=== PATIENT | female | born 1965 | race Caucasian/White ===

== ENCOUNTER 2016-10-28 17:18 | Emergency (ER) | payer OTHER ==
[~2016-10-28 17:18] MED LIST: /DULO30CA PO; /LOR25TA PO; CALCCHW12 PO; CLAR5CHW PO; DEPA500T PO; ESTR1TAB PO; LIPI10TA PO; PATA0.2S OU; PROG100C PO; PROP10TAB PO; SOMA350T PO; VESI5TAB PO; VOLT1GEL2 TD; vesicare PO
[2016-10-28] MEDS ORDERED: METOCLOPRAMIDE INJ 10MG/2ML VIAL (J2765) As Ordered ONE (19:42)
[2016-10-28] MEDS ORDERED: dexameTHASONE 4 MG/ML 1ML VIAL (J1100) As Ordered ONE (19:42)
[2016-10-28] MEDS ORDERED: diphenhydrAMINE INJ 50MG/ML VIAL (J1200) As Ordered ONE (19:42)
--- NOTE | 2016-10-28 22:44 | EDDOCDS ---
Physician Documentation [facility] Name: Betzy Alfaro Age: 50 yrs Sex: Female : 1965 Arrival Date: 10/28/2016 Time: 17:18 Bed I6 / 28 Private MD: RADHA MTZ Disposition: 10/28/16 22:25 Discharged to Home/Self Care. Impression: Migraine. - Condition is Stable. - Discharge Instructions: Migraine Headache. - Medication Reconciliation, Local Pharmacy Hours form. - Follow up: RADHA MTZ; When: 2 - 3 days; Reason: Recheck today's complaints, Continuance of care. - Problem is new. - Symptoms have improved. - Notes: FOLLOW UP WITH YOUR DOCTOR IN 2-3 DAYS, RETURN TO THE ER IF THE SYMPTOMS WORSEN OR BECOME CONCERNING Historical: - Allergies: Topamaxkidney stones; - Home Meds: 1. propranolol 120 mg Oral Cs24 1 cap once daily 2. loratadine 10 mg Oral tab 1 tab once daily 3. Soma 350 mg Oral tab 1 tab 3 times per day 4. med for restless leg nightly 5. Xanax 1 mg Oral tab nightly 6. Fish Oil Unknown Oral daily 7. calcium carbonate 600 mg (1,500 mg) oral tab daily 8. Vitamin D Unknown Oral daily 9. Prozac Unknown Oral 2 times per day 10. injections for chronic back pain 11. injections of Botox and steroids for migraines - missed injection - PMHx: Seasonal Allergies; Anxiety; Depression; restless leg syndrome; Chronic Back pain; - PSHx: Carpal Tunnel Repair- Bilateral; Cataract Surgery- Right; - Social history: Smoking status: Patient states was never smoker of tobacco. No barriers to communication noted, The patient speaks fluent Bhutanese. - Family history: Not pertinent. - : The pt / caregiver states he / she is not on anticoagulants. Home medication list is obtained from the patient. - Exposure Risk Screening:: None identified. PRINCIPAL ASSOCIATE: 10/28 17:40 LMP 09/16/2016 kcs Vital Signs: 17:20 BP 109 / 74; Pulse 82; Resp 16; Temp 97.3(O); Pulse Ox 100% ; Weight 72.57 kg / 159.99 cmb lbs; Height 5 ft. 4 in. (162.56 cm); Pain 8/10; 22:38 BP 121 / 75; Pulse 80; Resp 16; Temp 98.1; Pulse Ox 98% on R/A; Pain 4/10; lf1 17:20 Body Mass Index 27.46 (72.57 kg, 162.56 cm) cmb MDM: 19:26 Metoclopramide 10 mg IV at 40 mg/hr once over 15 mins ordered. ck7 19:26 diphenhydrAMINE 25 mg IVP once ordered. ck7 19:26 Dexamethasone 8 mg IV at bolus once ordered. ck7 19:26 IV Saline Lock ordered. ck7 19:26 NS 0.9% 1000 ml IV at bolus once ordered. ck7 20:25 [facility] [place] Payment Agreement was scanned into [employer] and attached to record. gjb 20:25 Financial registration complete. gjb Administered Medications: 19:44 Drug: NS 0.9% 1000 ml [sodium chloride 0.9 % intravenous solution] Route: IV; Rate: ms2 bolus; Site: left antecubital; 21:53 Follow up: IV Status: Completed infusion; IV Intake: 1000ml dsf 19:45 Drug: diphenhydrAMINE 25 mg [diphenhydramine 50 mg/mL injection solution (0.5 mL)] ms2 Route: IVP; Site: left antecubital; 19:48 Drug: Dexamethasone 8 mg [dexamethasone 4 mg/mL injection solution] Route: IV; Rate: ms2 bolus; Site: left antecubital; 19:50 Drug: Metoclopramide 10 mg [metoclopramide 5 mg/mL injection solution] Route: IV; Rate: ms2 40 mg/hr; Infused Over: 15 mins; Site: left antecubital; 21:13 Follow up: IV Status: Completed infusion; IV Intake: 50ml dsf Signatures: Valeria Constantino RN RN kcs Estephania Muñoz RN RN lf1 Panchito Wong RPA-C RPA-Cck7 Joi Richey Michele RN ms2 Jeannie Olvera RN dsf The chart was reviewed and I authenticate all verbal orders and agree with the evaluation and treatment provided.Attachments: 20:25 [facility] [place] Payment Agreement gjb MTDD
--- NOTE | 2016-10-28 22:44 | EDDOCDS ---
Nurse's Notes [facility] Name: Betzy Alfaro Age: 50 yrs Sex: Female : 1965 Arrival Date: 10/28/2016 Time: 17:18 Bed I6 / 28 Private MD: RADHA MTZ Diagnosis: Migraine Presentation: 10/28 17:35 Presenting complaint: Patient states: she has had a migraine for 3-4 days and just kcs can't get rid of it. This patient has no additional risk factors. Adult Sepsis Screening: The patient does not have new or worsening altered mentation. Patient's respiratory rate is less than 22. Systolic blood pressure is greater than 100. Patient has a qSOFA score of 0- Negative Sepsis Screen. Suicide/Homicide risk assessment- the patient denies having any suicidal and/or homicidal ideations and does not present with any other emotional, behavioral or mental health complaints. Status: Patient is not a financial services specialist or dependent. Transition of care: patient was not received from another setting of care. 17:35 Acuity: STEFANIE Level 4 kcs 17:35 Method Of Arrival: Walkin/Carried/Asstd kcs Triage Assessment: 17:40 Headache History: This patient has a history of headaches and the character of this kcs headache is like all previous headaches. General: Appears comfortable, well developed, well nourished, well groomed. Pain: Location: back of head and behind left eye Pain currently is 8 out of 10 on a pain scale. HIV screening NA for this visit Offered previously. Neurological: Level of Consciousness is awake, alert. Respiratory: Airway is patent Respiratory effort is even, unlabored, Respiratory pattern is regular, symmetrical. Derm: Skin is intact, is healthy with good turgor, Skin is dry, Skin is normal. 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 propranolol 120 mg Oral Cs24 1 cap once daily 2. loratadine 10 mg Oral tab 1 tab once daily 3. Soma 350 mg Oral tab 1 tab 3 times per day 4. med for restless leg nightly 5. Xanax 1 mg Oral tab nightly 6. Fish Oil Unknown Oral daily 7. calcium carbonate 600 mg (1,500 mg) oral tab daily 8. Vitamin D Unknown Oral daily 9. Prozac Unknown Oral 2 times per day 10. injections for chronic back pain 11. injections of Botox and steroids for migraines - missed September's injection - PMHx: Seasonal Allergies; Anxiety; Depression; restless leg syndrome; Chronic Back pain; - PSHx: Carpal Tunnel Repair- Bilateral; Cataract Surgery- Right; - Social history: Smoking status: Patient states was never smoker of tobacco. No barriers to communication noted, The patient speaks fluent Occitan. - Family history: Not pertinent. - : The pt / caregiver states he / she is not on anticoagulants. Home medication list is obtained from the patient. - Exposure Risk Screening:: None identified. Screenin:20 Infection Control. cmb 22:38 Screening information is obtained from the patient. Fall risk: No risks identified. lf1 Assistance ADL's: requires no assistance with activities of daily living. home support is adequate. Assessment: 19:45 General: Appears uncomfortable, Behavior is cooperative. Pain: Pain currently is 8 out ms2 of 10 on a pain scale. Neurological: Level of Consciousness is awake, alert, obeys commands. Respiratory: Airway is patent Respiratory effort is even, unlabored, Respiratory pattern is regular, symmetrical. Derm: Skin is pink, warm & dry. Musculoskeletal: Range of motion intact in all extremities. 21:13 Adult Sepsis Screening: The patient does not have new or worsening altered mentation. dsf Patient's respiratory rate is less than 22. Systolic blood pressure is greater than 100. Patient has a qSOFA score of 0- Negative Sepsis Screen. General: Appears in no apparent distress, Behavior is appropriate for age, cooperative. Pain: Location: head Pain currently is 6 out of 10 on a pain scale. Neurological: Level of Consciousness is awake, alert. Cardiovascular: No deficits noted. Respiratory: No deficits noted. Derm: Skin is pink, warm & dry. 21:53 General: Appears in no apparent distress, comfortable, Behavior is appropriate for age, dsf cooperative. Pain: Location: head Pain currently is 4 out of 10 on a pain scale. Neurological: Level of Consciousness is awake, alert, obeys commands. Cardiovascular: Capillary refill < 3 seconds. Respiratory: Airway is patent Respiratory effort is even, unlabored, Respiratory pattern is regular, symmetrical. Derm: Skin is pink, warm & dry. 22:38 General: Appears in no apparent distress, comfortable, Behavior is cooperative. Pain: lf1 Location: left eye Pain currently is 4 out of 10 on a pain scale. Neurological: Level of Consciousness is awake, alert, Oriented to person, place, time. EENT: Reports headache that is concentrated behind left eye. Respiratory: Respiratory effort is even, unlabored. GI: Denies nausea, vomiting. Derm: Skin is. Vital Signs: 17:20 BP 109 / 74; Pulse 82; Resp 16; Temp 97.3(O); Pulse Ox 100% ; Weight 72.57 kg; Height 5 cmb ft. 4 in. (162.56 cm); Pain 8/10; 22:38 BP 121 / 75; Pulse 80; Resp 16; Temp 98.1; Pulse Ox 98% on R/A; Pain 4/10; lf1 17:20 Body Mass Index 27.46 (72.57 kg, 162.56 cm) cmb Vitals: 17:20 Log In Time: October 28, 2016 at 17:18. cmb ED Course: 17:19 Patient visited by Meceh Hill. cmb 17:19 RADHA MTZ is Private Physician. cmb 17:19 Patient moved to Waiting cmb 17:23 Patient moved to Pre RCE cmb 17:35 Triage Initiated kcs 18:44 Patient moved to Triage 3 jrd 18:45 Patient moved to Pre RCE rs3 19:00 Patient moved to Triage 1 sew 19:02 [facility] ck7 19:02 Deion Carr DO is Attending Physician. ck7 19:02 Patient visited by Panchito Wong RPA-C. ck7 19:33 Patient moved to I6 / 28 ld5 19:45 Inserted peripheral IV: 20gauge IV in left antecubital area Patient tolerated the ms2 procedure well. No procedures done that require assistance. 19:48 Patient visited by Panchito Wong RPA-C. ck7 19:57 Patient visited by Demetrio Foreman RN. ms2 19:58 The patient / caregiver is instructed regarding the plan of care and ED course. ms2 20:25 [facility] [place] was scanned into [employer] and attached to record. gjb 20:56 Patient visited by Panchtio Wong RPA-C. ck7 21:14 Patient visited by Jeannie Olvera RN. dsf 21:54 Patient visited by Jeannie Olvera RN. dsf 22:25 Patient visited by Panchito Wong RPA-C. ck7 22:25 RADHA MTZ is Referral Physician. ck7 22:38 Discontinued IV lock intact, bleeding controlled, pressure dressing applied, No lf1 redness/swelling at site. Administered Medications: 19:44 Drug: NS 0.9% 1000 ml [sodium chloride 0.9 % intravenous solution] Route: IV; Rate: ms2 bolus; Site: left antecubital; 21:53 Follow up: IV Status: Completed infusion; IV Intake: 1000ml dsf 19:45 Drug: diphenhydrAMINE 25 mg [diphenhydramine 50 mg/mL injection solution (0.5 mL)] ms2 Route: IVP; Site: left antecubital; 19:48 Drug: Dexamethasone 8 mg [dexamethasone 4 mg/mL injection solution] Route: IV; Rate: ms2 bolus; Site: left antecubital; 19:50 Drug: Metoclopramide 10 mg [metoclopramide 5 mg/mL injection solution] Route: IV; Rate: ms2 40 mg/hr; Infused Over: 15 mins; Site: left antecubital; 21:13 Follow up: IV Status: Completed infusion; IV Intake: 50ml dsf Intake: 21:13 IV: 50.00ml; Total: 50.00ml. dsf 21:53 IV: 1000.00ml; Total: 1050.00ml. dsf Order Results: There are currently no results for this order. Outcome: 22:25 Discharge ordered by Provider. ck7 22:38 Discharge Assessment: Patient awake, alert and oriented x 3. No cognitive and/or lf1 functional deficits noted. Patient verbalized understanding of disposition instructions. Patient awake and alert. Oriented to person, place and time. Patient verbalized understanding of disposition instructions. Patient has no functional deficits. patient administered narcotics - no. The following High Risk Discharge criteria are identified: None. Discharged to home ambulatory. Condition: improved. Discharge instructions given to patient, Instructed on discharge instructions, follow up and referral plans. Demonstrated understanding of instructions, Pt was receptive of discharge instructions/ teaching. No special radiology studies were completed. 22:43 Patient left the ED. lf1 Signatures: Valeria Constantino, RN RN kcs Demetrio Foreman RN RN ms2 Estephania Muñoz RN RN lf1 Stephanie Kenny RN RN rs3 Estelle Spivey RN RN ld5 Jeannie Olvera RN RN dsf Meche Hill cmb Panchito Wong, RPA-C RPA-Cck7 Laney Love Joseph, [employer] jrd Joi Richey Corrections: (The following items were deleted from the chart) 17:23 17:20 Resp 16bpm; Temp 97.3F Oral; 72.57 kg; Height 5 ft. 4 in.; BMI: 27.4; Pain 8/10; cmb cmb MTDD
--- NOTE | 2016-10-30 23:45 | EDDOCDS ---
Nurse's Notes [facility] Name: Betzy Alfaro Age: 50 yrs Sex: Female : 1965 Arrival Date: 10/28/2016 Time: 17:18 Bed I6 / 28 Private MD: RADHA MTZ Diagnosis: Migraine Presentation: 10/28 17:35 Presenting complaint: Patient states: she has had a migraine for 3-4 days and just kcs can't get rid of it. This patient has no additional risk factors. Adult Sepsis Screening: The patient does not have new or worsening altered mentation. Patient's respiratory rate is less than 22. Systolic blood pressure is greater than 100. Patient has a qSOFA score of 0- Negative Sepsis Screen. Suicide/Homicide risk assessment- the patient denies having any suicidal and/or homicidal ideations and does not present with any other emotional, behavioral or mental health complaints. Status: Patient is not a neighborhood service center director or dependent. Transition of care: patient was not received from another setting of care. 17:35 Acuity: STEFANIE Level 4 kcs 17:35 Method Of Arrival: Walkin/Carried/Asstd kcs Triage Assessment: 17:40 Headache History: This patient has a history of headaches and the character of this kcs headache is like all previous headaches. General: Appears comfortable, well developed, well nourished, well groomed. Pain: Location: back of head and behind left eye Pain currently is 8 out of 10 on a pain scale. HIV screening NA for this visit Offered previously. Neurological: Level of Consciousness is awake, alert. Respiratory: Airway is patent Respiratory effort is even, unlabored, Respiratory pattern is regular, symmetrical. Derm: Skin is intact, is healthy with good turgor, Skin is dry, Skin is normal. 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 propranolol 120 mg Oral Cs24 1 cap once daily 2. loratadine 10 mg Oral tab 1 tab once daily 3. Soma 350 mg Oral tab 1 tab 3 times per day 4. med for restless leg nightly 5. Xanax 1 mg Oral tab nightly 6. Fish Oil Unknown Oral daily 7. calcium carbonate 600 mg (1,500 mg) oral tab daily 8. Vitamin D Unknown Oral daily 9. Prozac Unknown Oral 2 times per day 10. injections for chronic back pain 11. injections of Botox and steroids for migraines - missed September's injection - PMHx: Seasonal Allergies; Anxiety; Depression; restless leg syndrome; Chronic Back pain; - PSHx: Carpal Tunnel Repair- Bilateral; Cataract Surgery- Right; - Social history: Smoking status: Patient states was never smoker of tobacco. No barriers to communication noted, The patient speaks fluent Spanish. - Family history: Not pertinent. - : The pt / caregiver states he / she is not on anticoagulants. Home medication list is obtained from the patient. - Exposure Risk Screening:: None identified. Screenin:20 Infection Control. cmb 22:38 Screening information is obtained from the patient. Fall risk: No risks identified. lf1 Assistance ADL's: requires no assistance with activities of daily living. home support is adequate. Assessment: 19:45 General: Appears uncomfortable, Behavior is cooperative. Pain: Pain currently is 8 out ms2 of 10 on a pain scale. Neurological: Level of Consciousness is awake, alert, obeys commands. Respiratory: Airway is patent Respiratory effort is even, unlabored, Respiratory pattern is regular, symmetrical. Derm: Skin is pink, warm & dry. Musculoskeletal: Range of motion intact in all extremities. 21:13 Adult Sepsis Screening: The patient does not have new or worsening altered mentation. dsf Patient's respiratory rate is less than 22. Systolic blood pressure is greater than 100. Patient has a qSOFA score of 0- Negative Sepsis Screen. General: Appears in no apparent distress, Behavior is appropriate for age, cooperative. Pain: Location: head Pain currently is 6 out of 10 on a pain scale. Neurological: Level of Consciousness is awake, alert. Cardiovascular: No deficits noted. Respiratory: No deficits noted. Derm: Skin is pink, warm & dry. 21:53 General: Appears in no apparent distress, comfortable, Behavior is appropriate for age, dsf cooperative. Pain: Location: head Pain currently is 4 out of 10 on a pain scale. Neurological: Level of Consciousness is awake, alert, obeys commands. Cardiovascular: Capillary refill < 3 seconds. Respiratory: Airway is patent Respiratory effort is even, unlabored, Respiratory pattern is regular, symmetrical. Derm: Skin is pink, warm & dry. 22:38 General: Appears in no apparent distress, comfortable, Behavior is cooperative. Pain: lf1 Location: left eye Pain currently is 4 out of 10 on a pain scale. Neurological: Level of Consciousness is awake, alert, Oriented to person, place, time. EENT: Reports headache that is concentrated behind left eye. Respiratory: Respiratory effort is even, unlabored. GI: Denies nausea, vomiting. Derm: Skin is. Vital Signs: 17:20 BP 109 / 74; Pulse 82; Resp 16; Temp 97.3(O); Pulse Ox 100% ; Weight 72.57 kg; Height 5 cmb ft. 4 in. (162.56 cm); Pain 8/10; 22:38 BP 121 / 75; Pulse 80; Resp 16; Temp 98.1; Pulse Ox 98% on R/A; Pain 4/10; lf1 17:20 Body Mass Index 27.46 (72.57 kg, 162.56 cm) cmb Vitals: 17:20 Log In Time: October 28, 2016 at 17:18. cmb ED Course: 17:19 Patient visited by Meche Hill. cmb 17:19 RADHA MTZ is Private Physician. cmb 17:19 Patient moved to Waiting cmb 17:23 Patient moved to Pre RCE cmb 17:35 Triage Initiated kcs 18:44 Patient moved to Triage 3 jrd 18:45 Patient moved to Pre RCE rs3 19:00 Patient moved to Triage 1 sew 19:02 Panchito Wong RPA-C [facility] ck7 19:02 Deion Carr DO is Attending Physician. ck7 19:02 Patient visited by Panchito Wong RPA-C. ck7 19:33 Patient moved to I6 / 28 ld5 19:45 Inserted peripheral IV: 20gauge IV in left antecubital area Patient tolerated the ms2 procedure well. No procedures done that require assistance. 19:48 Patient visited by Panchito Wong RPA-C. ck7 19:57 Patient visited by Demetrio Foreman RN. ms2 19:58 The patient / caregiver is instructed regarding the plan of care and ED course. ms2 20:25 [facility] [place] Payment Agreement was scanned into [email or web address] and attached to record. gjb 20:56 Patient visited by Panchito Wong RPA-C. ck7 21:14 Patient visited by Jeannie Olvera RN. dsf 21:54 Patient visited by Jeannie Olvera RN. dsf 22:25 Patient visited by Panchito Wong RPA-C. ck7 22:25 RADHA MTZ is Referral Physician. ck7 22:38 Discontinued IV lock intact, bleeding controlled, pressure dressing applied, No lf1 redness/swelling at site. 10/29 11:49 T-Sheet-- Draft Copy was scanned into [email or web address] and attached to record. gb Administered Medications: 10/28 19:44 Drug: NS 0.9% 1000 ml [sodium chloride 0.9 % intravenous solution] Route: IV; Rate: ms2 bolus; Site: left antecubital; 21:53 Follow up: IV Status: Completed infusion; IV Intake: 1000ml dsf 19:45 Drug: diphenhydrAMINE 25 mg [diphenhydramine 50 mg/mL injection solution (0.5 mL)] ms2 Route: IVP; Site: left antecubital; 19:48 Drug: Dexamethasone 8 mg [dexamethasone 4 mg/mL injection solution] Route: IV; Rate: ms2 bolus; Site: left antecubital; 19:50 Drug: Metoclopramide 10 mg [metoclopramide 5 mg/mL injection solution] Route: IV; Rate: ms2 40 mg/hr; Infused Over: 15 mins; Site: left antecubital; 21:13 Follow up: IV Status: Completed infusion; IV Intake: 50ml dsf Intake: 21:13 IV: 50.00ml; Total: 50.00ml. dsf 21:53 IV: 1000.00ml; Total: 1050.00ml. dsf Order Results: There are currently no results for this order. Outcome: 22:25 Discharge ordered by Provider. ck7 22:38 Discharge Assessment: Patient awake, alert and oriented x 3. No cognitive and/or lf1 functional deficits noted. Patient verbalized understanding of disposition instructions. Patient awake and alert. Oriented to person, place and time. Patient verbalized understanding of disposition instructions. Patient has no functional deficits. patient administered narcotics - no. The following High Risk Discharge criteria are identified: None. Discharged to home ambulatory. Condition: improved. Discharge instructions given to patient, Instructed on discharge instructions, follow up and referral plans. Demonstrated understanding of instructions, Pt was receptive of discharge instructions/ teaching. No special radiology studies were completed. 22:43 Patient left the ED. lf1 Signatures: Valeria Constantino, RN RN kcs Demetrio Foreman RN RN ms2 Kristan Damon, Reg Reg gb Estephania Muñoz RN RN lf1 Stephanie KennyRN RN rs3 Estelle SpiveyRN RN ld5 Jeannie Olvera RN RN dsf Meche Hill cmb Panchito Wong, RPA-C RPA-Cck7 Laney Love Joseph, PCA [employer] F[employer]ING SUPERVISOR d Joi Richey Corrections: (The following items were deleted from the chart) 17:23 17:20 Resp 16bpm; Temp 97.3F Oral; 72.57 kg; Height 5 ft. 4 in.; BMI: 27.4; Pain 8/10; cmb cmb Chart Complete MTDD
--- NOTE | 2016-10-30 23:45 | EDDOCDS ---
Physician Documentation [facility] Name: Betzy Alfaro Age: 50 yrs Sex: Female : 1965 Arrival Date: 10/28/2016 Time: 17:18 Bed I6 / 28 Private MD: RADHA MTZ Disposition: 10/28/16 22:25 Discharged to Home/Self Care. Impression: Migraine. - Condition is Stable. - Discharge Instructions: Migraine Headache. - Medication Reconciliation, Local Pharmacy Hours form. - Follow up: RADHA MTZ; When: 2 - 3 days; Reason: Recheck today's complaints, Continuance of care. - Problem is new. - Symptoms have improved. - Notes: FOLLOW UP WITH YOUR DOCTOR IN 2-3 DAYS, RETURN TO THE ER IF THE SYMPTOMS WORSEN OR BECOME CONCERNING Historical: - Allergies: Topamaxkidney stones; - Home Meds: 1. propranolol 120 mg Oral Cs24 1 cap once daily 2. loratadine 10 mg Oral tab 1 tab once daily 3. Soma 350 mg Oral tab 1 tab 3 times per day 4. med for restless leg nightly 5. Xanax 1 mg Oral tab nightly 6. Fish Oil Unknown Oral daily 7. calcium carbonate 600 mg (1,500 mg) oral tab daily 8. Vitamin D Unknown Oral daily 9. Prozac Unknown Oral 2 times per day 10. injections for chronic back pain 11. injections of Botox and steroids for migraines - missed injection - PMHx: Seasonal Allergies; Anxiety; Depression; restless leg syndrome; Chronic Back pain; - PSHx: Carpal Tunnel Repair- Bilateral; Cataract Surgery- Right; - Social history: Smoking status: Patient states was never smoker of tobacco. No barriers to communication noted, The patient speaks fluent German. - Family history: Not pertinent. - : The pt / caregiver states he / she is not on anticoagulants. Home medication list is obtained from the patient. - Exposure Risk Screening:: None identified. 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 4 in. (162.56 cm); Pain 8/10; 22:38 BP 121 / 75; Pulse 80; Resp 16; Temp 98.1; Pulse Ox 98% on R/A; Pain 4/10; lf1 17:20 Body Mass Index 27.46 (72.57 kg, 162.56 cm) cmb MDM: 19:26 Metoclopramide 10 mg IV at 40 mg/hr once over 15 mins ordered. ck7 19:26 diphenhydrAMINE 25 mg IVP once ordered. ck7 19:26 Dexamethasone 8 mg IV at bolus once ordered. ck7 19:26 IV Saline Lock ordered. ck7 19:26 NS 0.9% 1000 ml IV at bolus once ordered. ck7 20:25 [facility] Payment Agreement was scanned into [employer] and attached to record. [facility] 20:25 Financial registration complete. [facility] 10/29 11:49 T-Sheet-- Draft Copy was scanned into [employer] and attached to record. gb Administered Medications: 10/28 19:44 Drug: NS 0.9% 1000 ml [sodium chloride 0.9 % intravenous solution] Route: IV; Rate: ms2 bolus; Site: left antecubital; 21:53 Follow up: IV Status: Completed infusion; IV Intake: 1000ml dsf 19:45 Drug: diphenhydrAMINE 25 mg [diphenhydramine 50 mg/mL injection solution (0.5 mL)] ms2 Route: IVP; Site: left antecubital; 19:48 Drug: Dexamethasone 8 mg [dexamethasone 4 mg/mL injection solution] Route: IV; Rate: ms2 bolus; Site: left antecubital; 19:50 Drug: Metoclopramide 10 mg [metoclopramide 5 mg/mL injection solution] Route: IV; Rate: ms2 40 mg/hr; Infused Over: 15 mins; Site: left antecubital; 21:13 Follow up: IV Status: Completed infusion; IV Intake: 50ml dsf Signatures: Valeria Constantino, RN RN Kristan Chandra, Ruslan Reg Estephania Rose RN RN lf1 Panchito Wong, RANDYC RPA-[id number] Joi Richeyb Demetrio Foreman RN ms2 Jeannie Olvera RN dsf The chart was reviewed and I authenticate all verbal orders and agree with the evaluation and treatment provided.Attachments: 20:25 [facility] Payment Agreement gjb 10/29 11:49 T-Sheet-- Draft Copy gb Chart Complete MTDD
--- NOTE | 2016-10-30 23:45 | EDDOCDS ---
Physician Documentation [facility] Name: Betzy Alfaro Age: 50 yrs Sex: Female : 1965 Arrival Date: 10/28/2016 Time: 17:18 Bed I6 / 28 Private MD: RADHA MTZ Disposition: 10/28/16 22:25 Discharged to Home/Self Care. Impression: Migraine. - Condition is Stable. - Discharge Instructions: Migraine Headache. - Medication Reconciliation, Local Pharmacy Hours form. - Follow up: RADHA MTZ; When: 2 - 3 days; Reason: Recheck today's complaints, Continuance of care. - Problem is new. - Symptoms have improved. - Notes: FOLLOW UP WITH YOUR DOCTOR IN 2-3 DAYS, RETURN TO THE ER IF THE SYMPTOMS WORSEN OR BECOME CONCERNING Historical: - Allergies: Topamaxkidney stones; - Home Meds: 1. propranolol 120 mg Oral Cs24 1 cap once daily 2. loratadine 10 mg Oral tab 1 tab once daily 3. Soma 350 mg Oral tab 1 tab 3 times per day 4. med for restless leg nightly 5. Xanax 1 mg Oral tab nightly 6. Fish Oil Unknown Oral daily 7. calcium carbonate 600 mg (1,500 mg) oral tab daily 8. Vitamin D Unknown Oral daily 9. Prozac Unknown Oral 2 times per day 10. injections for chronic back pain 11. injections of Botox and steroids for migraines - missed injection - PMHx: Seasonal Allergies; Anxiety; Depression; restless leg syndrome; Chronic Back pain; - PSHx: Carpal Tunnel Repair- Bilateral; Cataract Surgery- Right; - Social history: Smoking status: Patient states was never smoker of tobacco. No barriers to communication noted, The patient speaks fluent Egyptian. - Family history: Not pertinent. - : The pt / caregiver states he / she is not on anticoagulants. Home medication list is obtained from the patient. - Exposure Risk Screening:: None identified. 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 4 in. (162.56 cm); Pain 8/10; 22:38 BP 121 / 75; Pulse 80; Resp 16; Temp 98.1; Pulse Ox 98% on R/A; Pain 4/10; lf1 17:20 Body Mass Index 27.46 (72.57 kg, 162.56 cm) cmb MDM: 19:26 Metoclopramide 10 mg IV at 40 mg/hr once over 15 mins ordered. ck7 19:26 diphenhydrAMINE 25 mg IVP once ordered. ck7 19:26 Dexamethasone 8 mg IV at bolus once ordered. ck7 19:26 IV Saline Lock ordered. ck7 19:26 NS 0.9% 1000 ml IV at bolus once ordered. ck7 20:25 [facility] Payment Agreement was scanned into [employer] and attached to record. [facility] 20:25 Financial registration complete. [facility] 10/29 11:49 T-Sheet-- Draft Copy was scanned into [employer] and attached to record. gb Administered Medications: 10/28 19:44 Drug: NS 0.9% 1000 ml [sodium chloride 0.9 % intravenous solution] Route: IV; Rate: ms2 bolus; Site: left antecubital; 21:53 Follow up: IV Status: Completed infusion; IV Intake: 1000ml dsf 19:45 Drug: diphenhydrAMINE 25 mg [diphenhydramine 50 mg/mL injection solution (0.5 mL)] ms2 Route: IVP; Site: left antecubital; 19:48 Drug: Dexamethasone 8 mg [dexamethasone 4 mg/mL injection solution] Route: IV; Rate: ms2 bolus; Site: left antecubital; 19:50 Drug: Metoclopramide 10 mg [metoclopramide 5 mg/mL injection solution] Route: IV; Rate: ms2 40 mg/hr; Infused Over: 15 mins; Site: left antecubital; 21:13 Follow up: IV Status: Completed infusion; IV Intake: 50ml dsf Signatures: Valeria Constantino, RN RN Kristan Chanrda, Ruslan Reg Estephania Rose RN RN lf1 Panchito Wong, RANDYC RPA-Cck7 Joi Richeyb Demetrio Foreman RN ms2 Jeannie Olvera RN dsf The chart was reviewed and I authenticate all verbal orders and agree with the evaluation and treatment provided.Attachments: 20:25 [facility] Payment Agreement gjb 10/29 11:49 T-Sheet-- Draft Copy gb Chart Complete MTDD
== END 2016-10-28 22:43 | disposition home or self-care (01) ==
LOC: M ED 17:18
DX: G43.909 Migraine, unspecified, not intractable, without status migrainosus (principal); F41.9 Anxiety disorder, unspecified; F32.9 Major depressive disorder, single episode, unspecified; M54.9 Dorsalgia, unspecified; G25.81 Restless legs syndrome; J30.2 Other seasonal allergic rhinitis; Z79.899 Other long term (current) drug therapy; Z88.8 Allergy status to other drugs, medicaments and biological substances
CPT/HCPCS: 96361; 96365; 96375; 99283; J1100; J1200; J2765

== ENCOUNTER → 2016-12-06 | Outpatient (REF) | payer OTHER | LOC: M LABNEURO 11:33 | PROVIDERS: ATTEND Physician Assistant Medical | DX: E55.9 Vitamin D deficiency, unspecified (principal) ==

== ENCOUNTER 2017-05-06 12:01 | Emergency (ER) | payer MEDICAID, OTHER ==
[~2017-05-06] VITALS: Ht 162.6 cm; Wt 99.7 kg
[2017-05-06] MEDS ORDERED: LEVO50TA5 (12:13)
[2017-05-06] MEDS ORDERED: OXYB15TA PO (12:13)
[2017-05-06] MEDS ORDERED: RIZA10TA4 PO (12:13)
[2017-05-06] MEDS ORDERED: ROPI0.5T PO (12:13)
[2017-05-06] MEDS ORDERED: FERR1TAB8 (12:13)
[2017-05-06] MEDS ORDERED: BRIN1TAB PO (12:13)
[2017-05-06] MEDS ORDERED: KETOROLAC 30 MG/ML VIAL (J1885) IV ONE (12:45)
[2017-05-06] MEDS ORDERED: ONDANSETRON 4MG/2ML VIAL (J2405) IV ONE (12:45)
[2017-05-06] MEDS ORDERED: NS 1,000 ML IV ONE (12:45)
[2017-05-06 13:00] LABS: BASO % 0.7 % (0.0-1.0); EOS # 0.2 K/mm3 (0.0-0.50); EOS % 2.6 % (0.0-3.0); LARGE UNSTAINED CELL # 0.1 K/mm3 (0.0-0.4); LARGE UNSTAINED CELL % 1.5 % (0.0-4.0); LYMPH # 2.5 K/mm3 (1.5-4.5); LYMPH % 36.8 % (24.0-44.0); MEAN CORPUSCULAR HEMOGLOBIN 31.6 pg (27.0-33.0); MEAN CORPUSCULAR HGB CONC 35.2 g/dl (32.0-36.5); MEAN CORPUSCULAR VOLUME 89.6 fl (80.0-96.0); MONO # 0.3 K/mm3 (0.0-0.8); MONO % 4.6 % (0.0-5.0); NEUTROPHILS # 3.6 K/mm3 (1.8-7.7); NEUTROPHILS % 53.8 % (36.0-66.0); PLATELET COUNT, AUTOMATED 253 k/mm3 (150-450); RED CELL DISTRIBUTION WIDTH 12.6 % (11.5-14.5); WHITE BLOOD COUNT 6.6 K/mm3 (4.0-10.0)
[2017-05-06 13:21] LABS: ALBUMIN 3.9 GM/DL (3.2-5.2); ALBUMIN/GLOBULIN RATIO 0.98 (1.00-1.93); ALKALINE PHOSPHATASE 72 U/L (45-117); ALT/SGPT 27 U/L (12-78); AMYLASE 48 U/L (25-115); ANION GAP 8 MEQ/L (8-16); AST/SGOT 16 U/L (15-37); BILIRUBIN,DIRECT 0.2 MG/DL (0.0-0.2); BILIRUBIN,TOTAL 0.7 MG/DL (0.2-1.0); BLOOD UREA NITROGEN 9 MG/DL (7-18); CALCIUM LEVEL 9.5 MG/DL (8.5-10.1); CARBON DIOXIDE LEVEL 27 MEQ/L (21-32); CHLORIDE LEVEL 106 MEQ/L (98-107); CREATININE FOR GFR 0.76 MG/DL (0.55-1.02); GLOMERULAR FILTRATION RATE > 60.0 (>58); GLUCOSE, FASTING 95 MG/DL (70-105); POTASSIUM SERUM 3.8 MEQ/L (3.5-5.1); SODIUM LEVEL 141 MEQ/L (136-145); TOTAL PROTEIN 7.9 GM/DL (6.4-8.2)
[2017-05-06] MEDS ORDERED: ZOFR4TAB3 PO (13:41)
[2017-05-06 13:52] VITALS: BP 131/68
== END 2017-05-06 13:58 | disposition home or self-care (01) ==
LOC: M ED 12:01
DX: R11.2 Nausea with vomiting, unspecified (principal); R19.7 Diarrhea, unspecified; I10 Essential (primary) hypertension; G89.29 Other chronic pain; F99 Mental disorder, not otherwise specified; Z79.899 Other long term (current) drug therapy; Z88.8 Allergy status to other drugs, medicaments and biological substances
CPT/HCPCS: 80048; 80076; 81001; 82150; 83690; 85025; 96361; 96374; 96375; 99283; J1885; J2405

== ENCOUNTER → 2017-06-23 | Outpatient (REF) | payer OTHER ==
[~2017-06-23] MED LIST changes: +BRIN1TAB PO; +CALC600T7 PO; +FERR1TAB8; +FERR1TAB8 PO; +FISHCAP5 PO; +FLUO20CA19 PO; +GABA600T PO; +IBUP80TA PO; +LEVO50TA5; +LIDO5TD TD; +OXYB15TA PO; +PROP120C PO; +PROZ20CA11 PO; +RIZA10TA4 PO; +ROPI0.5T PO; +SYNT50TA PO; +TRAZO50TA PO; +ZALE10CA PO; +ZOFR4TAB3 PO
[2017-06-23 13:19] LABS: MEAN CORPUSCULAR VOLUME 88.7 fl (80.0-96.0); RED CELL DISTRIBUTION WIDTH 12.3 % (11.5-14.5)
[2017-06-23 13:55] LABS: ALBUMIN 3.6 GM/DL (3.2-5.2); ALBUMIN/GLOBULIN RATIO 0.97 (1.00-1.93); ALKALINE PHOSPHATASE 73 U/L (45-117); ALT/SGPT 27 U/L (12-78); ANION GAP 13 MEQ/L (8-16); AST/SGOT 18 U/L (15-37); BILIRUBIN,TOTAL 0.4 MG/DL (0.2-1.0); BLOOD UREA NITROGEN 10 MG/DL (7-18); CALCIUM LEVEL 9.2 MG/DL (8.5-10.1); CARBON DIOXIDE LEVEL 22 MEQ/L (21-32); CHLORIDE LEVEL 110 MEQ/L (98-107); CHOLESTEROL LEVEL 223 MG/DL (<200); CREATININE FOR GFR 0.65 MG/DL (0.55-1.02); FREE T4 0.99 NG/DL (0.76-1.46); GLOMERULAR FILTRATION RATE > 60.0 (>58); GLUCOSE, FASTING 96 MG/DL (70-105); POTASSIUM SERUM 4.3 MEQ/L (3.5-5.1); SODIUM LEVEL 145 MEQ/L (136-145); TOTAL PROTEIN 7.3 GM/DL (6.4-8.2); TRIGLYCERIDES LEVEL 99 MG/DL (<150)
== END ==
LOC: M SFHCPLAZ 09:24
PROVIDERS: ATTEND Nurse Practitioner Family
DX: D64.9 Anemia, unspecified (principal); E78.5 Hyperlipidemia, unspecified; E03.9 Hypothyroidism, unspecified; E55.9 Vitamin D deficiency, unspecified

== ENCOUNTER 2017-08-06 13:45 | Inpatient (IN) | payer OTHER ==
[~2017-08-06] VITALS: Ht 162.6 cm; Wt 95.5 kg
[~2017-08-06 13:45] MED LIST changes: -CALC600T7 PO; -FERR1TAB8 PO; -FISHCAP5 PO; -FLUO20CA19 PO; -GABA600T PO; -IBUP80TA PO; -LIDO5TD TD; -PROP120C PO; -PROZ20CA11 PO; -SYNT50TA PO; -TRAZO50TA PO; -ZALE10CA PO
[2017-08-06 14:44] LABS: MEAN CORPUSCULAR HEMOGLOBIN 29.9 pg (27.0-33.0); MEAN CORPUSCULAR VOLUME 85.4 fl (80.0-96.0); PLATELET COUNT, AUTOMATED 268 10^3/uL (150-450); RED CELL DISTRIBUTION WIDTH 12.3 % (11.5-14.5); WHITE BLOOD COUNT 8.3 10^3/uL (4.0-10.0)
[2017-08-06 14:58] LABS: CONTROL LINE HCG INT CTR LINE PRESENT
[2017-08-06 15:01] LABS: METHADONE URINE NEGATIVE (NEGATIVE)
[2017-08-06 15:13] LABS: ALBUMIN/GLOBULIN RATIO 1.11 (1.00-1.93); ALKALINE PHOSPHATASE 85 U/L (45-117); ALT/SGPT 31 U/L (12-78); ANION GAP 9 MEQ/L (8-16); AST/SGOT 19 U/L (15-37); BILIRUBIN,DIRECT 0.2 MG/DL (0.0-0.2); BILIRUBIN,TOTAL 0.8 MG/DL (0.2-1.0); BLOOD UREA NITROGEN 11 MG/DL (7-18); CALCIUM LEVEL 9.2 MG/DL (8.5-10.1); CARBON DIOXIDE LEVEL 21 MEQ/L (21-32); CHLORIDE LEVEL 110 MEQ/L (98-107); CREATININE FOR GFR 0.69 MG/DL (0.55-1.02); GLOMERULAR FILTRATION RATE > 60.0 (>58); GLUCOSE, FASTING 96 MG/DL (70-105); POTASSIUM SERUM 4.2 MEQ/L (3.5-5.1); SODIUM LEVEL 140 MEQ/L (136-145); TOTAL PROTEIN 7.6 GM/DL (6.4-8.2)
[2017-08-06] MEDS ORDERED: ONDANSETRON 4 MG ORAL DISINTEGRATING TAB (S0181) PO ONE (16:45)
[2017-08-06] MEDS ORDERED: ACETAMINOPHEN TAB 650MG DOSE (2X325MG) PO ONE (20:00)
[2017-08-07] MEDS ORDERED: ONDANSETRON 4 MG TAB (S0181) PO PRN (02:30)
[2017-08-07] MEDS ORDERED: MAALOX 30 ML SUSP *UDC PO PRN (02:30)
[2017-08-07] MEDS ORDERED: MOM 30ML SUSPENSION UDC PO PRN (02:30)
[2017-08-07] MEDS ORDERED: ACETAMINOPHEN TAB 650MG DOSE (2X325MG) PO PRN (02:30)
[2017-08-07] MEDS ORDERED: traZODone 50 MG TAB PO PRN (02:30)
[2017-08-07] MEDS ORDERED: LORazepam 1 MG TAB PO PRN (02:30)
[2017-08-07 03:17] VITALS: BP 134/89
[2017-08-07] MEDS ORDERED: FISHCAP5 PO (03:55)
[2017-08-07] MEDS ORDERED: CALC600T7 PO (03:55)
[2017-08-07] MEDS ORDERED: FERR1TAB8 PO (03:57)
[2017-08-07] MEDS ORDERED: SYNT50TA PO (03:59)
[2017-08-07] MEDS ORDERED: ZOFR4TAB3 PO (04:01)
[2017-08-07] MEDS ORDERED: PROP120C PO (04:01)
[2017-08-07] MEDS ORDERED: ZALE10CA PO (04:06)
[2017-08-07] MEDS ORDERED: IBUP80TA PO (04:06)
[2017-08-07] MEDS ORDERED: GABA600T PO (04:06)
[2017-08-07] MEDS ORDERED: PROZ20CA11 PO (04:06)
[2017-08-07] MEDS ORDERED: ONDANSETRON 4 MG ORAL DISINTEGRATING TAB (S0181) PO PRN (04:45)
[2017-08-07] MEDS ORDERED: PROPRANOLOL 20 MG TAB PO SCH (09:00)
[2017-08-07] MEDS: PROPRANOLOL 60 MG LA CAP PO SCH (09:19)
[2017-08-07] MEDS: CALCIUM/VITAMIN D 500 MG TAB PO SCH ×2 (09:19→21:49)
[2017-08-07] MEDS ORDERED: FLUoxetine 20 MG CAP PO ONE (15:00)
[2017-08-07 18:00] VITALS: BP 116/62
--- NOTE | 2017-08-07 18:24 | MHHPE ---
DATE OF ADMISSION: 08/07/2017 CHIEF COMPLAINT: Feels depressed. SUBJECTIVE: She is 51 years old, she is , has no children, says has a stepson, but she is not in much contact with him. She has been feeling depressed for the last 3 years or so, ever since her , but suggests things have worsened over the last few months. She has been seeing Dr. Contreras in the past, during these last couple of years, and he has been treating her with Prozac at 60 mg daily, which she was on, but then says for some reason stopped taking it, had not been using it regularly, this was at some point earlier this year, though time frames are a bit vague, and then she resumed seeing him more recently, within the last month or so, he has put her back on Prozac at 60 mg, but she takes it irregularly. It should also be noted she had gone to the outpatient clinic at [facility] on a couple of occasions this summer, which she is not sure why she had done that, other than she was transferring primary care to that area. She says she last saw Dr. Contreras earlier this month. She has been feeling depressed, increasingly so over the last few months, cries a lot, at times feels hopeless, despondent, has passive suicidal thoughts, denies that she has ever felt actively suicidal, has never attempted it either. Says has generally helped others, has had a hard time saying no to others, including the person who stays in the apartment above her, she says she thought that they were friends, but that the lady has become more demanding of the patient, the patient has not been able to say no to her, other than on a couple of occasions, including with transportation. She says this became more intense recently when the neighbor was hospitalized, the patient tended to stay at the neighbor's apartment, at the request of the neighbor, says was looking after the neighbor's pet, and not using her own continuous positive airway pressure (CPAP) machine when she was there. She brought the neighbor home from the hospital 2 days ago, apparently the neighbor has had difficulties with mobility, and has expected that the patient look after her, she feels this had become "too much" for her, in addition to the distress that she has already felt, and she brought herself to the hospital. She also says she is not sure whether her neighbor actually demands or expects help, but that this is the patient's perception. She says she has generally looked after others, rather than herself. There is some anhedonia, has had a hard time concentrating, or reading, she has liked reading in the past. Denies she has come close to taking her life, says would not do that, has druze beliefs against that as well. Has been quite tearful, and apparently when seen in the emergency room, was tearful for most of the interview. No history consistent with hypomania nor chavo. No posttraumatic stress disorder. No psychosis. PAST PSYCHIATRIC HISTORY: As indicated above, has been seeing Dr. Contreras the last couple of years, says sees him about once a month, and was on Prozac at 60 mg daily, then was off it, and then recently resumed it, but very erratically so. No history of suicide attempts. No previous inpatient hospitalization. FAMILY PSYCHIATRIC HISTORY: Essentially unknown at present. SUBSTANCE ABUSE HISTORY: Denies any. MEDICAL HISTORY: Has migraines, says sees Estephania Bowers, and has had Botox injections for the migraines as well. It should be noted, the patient takes her medications irregularly, including the non-psychotropics. SOCIAL HISTORY: Raised locally by her parents, says had a good childhood, no history of abuse. She graduated, says did not work much outside the house, and then when she got , says her did not want her to work, she suggests he was "old fashioned," and she was a bit anxious about that to begin with, but then she says she settled down to that frame of mind. Says they had a good marriage, he about 3 years or so ago. Says has some support in terms of her mother, sister, and a brother. Her brother lost his own just within the last month, and she has been feeling for him as well. Says she and her stepson had become a bit closer after her 's , but there is no contact now, not much in any case. MENTAL STATUS EXAMINATION: She is in hospital clothes, sitting up in bed, cooperative, no abnormal movements noted. She is coherent, quite tearful. No agitation. No active suicidal thoughts, but does have passive ones, no firm plans. No homicidal ideas or intents. No evidence of psychosis. Cognition grossly intact. No fluctuation of consciousness. Judgment and insight are compromised. Intellect is average and she does well on short-term memory. VITAL SIGNS: Blood pressure 134/89, pulse 80, temperature 97.4. ASSESSMENT: Major depressive disorder, recurrent, severe. 's . [id number] . Difficulty setting boundaries with neighbor and others. The patient has been clinically significantly depressed in the last couple of years, more so recently, and difficulties with her neighbor aggravate the whole situation further, particularly her inability to set boundaries. PLAN: She is admitted to the inpatient psychiatry unit because there are concerns regarding her judgment, and her ability to maintain her safety. She is placed on relevant precautions. We will look at obtaining collateral information. She is to be encouraged to participate in activities in the unit. I would suggest obtaining records or contacting Dr. Contreras. I would also suggest her reconsidering using Prozac, possibly using another antidepressant, but it is only effective if she takes it. Help in taking the medicine regularly is also to be assessed. She will be discharged with followup once she is stable. As suggested previously, would look at the patient using an antidepressant other than Prozac. I would anticipate a 5-7 day stay. The assessment took 45 minutes.
[2017-08-08 06:37] VITALS: BP 103/55
[2017-08-08] MEDS: PROPRANOLOL 60 MG LA CAP PO SCH (08:48)
[2017-08-08] MEDS: CALCIUM/VITAMIN D 500 MG TAB PO SCH ×2 (08:48→21:59)
--- NOTE | 2017-08-08 09:22 | HPEPDOC ---
[facility] Medical History & Physical Date of Admission Aug 06, 2017 History and Physical PCP: Arlin Romero CRAYON SAWYER ATTENDING: Dr. Harvey Galdamez HPI: 51yoF admitted to [facility] for unspecified depressive disorder, being medically examined today. No acute medical complaints today. Pt is teary throughout exam. Pt admits to noncompliance with her medications. States she was not taking Gabapentin because she "did not see where it did anything". States she still is having LBP, this has been a chronic issue for her. She follows with [facility] Pain Mgmt. She states she is waiting to proceed with DCS. Denies any fevers, chills, weakness, fatigue, SETH, CP, SOB, cough, palpitations, abdominal pain, N/V/D or changes in bowel or bladder habits. PMHx: depression Chronic Back pain. [facility] pain Mgmt. migraine SETH follows with [facility]. H/O kidney stone Hypothyroidism Iron deficiency anemia OAB RLS PETE. CPAP. PSHX: Bilateral carpal tunnel release Right cataract SOCHX: Resides in: [facility] Marital Status: Kids: One step son Employment: Unemployed, disabled. Tobacco use: Denies ETOH: Denies Illicit Drugs: Denies IV Drug Use: Denies Tattoos done unprofessionally: Denies FAMHX: Mother: Alive, diabetes, hypertension Father: , [place] Siblings: One brother with tree of melanoma, 2 sisters Alive, well. Children: No biological children. Unexpected deaths due to medical reasons: None. ROS: As noted in HPI, otherwise 11pt ROS of systems reviewed and remarkable only for LMP unknown. PE: GEN: 51 yo F, appears stated age. Well-nourished, well developed. No acute distress. Alert and oriented x 3. Teary throughout exam, avoids eye contact. HEENT: Normocephalic, atraumatic. Pupils are equal, round, and reactive to light. Extraocular movements are intact. No nystagmus appreciated. Sclera are nonicteric. Conjunctiva without injection. Nose midline. Nasal turbinates without bogginess. EACs both patent BL. TMs both visualized and rosas with good cone of light, no bulging or erythema. No facial asymmetry. Moist mucous membranes. Dentition fair. Pharynx pink and moist, no cobblestoning. Neck supple , trachea midline. No lymphadenopathy or thyromegaly appreciated. CHEST: Regular rate and rhythm, +S1, +S2 LUNGS: Clear to auscultation bilaterally. No wheezes, rales, or rhonchi. Breathing appears symmetric and easy. Patient is speaking in full sentences. No accessory muscle use. ABD: Round, soft, non-tender, non-distended. +Bowel sounds throughout. No rebound or guarding. No costovertebral angle tenderness. EXT: Pulses 2+ bilaterally dorsalis pedis and radial. No lower extremity edema appreciated. SKIN: [place], dry, warm. Capillary refill <2sec. No rashes. NEURO: Alert and oriented x 3. Cranial nerves III-XII are intact. No focal deficits appreciated. EKG: Pending. A&P: 51yoF admitted to [facility] for unspecified depressive disorder 1. Psych. Plan per Psychiatry. Obtain baseline EKG to assure the safety of psychiatric medications as they can prolong the QT interval. 2. Hypothyroidism. Continue levothyroxine 50 g daily. TSH is noted within normal limits. 3. Chronic migraine headache. Continue propranolol 120 mg daily. Continue outpatient follow-up with neurology. 4. Follow up with PCP on discharge. 5. OAB. Continue oxybutynin 15 mg by mouth daily. 6. History of iron deficiency anemia. Continue iron supplement 1 tablet twice a day. Hemoglobin is noted to be 15.4. 7. Restless leg syndrome. Continue ropinirole 0.5 mg by mouth daily at bedtime. 8. Chronic low back pain. Pt follows with [facility] Pain Management, will request opinion. She states she has not been using Gabapentin. Continue with Tylenol as needed. 9. PETE. CPAP. 10. Staff member Fanta RUANO present throughout exam. Vital Signs Vital Signs Date Time Temp Pulse Resp B/P (MAP) Pulse Ox O2 Delivery O2 Flow Rate FiO2 08/08/17 08:48 61 103/55 08/08/17 06:37 97.6 18 08/07/17 03:17 Room Air 08/07/17 02:48 99 Laboratory Data Labs 24H Item Value Date Time White Blood Count 8.3 10^3/uL 08/06/17 1422 Red Blood Count 5.15 10^6/uL 08/06/17 1422 Hemoglobin 15.4 g/dl 08/06/17 1422 Hematocrit 44.0 % 08/06/17 1422 Mean Corpuscular Volume 85.4 fl 08/06/17 1422 Mean Corpuscular Hemoglobin 29.9 pg 08/06/17 1422 Mean Corpuscular Hemoglobin Concent 35.0 g/dl 08/06/17 1422 Red Cell Distribution Width 12.3 % 08/06/17 1422 Platelet Count 268 10^3/uL 08/06/17 1422 Nucleated Red Blood Cells % (auto) 0.0 % 08/06/17 1422 Sodium Level 140 MEQ/L 08/06/17 1422 Potassium Level 4.2 MEQ/L 08/06/17 1422 Chloride Level 110 MEQ/L H 08/06/17 1422 Carbon Dioxide Level 21 MEQ/L 08/06/17 1422 Anion Gap 9 MEQ/L 08/06/17 1422 Blood Urea Nitrogen 11 MG/DL 08/06/17 1422 Creatinine 0.69 MG/DL 08/06/17 1422 Glomerular Filtration Rate > 60.0 08/06/17 1422 Fasting Glucose 96 MG/DL 08/06/17 1422 Calcium Level 9.2 MG/DL 08/06/17 1422 Total Bilirubin 0.8 MG/DL 08/06/17 1422 Direct Bilirubin 0.2 MG/DL 08/06/17 1422 Aspartate Amino Transf (AST/SGOT) 19 U/L 08/06/17 1422 Alanine Aminotransferase (ALT/SGPT) 31 U/L 08/06/17 1422 Alkaline Phosphatase 85 U/L 08/06/17 1422 Total Protein 7.6 GM/DL 08/06/17 1422 Albumin 4.0 GM/DL 08/06/17 1422 Albumin/Globulin Ratio 1.11 08/06/17 1422 Thyroid Stimulating Hormone (TSH) 0.829 uIU/ML 08/06/17 1422 Human Chorionic Gonadotropin, Qual NEGATIVE 08/06/17 1422 Salicylates Level < 1.7 MG/DL L 08/06/17 1422 Urine Opiates Screen NEGATIVE 08/06/17 1426 Urine Methadone Screen NEGATIVE 08/06/17 1426 Acetaminophen Level < 2.0 UG/ML L 08/06/17 1422 Urine Barbiturates Screen NEGATIVE 08/06/17 1426 Urine Phencyclidine Screen NEGATIVE 08/06/17 1426 Urine Amphetamines Screen NEGATIVE 08/06/17 1426 Urine Benzodiazepines Screen NEGATIVE 08/06/17 1426 Urine Cocaine Metabolite Screen NEGATIVE 08/06/17 1426 Urine Cannabinoids Screen NEGATIVE 08/06/17 1426 Ethyl Alcohol Level < 0.003 % 08/06/17 1422 Home Medications Scheduled (Fish Oil + D3 1782-0220 mg-Unit) 1 Cap Cap, 1 CAP PO DAILY for (Zaleplon) 10 Mg Cap, 10 MG PO QHS for Calcium/Vitamin D (Calcium + D3 600-200 mg-Unit) 1 Tab Tab, 1 TAB PO DAILY for Ferrous Sulfate (Ferrous Sulfate) 325 Mg Tab, 325 MG PO BID for Fluoxetine HCl (Prozac) 20 Mg Cap, 60 MG PO DAILY for Gabapentin (Gabapentin) 600 Mg Tab, 600 MG PO TID for Levothyroxine Sodium (Synthroid) 50 Mcg Tab, 50 MCG PO DAILY for Oxybutynin Chloride (Oxybutynin Chloride ER) 15 Mg Tab, 15 MG PO DAILY for Propranolol HCl (Propranolol HCl ER) 120 Mg Cap, 120 MG PO DAILY for Ropinirole Hydrochloride (Ropinirole HCl) 0.5 Mg Tab, 0.5 MG PO QHS for Scheduled PRN Ibuprofen (Ibuprofen) 800 Mg Tab, 800 MG PO Q6H PRN for PAIN Ondansetron (Zofran Odt) 4 Mg Tab, 4 MG PO Q4H PRN for NAUSEA Rizatriptan Benzoate (Rizatriptan Benzoate Odt) 10 Mg Tab, 10 MG PO DAILY PRN for MIGRAINE Allergies Coded Allergies: Topiramate (Verified Adverse Reaction, Unknown, kidney stones, 05/06/17) Daniela Paredes Aug 08, 2017 09:22
[2017-08-08] MEDS: FERROUS SULFATE 325MG TAB PO SCH ×2 (09:54→21:59)
[2017-08-08] MEDS: LEVOTHYROXINE 50MCG TABLET (0.05MG) PO SCH (09:54)
[2017-08-08] MEDS: oxyBUTYnin *DITROPAN XL* 5 MG TABCR PO SCH (10:16)
--- NOTE | 2017-08-08 15:11 | MHIPNPDOC ---
[facility] Progress Note Progress Note DATE OF SERVICE: 08/08/17 HISTORY: Patient is 51 years old , without children. Says she has been depressed for the last couple years after her . She says have become much worse over the last few months. She has been seeing Dr. Contreras. She was prescribed Prozac 60 mg PO daily, but says she takes on an "as needed basis" or "once in a blue barr". Says her baseline when not taking the medication is "down" and "quiet", with poor appetite and that she sleeps during the day. Denies active suicidal ideations or plan. However, says sometimes when her mood is very low she thinks she "wouldn't mind not being here" She was also at the [facility] outpatient clinic a few times during the summer and cannot elaborate on the reason. Says she has a friend/neighbor that lives above her in her apartment building that asks for help (cleaning her apartment, visiting her friends fiance in a detention etc..), but the patient feels she is being taken advantage of and can't even help herself and this causes her significant distress. Says she's currently anxious, and has been on most days for the last month. Interval HISTORY 08/08/17: Says she continues to have migraine headaches most of her adult life; A pain management consult was ordered today as she continues to have a headache. Says she feels hopeless and helpless and has difficulties with her concentration. Says for the last month she has lost interest in her hobbies, include "cross- stitch". Says she has not been compliant with her antidepressant medications, including Prozac which she started in June 2017. Says she takes her medications "once in a blue barr". States she doesn't like antidepressants because of the nausea and upset stomach. Currently on interview she denies any N , V, D, upset stomach, but endorses constipation. Says the longest consistent treatment period on Prozac was one full week. Says her baseline when not taking the medication is "down" and "quiet", with poor appetite and that she sleeps during the day. Denies active suicidal ideations or plan. However, says sometimes when her mood is very low she thinks she "wouldn't mind not being here " (consistent with passive SI), but that her family keeps her going (taking care of her 85 year old mother) and that she would never be able to "end it" herself. Says she has a friend that lives above her in her apartment building that asks for help (cleaning her apartment, visiting her friends fiance in a detention etc..), but the patient feels she is being taken advantage of and can't even help herself and this causes her significant distress. Says she's currently anxious, and has been on most days for the last month. Says she became 4 years ago and this is when her depressive symptoms started. VITAL SIGNS: See below. NEW TEST RESULTS: EKG 08/08/17; sinus bradycardia CURRENT MEDICATIONS: See below. MENTAL STATUS EXAMINATION: Patient is a 51-year old female, who is nad, cooperative, fair hygiene, poor eye contact. Speech: Is decrease in rate, rhythm, volume Language skills are poor. Thought processes including: linear, logical. Thought content: Endorses mild passive SI, Denies HI, AVH, paranoia, delusions Abstract reasoning, and computation: Poor Description of associations: Good Description of abnormal or psychotic thoughts: none Judgment: fair (says wouldn't hurt self, because of how it would impact friends/ family). Insight: fair Orientation: A/O X 3 Recent and remote memory: poor Attention span and concentration: Poor Language: appropriate Fund of knowledge: average Mood: "okay" Affect: dysthymic DIAGNOSES: 1. Major Depressive Disorder, moderate, recurrent Assessment: The patient low risk with regards to self harm. We discussed the importance of being compliant with her medications. Stressed how gastrointestinal side effects are common when initiating SSRI treatment. Also explained how it takes 4-6 weeks on average to see the full effect of antidepressant medications. Was clear that these medications must be titrated up or down. We talked about cooping skills, with regards to setting limits/ boundaries with her neighbor and also the importance of self care. Says her main stressor at the moment is this neighbor of hers. MANAGEMENT PLAN: Continue on Prozac 40 mg PO daily. Denies any side effects since re-starting. If gastrointestinal side effects occur, will consider switching to a different antidepressant. Currently not taking triptans and home medications include 60 mg Prozac PO daily. Will consider titrating up the dose if well tolerated. Continue management/treatment plan. Continue with group/ individual therapy. Monitor for common including N, V, C, D, Headache and dizziness and rare side effects of her medications. TIME SPENT: 30 minutes. Vital Signs Vital Signs Date Time Temp Pulse Resp B/P (MAP) Pulse Ox O2 Delivery O2 Flow Rate FiO2 08/08/17 08:48 61 103/55 08/08/17 06:37 97.6 18 08/07/17 03:17 Room Air 08/07/17 02:48 99 Current Medications Current Medications Acetaminophen (Tylenol Tab) 650 mg Q6HP PRN PO HEADACHE or DISCOMFORT; Start 08/07/17 at 02:30; Stop 09/06/17 at 02:29 Al Hydrox/Mg Hydrox/Simethicone (Mylanta) 30 ml Q4HP PRN PO HEARTBURN/ INDIGESTION; Start 08/07/17 at 02:30; Stop 09/06/17 at 02:29 Calcium/Vitamin D (Oscal D) 500 mg BID PO Last administered on 08/08/17 08:48 ; Start 08/07/17 at 09:00; Stop 09/06/17 at 08:59 Ferrous Sulfate (Ferrous Sulfate) 325 mg BID PO Last administered on 09:54; Start 08/08/17 at 09:00; Stop 09/07/17 at 08:59 Home Med (Med Rec Complete!) ASDIRECTED XX ; Start 08/07/17 at 04:15; Stop at 04:24; Status DC Levothyroxine Sodium (Synthroid) 50 mcg DAILY@0600 PO Last administered on 09:54; Start 08/08/17 at 06:00; Stop 09/07/17 at 05:59 Lorazepam (Ativan) 1 mg Q4HP PRN PO ANXIETY/AGITATION; Start 08/07/17 at 02:30 ; Stop 08/14/17 at 02:29 Magnesium Hydroxide (Milk Of Magnesia) 30 ml DAILYPRN PRN PO CONSTIPATION; Start 08/07/17 at 02:30; Stop 09/06/17 at 02:29 Ondansetron HCl (Zofran Odt) 4 mg Q4HP PRN PO NAUSEA OR VOMITING Last administered on 08/08/17 12:15; Start 08/07/17 at 04:45; Stop 09/06/17 at 04 :44 Ondansetron HCl (Zofran) 4 mg Q4HP PRN PO NAUSEA; Start 08/07/17 at 02:30; Stop 08/07/17 at 04:37; Status DC Oxybutynin Chloride (Ditropan Xl) 15 mg DAILY PO Last administered on 10:16; Start 08/08/17 at 09:00; Stop 09/07/17 at 08:59 Propranolol HCl (Inderal La) 120 mg DAILY PO Last administered on 08/08/17 08 :48; Start 08/07/17 at 09:00; Stop 09/06/17 at 08:59 Propranolol HCl (Inderal) 120 mg DAILY PO ; Start 08/07/17 at 09:00; Stop at 09:00; Status DC Ropinirole HCl (Requip) 0.5 mg QHS PO ; Start 08/08/17 at 21:00; Stop at 20:59 Trazodone HCl (Desyrel) 50 mg QHSP PRN PO INSOMNIA Last administered on 21:49; Start 08/07/17 at 02:30; Stop 09/06/17 at 02:29 Allergies Coded Allergies: Topiramate (Verified Adverse Reaction, Unknown, kidney stones, 05/06/17) CORDELIA ERICKSON PGY-1 Aug 08, 2017 15:10
--- NOTE | 2017-08-08 16:20 | ECGEPIP ---
Stationary ECG Study [facility] Test Date: 2017-08-08 Pat Name: EDVIN CHRISTINE Department: Room: [place] [address] Gender: F Cad Operator: MACK : [id number] Requested By: Daniela Paredes Order Number: [id number] Reading MD: Wil Pena Measurements Intervals [place] Rate: 49 P: 36 IL: 160 QRS: 78 QRSD: 106 T: 42 QT: 436 QTc: 396 Interpretive Statements Sinus bradycardia Somewhat low voltages with slow precordial R-wave progression, and persistent S waves in V5 and V6; body habitus versus pulmonary disease. Rule out prior septal injury. Nonspecific right precordial ST/T-wave abnormalities. No change from 06/22/13. Electronically Signed On 08-08-2017 16:20:06 EDT by Wil Pena
[2017-08-08 18:00] VITALS: BP 118/57
[2017-08-08] MEDS: rOPINIRole 0.25 MG TAB(REQUIP) PO SCH (21:59)
[2017-08-09] MEDS: LEVOTHYROXINE 50MCG TABLET (0.05MG) PO SCH (05:46)
[2017-08-09 06:51] VITALS: BP 121/58
[2017-08-09] MEDS: FERROUS SULFATE 325MG TAB PO SCH ×2 (08:55→22:04)
[2017-08-09] MEDS: FLUoxetine 20 MG CAP PO SCH (08:55)
[2017-08-09] MEDS: CALCIUM/VITAMIN D 500 MG TAB PO SCH ×2 (08:56→22:04)
[2017-08-09] MEDS: PROPRANOLOL 60 MG LA CAP PO SCH (08:56)
[2017-08-09] MEDS: oxyBUTYnin *DITROPAN XL* 5 MG TABCR PO SCH (08:56)
[2017-08-09] MEDS ORDERED: FLUoxetine 20 MG CAP PO SCH (09:00)
--- NOTE | 2017-08-09 11:18 | MHIPNPDOC ---
[facility] Progress Note Progress Note DATE OF SERVICE: 08/09/17 HISTORY: Patient is 51 years old , without children. Says she has been depressed for the last couple years after her . She says have become much worse over the last few months. She has been seeing Dr. Contreras. She was prescribed Prozac 60 mg PO daily, but says she takes on an "as needed basis" or "once in a blue barr". Says her baseline when not taking the medication is "down" and "quiet", with poor appetite and that she sleeps during the day. Denies active suicidal ideations or plan. However, says sometimes when her mood is very low she thinks she "wouldn't mind not being here" She was also at the [facility] outpatient clinic a few times during the summer and cannot elaborate on the reason. Says she has a friend/neighbor that lives above her in her apartment building that asks for help (cleaning her apartment, visiting her friends fiance in a alf etc..), but the patient feels she is being taken advantage of and can't even help herself and this causes her significant distress. Says she's currently anxious, and has been on most days for the last month. Interval History 08/09/17: Says her mood continues to improve somewhat. Yesterday the patient wrote a letter and will deliver it to her neighbor stating she has to care for herself and that she will return her neighbor's checks and boyfriend's [place] for mailbox. We discussed how this is a good first step in establishing boundaries. We also discussed coping skills. Says she talked to her sister yesterday, and she says she can care for the patient's cats. Says she not depressed, but has some anxiety. She understands she has to be treated in the hospital to "help herself". Denies suicidal ideations, denies HI, AVH, paranoia. Says she feels better and no longer has her constant headache. VITAL SIGNS: See below. NEW TEST RESULTS: none CURRENT MEDICATIONS: See below. MENTAL STATUS EXAMINATION: Patient is a 51-year old female, who is NAD, cooperative, fair hygiene, normal eye contact. Speech: Is decrease in rate, rhythm, volume Language skills are fair. Thought processes including: linear, logical. Thought content: denies SI,HI, AVH, paranoia, delusions Abstract reasoning, and computation: Poor Description of associations: Good Description of abnormal or psychotic thoughts: none Judgment: improving Insight: improving Orientation: A/O X 3 Recent and remote memory: poor Attention span and concentration: improving Language: appropriate Fund of knowledge: average Mood: "normal" Affect: dysthymic DIAGNOSES: 1. Major Depressive Disorder, moderate, recurrent Assessment: The patient continues to be low risk with regards to self harm. We discussed coping skills and boundaries. We also discussed that her antidepressant medications should not be taken with triptan migraine medications and discussed other alternative treatments. MANAGEMENT PLAN: Continue on Prozac 40 mg PO daily. Continue with treatment plan. Continue to assess for medication side effects. Continue to monitor for safety. TIME SPENT: 30 minutes. Vital Signs Vital Signs Date Time Temp Pulse Resp B/P (MAP) Pulse Ox O2 Delivery O2 Flow Rate FiO2 08/09/17 08:56 60 121/58 08/09/17 06:51 97.8 18 08/07/17 03:17 Room Air 08/07/17 02:48 99 Current Medications Current Medications Acetaminophen (Tylenol Tab) 650 mg Q6HP PRN PO HEADACHE or DISCOMFORT; Start 08/07/17 at 02:30; Stop 09/06/17 at 02:29 Al Hydrox/Mg Hydrox/Simethicone (Mylanta) 30 ml Q4HP PRN PO HEARTBURN/ INDIGESTION; Start 08/07/17 at 02:30; Stop 09/06/17 at 02:29 Calcium/Vitamin D (Oscal D) 500 mg BID PO Last administered on 08/09/17 08:56 ; Start 08/07/17 at 09:00; Stop 09/06/17 at 08:59 Ferrous Sulfate (Ferrous Sulfate) 325 mg BID PO Last administered on 08:55; Start 08/08/17 at 09:00; Stop 09/07/17 at 08:59 Fluoxetine HCl (PROzac) 20 mg DAILY PO ; Start 08/09/17 at 09:00; Stop at 09:00; Status DC Fluoxetine HCl (PROzac) 40 mg DAILY PO Last administered on 08/09/17 08:55; Start 08/09/17 at 09:00; Stop 09/08/17 at 08:59 Home Med (Med Rec Complete!) ASDIRECTED XX ; Start 08/07/17 at 04:15; Stop at 04:24; Status DC Levothyroxine Sodium (Synthroid) 50 mcg DAILY@0600 PO Last administered on 05:46; Start 08/08/17 at 06:00; Stop 09/07/17 at 05:59 Lorazepam (Ativan) 1 mg Q4HP PRN PO ANXIETY/AGITATION; Start 08/07/17 at 02:30 ; Stop 08/14/17 at 02:29 Magnesium Hydroxide (Milk Of Magnesia) 30 ml DAILYPRN PRN PO CONSTIPATION; Start 08/07/17 at 02:30; Stop 09/06/17 at 02:29 Ondansetron HCl (Zofran Odt) 4 mg Q4HP PRN PO NAUSEA OR VOMITING Last administered on 08/08/17 12:15; Start 08/07/17 at 04:45; Stop 09/06/17 at 04 :44 Ondansetron HCl (Zofran) 4 mg Q4HP PRN PO NAUSEA; Start 08/07/17 at 02:30; Stop 08/07/17 at 04:37; Status DC Oxybutynin Chloride (Ditropan Xl) 15 mg DAILY PO Last administered on 08:56; Start 08/08/17 at 09:00; Stop 09/07/17 at 08:59 Propranolol HCl (Inderal La) 120 mg DAILY PO Last administered on 08/09/17 08 :56; Start 08/07/17 at 09:00; Stop 09/06/17 at 08:59 Propranolol HCl (Inderal) 120 mg DAILY PO ; Start 08/07/17 at 09:00; Stop at 09:00; Status DC Ropinirole HCl (Requip) 0.5 mg QHS PO Last administered on 08/08/17 21:59; Start 08/08/17 at 21:00; Stop 09/07/17 at 20:59 Trazodone HCl (Desyrel) 50 mg QHSP PRN PO INSOMNIA Last administered on 21:49; Start 08/07/17 at 02:30; Stop 09/06/17 at 02:29 Allergies Coded Allergies: Topiramate (Verified Adverse Reaction, Unknown, kidney stones, 05/06/17) CORDELIA ERICKSON PGY-1 Aug 09, 2017 11:18
[2017-08-09 18:00] VITALS: BP 123/86
[2017-08-09] MEDS: rOPINIRole 0.25 MG TAB(REQUIP) PO SCH (22:04)
[2017-08-10] MEDS: LEVOTHYROXINE 50MCG TABLET (0.05MG) PO SCH (06:18)
[2017-08-10 07:14] VITALS: BP 131/76
[2017-08-10] MEDS: PROPRANOLOL 60 MG LA CAP PO SCH (08:32)
[2017-08-10] MEDS: FERROUS SULFATE 325MG TAB PO SCH ×2 (08:32→21:29)
[2017-08-10] MEDS: oxyBUTYnin *DITROPAN XL* 5 MG TABCR PO SCH (08:32)
[2017-08-10] MEDS: CALCIUM/VITAMIN D 500 MG TAB PO SCH ×2 (08:32→21:29)
[2017-08-10] MEDS: FLUoxetine 20 MG CAP PO SCH (08:32)
--- NOTE | 2017-08-10 12:24 | MHIPNPDOC ---
[facility] Progress Note Progress Note DATE OF SERVICE: 08/10/17 HISTORY: Patient is 51 years old , without children. Says she has been depressed for the last couple years after her . She says have become much worse over the last few months. She has been seeing Dr. Contreras. She was prescribed Prozac 60 mg PO daily, but says she takes on an "as needed basis" or "once in a blue barr". Says her baseline when not taking the medication is "down" and "quiet", with poor appetite and that she sleeps during the day. Denies active suicidal ideations or plan. However, says sometimes when her mood is very low she thinks she "wouldn't mind not being here" She was also at the [facility] outpatient clinic a few times during the summer and cannot elaborate on the reason. Says she has a friend/neighbor that lives above her in her apartment building that asks for help (cleaning her apartment, visiting her friends fiance in a chcf etc..), but the patient feels she is being taken advantage of and can't even help herself and this causes her significant distress. Says she's currently anxious, and has been on most days for the last month. Interval History 08/10/17: She has been going to her groups. She says she is learning "more and more" during theses sessions. She says she like the mediation and art groups the most as they help her with "letting things go" that are on her mind. Says her neighbor Yasmeen causes her anxiety when she thinks about her. Says her neighbor "puts her down", says demeaning things such as that "she smells like cats". Says she is also demanding and asks her to get her groceries, do her laundry, get her fiance's mail. She says she was the youngest in the family and always taken care of and doesn't know how to deal being with being independent since her . Says she wants to reach out and make more friends but is afraid of getting hurt. Says she's a loner and when tries to reach out to people she gets taken advantage of. Denies suicidal ideations, AVH, paranoia or other disturbances of perception. Says today she is having some lower back pain which persists at a low level and is somewhat tolerable, says it is from her degenerative disk disease in her lower back and scoliosis. VITAL SIGNS: See below. NEW TEST RESULTS: none CURRENT MEDICATIONS: See below. MENTAL STATUS EXAMINATION: Patient is a 51-year old female, who is NAD, cooperative, fair hygiene, normal eye contact. Speech: Is decrease in rate, rhythm, volume Language skills are fair. Thought processes including: linear, logical. Thought content: denies SI,HI, AVH, paranoia, delusions Abstract reasoning, and computation: Poor Description of associations: Good Description of abnormal or psychotic thoughts: none Judgment: improving Insight: improving Orientation: A/O X 3 Recent and remote memory: poor Attention span and concentration: improving Language: appropriate Fund of knowledge: average Mood: "okay" Affect: mildly anxious, full in range, appropriate DIAGNOSES: 1. Major Depressive Disorder, moderate, recurrent 2. Dependent Personality Disorder Assessment: The patient is low risk for self harm. We continued to discussed coping skills and boundaries. She says she has written a second letter for her neighbor. Still having mild anxiety, likely requires an increased dose of her medication in the next week if symptoms do not improve. MANAGEMENT PLAN: Continue Prozac 40 mg, consider increasing her Prozac to 60 mg PO daily on an outpatient basis in a week. Continue with treatment plan. Continue to assess for medication side effects. Continue to monitor for safety. Continue with discharge planning, she should be ready to leave tomorrow if a safety plan is in place. Lidocaine 5% patch ordered for her mild lower back pain. TIME SPENT: 30 minutes. Vital Signs Vital Signs Date Time Temp Pulse Resp B/P (MAP) Pulse Ox O2 Delivery O2 Flow Rate FiO2 08/10/17 08:32 58 131/76 08/10/17 07:14 97.6 16 Room Air 08/07/17 02:48 99 Current Medications Current Medications Acetaminophen (Tylenol Tab) 650 mg Q6HP PRN PO HEADACHE or DISCOMFORT; Start 08/07/17 at 02:30; Stop 09/06/17 at 02:29 Al Hydrox/Mg Hydrox/Simethicone (Mylanta) 30 ml Q4HP PRN PO HEARTBURN/ INDIGESTION; Start 08/07/17 at 02:30; Stop 09/06/17 at 02:29 Calcium/Vitamin D (Oscal D) 500 mg BID PO Last administered on 08/10/17 08:32 ; Start 08/07/17 at 09:00; Stop 09/06/17 at 08:59 Ferrous Sulfate (Ferrous Sulfate) 325 mg BID PO Last administered on 08:32; Start 08/08/17 at 09:00; Stop 09/07/17 at 08:59 Fluoxetine HCl (PROzac) 20 mg DAILY PO ; Start 08/09/17 at 09:00; Stop at 09:00; Status DC Fluoxetine HCl (PROzac) 40 mg DAILY PO Last administered on 08/10/17 08:32; Start 08/09/17 at 09:00; Stop 09/08/17 at 08:59 Home Med (Med Rec Complete!) ASDIRECTED XX ; Start 08/07/17 at 04:15; Stop at 04:24; Status DC Levothyroxine Sodium (Synthroid) 50 mcg DAILY@0600 PO Last administered on 06:18; Start 08/08/17 at 06:00; Stop 09/07/17 at 05:59 Lorazepam (Ativan) 1 mg Q4HP PRN PO ANXIETY/AGITATION; Start 08/07/17 at 02:30 ; Stop 08/14/17 at 02:29 Magnesium Hydroxide (Milk Of Magnesia) 30 ml DAILYPRN PRN PO CONSTIPATION; Start 08/07/17 at 02:30; Stop 09/06/17 at 02:29 Ondansetron HCl (Zofran Odt) 4 mg Q4HP PRN PO NAUSEA OR VOMITING Last administered on 08/08/17 12:15; Start 08/07/17 at 04:45; Stop 09/06/17 at 04 :44 Ondansetron HCl (Zofran) 4 mg Q4HP PRN PO NAUSEA; Start 08/07/17 at 02:30; Stop 08/07/17 at 04:37; Status DC Oxybutynin Chloride (Ditropan Xl) 15 mg DAILY PO Last administered on 08:32; Start 08/08/17 at 09:00; Stop 09/07/17 at 08:59 Propranolol HCl (Inderal La) 120 mg DAILY PO Last administered on 08/10/17 08 :32; Start 08/07/17 at 09:00; Stop 09/06/17 at 08:59 Propranolol HCl (Inderal) 120 mg DAILY PO ; Start 08/07/17 at 09:00; Stop at 09:00; Status DC Ropinirole HCl (Requip) 0.5 mg QHS PO Last administered on 08/09/17 22:04; Start 08/08/17 at 21:00; Stop 09/07/17 at 20:59 Trazodone HCl (Desyrel) 50 mg QHSP PRN PO INSOMNIA Last administered on 21:49; Start 08/07/17 at 02:30; Stop 09/06/17 at 02:29 Allergies Coded Allergies: Topiramate (Verified Adverse Reaction, Unknown, kidney stones, 05/06/17) CORDELIA ERICKSON PGY-1 Aug 10, 2017 12:24
[2017-08-10] MEDS: LIDOCAINE 5% (LIDODERM) PATCH TD SCH (15:54)
[2017-08-10 18:00] VITALS: BP 137/77
[2017-08-10] MEDS ORDERED: **NOTE PATIENT COMMENT** MISC XX SCH (21:00)
[2017-08-10] MEDS: rOPINIRole 0.25 MG TAB(REQUIP) PO SCH (21:29)
[2017-08-11] MEDS: LEVOTHYROXINE 50MCG TABLET (0.05MG) PO SCH (06:21)
[2017-08-11 07:13] VITALS: BP 134/75
[2017-08-11] MEDS: oxyBUTYnin *DITROPAN XL* 5 MG TABCR PO SCH (09:21)
[2017-08-11] MEDS: LIDOCAINE 5% (LIDODERM) PATCH TD SCH (09:21)
[2017-08-11] MEDS: FLUoxetine 20 MG CAP PO SCH (09:21)
[2017-08-11] MEDS: CALCIUM/VITAMIN D 500 MG TAB PO SCH (09:21)
[2017-08-11 09:22] VITALS: BP 120/54
[2017-08-11] MEDS: FERROUS SULFATE 325MG TAB PO SCH (09:22)
[2017-08-11] MEDS: PROPRANOLOL 60 MG LA CAP PO SCH (09:22)
[2017-08-11] MEDS ORDERED: FLUO20CA19 PO (12:19)
[2017-08-11] MEDS ORDERED: TRAZO50TA PO (12:19)
[2017-08-11] MEDS ORDERED: LIDO5TD TD (12:19)
--- NOTE | 2017-09-15 14:57 | MHDSPDOC ---
[facility] Discharge Summary Discharge Summary DATE OF ADMISSION: Aug 07, 2017 at 02:20 DATE OF DISCHARGE: Aug 11, 2017 at 13:15 DISCHARGE DIAGNOSES: 1. Major Depressive Disorder, moderate, recurrent 2. Dependent Personality Disorder REASON FOR ADMISSION: Patient is 51 years old , without children. Says she has been depressed for the last couple years after her . She says she has become much worse over the last few months. She has been seeing Dr. Contreras. She was prescribed Prozac 60 mg PO daily, but says she takes on an "as needed basis" or "once in a blue barr". Says her baseline when not taking the medication is "down" and "quiet", with poor appetite and that she sleeps during the day. Denies active suicidal ideations or plan. However, says sometimes when her mood is very low she thinks she "wouldn't mind not being here". She was also at the [facility] outpatient clinic a few times during the summer and cannot elaborate on the reasons/treatment received there. Says she has a friend/neighbor that lives above her in her apartment building that asks for help (cleaning her apartment, visiting her friends fiance in a shelter etc..), but the patient feels she is being taken advantage of and can't even help herself and this causes her significant distress. Says she's currently anxious, and has been on most days for the last month. CONSULTANTS INVOLVED: Pain management 08/08/17 for lower back pain TREATMENT AND PROGRESS ON THE UNIT : Patient arrived ambulatory on 08/06/17 to the [facility] Emergency Department (ED). During triage, per ED report, she was crying and stating she had nothing to live for, but couldn't take her own life. She was anxious, had decreased appetite, depressed mood, had feelings of guiltiness, hopelessness and lower pain. She was medically cleared, including but not limited to; drug toxicology evaluation, hcG (negative), thyroid screen (TSH 0.829), liver profile (Unremarkable), BMP, CBC, received Ondansetron (Zofran) for nausea once and received Acetaminophen for headache once (hx migraines). She was then admitted to the [facility] Inpatient Mental Health Unit (IM) on 08/07/17 for unspecified depressive disorder. Drug abuse screen was conducted, regular diet initiated, aggression and suicide precautions carried out and frequent vitals initiated. Same day she was started on Propanolol HCL 120 mg orally daily for anxiety, Calcium and vitamin D 500 mg twice daily orally for repletion, Fluoxetine (Prozac) 40 mg orally daily for depression/anxiety and started on Lorazepam 1 mg orally every 4 hours as needed for anxiety. She was also started on Ropinirole HCL 0.5 mg orally before sleep. On 09/08/17 she was started on her home medication, Levothyroxine 50 mcg orally daily, Ferrous Sulphate 325 mg orally twice a day was started for anemia, an Electrocardiogram was done (QT =436, QTc = 396), a pain management consullt was ordered for lower back pain, Fluoxetine 40 mg orally for depression daily was started on the [facility] and she was aloowed to use her home BIPAP/CPAP for oxygen delivery. During the course of her stay she was given the following, including but not limited to daily; individual and group therapy, suicdide risk assessments, violence assessments, pain assessments, sleep evaluations and vital sign checks. The therapy sessions helped her develop her coping skills and setting boundaries. She responded well to her medications, which reduced her anxiety and improved her mood during the course of her inpatient treatment on the [facility]. Prior to discharge she was educated regarding her outpatient appointments and safety plan. Her medical comorbidities were closely watch by NONI Liu, who followed her closely. She was discharged on 08/11/17 and was assessed for safety/mood symptoms prior to discharge. HOSPITAL COURSE: see above DISCHARGE ASSESSMENT: She appears calm and less constricted during interview. She has learned to set boundaries with people during her group and individual therapy sessions. Says she has two letters to give to her neighbor that clearly state the boundaries she has with regards to helping her. She feels communicating with patients and staff during her inpatient stay has helped increase her confidence overall, however, she still has some mild anxiety. Patient denies suicidal or homicidal ideations, she denies any auditory or visual hallucinations or other distortions of perception/thought. The patient had a good response t medications during her treatment and made progress on the unit, such as decreased anxiety and improved mood. A safety plan, including following appointments was put in place prior to her discharge. She feels overall that her treatment in the inpatient unit has helped her with developing stronger coping skills, self-confidence and ability to start setting boundaries. She realizes she needs more time to further develop her confidence before she feels comfortable setting firm with boundaries with her neighbor face -to-face. MENTAL STATUS EXAMINATION: Patient is a 51-year old female, who is no acute distress, she is cooperative, with fair hygiene, normal eye-contact. Speech: Is non-spontaneous, decrease in rate, rhythm, volume Language skills are fair. Thought processes including: linear, logical. Thought content: denies SI,HI, AVH, paranoia, delusions Abstract reasoning, and computation: Poor Description of associations: Good Description of abnormal or psychotic thoughts: none Judgment: fair Insight: fair Orientation: A/O X 3 Recent and remote memory: poor Attention span and concentration: fair Language: appropriate Fund of knowledge: average Mood: "fine" Affect: mildly anxious, full in range, appropriate MEDICATIONS ON DISCHARGE: New Medications -Fluoxetine HCL 2x20 mg orally daily for Depression -Trazodone HCL 50 mg orally as needed before sleep for insomnia Continued Medications -Calcium-Vitamin D3 (600-200 mg-Unit) 1 tablet orally daily -Ferrous Sulfate 325 mg orally twice a day -Fish Oil + D3 (5881-8978 mg-Unit) 1 capsule orally daily -Ibuprofen 800 mg orally every 6 hours as needed for pain -Levothyroxine (Synthroid) 50 mcg orally daily -Ondansetron (Zofran) 4 mg orally daily as needed for nausea -Oxybutynin Chloride ER 15 mg rally daily for nausea -Propranolol HCL ER 120 mg orally daily -Ropinirole HCL 0.5 mg orally before sleep PLAN/FOLLOWUP ARRANGEMENTS: Follow Up Care Education Label * Mental Health Appt 1 * Mental Health Dr Contreras * Established With This Provider Yes * Date Aug 23, 2017 * Time 15:00 * * Additional information PROVIDER IS ONLY IN THE OFFICE TWO DAYS A WEEK, UNABLE TO SEE PATIENT WITHIN FIVE DAY REQUIREMENT, THOUGH WILL PATIENT PRIOR TO APPOINTMENT ON 08/23/17. Follow Up Care Education Label * Case Management * Care Coordination/Case Management/Supervision [facility] * Established With This Provider Yes * * Additional information Call Apurva Nash to follow up on your case management referral and see who you are assigned to. Follow Up Care Education Label * Medical * Medical [facility] * Established With This Provider Yes * Date Aug 18, 2017 * Time 10:00 * Address of Clinic or Practice [address] [place] [address] * The amount of time spent in the coordination of care for this patient was approximately 60 minutes. Medications Scheduled (Fish Oil + D3 5245-8797 mg-Unit) 1 Cap Cap, 1 CAP PO DAILY for , (Reported) Calcium/Vitamin D (Calcium + D3 600-200 mg-Unit) 1 Tab Tab, 1 TAB PO DAILY for , (Reported) Ferrous Sulfate (Ferrous Sulfate) 325 Mg Tab, 325 MG PO BID for , (Reported) Fluoxetine Hcl (Fluoxetine HCl) 20 Mg Cap, 40 MG PO DAILY for depression, #14 Take 2 pills in the morning. Do not miss a dose. Levothyroxine Sodium (Synthroid) 50 Mcg Tab, 50 MCG PO DAILY for , (Reported) Oxybutynin Chloride (Oxybutynin Chloride ER) 15 Mg Tab, 15 MG PO DAILY for , ( Reported) Propranolol HCl (Propranolol HCl ER) 120 Mg Cap, 120 MG PO DAILY for , ( Reported) Ropinirole Hydrochloride (Ropinirole HCl) 0.5 Mg Tab, 0.5 MG PO QHS for , ( Reported) Scheduled PRN Ibuprofen (Ibuprofen) 800 Mg Tab, 800 MG PO Q6H PRN for PAIN, (Reported) Ondansetron (Zofran Odt) 4 Mg Tab, 4 MG PO Q4H PRN for NAUSEA, (Reported) Trazodone HCl (Trazodone HCl) 50 Mg Tab, 50 MG PO QHSP PRN for INSOMNIA, #7 Take one tablet before bedtime as needed. Do not take more than 1 pill per day total. Allergies Coded Allergies: Topiramate (Verified Adverse Reaction, Unknown, kidney stones, 05/06/17) GME ATTESTATION GME ATTESTATION My faculty preceptor for this patient encounter was physically present during the encounter and was fully available. All aspects of the patient interview, examination, medical decision making process, and medical care plan development were reviewed and approved by the faculty preceptor. The faculty preceptor is aware and concurs with the plan as stated in the body of this note and will attest to such by his/her cosignature. CORDELIA ERICKSON PGY-1 Sep 15, 2017 14:57
== END 2017-08-11 13:15 | disposition home or self-care (01) | DRG 751 ==
LOC: M ED 13:45 → M ED INP 08-07 02:20 → M PSY 08-07 03:07
PROVIDERS: ADMIT Psychiatry & Neurology Psychiatry; ATTEND Psychiatry & Neurology Psychiatry
DX: F33.1 Major depressive disorder, recurrent, moderate (principal); E03.9 Hypothyroidism, unspecified; F60.7 Dependent personality disorder; Z79.899 Other long term (current) drug therapy; M54.5 Low back pain; D50.9 Iron deficiency anemia, unspecified; G47.33 Obstructive sleep apnea (adult) (pediatric); G25.81 Restless legs syndrome; G43.909 Migraine, unspecified, not intractable, without status migrainosus

== ENCOUNTER 2017-08-27 16:15 | Emergency (ER) | payer OTHER ==
[~2017-08-27] VITALS: Ht 162.6 cm; Wt 90.9 kg
[~2017-08-27 16:15] MED LIST changes: +CALC600T7 PO; +FERR1TAB8 PO; +FISHCAP5 PO; +FLUO20CA19 PO; +GABA600T PO; +IBUP80TA PO; +LIDO5TD TD; +PROP120C PO; +PROZ20CA11 PO; +SYNT50TA PO; +TRAZO50TA PO; +ZALE10CA PO
[2017-08-27 17:02] VITALS: BP 111/60
== END 2017-08-27 17:05 | disposition home or self-care (01) ==
LOC: M ED 16:15
DX: K05.00 Acute gingivitis, plaque induced (principal); K13.79 Other lesions of oral mucosa; Z97.2 Presence of dental prosthetic device (complete) (partial); E03.9 Hypothyroidism, unspecified; F41.9 Anxiety disorder, unspecified; G43.909 Migraine, unspecified, not intractable, without status migrainosus; H26.9 Unspecified cataract; Z87.442 Personal history of urinary calculi; Z79.899 Other long term (current) drug therapy; Z88.8 Allergy status to other drugs, medicaments and biological substances

== ENCOUNTER → 2017-12-20 | Outpatient (REF) | payer OTHER ==
[2017-12-20 14:03] LABS: FERRITIN 68 NG/ML (8-252); FREE T4 0.94 NG/DL (0.76-1.46); THYROID STIMULATING HORMONE 0.663 uIU/ML (0.358-3.740); TOTAL 25(OH) VITAMIN D 42.4 NG/ML (30.0-100.0)
[2017-12-20 14:48] LABS: HEMATOCRIT 40.7 % (36.0-47.0); HEMOGLOBIN 13.9 g/dl (12.0-16.0); MEAN CORPUSCULAR HEMOGLOBIN 30.6 pg (27.0-33.0); MEAN CORPUSCULAR HGB CONC 34.2 g/dl (32.0-36.5); MEAN CORPUSCULAR VOLUME 89.6 fl (80.0-96.0); PLATELET COUNT, AUTOMATED 246 10^3/uL (150-450); RED BLOOD COUNT 4.54 10^6/uL (4.00-5.40); RED CELL DISTRIBUTION WIDTH 12.4 % (11.5-14.5); WHITE BLOOD COUNT 6.4 10^3/uL (4.0-10.0)
== END ==
LOC: M SFHCPLAZ 10:23
DX: D64.9 Anemia, unspecified (principal); E03.9 Hypothyroidism, unspecified; E55.9 Vitamin D deficiency, unspecified
CPT/HCPCS: 84443

== ENCOUNTER → 2018-05-12 | Outpatient (CLI) | payer OTHER ==
[2018-05-12 13:54] LABS: ERYTHROCYTE SEDIMENTATION RATE 20 mm/hr (0-30)
[2018-05-12 13:59] LABS: VITAMIN B12 LEVEL 937 PG/ML (247-911)
[2018-05-12 13:59] LABS: TOTAL 25(OH) VITAMIN D 27.7 NG/ML (30.0-100.0)
[2018-05-12 14:00] LABS: FOLATE 8.2 NG/ML (>5.4)
[2018-05-12 14:03] LABS: RHEUMATOID FACTOR QUANT < 10.0 IU/ML (<15.0)
[2018-05-13 14:10] LABS: ANTINUCLEAR ANTIBODIES DIRECT Negative (Negative)
== END ==
LOC: M LAB 12:30
DX: R51 Headache (principal); E55.9 Vitamin D deficiency, unspecified; G62.9 Polyneuropathy, unspecified; M25.50 Pain in unspecified joint
CPT/HCPCS: 82746

== ENCOUNTER 2018-05-31 15:22 | Emergency (ER) | payer OTHER | END 2018-05-31 18:13 | disposition home or self-care (01) | LOC: M ED 15:22 | DX: M11.232 Other chondrocalcinosis, left wrist (principal); G43.909 Migraine, unspecified, not intractable, without status migrainosus; E03.9 Hypothyroidism, unspecified; F41.9 Anxiety disorder, unspecified; F32.9 Major depressive disorder, single episode, unspecified; Z79.899 Other long term (current) drug therapy; Z88.8 Allergy status to other drugs, medicaments and biological substances | CPT/HCPCS: 73110 ==

== ENCOUNTER 2018-07-27 08:51 | Day surgery (SDC) | payer OTHER ==
[2018-07-27] MEDS: NS 1,000 ML IV (09:32)
[2018-07-27] MEDS ORDERED: PROPOFOL 200 MG/20 ML VIAL As Ordered ×2 (09:55)
[2018-07-27] MEDS ORDERED: LIDOCAINE 2% INJ 100 MG/5 ML SDV (FOR ANES.) As Ordered (09:55)
[2018-07-27] MEDS ORDERED: PHENYLephrine HCL 500 MCG/5 ML (100MCG/ML) SYRINGE (J2370) As Ordered (10:36)
== END 2018-07-27 11:31 | disposition home or self-care (01) ==
LOC: M OPP 11:31
DX: Z12.11 Encounter for screening for malignant neoplasm of colon (principal); D12.0 Benign neoplasm of cecum; K64.8 Other hemorrhoids; K59.00 Constipation, unspecified; K62.5 Hemorrhage of anus and rectum; E03.9 Hypothyroidism, unspecified; M19.90 Unspecified osteoarthritis, unspecified site; F41.9 Anxiety disorder, unspecified; F32.9 Major depressive disorder, single episode, unspecified; G43.909 Migraine, unspecified, not intractable, without status migrainosus; G47.30 Sleep apnea, unspecified; R06.83 Snoring; Z87.442 Personal history of urinary calculi; Z88.8 Allergy status to other drugs, medicaments and biological substances; Z79.899 Other long term (current) drug therapy
CPT/HCPCS: 45380

== ENCOUNTER → 2018-07-31 | Outpatient (REF) | payer OTHER ==
[2018-07-31 13:14] LABS: HEMATOCRIT 37.9 % (36.0-47.0); HEMOGLOBIN 13.2 g/dl (12.0-15.5); MEAN CORPUSCULAR HEMOGLOBIN 30.3 pg (27.0-33.0); MEAN CORPUSCULAR HGB CONC 34.8 g/dl (32.0-36.5); MEAN CORPUSCULAR VOLUME 86.9 fl (80.0-96.0); PLATELET COUNT, AUTOMATED 241 10^3/uL (150-450); RED BLOOD COUNT 4.36 10^6/uL (4.00-5.40); RED CELL DISTRIBUTION WIDTH 12.8 % (11.5-14.5)
[2018-07-31 13:55] LABS: ALBUMIN 3.6 GM/DL (3.2-5.2); ALBUMIN/GLOBULIN RATIO 1.13 (1.00-1.93); ALKALINE PHOSPHATASE 76 U/L (45-117); ALT/SGPT 19 U/L (12-78); ANION GAP 8 MEQ/L (8-16); AST/SGOT 7 U/L (7-37); BILIRUBIN,TOTAL 0.3 MG/DL (0.2-1.0); BLOOD UREA NITROGEN 10 MG/DL (7-18); CALCIUM LEVEL 9.1 MG/DL (8.5-10.1); CARBON DIOXIDE LEVEL 27 MEQ/L (21-32); CHLORIDE LEVEL 107 MEQ/L (98-107); CHOLESTEROL LEVEL 152 MG/DL (<200); CHOLESTEROL RISK RATIO 3.166 (<5); CREATININE FOR GFR 0.65 MG/DL (0.55-1.30); FERRITIN 50 NG/ML (8-252); FREE T4 1.02 NG/DL (0.76-1.46); GLOMERULAR FILTRATION RATE > 60.0 (>51); GLUCOSE, FASTING 72 MG/DL (70-100); HDL CHOLESTEROL 48 MG/DL (>40); LDL CHOLESTEROL 63 MG/DL (<100); NON-HDL-C 104 MG/DL; POTASSIUM SERUM 4.4 MEQ/L (3.5-5.1); SODIUM LEVEL 142 MEQ/L (136-145); THYROID STIMULATING HORMONE 0.877 uIU/ML (0.358-3.740); TOTAL PROTEIN 6.8 GM/DL (6.4-8.2); TRIGLYCERIDES LEVEL 204 MG/DL (<150)
== END ==
LOC: M SFHCPLAZ 11:51
DX: D64.9 Anemia, unspecified (principal); E78.5 Hyperlipidemia, unspecified; E03.9 Hypothyroidism, unspecified; E55.9 Vitamin D deficiency, unspecified

== ENCOUNTER 2019-01-05 12:37 | Emergency (ER) | payer OTHER ==
[~2019-01-05] VITALS: Ht 162.6 cm; Wt 72.7 kg
[~2019-01-05 12:37] MED LIST changes: -/DULO30CA PO; +AMBI5TAB PO; +COLA100C5 PO; +CYMB1CAP5 PO; -GABA600T PO; +GABA600T4 PO; +HYDR-3713 PO; +LORA-243 PO; +PRED20TA PO; +VITA50005 PO; +ZOFR4TAB14 PO; -ZOFR4TAB3 PO
[2019-01-05] MEDS ORDERED: BENZ200C70 PO (14:46)
[2019-01-05] MEDS ORDERED: AFRI0.0511 (14:46)
[2019-01-05 14:52] VITALS: BP 108/68
--- NOTE | 2019-01-05 16:07 | REP ---
CHEST, TWO VIEWS: Two views of the chest are performed and compared to prior study of 12/06/2014. There is mild elevation of the right hemidiaphragm, unchanged. No acute infiltrate is seen. There is some mild fibroatelectatic change in the right lung base. Heart is not significantly enlarged. Mediastinal silhouette is unchanged. There are mild degenerative changes of the spine. IMPRESSION: No acute infiltrate. Electronically Signed by Sher Carlos MD 01/05/2019 07:58 P
== END 2019-01-05 14:53 | disposition home or self-care (01) ==
LOC: M ED 12:37
DX: J06.9 Acute upper respiratory infection, unspecified (principal); R05 Cough; G43.909 Migraine, unspecified, not intractable, without status migrainosus; G47.30 Sleep apnea, unspecified; Z87.442 Personal history of urinary calculi; E03.9 Hypothyroidism, unspecified; M54.9 Dorsalgia, unspecified; F41.9 Anxiety disorder, unspecified; F32.9 Major depressive disorder, single episode, unspecified; Z79.899 Other long term (current) drug therapy; Z88.8 Allergy status to other drugs, medicaments and biological substances

== ENCOUNTER → 2019-03-21 | Outpatient (REF) | payer OTHER ==
[~2019-03-21] MED LIST changes: +AFRI0.0511; +BENZ200C70 PO; +TRAZ1TAB10 PO; -TRAZO50TA PO
[2019-03-21 14:18] LABS: ALBUMIN 3.5 GM/DL (3.2-5.2); ALT/SGPT 26 U/L (12-78); BILIRUBIN,TOTAL 0.5 MG/DL (0.2-1.0); BLOOD UREA NITROGEN 12 MG/DL (7-18); CALCIUM LEVEL 8.7 MG/DL (8.5-10.1); CARBON DIOXIDE LEVEL 27 MEQ/L (21-32); CHLORIDE LEVEL 108 MEQ/L (98-107); CREATININE FOR GFR 0.75 MG/DL (0.55-1.30); FREE T4 0.91 NG/DL (0.76-1.46); GLOMERULAR FILTRATION RATE > 60.0 (>51); GLUCOSE, FASTING 87 MG/DL (70-100); POTASSIUM SERUM 4.4 MEQ/L (3.5-5.1); SODIUM LEVEL 141 MEQ/L (136-145); THYROID STIMULATING HORMONE 0.403 uIU/ML (0.358-3.740); TOTAL PROTEIN 7.3 GM/DL (6.4-8.2)
== END ==
LOC: M SFHCPLAZ 10:55
PROVIDERS: ATTEND Nurse Practitioner Family
DX: F32.9 Major depressive disorder, single episode, unspecified (principal); E03.9 Hypothyroidism, unspecified

== ENCOUNTER 2019-05-31 16:57 | Emergency (ER) | payer OTHER ==
[~2019-05-31] VITALS: Ht 157.5 cm; Wt 63.6 kg
[2019-05-31] MEDS ORDERED: PREG100CA (17:03)
[2019-05-31] MEDS ORDERED: TIZA2TA (17:03)
[2019-05-31] MEDS ORDERED: ALPR1TAB3 (17:03)
[2019-05-31] MEDS ORDERED: methylPREDNISolone INJ 125 MG/2 ML VIAL (J2930) IM ONE (18:00)
[2019-05-31] MEDS ORDERED: KETOROLAC 60 MG/2 ML VIAL (J1885) IM ONE (18:00)
[2019-05-31] MEDS ORDERED: LIDOCAINE 5% (LIDODERM) PATCH TD ONE (18:00)
[2019-05-31] MEDS ORDERED: NAPR-837 PO (18:17)
[2019-05-31] MEDS ORDERED: PRED20TA PO (18:17)
[2019-05-31 18:50] VITALS: BP 130/65
[2019-05-31] MEDS ORDERED: **NOTE PATIENT COMMENT** MISC XX SCH (21:00)
[2019-06-01] MEDS ORDERED: **NOTE PATIENT COMMENT** MISC XX ONE (06:00)
== END 2019-05-31 18:54 | disposition home or self-care (01) ==
LOC: M ED 16:57
DX: M54.5 Low back pain (principal); G43.909 Migraine, unspecified, not intractable, without status migrainosus; Z87.442 Personal history of urinary calculi; Z79.899 Other long term (current) drug therapy; Z88.8 Allergy status to other drugs, medicaments and biological substances
CPT/HCPCS: 96372; 99283; J1885; J2930

== ENCOUNTER → 2019-07-26 | Outpatient (REF) | payer OTHER ==
[~2019-07-26] MED LIST changes: +ALPR1TAB3; +NAPR-837 PO; +PREG100CA; +TIZA2TA
[2019-07-26 13:26] LABS: ALBUMIN 3.5 GM/DL (3.2-5.2); ALT/SGPT 20 U/L (12-78); BILIRUBIN,TOTAL 0.5 MG/DL (0.2-1.0); BLOOD UREA NITROGEN 12 MG/DL (7-18); CALCIUM LEVEL 9.1 MG/DL (8.5-10.1); CARBON DIOXIDE LEVEL 25 MEQ/L (21-32); CHLORIDE LEVEL 106 MEQ/L (98-107); CHOLESTEROL LEVEL 211 MG/DL (<200); CHOLESTEROL RISK RATIO 3.836 (<5); CREATININE FOR GFR 0.78 MG/DL (0.55-1.30); FREE T4 0.86 NG/DL (0.76-1.46); GLOMERULAR FILTRATION RATE > 60.0 (>51); GLUCOSE, FASTING 74 MG/DL (70-100); HDL CHOLESTEROL 55 MG/DL (>40); LDL CHOLESTEROL 131 MG/DL (<100); NON-HDL-C 156 MG/DL; POTASSIUM SERUM 4.4 MEQ/L (3.5-5.1); SODIUM LEVEL 139 MEQ/L (136-145); TOTAL 25(OH) VITAMIN D 29.1 NG/ML (30.0-100.0); TOTAL PROTEIN 7.2 GM/DL (6.4-8.2); TRIGLYCERIDES LEVEL 125 MG/DL (<150)
== END ==
LOC: M SFHCPLAZ 10:52
PROVIDERS: ATTEND Nurse Practitioner Family
DX: E78.5 Hyperlipidemia, unspecified (principal); E03.9 Hypothyroidism, unspecified; E55.9 Vitamin D deficiency, unspecified

== ENCOUNTER 2019-12-20 16:23 | Emergency (ER) | payer OTHER ==
[~2019-12-20] VITALS: Ht 162.6 cm; Wt 103.8 kg
[~2019-12-20 16:23] MED LIST changes: -FLUO20CA19 PO; +FLUO20CA22 PO; -OXYB15TA PO; +OXYB15TA14 PO; -RIZA10TA4 PO; +RIZA10TA58 PO; -ROPI0.5T PO; +ROPI0.5T3 PO
[2019-12-20] MEDS ORDERED: ACETAMINOPHEN 325 MG TAB PO ONE (18:15)
[2019-12-20] MEDS ORDERED: KETOROLAC TROMETHAMINE 10 MG TAB PO ONE (18:15)
[2019-12-20] MEDS ORDERED: KETO10TAB PO (18:34)
[2019-12-20 18:44] VITALS: BP 152/77
== END 2019-12-20 18:52 | disposition home or self-care (01) ==
LOC: M ED 16:23
DX: M19.041 Primary osteoarthritis, right hand (principal); Z79.899 Other long term (current) drug therapy; Z88.5 Allergy status to narcotic agent

== ENCOUNTER → 2020-01-30 | Outpatient (REF) | payer OTHER ==
[~2020-01-30] MED LIST changes: +KETO10TAB PO
[2020-01-30 17:44] LABS: ALBUMIN 3.7 GM/DL (3.2-5.2); ALT/SGPT 26 U/L (12-78); BILIRUBIN,TOTAL 0.2 MG/DL (0.2-1.0); BLOOD UREA NITROGEN 17 MG/DL (7-18); CALCIUM LEVEL 9.7 MG/DL (8.5-10.1); CARBON DIOXIDE LEVEL 29 MEQ/L (21-32); CHLORIDE LEVEL 106 MEQ/L (98-107); CREATININE FOR GFR 0.78 MG/DL (0.55-1.30); FREE T4 0.96 NG/DL (0.76-1.46); GLOMERULAR FILTRATION RATE > 60.0 (>51); GLUCOSE, FASTING 124 MG/DL (70-100); POTASSIUM SERUM 4.5 MEQ/L (3.5-5.1); SODIUM LEVEL 139 MEQ/L (136-145); TOTAL 25(OH) VITAMIN D 22.4 NG/ML (30.0-100.0); TOTAL PROTEIN 7.9 GM/DL (6.4-8.2)
== END ==
LOC: M PLALAB 14:03
PROVIDERS: ATTEND Nurse Practitioner Family
DX: E78.5 Hyperlipidemia, unspecified (principal); E03.9 Hypothyroidism, unspecified; E55.9 Vitamin D deficiency, unspecified

== ENCOUNTER 2020-05-22 18:45 | Emergency (ER) | payer OTHER ==
[~2020-05-22 18:45] MED LIST changes: +CALC-212 PO; -CALC600T7 PO
[2020-05-22] MEDS ORDERED: KETOROLAC 60MG 2ML VIAL As Ordered ONE (19:22)
[2020-05-22] MEDS ORDERED: ACETAMINOPHEN 500 MG TAB As Ordered ONE (19:22)
[2020-05-22] MEDS ORDERED: ACETAMINOPHEN 500 MG TAB ONE (19:22)
[2020-05-22] MEDS ORDERED: KETOROLAC 60MG 2ML VIAL ONE (19:22)
== END 2020-05-22 20:30 | disposition home or self-care (01) ==
LOC: M ED 18:45
DX: G43.909 Migraine, unspecified, not intractable, without status migrainosus (principal); M54.2 Cervicalgia; Z88.8 Allergy status to other drugs, medicaments and biological substances; Z79.899 Other long term (current) drug therapy; Z79.891 Long term (current) use of opiate analgesic
CPT/HCPCS: 70450; 72125; 99283; J1885

== ENCOUNTER → 2020-07-21 | Outpatient (REF) | payer OTHER ==
[2020-07-21 14:19] LABS: ALBUMIN 3.5 GM/DL (3.2-5.2); ALT/SGPT 28 U/L (12-78); BILIRUBIN,TOTAL 0.3 MG/DL (0.2-1.0); BLOOD UREA NITROGEN 13 MG/DL (7-18); CALCIUM LEVEL 9.3 MG/DL (8.5-10.1); CARBON DIOXIDE LEVEL 26 MEQ/L (21-32); CHLORIDE LEVEL 111 MEQ/L (98-107); CHOLESTEROL LEVEL 214 MG/DL (<200); CHOLESTEROL RISK RATIO 3.962 (<5); CREATININE FOR GFR 0.79 MG/DL (0.55-1.30); FREE T4 0.91 NG/DL (0.76-1.46); GLOMERULAR FILTRATION RATE > 60.0 (>51); GLUCOSE, FASTING 106 MG/DL (70-100); HDL CHOLESTEROL 54 MG/DL (>40); LDL CHOLESTEROL 143 MG/DL (<100); NON-HDL-C 160 MG/DL; POTASSIUM SERUM 4.3 MEQ/L (3.5-5.1); SODIUM LEVEL 143 MEQ/L (136-145); THYROID STIMULATING HORMONE 0.988 uIU/ML (0.358-3.740); TOTAL PROTEIN 7.1 GM/DL (6.4-8.2); TRIGLYCERIDES LEVEL 86 MG/DL (<150)
[2020-07-21 14:20] LABS: TOTAL 25(OH) VITAMIN D 37.1 NG/ML (30.0-100.0)
== END ==
LOC: M PLALAB 09:33
PROVIDERS: ATTEND Nurse Practitioner Family
DX: E78.5 Hyperlipidemia, unspecified (principal); E03.9 Hypothyroidism, unspecified; E55.9 Vitamin D deficiency, unspecified

== ENCOUNTER → 2020-07-30 | Outpatient (CLI) | payer SELFPAY | LOC: M LABSMTC 13:59 | PROVIDERS: ATTEND Pediatrics | DX: Z20.828 Contact with and (suspected) exposure to other viral communicable diseases (principal) ==

== ENCOUNTER 2020-10-01 11:33 | Emergency (ER) | payer OTHER, SELFPAY ==
[~2020-10-01] VITALS: Ht 162.6 cm; Wt 107.1 kg
[~2020-10-01 11:33] MED LIST changes: -ALPR1TAB3; +ALPR1TAB3 PO; -PREG100CA; +PREG100CA PO; -TIZA2TA; +TIZA2TA PO
[2020-10-01] MEDS ORDERED: TRAZ-252 PO (11:44)
--- NOTE | 2020-10-01 12:36 | REP ---
INDICATION: right knee pain, swelling over patella COMPARISON: None. TECHNIQUE: There are five views. FINDINGS: There is no fracture or dislocation. Mineralization and joint spaces are normal. There are no calcifications or foreign bodies. There is no effusion. IMPRESSION: Essentially negative plain film study of the right knee. <Electronically signed by Sher Ward > 10/01/20 0460
--- NOTE | 2020-10-01 13:15 | REP ---
INDICATION: post knee pain, possible bakers cyst. COMPARISON: None. TECHNIQUE: Right lower extremity duplex venous ultrasound. FINDINGS: The deep veins are anechoic and fully compressible from the groin to the popliteal fossa in the right lower extremity. Color flow imaging is homogeneous. Spectral Doppler interrogation demonstrates intact respiratory variation in flow and normal manual augmentation of flow. There is no evidence of deep vein thrombosis. There is a Rendon's cyst in right posterior popliteal soft tissues measuring 4.0 x 1.4 x 2.0 cm. IMPRESSION: Negative right lower extremity duplex venous ultrasound. No evidence of deep vein thrombosis. Right-sided Rendon's cyst. <Electronically signed by David Randolph > 10/01/20 8029
[2020-10-01 13:25] VITALS: BP 108/69
== END 2020-10-01 13:29 | disposition home or self-care (01) ==
LOC: M ED 11:33
DX: M71.21 Synovial cyst of popliteal space [Baker], right knee (principal); Z79.899 Other long term (current) drug therapy; Z88.8 Allergy status to other drugs, medicaments and biological substances

== ENCOUNTER → 2020-10-30 | Outpatient (CLI) | payer SELFPAY ==
[~2020-10-30] MED LIST changes: +TRAZ-252 PO
== END ==
LOC: M LABSMTC 13:54
PROVIDERS: ATTEND Pediatrics
DX: Z20.822 Contact with and (suspected) exposure to COVID-19 (principal)

== ENCOUNTER 2020-12-12 12:06 | Emergency (ER) | payer OTHER ==
[~2020-12-12] VITALS: Ht 162.6 cm; Wt 108.8 kg
--- OUTSIDE RECORDS SUMMARY | 2020-12-12 12:14 | CCD | Continuity of Care Document ---
Author Author Betzy BRIONES MD Organization Unknown Address [address] [facility] [place] [address] Phone [phone] Care Team Providers Care Early Childhood Coordinator Name Role Phone Yasmine Romero AUTM [phone] Problems Description No Information Available Social History Type Date Description Comments Sex Unknown ETOH Use Denies alcohol use Tobacco Use Start: Unknown Denies Smoking Allergies, Adverse Reactions, Alerts Active Allergies Reaction Severity Comments Date Topamax 06/13/2018 Medications Active Medications SIG Qnty Indications Ordering Provide r Date Thyroid Tablets Unknown Oxybutynin Chloride Tablets take one tablet by mouth twice a day Unknown Hydrocodone-Acetaminophen Tablets 1-2 tab4-6 hours as needed pain Unknown Loratadine Tablets 1 by mouth every day Unknown Propranolol HCL Tablets 1 by mouth every day Unknown Prozac Capsules Unknown Immunizations Description No Information Available Vital Signs Date Vital Result Comment 11/12/2020 10:15am Body Temperature 97.4 F Height 64.5 inches 5'4.50" Weight 233.38 lb BMI (Body Mass Index) 39.4 kg/m2 06/13/2018 10:55am Body Temperature 99.0 F Height 64 inches 5'4" Weight 213.50 lb BMI (Body Mass Index) 36.6 kg/m2 Results Description No Information Available Procedures Description No Information Available Medical Devices Description No Information Available Encounters Type Date Location Provider Dx Diagnosis Office Visit 11/12/2020 10:00a [place] Suhail Briones MD M71.21 Synovial cyst of popliteal space [Rendon], right knee M25.561 Pain in right knee Assessments Date Code Description Provider 11/12/2020 M71.21 Synovial cyst of popliteal space [Rendon], right knee Suhail Briones MD 11/12/2020 M25.561 Pain in right knee Suhail martinez MD Plan of Treatment 11/12/2020 - Suhail Briones MD* M71.21 Synovial cyst of popliteal space [Rendon], right knee * M25.561 Pain in right knee* New Xrays:* MRI Right Knee, Ordered: 11/12/20 * Follow up:* f/u after mri for results [facility] Functional Status Description No Information Available Mental Status Description No Information Available Referrals Description No Information Available
--- OUTSIDE RECORDS SUMMARY | 2020-12-12 12:14 | CCD | Continuity of Care Document ---
Author Author Betzy BRIONES MD Organization Unknown Address [address] [place] [address], [facility] [address] [place] [address] Phone [phone] Care Team Providers Care Fisher Troll Line Name Role Phone Yasmine Romero AUTM [phone] Problems Description No Information Available Social History Type Date Description Comments Sex Unknown ETOH Use Denies alcohol use Tobacco Use Start: Unknown Denies Smoking Allergies, Adverse Reactions, Alerts Active Allergies Reaction Severity Comments Date Topamax 06/13/2018 Medications Active Medications SIG Qnty Indications Ordering Provide r Date Thyroid Tablets Unknown Oxybutynin Chloride Tablets take one tablet by mouth twice a day Unknown Loratadine Tablets 1 by mouth every [...] BMI (Body Mass Index) 36.6 kg/m2 Results Test Acquired Date Facility Test Result H/L Range Note Order 11/28/2020 [facility] [address] [facility] [address] [place] [address] Surgery <pending> Procedures Date Code Description Status 11/21/2020 76638 MRI Lower Extremity Any Joint Co mpleted Medical Devices Description No Information Available Encounters Type Date Location Provider Dx Diagnosis Office Visit 11/12/2020 10:00a [place] Suhail Briones MD M71.21 Synovial cyst of popliteal space [Rendon], right knee M25.561 Pain in right knee Assessments Date Code Description Provider 11/27/2020 M23.221 Derangement of poste rior horn of medial meniscus due to old tear or injury, right knee Suhail Briones MD 11/27/2020 M17.11 Unilateral primary osteoarthriti s, right knee Suhail Briones MD 11/21/2020 M25.561 Pain in right knee Suhail martinez MD 11/21/2020 M25.561 Pain in right knee MRI 11/12/2020 M71.21 Synovial cyst of popliteal space [Rendon], right knee Suhail Briones MD 11/12/2020 M25.561 Pain in right knee Suhail martinez MD Plan of Treatment 11/27/2020 - Suhail Briones MD* M23.221 Derangement of posterior horn of medial meniscus due to old tear or injury, right knee* Follow up:* post op * M17.11 Unilateral primary osteoarthritis, right knee Functional Status Description No Information Available Mental Status Description No Information Available Referrals Refer to Dr Reason for Referral Status Appt Date Suhail Briones MD SURGERY PER [facility] NO AU TH REQUIRED FOR RT KNEE SURGERY (59094) TO BE DONE HERE IN OUR ASC TO SURGERY NT Created [address] [place] [address] [phone] Suhail Briones MD MRI APPROVED PER [facility] WEB FOR MRI OF RIGHT KNEE (88617) TO MRI. DG Created [address] [place] [phone] Suhail Briones MD AUTH FOR PT EVAL [id number] ,[id number]. PAT IS GOING TO [facility]. PASSED TO PT DEPT. HW Created [address] [place] [address] [phone] [place] [address]. 4 15 MINUTE VISITS. Creat ed [address] [place] [phone]
--- OUTSIDE RECORDS SUMMARY | 2020-12-12 12:14 | CCD | Continuity of Care Document ---
Author Author Betzy MARKS Organization Unknown Address [address] [facility] [place] [address] Phone [phone] Care Team Providers Care Vamp Seamer Name Role Phone Yasmine Romero LEVY AUTM [phone] Problems Description No Information Available Social History Type Date Description Comments Sex Unknown ETOH Use Denies alcohol use Tobacco Use Start: Unknown Denies Smoking Allergies, Adverse Reactions, Alerts Active Allergies Reaction Severity Comments Date Topamax 06/13/2018 Medications Active Medications SIG Qnty Indications Ordering Provide r Date Thyroid Tablets Unknown Oxybutynin Chloride Tablets take one tablet by mouth twice a day Unknown 0 Hydrocodone-Acetaminophen Tablets 1-2 tab4-6 hours as needed [...] kg/m2 Results Description No Information Available Procedures Date Code Description Status 11/21/2020 72041 MRI Lower Extremity Any Joint Co mpleted Medical Devices Description No Information Available Encounters Type Date Location Provider Dx Diagnosis Office Visit 11/12/2020 10:00a [place] Suhail Hoffman MD M71.21 Synovial cyst of popliteal space [Rendon], right knee M25.561 Pain in right knee Assessments Date Code Description Provider 11/21/2020 M25.561 Pain in right knee Suhail martinez MD 11/21/2020 M25.561 Pain in right knee MRI 11/12/2020 M71.21 Synovial cyst of popliteal space [Rendon], right knee Suhail Hoffman MD 11/12/2020 M25.561 Pain in right knee Suhail martinez MD Plan of Treatment Future Appointment(s):* 11/27/2020 2:15 pm - Suhail Hoffman MD at [place] 11/12/2020 - Suhail Hoffman MD* M71.21 Synovial cyst of popliteal space [Rendon], right knee * M25.561 Pain in right knee* Follow up:* f/u after mri for results [facility] Functional Status Description No Information Available Mental Status Description No Information Available Referrals Refer to Dr Reason for Referral Status Appt Date Suhail Hoffman MD MRI APPROVED PER [facility] WEB FOR MRI OF RIGHT KNEE (37809) TO MRI. DG Created [address] [facility], [address] [place] [address] [phone]
--- OUTSIDE RECORDS SUMMARY | 2020-12-12 12:14 | CCD | Continuity of Care Document ---
Author Author Betzy DEL ANGEL M.D. Organization Unknown Address [address] [place] [address] Phone [phone] Care Team Providers Care Water Quality Manager Name Role Phone Yasmine Romero AUTM [phone] Problems Description No Information Available Social History Type Date Description Comments Sex Unknown Allergies, Adverse Reactions, Alerts Active Allergies Reaction Severity Comments Date Tylenol W/Codeine itch 06/23/2011 Neurontin edema 02/12/2013 Oxycodone severe fatigue 10/21/2014 Topamax kidney stones 06/02/2015 Trazodone dizziness with 100 mg dose 0 04/07/2017 Inactive Allergies NKDA 07/14/2010 Medications Active Medications SIG Qnty Indications Ordering Provide r Date Naproxen 500mg Tablets Take One Tablet By Mouth Twice A Day as Needed 60tabs Carola Medeiros M.D. Pregabalin 150mg Capsules 1 po bid 60caps M54.5 Carola Medeiros M.D. 08/14/2019 Tizanidine HCL 2mg Tablets 1 po tid prn 90tabs M62.838 Carola Medeiros M.D. 11/06/2018 Cpap Supplies And Mask bayron, g47.33 1units Carola Medeiros M.D. 08/08/2018 Ondansetron 4mg Tablets Dispers take 1 tab every 8 hours as needed for nausea and vomiting. 30tabs Carola Medeiros M.D. 04/24/2018 Maxalt-MANAGER OF APPLICATION DEVELOPMENT 10mg Tablets Dispers 1 by mouth at onset of headache. may repeat once in 2 hours prn. 9tabs G43.71 9 Carola Medeiros M.D. 07/06/2016 Propranolol HCL ER 120mg Caps ER 2 4HR take 1 capsule by mouth once daily 30caps M54.5 Carola Medeiros M.D. 04/12/2012 Left Wrist Splint left CTS G56.02 Carola Medeiros M.D. 03/19/2011 History Medications Medrol 4mg TBPK take d osepak as directed 1pack M54.81 Carola Medeiros M.D. 06/03/2020 - 020 Immunizations Description No Information Available Vital Signs Date Vital Result Comment 09/03/2020 6:58am BP Systolic 118 mmHg BP Diastolic 80 mmHg Heart Rate 76 /min Respiratory Rate 20 /min 06/17/2020 7:31am BP Systolic 130 mmHg BP Diastolic 80 mmHg Heart Rate 76 /min Respiratory Rate 20 /min Results Description No Information Available Procedures Date Code Description Status 11/13/2020 02963 Injection For Nerve Block, Other Peripheral Nerve Or Branch Completed 11/13/2020 04095 Injection Single Or Multiple Trigger Points Three Or More Muscles Completed 10/06/2020 91015 Injection For Nerve Block, Other Peripheral Nerve Or Branch Completed 10/06/202054333 Injection Single Or Multiple Trigger Points Three Or More Muscles Completed 09/04/2020 05005 Injection For Nerve Block, Other Peripheral Nerve Or Branch Completed 09/04/2020 Injection Single Or Multiple Trigger Points Three Or More Muscles Completed 08/04/2020 19088 Injection For Nerve Block, Other Peripheral Nerve Or Branch Completed 08/04/202051023 Injection Single Or Multiple Trigger Points Three Or More Muscles Completed 07/02/2020 84303 Injection For Nerve Block, Other Peripheral Nerve Or Branch Completed 07/02/2020 49321 Injection, Single Or Multiple trigger points one or two muscles Completed Medical Devices Description No Information Available Encounters Type Date Location Provider Dx Diagnosis Office Visit 09/03/2020 1:45p Main office - [place] Estephania fairbanks P.A.-CRadhika G43.709 Chronic migraine w/o aura, not intractab le, w/o stat migr M54.81 Occipital neuralgia M79.7 Fibromyalgia M54.2 Cervicalgia M54.5 Low back pain G47.33 Obstructive sleep apnea (edison lt) (pediatric) Office Visit 06/17/2020 12:00p Main office - [place] Estephania J. Tric fairbanks, P.A.-C. G43.709 Chronic migraine w/o aura, not intractab le, w/o stat migr M54.81 Occipital neuralgia M79.7 Fibromyalgia M54.2 Cervicalgia M54.5 Low back pain G47.33 Obstructive sleep apnea (edison lt) (pediatric) Office Visit 06/03/2020 2:00p Main office - [place] John MarieA.-CRadhika R51 Headache M54.81 Occipital neuralgia M54.2 Cervicalgia M62.838 Other muscle spasm Assessments Date Code Description Provider 11/13/2020 M54.81 Occipital neuralgia Savage dave M.D. 11/13/2020 M60.88 Other myositis, other site Savage Del Angel M.D. 10/06/2020 M54.81 Occipital neuralgia Savage dave M.D. 10/06/2020 M60.88 Other myositis, other site Savage Del Angel M.D. 09/04/2020 M54.81 [facility] 09/04/2020 M60.88 Other myositis, other site Savage Del Angel M.D. 09/03/2020 G43.709 Chronic migraine without aura, n ot intractable, without stat Yunior Causey.A.-C. 09/03/2020 M54.81 Occipital neuralgia Yunior Marie.A.-C. 09/03/2020 M79.7 Fibromyalgia Estephania Bowers P.A.-C. 09/03/2020 M54.2 Cervicalgia Estephania Bowers P.A.-C. 09/03/2020 M54.5 Low back pain Estephania Bowers P.A.-C. 09/03/2020 G47.33 Obstructive sleep apnea (adult) (pediatric) Estephania Bowers P.A.-C. 08/04/2020 M54.81 [facility]ipital neuralgia [facility] 08/04/2020 M60.88 Other myositis, other site Savage Del Angel M.D. 07/02/2020 M54.81 Occipital neuralgia Savage dave M.D. 07/02/2020 M60.88 Other myositis, other site Savage Del Angel M.D. 06/17/2020 G43.709 Chronic migraine without aura, n ot intractable, without stat Estephania Bowers P.A.-C. 06/17/2020 M54.81 Occipital neuralgia Estephania fairbanks P.A.-C. 06/17/2020 M79.7 Fibromyalgia Estephania Bowers P.A.-C. 06/17/2020 M54.2 Cervicalgia Estephnaia Bowers P.A.-C. 06/17/2020 M54.5 Low back pain Estephania Bowers P.A.-C. 06/17/2020 G47.33 Obstructive sleep apnea (adult) (pediatric) Estephania Bowers P.A.-C. 06/03/2020 R51 Headache Estephania Bowers P.A.-C. 06/03/2020 M54.81 Occipital neuralgia Estephania fairbanks P.A.-C. 06/03/2020 M54.2 Cervicalgia Estephania Bowers P.A.-C. 06/03/2020 M62.838 Other muscle spasm Alanna Adame.-CRadhika Plan of Treatment Future Appointment(s):* 01/19/2021 3:25 pm - Savage Del Angel M.D. at [facility] * 12/18/2020 3:25 pm - Savage Del Angel M.D. at [facility] * 12/04/2020 12:00 pm - John CauseyA.-CRadhika at [facility] 09/03/2020 - Yunior Causey.A.-C.* G43.709 Chronic migraine without aura, not intractable, without stat* Comments:* Continue current medications. * M54.81 Occipital neuralgia* Comments:* Injections will be administered tomorrow. * M79.7 Fibromyalgia* Comments:* Resume Lyrica once daily for several days then bid dosing. Continue other medications. * M54.2 Cervicalgia* Comments:* Stable. * M54.5 Low back pain* Comments:* Follow up with [facility]. * G47.33 Obstructive sleep apnea (adult) (pediatric)* Comments:* She was advised to resume use of CPAP. * Follow up:* 3 months Functional Status Description No Information Available Mental Status Description No Information Available Referrals Refer to Reason for Referral Status Appt Date Carola Medeiros M.D. Created [facility] [address] [id number] [phone]
--- OUTSIDE RECORDS SUMMARY | 2020-12-12 12:14 | CCD | Continuity of Care Document ---
Author Author Betzy MARKS Organization Unknown Address [address] [place] [address] Phone [phone] Care Team Providers Care Telemarketer Name Role Phone Yasmine Romero LEVY AUTM [phone] Problems Description No Information Available Social History [...] Provider Dx Diagnosis Office Visit 11/12/2020 10:00a [place] Suhail Hoffman MD M71.21 Synovial cyst of popliteal space [Rendon], right knee M25.561 Pain in right knee Assessments Date Code Description Provider 11/12/2020 M71.21 Synovial cyst of popliteal space [Rendon], right knee Suhail Hoffman MD 11/12/2020 M25.561 Pain in right knee Suhail martinez MD Plan of Treatment Future Appointment(s):* 11/27/2020 2:15 pm - Suhail Hoffman MD at [place] 11/12/2020 - Suhail Hoffman MD* M71.21 Synovial cyst of popliteal space [Rendon], right knee * M25.561 Pain in right knee* Follow up:* f/u after mri for results [facility] Functional Status Description No Information Available Mental Status Description No Information Available Referrals Refer to Dr Reason for Referral Status Appt Date Suhail Hoffman MD MRI APPROVED PER [facility] WEB FOR MRI OF RIGHT KNEE (95420) TO MRI. DG Created [address], [address] [place] [address] [phone]
--- OUTSIDE RECORDS SUMMARY | 2020-12-12 12:14 | CCD | Continuity of Care Document ---
Author Author Betzy DEL ANGEL M.D. Organization Unknown Address [address] [place] [address] Phone [phone] Care Team Providers Care Billing Machine Operator Name Role Phone Yasmine Romero AUTM [phone] Problems Description No Information Available Social History [...] and vomiting. 30tabs Carola Medeiros M.D. 04/24/2018 Maxalt-RETAIL LOAN ORIGINATOR ASSISTANT 10mg Tablets Dispers 1 by mouth at [...] Information Available Procedures Date Code Description Status 10/06/2020 32429 Injection For Nerve Block, Other Peripheral Nerve Or Branch Completed 10/06/202094172 Injection Single Or Multiple Trigger Points Three Or More Muscles Completed 09/04/2020 48091 Injection For Nerve Block, Other Peripheral Nerve Or Branch Completed 09/04/202034537 Injection Single Or Multiple Trigger Points Three Or More Muscles Completed 08/04/2020 30317 Injection For Nerve Block, Other Peripheral Nerve Or Branch Completed 08/04/2020 Injection Single Or Multiple Trigger Points Three Or More Muscles Completed 07/02/2020 78463 Injection For Nerve Block, Other Peripheral Nerve Or Branch Completed 07/02/202002475 Injection, Single Or Multiple trigger points one or two muscles Completed 05/22/2020 21196 Injection For Nerve Block, Other Peripheral Nerve Or Branch Completed 05/22/2020 35794 Inj, Anesth Agent, Trigeminal Co mpleted 05/22/202094764 Injection, Single Or Multiple trigger points one or two muscles Completed Medical Devices Description No Information Available Encounters Type Date Location Provider Dx Diagnosis Office Visit 09/03/2020 1:45p Main office - [place] Estephania fairbanks P.ARadhika-CRadhika G43.709 Chronic migraine w/o aura, not intractab le, w/o stat migr M54.81 Occipital neuralgia M79.7 Fibromyalgia M54.2 Cervicalgia M54.5 Low back pain G47.33 Obstructive sleep apnea (edison lt) (pediatric) Office Visit 06/17/2020 12:00p Main office - [place] Estephania fairbanks P.A.-C. G43.709 Chronic migraine w/o aura, not intractab le, w/o stat migr M54.81 Occipital neuralgia M79.7 Fibromyalgia M54.2 Cervicalgia M54.5 Low back pain G47.33 Obstructive sleep apnea (edison lt) (pediatric) Office Visit 06/03/2020 2:00p Main office - [place] Yunior Marie.A.-C. R51 Headache M54.81 Occipital neuralgia M54.2 Cervicalgia M62.838 Other muscle spasm Assessments Date Code Description Provider 10/06/2020 M54.81 Occipital neuralgia Savage dave M.D. 10/06/2020 M60.88 Other myositis, other site Savage Del Angel M.D. 09/04/2020 M54.81 Occipital neuralgia Savage dave M.D. 09/04/2020 M60.88 Other myositis, other site Savage Del Angel M.D. 09/03/2020 G43.709 Chronic migraine without aura, n ot intractable, without stat Yunior Causey.A.-C. 09/03/2020 M54.81 Occipital neuralgia Yunior Marie.A.-C. 09/03/2020 M79.7 Fibromyalgia Estephania Bowers P.A.-C. 09/03/2020 M54.2 Cervicalgia Estephania Bowers P.A.-C. 09/03/2020 M54.5 Low back pain Estephania Bowers, P.A.-C. 09/03/2020 G47.33 Obstructive sleep apnea (adult) (pediatric) Yunior Causey.A.-C. 08/04/2020 M54.81 [facility] 08/04/2020 M60.88 Other myositis, other site Savage Del Angel M.D. 07/02/2020 M54.81 Occipital neuralgia Savage dave M.D. 07/02/2020 M60.88 Other myositis, other site Savage Del Angel M.D. 06/17/2020 G43.709 Chronic migraine without aura, n ot intractable, without stat Estephania Bowers, P.A.-C. 06/17/2020 M54.81 Occipital neuralgia Estephania fairbanks, P.A.-C. 06/17/2020 M79.7 Fibromyalgia Estephania Bowers, P.A.-C. 06/17/2020 M54.2 Cervicalgia Estephania Bowers, P.A.-C. 06/17/2020 M54.5 Low back pain Estephania Bowers, P.A.-C. 06/17/2020 G47.33 Obstructive sleep apnea (adult) (pediatric) Estephania Bowers, P.A.-C. 06/03/2020 R51 Headache Estephania Bowers, P.A.-C. 06/03/2020 M54.81 Occipital neuralgia Estephania fairbanks, P.A.-C. 06/03/2020 M54.2 Cervicalgia Estephania Bowers, P.A.-C. 06/03/2020 M62.838 Other muscle spasm Estephania fatima P.A.-C. 05/22/2020 M54.81 Occipital neuralgia Savage dave M.D. 05/22/2020 M60.88 Other myositis, other site Savage Del Angel M.D. 05/22/2020 G50.0 Trigeminal neuralgia Savage go M.D. Plan of Treatment Future Appointment(s):* 01/19/2021 3:25 pm - Savage Del Angel M.D. at [facility] * 12/18/2020 3:25 pm - Savage Del Angel M.D. at [facility] * 12/04/2020 12:00 pm - Estephania Bowers P.A.-C. at [facility] 09/03/2020 - Estephania Bowers P.A.-C.* G43.709 Chronic migraine without aura, not intractable, [...] to Reason for Referral Status Appt Date Savage Del Angel M.D. Created [address] [facility] [place] [address] [phone]
--- OUTSIDE RECORDS SUMMARY | 2020-12-12 12:14 | CCD ---
Author Author [facility] Organization [facility] Address Unknown Phone Unavailable Care Team Providers Care Screen Printing Loader Unloader Name Role Phone Yasmine Romero Unavailable PROBLEMS Type Condition ICD9-CM Code GGU87-CB Code Onset Dates Condition S tatus W/U Status Risk SNOMED Code Notes Problem Hyperlipidemia E78.5 Active confirmed 69425 004 Problem Hypothyroid E03.9 Active confirmed 63938374 Problem Migraine without aura G43.009 Active confirmed 08708860 Problem Cervicalgia M54.2 Active confirmed 94647898 Problem Overactive bladder N32.81 Active confirmed 2 08740460 Problem Lumbosacral spondylosis without myelopathy M47.817 Active confirmed 50047596 Problem Allergic rhinitis J30.9 Active confirmed 61 250294 Problem Breast screening Z12.39 Active confirmed 243 471570 Problem Severe episode of recurrent major depressive disorder, without psychotic features F33.2 Active confirmed 54668414 Problem Depression F32.9 Active confirmed 15631688 Problem Wrist pain, right M25.531 Active confirmed 3 46847237052469 Problem Sacroiliitis, not elsewhere classified M46.1 A ctive confirmed 88599863 Problem Anemia D64.9 Active confirmed 219396549 Problem Fatigue R53.83 Active confirmed 58832077 Problem Vitamin D deficiency E55.9 Active confirmed 99401249 Problem PETE (obstructive sleep apnea) G47.33 Active confirm ed 38319407 ALLERGIES Allergen (clinical drug ingredient) Drug/Non Drug Allergy do cumented on EMR Reaction Allergy Type Onset Date Status topiramate Topamax([facility] Code:[address]-36) cAUSES KIDNEY STONES Drug Allergy Active ENCOUNTERS from 1967 to 2020-11-20 Encounter Location Date Provider Diagnosis [facility] [place] [address] Nov, 021 Yasmine Romero IMMUNIZATIONS Vaccine Route Administration Date Status Influenza (Pharmacy Given) Unknown Jul 25, 2019 Admin istered Influenza (Pharmacy Given) Unknown Aug 02, 2018 Admin istered Influenza (18 yrs & older) Flublok IM Intramuscular Jul 25, 2020 Administered Influenza (6mo & up) Fluzone Unknown Jul 27, 2017 Adm inistered Influenza (6mo & up) Fluzone Unknown Jun 24, 2012 Adm inistered SOCIAL HISTORY Tobacco Use: Social History Observation Description Date Details (start date - stop date) Never Smoker Sex Assigned At : Social History Observation Description Sex Assigned At Unknown Audit Question Answer Notes Total Score: 0 Interpretation: Alcohol Education Language: Question Answer Notes Languages spoken: Trinidadian Confucianist: Question Answer Notes Confucianist 35 None Sexual Hx: Question Answer Notes Had sex in the last 12 months (vaginal, oral, or anal)? No Have you ever had an STD? No Drug and Alcohol Question Answer Notes Total Score: 0 Interpretation: No problems reported Alcohol Screening: Question Answer Notes Did you have a drink containing alcohol in the past year? No Points 0 Interpretation Negative BMI Care Goal Follow-Up Question Answer Notes Above Normal BMI Follow-Up Dietary management educatio n, guidance, and counseling Tobacco Use: Question Answer Notes Are you a: never smoker never smoker Additional Findings: Tobacco User None REASON FOR REFERRAL No Information VITAL SIGNS No information MEDICATIONS Medication SIG (Take, Route, Frequency, Duration) Notes Start Da te End Date Status Levothyroxine Sodium 50 MCG 1 tablet on an empty stoma ch in the morning Orally Once a day for 90 day(s) Active Propranolol HCl ER 120 MG TAKE ONE CAPSULE BY MOUTH EVERY DAY Oral fo r 30 Active PROzac 20 MG 2 capsules in the morning Orally Once a day Active Naproxen 500 MG 1 tablet with food or milk a s needed Orally twice daily as needed for 30 Days Jan, Active Ropinirole HCl 0.5 MG TAKE ONE TABLET BY MOUTH AT BEDTIME Oral for 30 Active Oxybutynin Chloride ER 15 MG 1 tablet Orally Once a day for 90 day(s) Active Vitamin D3 50 MCG (2000 UT) 1 tablet Orally Once a day with meal for 90 day(s) Jul, Active Rizatriptan Benzoate 10 MG DISSOLVE 1 TABLET IN MOUTH AT ONSET OF HEADACHE MAY REPEAT ONCE IN 2 HOURS NEEDED MAXIMUM DAILY DOSE 2 Oral Active TraZODone HCl 50 MG 1 tablet at bedtime as neede d Orally Once a day for 30 day(s) Active Hydrocodone-Acetaminophen 5-325 MG (Schedule II Drug) TAKE ONE TABLET BY MOUTH TWICE A DAY NEEDED MAXIMUM DAILY DOSE 2 Oral for 30 Not-Taking Zolpidem Tartrate 10 MG (Schedule IV Drug) TAKE ONE TABLET BY MOUTH AT BEDTIME MAXIMUM DAILY DOSE 1 Oral for 30 Not-Taking Zofran ODT 4 MG 1 tablet on the tongue and allow to diss olve Orally every 8 hrs Active Alprazolam 0.5 MG 1 tablet Oral Once day Active Loratadine 10 MG 1 tablet Orally Once a day for 90 days Active PROCEDURES No Information RESULTS No Results REASON FOR VISIT letter for her apartment MEDICAL (GENERAL) HISTORY Type Description Date Medical History [facility] Medical History FAMILY HX OF MELANOMA...BROTHER Medical History Migraines - Neurology Medical History depression - Dr Short Medical History Recent UTI Medical History Bereavement Medical History Hyperlipidemia Medical History Kidney Stone Medical History Anemia Medical History Arthritis Medical History Chronic back pain, 7 bulging discs Medical History PETE (obstructive sleep apnea) Medical History Vitamin D deficiency Surgical History carpal tunnel release (right) 02/05/2009 Surgical History cataract surgery (R)-intraocular lense i mplant 03/17/11 Surgical History LEFT CARPAL TUNNEL RELEASE 09/26/2013 Surgical History Right Eye Laser 2014 Surgical History Right eye Chalazion Incision and Drainag e 05/30/17 [place] [facility] [place] Goals Section No Information Health Concerns No Information MEDICAL EQUIPMENT No Information MENTAL STATUS No Information FUNCTIONAL STATUS No Information ASSESSMENTS No Information PLAN OF TREATMENT Medication Medication Name Sig Start Date Stop Date Naproxen 500 MG 1 tablet with food or milk a s needed Orally twice daily as needed for 30 Days Jan, Next Appt Details Provider Name:Yasmine Romero, 2021-01-23 11:3 0:00 AM, [address] [place], [address], Provider Name:Cristhian Estevez, 02-20 03:00:00 PM, [address] [facility], [address], [place], [address], Insurance Providers Payer Name Payer Address Payer Phone Insured Name Patient Relati onship to Insured Coverage Start Date Coverage End Date [facility] [employer]AN [facility] [address] [facility] [phone] EDVIN CHRISTINE self
--- OUTSIDE RECORDS SUMMARY | 2020-12-12 12:14 | CCD | Continuity of Care Document ---
Author Author Betzy BRIONES MD Organization Unknown Address [address] [facility] [place] [address] Phone [phone] Care Team Providers Care Collection Manager Name Role Phone Yasmine Romero AUTM [phone] Problems Description No Information Available Social History Type Date Description Comments Sex Unknown ETOH Use Denies alcohol use Tobacco Use Start: Unknown Denies Smoking Allergies, Adverse Reactions, Alerts Active Allergies Reaction Severity Comments Date Topamax 06/13/2018 Medications Active Medications SIG Qnty Indications Ordering Provide r Date Thyroid Tablets Unknown Oxybutynin Chloride Tablets take one tablet by mouth twice a day Unknown 0 Loratadine Tablets 1 by mouth every day [...] Available Procedures Date Code Description Status 11/21/2020 72422 MRI Lower Extremity Any Joint Co mpleted Medical Devices Description No Information Available Encounters Type Date Location Provider Dx Diagnosis Office Visit 11/12/2020 10:00a [place] Briones MD M71.21 Synovial cyst of popliteal space [Rendon], right knee M25.561 Pain in right knee Assessments Date Code Description Provider 11/27/2020 S83.203A Other tear of unspec ified meniscus, current injury, right knee, initial encounter Suhail Briones MD 11/21/2020 M25.561 Pain in right knee Suhail martinez MD 11/21/2020 M25.561 Pain in right knee MRI 11/12/2020 M71.21 Synovial cyst of popliteal space [Rendon], right knee Suhail Briones MD 11/12/2020 M25.561 Pain in right knee Suhail martinez MD Plan of Treatment 11/27/2020 - Suhail Briones MD* S83.203A Other tear of unspecified meniscus, current injury, right knee, initial encounter* New Orders:* Surgery, Ordered: 11/27/20 * Follow up:* post op Functional Status Description No Information Available Mental Status Description No Information Available Referrals Refer to Reason for Referral Status Appt Date Suhail Briones MD MRI APPROVED PER [facility] WEB FOR MRI OF RIGHT KNEE (71478) TO MRI. DG Created [address] [facility], [address] [place] [address] [phone]
--- OUTSIDE RECORDS SUMMARY | 2020-12-12 12:14 | CCD | Continuity of Care Document ---
Author Author Betzy BRIONES MD Organization Unknown Address [address] [facility] [place] [address] Phone [phone] Care Team Providers Care Machine Rigger Name Role Phone Yasmine Romero AUTM [phone] Problems Description No Information Available Social History [...] Provider Dx Diagnosis Office Visit 11/12/2020 10:00a [place] Suhail Briones MD M71.21 Synovial cyst of popliteal space [Rendon], right knee M25.561 Pain in right knee Assessments Date Code Description Provider 11/12/2020 M71.21 Synovial cyst of popliteal space [Rendon], right knee Suhail Briones MD 11/12/2020 M25.561 Pain in right knee Suhail martinez MD Plan of Treatment Future Appointment(s):* 11/27/2020 2:15 pm - Suhail Briones MD at [place] 11/12/2020 - Suhail Briones MD* M71.21 Synovial cyst of popliteal space [Rendon], right knee * M25.561 Pain in right knee* Follow up:* f/u after mri for results [facility] Functional Status Description No Information Available Mental Status Description No Information Available Referrals Refer to Dr Reason for Referral Status Appt Date Suhail Briones MD MRI APPROVED PER [facility] WEB FOR MRI OF RIGHT KNEE (81607) TO MRI. DG Created [facility] [facility], [address] [place] [address] [phone]
--- OUTSIDE RECORDS SUMMARY | 2020-12-12 12:15 | CCD | Continuity of Care Document ---
Author Author Betzy DEL ANGEL M.D. Organization Unknown Address [address] [place] [address] Phone [phone] Care Team Providers Care Fire And Explosion Investigator Name Role Phone Yasmine Romero AUTM [phone] Problems Description No Information Available Social History [...] and vomiting. 30tabs Carola Medeiros M.D. 04/24/2018 Maxalt-TELESALES PROFESSIONAL 10mg Tablets Dispers 1 by mouth at [...] Information Available Procedures Date Code Description Status 09/04/2020 44121 Injection For Nerve Block, Other Peripheral Nerve Or Branch Completed 09/04/202013922 Injection Single Or Multiple Trigger Points Three Or More Muscles Completed 08/04/2020 73604 Injection For Nerve Block, Other Peripheral Nerve Or Branch Completed 08/04/202042979 Injection Single Or Multiple Trigger Points Three Or More Muscles Completed 07/02/2020 96658 Injection For Nerve Block, Other Peripheral Nerve Or Branch Completed 07/02/2020 09230 Injection, Single Or Multiple trigger points one or two muscles Completed 05/22/2020 29242 Injection For Nerve Block, Other Peripheral Nerve Or Branch Completed 05/22/2020 10834 Inj, Anesth Agent, Trigeminal Co mpleted 05/22/202005137 Injection, Single Or Multiple trigger points one or two muscles Completed 04/15/2020 63835 Injection For Nerve Block, Other Peripheral Nerve Or Branch Completed 04/15/202027263 Injection, Single Or Multiple trigger points one or two muscles Completed Medical Devices Description No Information Available Encounters Type Date Location Provider Dx Diagnosis Office Visit 09/03/2020 1:45p Main office - [place] Estephania fairbanks P.ARadhika-CRadhika G43.709 Chronic migraine w/o aura, not intractab le, w/o stat migr M54.81 Occipital neuralgia M79.7 Fibromyalgia M54.2 Cervicalgia M54.5 Low back pain G47.33 Obstructive sleep apnea ([facility] lt) (pediatric) Office Visit 06/17/2020 12:00p Main office - [place] Estephania fairbanks, P.A.-C. G43.709 Chronic migraine w/o aura, not intractab le, w/o stat migr M54.81 Occipital neuralgia M79.7 Fibromyalgia M54.2 Cervicalgia M54.5 Low back pain G47.33 Obstructive sleep apnea ([place] lt) (pediatric) Office Visit 06/03/2020 2:00p Main office - [place] Estephania fairbanks P.A.-C. R51 Headache M54.81 Occipital neuralgia M54.2 Cervicalgia M62.838 Other muscle spasm Assessments Date Code Description Provider 09/04/2020 M54.81 Occipital neuralgia Savage dave M.D. 09/04/2020 M60.88 Other myositis, other site Savage Del Angel M.D. 09/03/2020 G43.709 Chronic migraine without aura, n ot intractable, without stat Estephania Bowers, P.A.-C. 09/03/2020 M54.81 Occipital neuralgia Estephania fairbanks, P.A.-C. 09/03/2020 M79.7 Fibromyalgia Estephania Bowers, P.A.-C. 09/03/2020 M54.2 Cervicalgia Estephania Bowers, P.A.-C. 09/03/2020 M54.5 Low back pain Estephania Bowers, P.A.-C. 09/03/2020 G47.33 Obstructive sleep apnea (adult) (pediatric) Estephania Bowers P.A.-C. 08/04/2020 M54.81 Occipital neuralgia Savage dave M.D. 08/04/2020 M60.88 Other myositis, other site Savage Del Angel M.D. 07/02/2020 M54.81 Occipital neuralgia Savage dave M.D. 07/02/2020 M60.88 Other myositis, other site Savage Del Angel M.D. 06/17/2020 G43.709 Chronic migraine without aura, n ot intractable, without stat Estephania Bowers P.A.-C. 06/17/2020 M54.81 Occipital neuralgia Estephania fairbanks P.A.-C. 06/17/2020 M79.7 Fibromyalgia Estephania Bowers P.A.-C. 06/17/2020 M54.2 Cervicalgia Estephania Bowers P.A.-C. 06/17/2020 M54.5 Low back pain Estephania Bowers P.A.-C. 06/17/2020 G47.33 Obstructive sleep apnea (adult) (pediatric) Estephania Bowers, P.A.-C. 06/03/2020 R51 Headache Estephania Bowers, P.A.-C. 06/03/2020 M54.81 Occipital neuralgia Estephania fairbanks P.A.-C. 06/03/2020 M54.2 Cervicalgia Estephania Bowers P.A.-C. 06/03/2020 M62.838 Other muscle spasm Estephania fatima P.A.-C. 05/22/2020 M54.81 Occipital neuralgia Savage dave M.D. 05/22/2020 M60.88 Other myositis, other site Savage Del Angel M.D. 05/22/2020 G50.0 Trigeminal neuralgia Savage go M.D. 04/15/2020 M54.81 Occipital neuralgia Savage dave M.D. 04/15/2020 M60.88 Other myositis, other site Savage Del Angel M.D. Plan of Treatment Future Appointment(s):* 12/04/2020 12:00 pm - Estephania Bowers P.A.-C. at [facility] 09/03/2020 - Estephania Bowers P.A.-C.* G43.709 Chronic [...] Date Savage Del Angel M.D. Created [address] [facility] [place] [address] [phone]
--- OUTSIDE RECORDS SUMMARY | 2020-12-12 12:15 | CCD | Continuity of Care Document ---
Author Author Betzy DEL ANGEL M.D. Organization Unknown Address [address] [place] [address] Phone [phone] Care Team Providers Care Hobber Name Role Phone Yasmine Romero AUTM [phone] Problems Description No Information Available Social History [...] and vomiting. 30tabs Carola Medeiros M.D. 04/24/2018 Maxalt-ELECTRICAL LINESWORKER 10mg Tablets Dispers 1 by mouth at [...] Available Procedures Date Code Description Status 10/06/2020 14224 Injection For Nerve Block, Other Peripheral Nerve Or Branch Completed 10/06/2020 Injection Single Or Multiple Trigger Points Three Or More Muscles Completed 09/04/2020 77242 Injection For Nerve Block, Other Peripheral Nerve Or Branch Completed 09/04/2020 Injection Single Or Multiple Trigger Points Three Or More Muscles Completed 08/04/2020 17616 Injection For Nerve Block, Other Peripheral Nerve Or Branch Completed 08/04/2020 Injection Single Or Multiple Trigger Points Three Or More Muscles Completed 07/02/2020 24593 Injection For Nerve Block, Other Peripheral Nerve Or Branch Completed 07/02/202062781 Injection, Single Or Multiple trigger points one or two muscles Completed 05/22/2020 37987 Injection For Nerve Block, Other Peripheral Nerve Or Branch Completed 05/22/2020 43584 Inj, Anesth Agent, Trigeminal Co mpleted 05/22/202006095 Injection, Single Or Multiple trigger points one or two muscles Completed 04/15/2020 90908 Injection For Nerve Block, Other Peripheral Nerve Or Branch Completed 04/15/202041399 Injection, Single Or Multiple trigger points one or two muscles Completed Medical Devices Description No Information Available Encounters Type Date Location Provider Dx Diagnosis Office Visit 09/03/2020 1:45p Main office - [place] Estephania fairbanks P.A.-C. G43.709 Chronic migraine w/o aura, not intractab le, w/o stat migr M54.81 Occipital neuralgia M79.7 Fibromyalgia M54.2 Cervicalgia M54.5 Low back pain G47.33 Obstructive sleep apnea ([place] lt) (pediatric) Office Visit 06/17/2020 12:00p Main office - [place] Yunior Marie.A.-C. G43.709 Chronic migraine w/o aura, not intractab le, w/o stat migr M54.81 Occipital neuralgia M79.7 Fibromyalgia M54.2 Cervicalgia M54.5 Low back pain G47.33 Obstructive sleep apnea ([place] lt) (pediatric) Office Visit 06/03/2020 2:00p Main office - [place] Yunior Marie.A.-C. R51 Headache M54.81 Occipital neuralgia [...] ot intractable, without stat Estephania Bowers P.A.-C. 09/03/2020 M54.81 Occipital neuralgia Yunior Marie.A.-C. 09/03/2020 M79.7 Fibromyalgia Estephania Bowers, P.A.-C. 09/03/2020 [...] Estephania fairbanks P.A.-C. 06/17/2020 M79.7 Fibromyalgia Estephania Bowers, P.A.-C. 06/17/2020 M54.2 Cervicalgia Estephania Bowers, P.A.-C. 06/17/2020 M54.5 Low back pain Estephania Bowers, P.A.-C. 06/17/2020 G47.33 Obstructive sleep apnea (adult) (pediatric) Estephania Bowers P.A.-C. 06/03/2020 R51 Headache Estephania Bowers P.A.-C. 06/03/2020 M54.81 Occipital neuralgia Estephania fairbanks, [...] Treatment Future Appointment(s):* 12/04/2020 12:00 pm - Sunshine CauseyCRadhika at Main office [facility] 09/03/2020 - John CauseyA.-C.* G43.709 Chronic migraine without aura, not intractable, [...] Date Savage Del Angel M.D. Created [address] [place] [address] [phone]
--- OUTSIDE RECORDS SUMMARY | 2020-12-12 12:17 | CCD ---
Author Author [facility] Organization [facility] Address Unknown Phone Unavailable Care Team Providers Care Bar Turner Name Role Phone Moniquemalon, M Madeline JEWELRY POLISHER Unavailable Unavailable Jumalon, M Madeline JEWELRY POLISHER Unavailable Unavailable Jumalon, M Madeline JEWELRY POLISHER Unavailable Unavailable Jumalon, M Madeline JEWELRY POLISHER Unavailable Unavailable Jumalon, M Madeline JEWELRY POLISHER Unavailable Unavailable Jumalon, M Madeline JEWELRY POLISHER Unavailable Unavailable Jumalon, M Madeline JEWELRY POLISHER Unavailable Unavailable Jumalon, M Madeline JEWELRY POLISHER Unavailable Unavailable Jumalon, M Madeline JEWELRY POLISHER Unavailable Unavailable Jumalon, M Madeline JEWELRY POLISHER Unavailable Unavailable Jumalon, M Madeline JEWELRY POLISHER Unavailable Unavailable Jumalon, M Madeline JEWELRY POLISHER Unavailable Unavailable Jumalon, M Madeline JEWELRY POLISHER Unavailable Unavailable Jumalon, M Madeline JEWELRY POLISHER Unavailable Unavailable Jumalon, M Madeline JEWELRY POLISHER Unavailable Unavailable Jumalon, M Madelien JEWELRY POLISHER Unavailable Unavailable Jumalon, M Madeline JEWELRY POLISHER Unavailable Unavailable Jumalon, M Madeline JEWELRY POLISHER Unavailable Unavailable Jumalon, M Madeline JEWELRY POLISHER Unavailable Unavailable Zaheer Sosa Madeline JEWELRY POLISHER Unavailable Unavailable Zaheer Sosa Madeline JEWELRY POLISHER Unavailable Unavailable Zaheer Sosa Madeline JEWELRY POLISHER Unavailable Unavailable Zaheer Sosa Madeline JEWELRY POLISHER Unavailable Unavailable Zaheer Sosa Madeline JEWELRY POLISHER Unavailable Unavailable Zaheer Sosa Madeline JEWELRY POLISHER Unavailable Unavailable Zaheer Sosa Madeline JEWELRY POLISHER Unavailable Unavailable Zaheer Sosa Madeline JEWELRY POLISHER Unavailable Unavailable Zaheer Sosa Madeline JEWELRY POLISHER Unavailable Unavailable Trickey, J Estephania PA Unavailable Unavailable Trickey, J Estephania PA Unavailable Unavailable Trickey, J Estephania PA Unavailable Unavailable Trickey, J Estephania PA Unavailable Unavailable Trickey, J Estephania PA Unavailable Unavailable Trickey, J Estephania PA Unavailable Unavailable Trickey, J Estephania PA Unavailable Unavailable Trickey, J Estephania PA Unavailable Unavailable Trickey, J Estephania PA Unavailable Unavailable Trickey, J Estephania PA Unavailable Unavailable Trickey, J Estephania PA Unavailable Unavailable Trickey, J Estephania PA Unavailable Unavailable Trickey, J Estephania PA Unavailable Unavailable Trickey, J Estephania PA Unavailable Unavailable Trickey, J Estephania PA Unavailable Unavailable Trickey, J Estephania PA Unavailable Unavailable Trickey, J Estephania PA Unavailable Unavailable Trickey, J Estephania PA Unavailable Unavailable Trickey, J Estephania PA Unavailable Unavailable Trickey, J Estephania PA Unavailable Unavailable Trickey, J Estephania PA Unavailable Unavailable Trickey, J Estephania PA Unavailable Unavailable Trickey, J Estephania PA Unavailable Unavailable Trickey, J Estephania PA Unavailable Unavailable Trickey, J Estephania PA Unavailable Unavailable Trickey, J Estephania PA Unavailable Unavailable Trickey, J Estephania PA Unavailable Unavailable Trickey, J Estephania PA Unavailable Unavailable Trickey, J Estephania PA Unavailable Unavailable Trickey, J Estephania PA Unavailable Unavailable Trickey, J Estephania PA Unavailable Unavailable Trickey, J Estephania PA Unavailable Unavailable Trickey, J Estephania PA Unavailable Unavailable Trickey, J Estephania PA Unavailable Unavailable Trickey, J Estephania PA Unavailable Unavailable Trickey, J Estephania PA Unavailable Unavailable Trickey, J Estephania PA Unavailable Unavailable Trickey, J Estephania PA Unavailable Unavailable Trickey, J Estephania PA Unavailable Unavailable Trickey, J Estephania PA Unavailable Unavailable Trickey, J Estephania PA Unavailable Unavailable Trickey, J Estephania PA Unavailable Unavailable Trickey, J Estephania PA Unavailable Unavailable Trickey, J Estephania PA Unavailable Unavailable Trickey, J Estephania PA Unavailable Unavailable Trickey, J Estephania PA Unavailable Unavailable Trickey, J Estephania PA Unavailable Unavailable Trickey, J Estephania PA Unavailable Unavailable Moragn, Shell Marcela JEWELRY POLISHER Unavailable Unavailable Morgan, Shell Marceal JEWELRY POLISHER Unavailable Unavailable Morgan, Shell Marcela JEWELRY POLISHER Unavailable Unavailable Morgan, Shell Marcela JEWELRY POLISHER Unavailable Unavailable Morgan, Shell Marcela JEWELRY POLISHER Unavailable Unavailable Morgan, Shell Marcela JEWELRY POLISHER Unavailable Unavailable Morgan, Shell Marcela JEWELRY POLISHER Unavailable Unavailable Morgan, Shell Marcela JEWELRY POLISHER Unavailable Unavailable Morgan, Shell Marcela JEWELRY POLISHER Unavailable Unavailable Morgan, Shell Marcela JEWELRY POLISHER Unavailable Unavailable Morgan, Shell Marcela JEWELRY POLISHER Unavailable Unavailable Morgan, Shell Marcela JEWELRY POLISHER Unavailable Unavailable Morgan, Shell Marcela JEWELRY POLISHER Unavailable Unavailable Fish, B Suhail MONTGOMERY Unavailable Unavailable Fish, B Suhail MONTGOMERY Unavailable Unavailable Fish, B Suhail MONTGOMERY Unavailable Unavailable Fish, B Suhail MONTGOMERY Unavailable Unavailable Fish, B Suahil MONTGOMERY Unavailable Unavailable Fish, B Suhail MONTGOMERY Unavailable Unavailable Fish, B Suhail MONTGOMERY Unavailable Unavailable Fish, B Suhail MONTGOMERY Unavailable Unavailable Fish, B Suhail MONTGOMERY Unavailable Unavailable Fish, B Suhail MONTGOMERY Unavailable Unavailable Fish, B Suhail MONTGOMERY Unavailable Unavailable Fish, B Suhail MONTGOMERY Unavailable Unavailable Fish, B Suhail MONTGOMERY Unavailable Unavailable Fish, B Suhail MONTGOMERY Unavailable Unavailable Fish, B Suhail MONTGOMERY Unavailable Unavailable Fish, B Suhail MONTGOMERY Unavailable Unavailable Fish, B Suhail MONTGOMERY Unavailable Unavailable Fish, B Suhail MONTGOMERY Unavailable Unavailable Fish, B Suhail MONTGOMERY Unavailable Unavailable Fish, B Suhail MONTGOMERY Unavailable Unavailable Fish, B Suhail MONTGOMERY Unavailable Unavailable Fish, B Suhail MONTGOMERY Unavailable Unavailable Fish, B Suhail MONTGOMERY Unavailable Unavailable Fish, B Suhail MONTGOMERY Unavailable Unavailable Fish, B Suhail MONTGOMERY Unavailable Unavailable Fish, B Suhail MONTGOMERY Unavailable Unavailable Fish, B Suhail MONTGOMERY Unavailable Unavailable Fish, B Suhail MONTGOMERY Unavailable Unavailable Fish, B Suhail MONTGOMERY Unavailable Unavailable Fish, B Suhail MONTGOMERY Unavailable Unavailable Fish, B Suhail MONTGOMERY Unavailable Unavailable Fish, B Suhail MONTGOMERY Unavailable Unavailable Fish, B Suhail MONTGOMERY Unavailable Unavailable Fish, B Suhail MONTGOMERY Unavailable Unavailable Fish, B Suhail MONTGOMERY Unavailable Unavailable Fish, B Suhail MONTGOMERY Unavailable Unavailable Fish, B Suhail MONTGOMERY Unavailable Unavailable Fish, B Suhail MONTGOMERY Unavailable Unavailable Fish, B Suhail MONTGOMERY Unavailable Unavailable Fish, Mesfin Jang MD Unavailable Unavailable Fish, Mesfin Jang MD Unavailable Unavailable Fish, Mesfin Jang MD Unavailable Unavailable Fish, Mesfin Jang MD Unavailable Unavailable Fish, Mesfin Jang MD Unavailable Unavailable Fish, Mesfin Jang MD Unavailable Unavailable Fish, Mesfin Jang MD Unavailable Unavailable Fish, Mesfin Jang MD Unavailable Unavailable Fish, Mesfin Jang MD Unavailable Unavailable Fish, Mesfin Jang MD Unavailable Unavailable Fish, Mesfin Jang MD Unavailable Unavailable Fish, Mesfin Jang MD Unavailable Unavailable Fish, Mesfin Jang MD Unavailable Unavailable Fish, Mesfin Jang MD Unavailable Unavailable GALGANODEION MD Unavailable Unavailable GALGANODEION MD Unavailable Unavailable GALGANODEION MD Unavailable Unavailable GALGANODEION MD Unavailable Unavailable GALGANODEION MD Unavailable Unavailable GALGANODEION MD Unavailable Unavailable GALGANODEION MD Unavailable Unavailable GALGANODEION MD Unavailable Unavailable GALGANODEION MD Unavailable Unavailable GALGANODEION MD Unavailable Unavailable GALGANODEION MD Unavailable Unavailable GALGANODEION MD Unavailable Unavailable GALGANODEION MD Unavailable Unavailable GALGANODEION MD Unavailable Unavailable GALGANODEION MD Unavailable Unavailable GALGANODEION MD Unavailable Unavailable GALGANODEION MD Unavailable Unavailable GALGANODEION MD Unavailable Unavailable GALGANODEION MD Unavailable Unavailable GALGANODEION MD Unavailable Unavailable GALGANODEION MD Unavailable Unavailable GALGANODEION MD Unavailable Unavailable GALGANODEION MD Unavailable Unavailable GALGANODEION MD Unavailable Unavailable GALGANODEION MD Unavailable Unavailable GALGANODEION MD Unavailable Unavailable GALGANDEION Adamson MD Unavailable Unavailable GALGANODEION MD Unavailable Unavailable GALGANODEION MD Unavailable Unavailable Green WIRE STRIPPING MACHINE OPERATOR WIRE STRIPPING MACHINE OPERATOR, Vickie Unavailable Unavailable Green WIRE STRIPPING MACHINE OPERATOR WIRE STRIPPING MACHINE OPERATOR, Vickie Unavailable Unavailable Green WIRE STRIPPING MACHINE OPERATOR WIRE STRIPPING MACHINE OPERATOR, Vickie Unavailable Unavailable Hilda Beckham PA Unavailable Unavailable Hilda Beckham PA Unavailable Unavailable Penn YanHilda PA Unavailable Unavailable Penn YanHilda Marie PA Unavailable Unavailable Penn YanHilda PA Unavailable Unavailable Penn YanHildaey PA Unavailable Unavailable [place] J Marie PA Unavailable Unavailable [place] J Marie PA Unavailable Unavailable [place], J Marie PA Unavailable Unavailable [place] J Marie PA Unavailable Unavailable [place], J Marie PA Unavailable Unavailable [place], J Marie PA Unavailable Unavailable [place], J Marie PA Unavailable Unavailable [place], J Marie PA Unavailable Unavailable [place], J Marie PA Unavailable Unavailable [place], J Marie PA Unavailable Unavailable [place], J Marie PA Unavailable Unavailable [place], J Marie PA Unavailable Unavailable [place], J Marie PA Unavailable Unavailable [place], J Marie PA Unavailable Unavailable [place], J Marie PA Unavailable Unavailable [place], J Marie PA Unavailable Unavailable Bolberenice, Seth Hui MD Unavailable Unavailable Bolla, S Ez MONTGOMERY Unavailable Unavailable Bolla, S Ez MONTGOMERY Unavailable Unavailable Bolla, S Ez MONTGOMERY Unavailable Unavailable Bolla, S Ez MONTGOMERY Unavailable Unavailable Bolla, S Ez MONTGOMERY Unavailable Unavailable Bolla, S Ez MONTGOMERY Unavailable Unavailable Bolla, S Ez MONTGOMERY Unavailable Unavailable Bolla, S Ez MONTGOMERY Unavailable Unavailable Bolla, S Ez MONTGOMERY Unavailable Unavailable Bolla, S Ez MONTGOMERY Unavailable Unavailable Bolla, S Ez MONTGOMERY Unavailable Unavailable Bolla, S Ez MONTGOMERY Unavailable Unavailable Bolla, S Ez MONTGOMERY Unavailable Unavailable Bolla, S Ez MONTGOMERY Unavailable Unavailable Bolla, S Ez MONTGOMERY Unavailable Unavailable Bolla, Seth Hui MD Unavailable Unavailable Bolla, Seth Hui MD Unavailable Unavailable Bolla, S Ez MONTGOMERY Unavailable Unavailable Bolla, S Ez MONTGOMERY Unavailable Unavailable Bolla, S Ez MONTGOMERY Unavailable Unavailable Bolla, S Ez MONTGOMERY Unavailable Unavailable Bolla, S Ez MONTGOMERY Unavailable Unavailable Bolla, Seth Hui MD Unavailable Unavailable Bolla, S Ez MONTGOMERY Unavailable Unavailable Bolla, S Ez MONTGOMERY Unavailable Unavailable Bolla, S Ez MONTGOMERY Unavailable Unavailable Bolla, Seth Hui MD Unavailable Unavailable Bolla, S Ez MONTGOMERY Unavailable Unavailable Bolla, Seth Hui MD Unavailable Unavailable Bolla, S Ez MONTGOMERY Unavailable Unavailable Bolla, S Ez MONTGOMERY Unavailable Unavailable Bolla, S Ez MONTGOMERY Unavailable Unavailable Bolla, S Ez MONTGOMERY Unavailable Unavailable Bolla, S Ez MONTGOMERY Unavailable Unavailable Bolla, S Ez MONTGOMERY Unavailable Unavailable Bolla, S Ez MONTGOMERY Unavailable Unavailable Bolla, S Ez MONTGOMERY Unavailable Unavailable Bolla, Seth Hui MD Unavailable Unavailable Bolla, S Ez MONTGOMERY Unavailable Unavailable Bolla, S Ez MONTGOMERY Unavailable Unavailable Bolla, S zE MONTGOMERY Unavailable Unavailable Bolla, S Ez MONTGOMERY Unavailable Unavailable Bolla, S Ze MD Unavailable Unavailable Seth Hutson MD Unavailable Unavailable Seth Hutson MD Unavailable Unavailable Seth Hutson MD Unavailable Unavailable Seth Hutson MD Unavailable Unavailable Re-disclosure Warning The records that you are about to access may contain information from federally-assisted alcohol or drug abuse programs. If such information is present, then the following federally mandated warning applies: This information has been disclosed to you from records protected by federal confidentiality rules (42 CFR part 2). The federal rules prohibit you from making any further disclosure of this information unless further disclosure is expressly permitted by the written consent of the person to whom it pertains or as otherwise permitted by 42 CFR part 2. A general authorization for the release of medical or other information is NOT sufficient for this purpose. The Federal rules restrict any use of the information to criminally investigate or prosecute any alcohol or drug abuse patient.The records that you are about to access may contain highly sensitive health information, the redisclosure of which is protected by Article 27-F of the [facility] Public Health law. If you continue you may have access to information: Regarding HIV / AIDS; Provided by facilities licensed or operated by the [facility] Office of Mental Health; or Provided by the [facility] Office for People With Developmental Disabilities. If such information is present, then the following [facility] mandated warning applies: This information has been disclosed to you from confidential records which are protected by state law. State law prohibits you from making any further disclosure of this information without the specific written consent of the person to whom it pertains, or as otherwise permitted by law. Any unauthorized further disclosure in violation of state law may result in a fine or senior living sentence or both. A general authorization for the release of medical or other information is NOT sufficient authorization for further disc losure. Allergies and Adverse Reactions Type Description Substance Reaction Status Data Source(s ) Drug allergy Topamax topiramate cAUSES KIDNEY STONES Active e CW1 ([facility]) Drug Class NO KNOWN ALLERGIES NO KNOWN ALLERGIES [facility] DRUG INGREDI CODEINE [facility] Family History Family Member Name Family Member Gender Family Member Status Date o f Status Description Data Source(s) Unknown Male Diagnosis 08/27/2019 12:00:00 AM EST [facility] ([facility]) Unknown Male Diagnosis 09/21/2017 12:00:00 AM EST [facility] ([facility]) Unknown Male Diagnosis 06/07/2016 12:00:00 AM EDT [facility] ([facility]) Unknown Male Diagnosis 06/07/2016 12:00:00 AM EDT [facility] ([facility]) Unknown Male Diagnosis 09/05/2013 12:00:00 AM EST [facility] ([facility]) Unknown Male Diagnosis 09/05/2013 12:00:00 AM EST [facility]Gen ([facility]) Unknown Unknown Problem MEDENT ([facility]) grandmother Unknown Male Problem MEDENT ([facility]) Encounters Encounter Providers Location Date Indications Data Source(s ) Unknown [address] [place] [address], [place] [address] 11/18/2020 12:00:00 AM EST eCW1 ([facility]) Outpatient Attender: Suhail Hoffman MD Physical Therapy 11/12/2020 0 9:00:00 AM EST MEDENT ([facility]) Attender: Vickie Marcelino NP WIRE STRIPPING MACHINE OPERATOR [facility] 1 12/03/2019 11:51:00 AM EST - 10/02/2020 11:51:00 AM EST NextGen ([facility]) Outpatient [address] [facility] [id number] 10/02/2020 12:00:00 AM EST eCW1 ([facility]) Outpatient [address] [facility] [id number] 09/25/2020 12:00:00 AM EST eCW1 ([facility]) Madeline Sosa, WIRE STRIPPING MACHINE OPERATOR: [id number], [place] [address], Ph. Attender: Madeline Sosa [facility] [place] - [facility] - Main Office 09/24/2020 12:00:00 AM EST ATHE NA ([facility]) Unknown [address] [facility] [place] [address] 09/05/2020 12:00:00 AM EST eCW1 ([facility]) Outpatient Attender: Estephania CHENEY [facility] 09/03/2020 12:45:00 PM EST MEDENT ([facility]) Ez Hutson MD: [address], [place] [address], Ph. Attender: Ez Hutson MD [place] - [facility] Office 09/03/2020 12:00:00 AM EST ALEJANDRA ([facility]) Ez Hutson MD: [address], [place] [address], Ph. Attender: Ez Hutson MD [facility] 09/03/2020 12:00:00 AM EST ALEJANDRA ([facility]) OutpatientPREV VISIT, EST, AGE 40-64 Attender: Vickie Marcelino WIRE STRIPPING MACHINE OPERATOR WIRE STRIPPING MACHINE OPERATOR [facility] [place] 09/02/2020 11:10:00 AM EST - 09/02/2020 11:10:00 AM ES T Encntr screen mammogram for malignant neoplasm of breastEncntr for managed services sales consultant exam (general) (routine) w/o abn findingsOther sex counselingHuman immunodeficiency virus [HIV] counseling NextGen ([facility]) Encntr screen mammogram for malignant ne oplasm of breast Encntr for managed services sales consultant exam (general) (routine) w/o abn findings Other sex counseling Human immunodeficiency virus [HIV] couns eling Ez Hutson MD: [address], [place] [address], Ph. [phone] Attender: Ez MICHEL [facility] Office 08/29/2020 12:00:00 AM EST ALEJANDRA ([facility]) Ez Hutson MD: [address], [place] [address], Ph. [phone] Attender: Ez Hutson MD [facility] 08/29/2020 12:00:00 AM EST ALEJANDRA ([facility]) Ez Hutson MD: [address], [place] [address], Ph. [phone] Attender: Ez Hutson MD [place] - [facility] 08/29/2020 12:00:00 AM EST ALEJANDRA ([facility]) Madeline Sosa, WIRE STRIPPING MACHINE OPERATOR: [address], [place] [address], Ph. Attender: Madeline Moniquekyleighfrances [facility] 08/28/2020 12:00:00 AM EST ATHE NA ([facility]) Madeline Sosa, WIRE STRIPPING MACHINE OPERATOR: [address], [place] [address], Ph. Attender: Madeline Sheila [facility] 08/28/2020 12:00:00 AM EST ATHE NA ([facility]) Madeline Sosa, WIRE STRIPPING MACHINE OPERATOR: [address], [place] [address], Ph. Attender: Madeline Sheila [facility] 08/28/2020 12:00:00 AM EST ATHE NA ([facility]) Madeline Sosa, WIRE STRIPPING MACHINE OPERATOR: [address], [place] [address], Ph. Attender: Madeline Sheila [facility] 08/28/2020 12:00:00 AM EST ATHE NA ([facility]) Ez Hutson MD: [address], [place] [address], Ph. Attender: Ez Hutson MD [place] [facility] 08/14/2020 12:00:00 AM EDT ALEJANDRA ([facility]) Ez Hutson MD: [address], [address], [place] [address], Ph. Attender: Ez Hutson MD [place] - [facility] 08/14/2020 12:00:00 AM EDT ALEJANDRA ([facility]) Ez Hutson MD: [address], [address], [place] [address], Ph. Attender: Ez MICHEL - [facility] 08/14/2020 12:00:00 AM EDT ALEJANDRA ([facility]) Ez Hutson MD: [address], [address], [place] [address], Ph. Attender: Ez MICHEL - [facility] 08/14/2020 12:00:00 AM EDT ALEJANDRA ([facility]) Ez Hutson MD: [address], [address], [place] [address], Ph. Attender: Ez MICHEL - [facility] 08/14/2020 12:00:00 AM EDT ALEJANDRA ([facility]) Ez Hutson MD: [address], [address], [place] [address], Ph. [phone] Attender: Ez MICHEL - [facility] 08/11/2020 12:00:00 AM EDT ALEJANDRA ([facility]) Ez Hutson MD: [address], [address], [place] [address], Ph. [phone] Attender: Ez MICHEL - [facility] 08/11/2020 12:00:00 AM EDT ALEJANDRA ([facility]) Ez Hutson MD: [address], [address], [place] [address], Ph. [phone] Attender: Ez Hutson MD [place] - [facility] 08/11/2020 12:00:00 AM EDT ALEJANDRA ([facility]) Ez Hutson MD: [address], [address], [place] [address], Ph. [phone] Attender: Ez Hutson MD [place] - [facility] 08/11/2020 12:00:00 AM EDT ALEJANDRA ([facility]) Ez Hutson MD: [address], [address], [place] [address], Ph. [phone] Attender: Ez Hutson MD [place] - [facility] 08/11/2020 12:00:00 AM EDT ALEJANDRA ([facility]) Ez Hutson MD: [address], [address], [place] [address], Ph. [phone] Attender: Ez Hutson MD [place] - [facility] 08/11/2020 12:00:00 AM EDT ALEJANDRA ([facility]) Madeline Sosa, WIRE STRIPPING MACHINE OPERATOR: [address], [address], [place] [address], Ph. Attender: Madeline Sosa [facility] - [facility] 08/08/2020 12:00:00 AM EDT DAMIAN WALTERS ([facility]) Madeline Sosa, WIRE STRIPPING MACHINE OPERATOR: [address], [address], [place] [address], Ph. Attender: [facility]eline [facility] - [facility] 08/08/2020 12:00:00 AM EDT ATHE NA ([facility]) Madeline Sosa, WIRE STRIPPING MACHINE OPERATOR: [address], [place] [address], Ph. Attender: Madeline Sosa [facility] - [facility] 08/08/2020 12:00:00 AM EDT ATHE NA ([facility]) Madeline Sosa, WIRE STRIPPING MACHINE OPERATOR: [address], [place] [address], Ph. Attender: Madeline Sosa [facility] - [facility] 08/08/2020 12:00:00 AM EDT ATHE NA ([facility]) Madeline Sosa, WIRE STRIPPING MACHINE OPERATOR: [address], [place] [address], Ph. Attender: Madeline Sosa [facility] - [facility] 08/08/2020 12:00:00 AM EDT ATHE NA ([facility]) Madeline Sosa, WIRE STRIPPING MACHINE OPERATOR: [address], [place] [address], Ph. Attender: Madeline Sosa [facility] - [facility] 08/08/2020 12:00:00 AM EDT ATHE NA ([facility]) Madeline Sosa, WIRE STRIPPING MACHINE OPERATOR: [address], [place] [address], Ph. Attender: Madeline Sosa [facility] - [facility] 08/08/2020 12:00:00 AM EDT ATHE NA ([facility]) Outpatient [address] [place] [address] 07/25/2020 12:00:00 AM EDT eCW1 ([facility]) Ez Hutson MD: [address], [address], [place] [address], Ph. Attender: Ez Hutson MD [place] - [facility] 07/21/2020 12:00:00 AM EDT ALEJANDRA ([facility]) Ez Hutson MD: [address], [address], [place] [address], Ph. Attender: Ez MICHEL - [facility] 07/21/2020 12:00:00 AM EDT ALEJANDRA ([facility]) Ez Hutson MD: [address]326 [address], [address], [place] [address], Ph. Attender: Ez MICHEL - [facility] 07/21/2020 12:00:00 AM EDT ALEJANDRA ([facility]) Ez Hutson MD: [address]177 [address], [address], [place] [address], Ph. Attender: Ez Hutson MD [place] - [facility] 07/21/2020 12:00:00 AM EDT ALEJANDRA ([facility]) Ez Hutson MD: [address]244 [address], [address], [place] [address], Ph. Attender: zE MICHEL - [facility] 07/21/2020 12:00:00 AM EDT ALEJANDRA ([facility]) Ez Hutson MD: 16447 [address], [address], [place] [address], Ph. Attender: Ez MICHEL - [facility] 07/21/2020 12:00:00 AM EDT ALEJANDRA ([facility]) Ez Hutson MD: [address]47 [address], [address], [place] [address], Ph. Attender: Ez Hutson MD MT - [facility] - [facility] 07/21/2020 12:00:00 AM EDT ALEJANDRA ([facility]) Ez Hutson MD: [address]013 [address], [address], [place] [address], Ph. Attender: Ez MICHEL - [facility] - [facility] 07/21/2020 12:00:00 AM EDT ALEJANDRA ([facility]) Ez Hutson MD: [address]86 [address], [address], [place] [address], Ph. [phone] Attender: Ez MICHEL - [facility] 07/18/2020 12:00:00 AM EDT ALEJANDRA ([facility]) Ez Hutson MD: [address]145 [address], [address], [place] [address], Ph. [phone] Attender: Ez MICHEL - [facility] - [facility] 07/18/2020 12:00:00 AM EDT ALEJANDRA ([facility]) Ez Hutson MD: [address]223 [address], [address], [place] [address], Ph. [phone] Attender: Ez MICHEL - [facility] 07/18/2020 12:00:00 AM EDT ALEJANDRA ([facility]) Ez Hutson MD: 44359 [address], [address], [place] [address], Ph. [phone] Attender: Ez MICHEL - [facility] 07/18/2020 12:00:00 AM EDT ALEJANDRA ([facility]) Ez Hutson MD: [address]74 [address], [address], [place] [address], Ph. [phone] Attender: Ez Hutson MD MT - [facility] 07/18/2020 12:00:00 AM EDT ALEJANDRA ([facility]) Ez Hutson MD: 27979 [address], [address], [place] [address], Ph. [phone] Attender: Ez Hutson MD MT - [facility] 07/18/2020 12:00:00 AM EDT ALEJANDRA ([facility]) Ez Hutson MD: [address]45 [address], [address], [place] [address], Ph. [phone] Attender: Ez Hutson MD MT - [facility] 07/18/2020 12:00:00 AM EDT ALEJANDRA ([facility]) Ez Hutson MD: [address]40 [address], [address], [place] [address], Ph. [phone] Attender: Ez Hutson MD MT - [facility] 07/18/2020 12:00:00 AM EDT ALEJANDRA ([facility]) Ez Hutson MD: 26191 [address], [address], [place] [address], Ph. [phone] Attender: Ez Hutson MD MT - [facility] 07/18/2020 12:00:00 AM EDT ALEJANDRA ([facility]) Madeline Sosa, WIRE STRIPPING MACHINE OPERATOR: [address], [address], [place] [address], Ph. Attender: [facility]eline [facility] - [facility] 07/14/2020 12:00:00 AM EDT ATHTaisha WALTERS ([facility]) Madeline Sosa, WIRE STRIPPING MACHINE OPERATOR: [address], [address], [place] [address], Ph. Attender: Madeline Sosa [facility] - [facility] 07/14/2020 12:00:00 AM EDT ATHE NA ([facility]) Madeline Sosa, WIRE STRIPPING MACHINE OPERATOR: [address], [place] [address], Ph. Attender: Madeline Sosa [facility] - [facility] 07/14/2020 12:00:00 AM EDT ATHE NA ([facility]) Madeline Sosa, WIRE STRIPPING MACHINE OPERATOR: [address], [place] [address], Ph. Attender: Madeline Sosa [facility] - [facility] 07/14/2020 12:00:00 AM EDT ATHE NA ([facility]) Madeline Sosa, WIRE STRIPPING MACHINE OPERATOR: [address], [place] [address], Ph. Attender: Madeline Sosa [facility] - [facility] 07/14/2020 12:00:00 AM EDT ATHE NA ([facility]) Madeline Benicristal Moniquejessa, WIRE STRIPPING MACHINE OPERATOR: [address], [place] [address], Ph. Attender: Madeline Sosa [facility] - [facility] 07/14/2020 12:00:00 AM EDT ATHE NA ([facility]) Madeline Sosa, WIRE STRIPPING MACHINE OPERATOR: [address], [place] [address], Ph. Attender: Madeline Sosa [facility] - [facility] 07/14/2020 12:00:00 AM EDT ATHE NA ([facility]) Madeline Sosa, WIRE STRIPPING MACHINE OPERATOR: [address], [address], [place] [address], Ph. Attender: Madeline Sosa [facility] - [facility] 07/14/2020 12:00:00 AM EDT ATHTaisha NA ([facility]) Madeline Sosa, WIRE STRIPPING MACHINE OPERATOR: [address], [address], [place] [address], Ph. Attender: Madeline Sosa [facility] - [facility] 07/14/2020 12:00:00 AM EDT ATHTaisha WALTERS ([facility]) Madeline Sosa, WIRE STRIPPING MACHINE OPERATOR: [address], [place] [address], Ph. Attender: Madeline Sosa [facility] 07/14/2020 12:00:00 AM EDT ATHTaisha NA ([facility]) Outpatient Attender: Estephania CHENEY [facility] 06/17/2020 12:00:00 PM EDT MEDENT ([facility] jennie, ) Outpatient Attender: Estephania CHENEY [facility] 06/03/2020 02:00:00 PM EDT MEDENT ([facility] jennie, ) Madeline Sosa, WIRE STRIPPING MACHINE OPERATOR: [address], [place] [address], Ph. Attender: Madeline Sosa [facility] 05/26/2020 12:00:00 AM EDT ATHTaisha WALTERS ([facility]) Madeline Sosa, WIRE STRIPPING MACHINE OPERATOR: [address], [place] [address], Ph. Attender: Madeline Sosa [facility] - [facility] 05/26/2020 12:00:00 AM EDT ATHE NA ([facility]) Madeline Sosa, WIRE STRIPPING MACHINE OPERATOR: [address], [place] [address], Ph. Attender: Madeline Sosa [facility] - [facility] 05/26/2020 12:00:00 AM EDT ATHE NA ([facility]) Madeline Sosa, WIRE STRIPPING MACHINE OPERATOR: [address], [address], [place] [address], Ph. Attender: Madeline Sosa [facility] - [facility] 05/26/2020 12:00:00 AM EDT ATHE NA ([facility]) Madeline Sosa, WIRE STRIPPING MACHINE OPERATOR: [address], [address], [place] [address], Ph. Attender: Madeline Sosa [facility] - [facility] 05/26/2020 12:00:00 AM EDT ATHE NA ([facility]) Madeline Sosa, WIRE STRIPPING MACHINE OPERATOR: [address], [address], [place] [address], Ph. Attender: Madelinetaisha Hofffrances [facility] - [facility] 05/26/2020 12:00:00 AM EDT ATHE NA ([facility]) Madeline Sosa, WIRE STRIPPING MACHINE OPERATOR: [address], [address], [place] [address], Ph. Attender: Madeline Sosa [facility] - [facility] 05/26/2020 12:00:00 AM EDT ATHE NA ([facility]) Madeline Mcconnell Sheila, WIRE STRIPPING MACHINE OPERATOR: [address], [address], [place] [address], Ph. Attender: Madeline Sosa [facility] 05/26/2020 12:00:00 AM EDT ATHE NA ([facility]) Madeline Sosa, WIRE STRIPPING MACHINE OPERATOR: [address], [place] [address], Ph. Attender: Madeline Sosa [facility] 05/26/2020 12:00:00 AM EDT ATHE NA ([facility]) Madeline Sosa, WIRE STRIPPING MACHINE OPERATOR: [address], [place] [address], Ph. Attender: Madelinetaisha Sosa [facility] 05/26/2020 12:00:00 AM EDT ATHE NA ([facility]) Madeline Sosa, WIRE STRIPPING MACHINE OPERATOR: [address], [place] [address], Ph. Attender: Madeline Sosa [facility] 05/26/2020 12:00:00 AM EDT Spondylosis without Myelopathy ALEJANDRA ([facility]) Spondylosis without Myelopathy Unknown [address] [place] [address] 05/05/2020 12:00:00 AM EDT eCW ([facility]) Madeline Sosa, WIRE STRIPPING MACHINE OPERATOR: [address], [place] [address], Ph. Attender: Madeline Sosa [facility] 04/15/2020 12:00:00 AM EDT ATHE NA ([facility]) Madeline Sosa, WIRE STRIPPING MACHINE OPERATOR: [address], [place] [address], Ph. Attender: Madeline Sosa [facility] - [facility] 04/15/2020 12:00:00 AM EDT ATHE NA ([facility]) Madeline Sosa, WIRE STRIPPING MACHINE OPERATOR: [address], [place] [address], Ph. Attender: Madeline Sosa [facility] - [facility] 04/15/2020 12:00:00 AM EDT ATHE NA ([facility]) Madeline Sosa, WIRE STRIPPING MACHINE OPERATOR: [address]127 [address], [place] [address], Ph. Attender: Madeline Sosa [facility] - [facility] 04/15/2020 12:00:00 AM EDT ATHE NA ([facility]) Madeline Sosa, WIRE STRIPPING MACHINE OPERATOR: [address]62 [address], [place] [address], Ph. Attender: Madeline Sosa [facility] - [facility] 04/15/2020 12:00:00 AM EDT ATHE NA ([facility]) Madeline Sosa, WIRE STRIPPING MACHINE OPERATOR: [address], [place] [address], Ph. Attender: Madeline Sosa [facility] - [facility] 04/15/2020 12:00:00 AM EDT ATHE NA ([facility]) Madeline Sosa, WIRE STRIPPING MACHINE OPERATOR: [address], [place] [address], Ph. Attender: Madeline Sosa [facility] - [facility] 04/15/2020 12:00:00 AM EDT ATHE NA ([facility]) Madeline Sosa, WIRE STRIPPING MACHINE OPERATOR: [address]484 [address], [place] [address], Ph. Attender: Madeline Sosa [facility] - [facility] 04/15/2020 12:00:00 AM EDT ATHE NA ([facility]) Madeline Sosa, WIRE STRIPPING MACHINE OPERATOR: [address]186 [address], [address], [place] [address], Ph. Attender: Madeline Sosa [facility] - [facility] 04/15/2020 12:00:00 AM EDT ATHE NA ([facility]) Madeline Sosa, WIRE STRIPPING MACHINE OPERATOR: [address]20 [address], [place] [address], Ph. Attender: Madeline Sosa [facility] - [facility] 04/15/2020 12:00:00 AM EDT ATHE NA ([facility]) Madeline Sosa, WIRE STRIPPING MACHINE OPERATOR: [address]15 [address], [place] [address], Ph. Attender: Madeline Sosa [facility] - [facility] 04/15/2020 12:00:00 AM EDT ATHE NA ([facility]) Madeline Sosa, WIRE STRIPPING MACHINE OPERATOR: [address], [place] [address], Ph. Attender: Madeline Sosa [facility] - [facility] 04/15/2020 12:00:00 AM EDT ATHE NA ([facility]) Outpatient [address] [place] [address] 03/28/2020 12:00:00 AM EDT eC ([facility]) Ez Hutson MD: [address]14 [address], [address], [place] [address], Ph. Attender: Ez Hutson MD MT - [facility] 03/26/2020 12:00:00 AM EDT ALEJANDRA ([facility]) Ez Hutson MD: 45867 [address], [address], [place] [address], Ph. Attender: Ez Hutson MD MT - [facility] 03/26/2020 12:00:00 AM EDT ALEJANDRA ([facility]) Ez Hutson MD: 33390 [address], [address], [place] [address], Ph. Attender: Ez Hutson MD MT - [facility] 03/26/2020 12:00:00 AM EDT ALEJANDRA ([facility]) Ez Hutson MD: 42351 [address], [address], [place] [address], Ph. Attender: Ez Hutson MD MT - [facility] 03/26/2020 12:00:00 AM EDT ALEJANDRA ([facility]) Ez Hutson MD: 69703 [address], [address], [place] [address], Ph. Attender: Ez Hutson MD MT - [facility] 03/26/2020 12:00:00 AM EDT ALEJANDRA ([facility]) Ez Hutson MD: 89811 [address], [address], [place] [address], Ph. Attender: Ez MICHEL - [facility] 03/26/2020 12:00:00 AM EDT ALEJANDRA ([facility]) Ez Hutson MD: 99967 [address], [address], [place] [address], Ph. Attender: Ez Hutson MD MT - [facility] 03/26/2020 12:00:00 AM EDT ALEJANDRA ([facility]) Ez Hutson MD: 73745 [address], [address], [place] [address], Ph. Attender: Ez Hutson MD MT - [facility] 03/26/2020 12:00:00 AM EDT ALEJANDRA ([facility]) Ez Hutson MD: 69947 [address], [address], [place] [address], Ph. Attender: Ez Hutson MD MT - [facility] 03/26/2020 12:00:00 AM EDT ALEJANDRA ([facility]) Ez Hutson MD: 54816 [address], [address], [place] [address], Ph. Attender: Ez Hutson MD MT - [facility] 03/26/2020 12:00:00 AM EDT ALEJANDRA ([facility]) Ez Hutson MD: 15135 [address], [address], [place] [address], Ph. Attender: Ez Hutson MD MT - [facility] 03/26/2020 12:00:00 AM EDT ALEJANDRA ([facility]) Ez Hutson MD: 81368 [address], [address], [place] [address], Ph. Attender: Ez MICHEL - [facility] 03/26/2020 12:00:00 AM EDT ALEJANDRA ([facility]) Ez Hutson MD: 49089 [address], [address], [place] [address], Ph. Attender: Ez Hutson MD MT - [facility] 03/26/2020 12:00:00 AM EDT ALEJANDRA ([facility]) Ez Hutson MD: 20028 [address], [address], [place] [address], Ph. [phone] Attender: Ez Hutson MD MT - [facility] 03/24/2020 12:00:00 AM EDT ALEJANDRA ([facility]) Ez Hutson MD: 22492 [address], [address], [place] [address], Ph. [phone] Attender: Ez Hutson MD MT - [facility] 03/24/2020 12:00:00 AM EDT ALEJANDRA ([facility]) Ez Hutson MD: 81199 [address], [address], [place] [address], Ph. [phone] Attender: Ez Hutson MD MT - [facility] 03/24/2020 12:00:00 AM EDT ALEJANDRA ([facility]) Ez Hutson MD: 25040 [address], [address], [place] [address], Ph. [phone] Attender: Ez Hutson MD MT - [facility] 03/24/2020 12:00:00 AM EDT ALEJANDRA ([facility]) Ez Hutson MD: 38156 [address], [address], [place] [address], Ph. [phone] Attender: Ez Hutson MD MT - [facility] 03/24/2020 12:00:00 AM EDT ALEJANDRA ([facility]) Ez Hutson MD: 68066 [address], [address], [place] [address], Ph. [phone] Attender: Ez Hutson MD MT - [facility] 03/24/2020 12:00:00 AM EDT ALEJANDRA ([facility]) Ez Hutson MD: 82237 [address], [address], [place] [address], Ph. [phone] Attender: Ez Hutson MD MT - [facility] 03/24/2020 12:00:00 AM EDT ALEJANDRA ([facility]) Ez Hutson MD: 79320 [address], [address], [place] [address], Ph. [phone] Attender: Ez Hutosn MD MT - [facility] 03/24/2020 12:00:00 AM EDT ALEJANDRA ([facility]) Ez Hutson MD: 20743 [address], [address], [place] [address], Ph. [phone] Attender: Ez Hutson MD MT - [facility] 03/24/2020 12:00:00 AM EDT ALEJANDRA ([facility]) Ez Hutson MD: 44322 [address], [address], [place] [address], Ph. [phone] Attender: Ez Hutson MD MT - [facility] 03/24/2020 12:00:00 AM EDT ALEJANDRA ([facility]) Ez Hutson MD: 81145 [address], [address], [place] [address], Ph. [phone] Attender: Ez Hutson MD MT - [facility] 03/24/2020 12:00:00 AM EDT ALEJANDRA ([facility]) Ez Hutson MD: 07538 [address], [address], [place] [address], Ph. [phone] Attender: Ez Hutson MD MT - [facility] 03/24/2020 12:00:00 AM EDT ALEJANDRA ([facility]) Ez Hutson MD: 45927 [address], [place] [address], Ph. [phone] Attender: Ez Hutson MD MT - [facility] - Main Office 03/24/2020 12:00:00 AM EDT ALEJANDRA ([facility]) Ez Hutson MD: 87479 [address], [place] [address], Ph. [phone] Attender: Ez Hutson MD MT - [facility] - Main Office 03/24/2020 12:00:00 AM EDT ALEJANDRA ([facility]) Outpatient Attender: Estephania CHENEY [facility] 03/06/2020 11:30:00 AM EDT MEDENT ([facility], ) OutpatientOFFICE VISIT, EST Att[facility]: [facility] 02/20/2020 10:45:00 AM EDT - 02/20/2020 10:45:00 AM EDT Menopausal and female climacteric statesOther sex counseling [facility] ([facility]) Menopausal and female climacteric states Other sex counseling Ez Hutson MD: 16504 [address], [place] [address], Ph. Attender: Ez MICHEL - [facility] - [facility] 02/19/2020 12:00:00 AM EDT ALEJANDRA ([facility]) Ez Hutson MD: 01462 [address], [address], [place] [address], Ph. Attender: Ez MICHEL - [facility] - [facility] 02/19/2020 12:00:00 AM EDT ALEJANDRA ([facility]) Ez Hutson MD: [address], [place] [address], Ph. Attender: Ez MICHEL - [facility] 02/19/2020 12:00:00 AM EDT ALEJANDRA ([facility]) Ez Hutson MD: 32495 [address], [address], [place] [address], Ph. Attender: Ez MICHEL - [facility] 02/19/2020 12:00:00 AM EDT ALEJANDRA ([facility]) Ez Hutson MD: 03934 [address], [address], [place] [address], Ph. Attender: Ez MICHEL - [facility] 02/19/2020 12:00:00 AM EDT ALEJANDRA ([facility]) Ez Hutson MD: 51264 [address], [address], [place] [address], Ph. Attender: Ez MICHEL - [facility] 02/19/2020 12:00:00 AM EDT ALEJANDRA ([facility]) Ez Hutson MD: 72715 [address], [address], [place] [address], Ph. Attender: zE MICHEL - [facility] 02/19/2020 12:00:00 AM EDT ALEJANDRA ([facility]) Ez Hutson MD: 16534 [address], [address], [place] [address], Ph. Attender: Ez MICHEL - [facility] 02/19/2020 12:00:00 AM EDT ALEJANDRA ([facility]) Ez Hutson MD: 63202 [address], [address], [place] [address], Ph. Attender: Ez MICHEL - [facility] 02/19/2020 12:00:00 AM EDT ALEJANDRA ([facility]) Ez Hutson MD: 47247 [address], [address], [place] [address], Ph. Attender: Ez MICHEL - [facility] 02/19/2020 12:00:00 AM EDT ALEJANDRA ([facility]) Ez Hutson MD: [address], [address], [place] [address], Ph. Attender: Ez MICHEL - [facility] 02/19/2020 12:00:00 AM EDT ALEJADNRA ([facility]) Ez Hutson MD: [address], [address], [place] [address], Ph. Attender: Ez MICHEL - [facility] 02/19/2020 12:00:00 AM EDT ALEJANDRA ([facility]) Ez Hutson MD: [address], [address], [place] [address], Ph. Attender: Ez MICHEL - [facility] 02/19/2020 12:00:00 AM EDT ALEJANDRA ([facility]) Ez Hutson MD: [address], [address], [place] [address], Ph. Attender: Ez MICHEL - [facility] 02/19/2020 12:00:00 AM EDT ALEJANDRA ([facility]) Ez Hutson MD: [address], [address], [place] [address], Ph. Attender: Ez Hutson MD [place] - [facility] - Main Office 02/19/2020 12:00:00 AM EDT ALEJANDRA ([facility]) [address] [address] 02/15/2020 12:00:00 AM EDT eCW1 ([facility]) [facility] [place] [address] [place] [address] [place] [address] 02/01/2020 12:00:00 AM EDT eCW1 ([facility]) Attender: Marcela BORJA [facility] 01/02/2020 04:46:00 PM EDT - 01/02/2020 04:46:00 PM EDT [facility] ([facility]) [facility] [address] [place] [address] Y [address] 12/21/2019 12:00:00 AM EST eCW1 ([facility]) [address] [address] 12/05/2019 12:00:00 AM EST eCW1 ([facility]) Outpatient Attender: Estephania CHENEY [facility] 12/04/2019 01:30:00 PM EST MEDENT ([facility]) Outpatient Attender: DEION ERAZO MD [id number] 03/2020 12:00:00 AM EST - 11/22/2019 03:52:28 PM EST Lumbago with sciatica, left side [facility] Lumbago with sciatica, left side Attender: Marie CHENEY [facility] 02/2020 10:45:00 AM EST - 11/21/2019 10:45:00 AM EST Encounter for test, result negativeEncounter for oth general cnsl and advice on contraceptionOther sex counselingMenopausal and female climacteric states NextGen ([facility]) Encounter for test, result neg ative Encounter for oth general cnsl and advic e on contraception Other sex counseling Menopausal and female climacteric states Outpatient Attender: DEION ERAZO MD 11/01/2019 12:00:0 0 AM EST [facility] Attender: Marcela Morgan [facility] [place] 10/24/2019 10:45:00 AM EST - 10/24/2019 10:45:00 AM EST Other specified menopausal and perimenop ausal disordersEncounter for oth general cnsl and advice on contraceptionOther sex counselingEncounter for test, result negative [facility] ([facility]) Other specified menopausal and perimenop ausal disorders Encounter for oth general cnsl and advic e on contraception Other sex counseling Encounter for test, result neg ative Immunizations Vaccine Date Status Description Data Source(s) influenza, recombinant, quadrIvalent,injectable, prese rvative free 07/25/2020 12:52:00 PM EDT completed eCW1 ([facility]) influenza, recombinant, quadrIvalent,injectable, prese rvative free 07/25/2020 12:52:00 PM EDT completed eCW1 ([facility]) influenza, recombinant, quadrIvalent,injectable, prese rvative free 07/25/2020 12:52:00 PM EDT completed eCW1 ([facility]) influenza, recombinant, quadrIvalent,injectable, prese rvative free 07/25/2020 12:52:00 PM EDT completed eCW1 ([facility]) influenza, recombinant, quadrIvalent,injectable, prese rvative free 07/25/2020 12:52:00 PM EDT completed eCW1 ([facility]) Medications Medication Brand Name Start Date Product Form Dose Route Admi nistrative Instructions Pharmacy Instructions Status Indications Reaction Description Data Source(s) rizatriptan 10 MG Disintegrating Oral Tablet RIZATRIPTAN OK ZOATE 12/04/2020 12:00:00 AM EST tablet,disintegrating 9 PLACE ONE TABLET BY MOUTH EVERY DAY AT THE ONSET OF HEADACHE, MAY REPEAT ONCE IN [address] ONE TABLET BY MOUTH EVERY DAY AT THE ONSET OF HEADACHE, MAY REPEAT ONCE IN 2 HOURS NEEDED SOLD: 12/06/2020 [facility] tizanidine 2 MG Oral Tablet TIZANIDINE HCL 12/02/2020 12:00:00 AM EST tablet 90 TAKE ONE TABLET BY MOUTH THREE TIMES A DAY NEEDED T DEONNA ONE TABLET BY MOUTH THREE TIMES A DAY NEEDED SOLD: 12/06/2020 [facility] 1 mg 11/06/2020 12:00:00 AM EST tablet 120 TAKE ONE TABLET BY MOUTH FOUR TIMES A DAY MAXIMUM DAILY DOSE = 4 TAKE ONE TABLET BY MOUTH FOUR TIMES A DA Y MAXIMUM DAILY DOSE = 4 SOLD: 11/10/2020 [facility] 1 mg 10/07/2020 12:00:00 AM EST tablet 120 TAKE ONE TABLET BY MOUTH FOUR TIMES A DAY MAXIMUM DAILY DOSE = 4 TAKE ONE TABLET BY MOUTH FOUR TIMES A DA Y MAXIMUM DAILY DOSE = 4 SOLD: 10/08/2020 [facility] 15 mg 10/04/2020 12:00:00 AM EST tablet extended release 24hr 30 TAKE ONE TABLET BY MOUTH EVERY DAY TAKE ONE TABLET BY MOUTH EVERY DAY SOLD: 11/05/2020 [facility] 15 mg 10/04/2020 12:00:00 AM EST tablet extended release 24hr 30 TAKE ONE TABLET BY MOUTH EVERY DAY TAKE ONE TABLET BY MOUTH EVERY DAY SOLD: 12/06/2020 [facility] 15 mg 10/04/2020 12:00:00 AM EST tablet extended release 24hr 30 TAKE ONE TABLET BY MOUTH EVERY DAY TAKE ONE TABLET BY MOUTH EVERY DAY SOLD: 10/04/2020 [facility] 500 mg 10/02/2020 12:00:00 AM EST tablet 60 TAKE ONE TABLET BY MOUTH TWICE A DAY NEEDED WITH FOOD OR MILK TAKE ONE TABLET BY MOUTH TWICE A DAY NEEDED WITH FOOD OR MILK SOLD: 10/03/2020 [facility] 10 mg 09/08/2020 12:00:00 AM EST tablet 30 TAKE ONE TABLET BY MOUTH EVERY DAY TAKE ONE TABLET BY MOUTH EVERY DAY SOLD: 11/05/2020 [facility] 1 mg 09/08/2020 12:00:00 AM EST tablet 120 TAKE ONE TABLET BY MOUTH FOUR TIMES A DAY MAXIMUM DAILY DOSE = 4 TAKE ONE TABLET BY MOUTH FOUR TIMES A DA Y MAXIMUM DAILY DOSE = 4 SOLD: 09/08/2020 [facility] 10 mg 09/08/2020 12:00:00 AM EST tablet 30 TAKE ONE TABLET BY MOUTH EVERY DAY TAKE ONE TABLET BY MOUTH EVERY DAY SOLD: 09/08/2020 [facility] 10 mg 09/08/2020 12:00:00 AM EST tablet 30 TAKE ONE TABLET BY MOUTH EVERY DAY TAKE ONE TABLET BY MOUTH EVERY DAY SOLD: 12/06/2020 [facility] 10 mg 09/08/2020 12:00:00 AM EST tablet 30 TAKE ONE TABLET BY MOUTH EVERY DAY TAKE ONE TABLET BY MOUTH EVERY DAY SOLD: 10/04/2020 [facility] 120 mg 09/04/2020 12:00:00 AM EST capsule,extended releas e 24 hr 30 TAKE ONE CAPSULE BY MOUTH EVERY DAY TAKE ONE CAPSULE BY MOUTH EVERY DAY SOLD: 11/05/2020 [facility] 150 mg 09/04/2020 12:00:00 AM EST capsule 60 TAKE ONE CAPSULE BY MOUTH TWICE A DAY MAXIMUM DAILY DOSE = 2 CAPSULES TAKE ONE CAPSULE BY MOUTH TWICE A DAY MAXIMUM DAILY DOSE = 2 CAPSULES SOLD: 10/03/2020 [facility] 150 mg 09/04/2020 12:00:00 AM EST capsule 60 TAKE ONE CAPSULE BY MOUTH TWICE A DAY MAXIMUM DAILY DOSE = 2 CAPSULES TAKE ONE CAPSULE BY MOUTH TWICE A DAY MAXIMUM DAILY DOSE = 2 CAPSULES SOLD: 09/04/2020 [facility] 120 mg 09/04/2020 12:00:00 AM EST capsule,extended releas e 24 hr 30 TAKE ONE CAPSULE BY MOUTH EVERY DAY TAKE ONE CAPSULE BY MOUTH EVERY DAY SOLD: 12/06/2020 [facility] 4 mg 09/04/2020 12:00:00 AM EST tablet,disintegrating 3 0 DISSOLVE ONE TABLET ON TONGUE EVERY 8 HOURS NEEDED FOR NAUSEA AND VOMITING DISSOLVE ONE TABLET ON TONGUE EVERY 8 HOURS NEEDED FOR NAUSEA AND VOMITING SOLD: 10/04/2020 [facility] 120 mg 09/04/2020 12:00:00 AM EST capsule,extended releas e 24 hr 30 TAKE ONE CAPSULE BY MOUTH EVERY DAY TAKE ONE CAPSULE BY MOUTH EVERY DAY SOLD: 10/04/2020 [facility] 500 mg 09/04/2020 12:00:00 AM EST tablet 30 TAKE ONE TABLET BY MOUTH TWICE A DAY NEEDED TAKE ONE TABLET BY MOUTH TWICE A DAY NEEDED SOLD: [facility] 4 mg 09/04/2020 12:00:00 AM EST tablet,disintegrating 3 0 DISSOLVE ONE TABLET ON TONGUE EVERY 8 HOURS NEEDED FOR NAUSEA AND VOMITING DISSOLVE ONE TABLET ON TONGUE EVERY 8 HOURS NEEDED FOR NAUSEA AND VOMITING SOLD: 09/04/2020 [facility] 120 mg 09/04/2020 12:00:00 AM EST capsule,extended releas e 24 hr 30 TAKE ONE CAPSULE BY MOUTH EVERY DAY TAKE ONE CAPSULE BY MOUTH EVERY DAY SOLD: 09/04/2020 [facility] 150 mg 09/04/2020 12:00:00 AM EST capsule 60 TAKE ONE CAPSULE BY MOUTH TWICE A DAY MAXIMUM DAILY DOSE = 2 CAPSULES TAKE ONE CAPSULE BY MOUTH TWICE A DAY MAXIMUM DAILY DOSE = 2 CAPSULES SOLD: 11/05/2020 [facility] 0.5 mg 08/18/2020 12:00:00 AM EST tablet 30 TAKE ONE TABLET BY MOUTH EVERY EVENING TAKE ONE TABLET BY MOUTH EVERY EVENING SOLD: 11/05/2020 [facility] 0.5 mg 08/18/2020 12:00:00 AM EST tablet 30 TAKE ONE TABLET BY MOUTH EVERY EVENING TAKE ONE TABLET BY MOUTH EVERY EVENING SOLD: 09/22/2020 [facility] 0.5 mg 08/18/2020 12:00:00 AM EST tablet 30 TAKE ONE TABLET BY MOUTH EVERY EVENING TAKE ONE TABLET BY MOUTH EVERY EVENING SOLD: 08/18/2020 [facility] 0.5 mg 08/18/2020 12:00:00 AM EST tablet 30 TAKE ONE TABLET BY MOUTH EVERY EVENING TAKE ONE TABLET BY MOUTH EVERY EVENING SOLD: 12/06/2020 [facility] 1 mg 08/10/2020 12:00:00 AM EDT tablet 120 TAKE ONE TABLET BY MOUTH FOUR TIMES A DAY MAXIMUM DAILY DOSE = 4 TABLETS TAKE ONE TABLET BY MOUTH FOUR TIMES A DAY MAXIMUM DAILY DOSE = 4 TABLETS SOLD: 08/10/2020 [facility] 20 mg 08/10/2020 12:00:00 AM EDT tablet 3 TAKE ONE TABLET BY MOUTH EVERY DAY FOR 3 DAYS TAKE ONE TABLET BY MOUTH EVERY DAY FOR 3 DAYS SOLD: 08/11/2020 [facility] 50 mg 08/08/2020 12:00:00 AM EDT tablet 30 TAKE ONE TABLET BY MOUTH AT BEDTIME TAKE ONE TABLET BY MOUTH AT BEDTIME SOLD: 08/09/2020 [facility] 50 mg 08/08/2020 12:00:00 AM EDT tablet 30 TAKE ONE TABLET BY MOUTH AT BEDTIME TAKE ONE TABLET BY MOUTH AT BEDTIME SOLD: 11/05/2020 [facility] 50 mg 08/08/2020 12:00:00 AM EDT tablet 30 TAKE ONE TABLET BY MOUTH AT BEDTIME TAKE ONE TABLET BY MOUTH AT BEDTIME SOLD: 09/22/2020 [facility] 50 mg 08/08/2020 12:00:00 AM EDT tablet 30 TAKE ONE TABLET BY MOUTH AT BEDTIME TAKE ONE TABLET BY MOUTH AT BEDTIME SOLD: 12/06/2020 [facility] 500 mg 07/29/2020 12:00:00 AM EDT tablet 30 TAKE ONE TABLET BY MOUTH TWICE A DAY NEEDED MAXIMUM DAILY DOSE = 2 TAKE ONE TABLET BY MOUTH TWICE A DAY NEEDED MAXIMUM DAILY DOSE = 2 SOLD: 07/29/2020 [facility] Naproxen 500 MG Oral Tablet Naproxen 07/28/2020 12:00:00 AM EDT active MEDENT ([facility], ) 50 mcg (2,000 unit) 07/25/2020 12:00:00 AM EDT tablet 30 TAKE ONE TABLET BY MOUTH EVERY DAY WITH A MEAL TAKE ONE TABLET BY MOUTH EVERY DAY WITH A MEAL SOLD: 07/28/2020 [facility] Vitamin D3 50 MCG (2000 UT) Vitamin D3 50 MCG (2000 UT) 06/2020 12:00:00 AM EDT 1.0 {tablet} active Vitamin D3 50 MCG (2000 UT) eCW1 ([facility]) 50 mcg (2,000 unit) 07/25/2020 12:00:00 AM EDT tablet 30 TAKE ONE TABLET BY MOUTH EVERY DAY WITH A MEAL TAKE ONE TABLET BY MOUTH EVERY DAY WITH A MEAL SOLD: 12/06/2020 [facility] Vitamin D3 50 MCG (2000 UT) Vitamin D3 50 MCG (2000 UT) 06/2020 12:00:00 AM EDT 1.0 {tablet} active Vitamin D3 50 MCG (2000 UT) eCW1 ([facility]) Vitamin D3 50 MCG (2000 UT) Vitamin D3 50 MCG (2000 UT) 06/2020 12:00:00 AM EDT 1.0 {tablet} active Vitamin D3 50 MCG (2000 UT) eCW1 ([facility]) Vitamin D3 50 MCG (2000 UT) Vitamin D3 50 MCG (2000 UT) 06/2020 12:00:00 AM EDT 1.0 {tablet} active Vitamin D3 50 MCG (2000 UT) eCW1 ([facility]) 50 mcg (2,000 unit) 07/25/2020 12:00:00 AM EDT tablet 30 TAKE ONE TABLET BY MOUTH EVERY DAY WITH A MEAL TAKE ONE TABLET BY MOUTH EVERY DAY WITH A MEAL SOLD: 10/04/2020 [facility] 50 mcg 07/25/2020 12:00:00 AM EDT tablet 20 TAKE ONE TABLET BY MOUTH EVERY MORNING ON AN EMPTY STOMACH TAKE ONE TABLET BY MOUTH EVERY MORNING O N AN EMPTY STOMACH SOLD: 11/10/2020 [facility] 50 mcg 07/25/2020 12:00:00 AM EDT tablet 90 TAKE ONE TABLET BY MOUTH EVERY MORNING ON AN EMPTY STOMACH TAKE ONE TABLET BY MOUTH EVERY MORNING O N AN EMPTY STOMACH SOLD: 07/28/2020 [facility] 50 mcg 07/25/2020 12:00:00 AM EDT tablet 20 TAKE ONE TABLET BY MOUTH EVERY MORNING ON AN EMPTY STOMACH TAKE ONE TABLET BY MOUTH EVERY MORNING O N AN EMPTY STOMACH SOLD: 11/30/2020 [facility] Vitamin D3 50 MCG (1999 UT) Vitamin D3 50 MCG (1999 UT) 06/2020 12:00:00 AM EDT 1.0 {tablet} active Vitamin D3 50 MCG (1999 UT) eCW1 ([facility]) 50 mcg 07/25/2020 12:00:00 AM EDT tablet 20 TAKE ONE TABLET BY MOUTH EVERY MORNING ON AN EMPTY STOMACH TAKE ONE TABLET BY MOUTH EVERY MORNING O N AN EMPTY STOMACH SOLD: 10/20/2020 [facility] 50 mcg (2,000 unit) 07/25/2020 12:00:00 AM EDT tablet 30 TAKE ONE TABLET BY MOUTH EVERY DAY WITH A MEAL TAKE ONE TABLET BY MOUTH EVERY DAY WITH A MEAL SOLD: 11/05/2020 [facility] 50 mcg (2,000 unit) 07/25/2020 12:00:00 AM EDT tablet 30 TAKE ONE TABLET BY MOUTH EVERY DAY WITH A MEAL TAKE ONE TABLET BY MOUTH EVERY DAY WITH A MEAL SOLD: 09/04/2020 [facility] 10 mg 07/12/2020 12:00:00 AM EDT tablet 30 TAKE ONE TABLET BY MOUTH AT BEDTIME MAXIMUM DAILY DOSE = 1 TAKE ONE TABLET BY MOUTH AT BEDTIME MAXI MUM DAILY DOSE = 1 SOLD: 07/12/2020 [facility] 1 mg 07/12/2020 12:00:00 AM EDT tablet 120 TAKE ONE TABLET BY MOUTH FOUR TIMES A DAY MAXIMUM DAILY DOSE = 4 TAKE ONE TABLET BY MOUTH FOUR TIMES A DA Y MAXIMUM DAILY DOSE = 4 SOLD: 07/12/2020 [facility] 5-325 mg 07/08/2020 12:00:00 AM EDT tablet 10 TAKE ONE TABLET BY MOUTH EVERY DAY NEEDED MAXIMUM DAILY DOSE = 1 TAKE ONE TABLET BY MOUTH EVERY DAY NEEDED MAXIMUM DAILY DOSE = 1 SOLD: 07/08/2020 [facility] 1 mg 06/12/2020 12:00:00 AM EDT tablet 120 TAKE ONE TABLET BY MOUTH FOUR TIMES A DAY MAXIMUM DAILY DOSE = 4 TABLETS TAKE ONE TABLET BY MOUTH FOUR TIMES A DAY MAXIMUM DAILY DOSE = 4 TABLETS SOLD: 06/13/2020 [facility] 5-325 mg 06/06/2020 12:00:00 AM EDT tablet 20 TAKE ONE TABLET BY MOUTH EVERY DAY NEEDED MAXIMUM DAILY DOSE = 1 TAKE ONE TABLET BY MOUTH EVERY DAY NEEDED MAXIMUM DAILY DOSE = 1 SOLD: 06/09/2020 [facility] rizatriptan 10 MG Disintegrating Oral Tablet RIZATRIPTAN OK ZOATE 06/03/2020 12:00:00 AM EDT tablet,disintegrating 9 TAKE 1 TAB LET AT ONSET OF HEADACHE. MAY REPEAT ONCE IN 2 HOURS NEEDED MAXIMUM DAILY DOSE = 2 TAKE 1 TABLET AT ONSET OF HEADACHE. MAY REPEAT ONCE IN 2 HOURS NEEDED MAXIMUM DAILY DOSE = 2 SOLD: 10/04/2020 [facility] 10 mg 06/03/2020 12:00:00 AM EDT tablet,disintegrating 9 TAKE 1 TABLET AT ONSET OF HEADACHE. MAY REPEAT ONCE IN 2 HOURS NEEDED MAXIMUM DAILY DOSE = 2 TAKE 1 TABLET AT ONSET OF HEADACHE. MAY REPEAT ONCE IN 2 HOURS NEEDED MAXIMUM DAILY DOSE = 2 SOLD: 09/04/2020 [facility] 10 mg 06/03/2020 12:00:00 AM EDT tablet,disintegrating 9 TAKE 1 TABLET AT ONSET OF HEADACHE. MAY REPEAT ONCE IN 2 HOURS NEEDED MAXIMUM DAILY DOSE = 2 TAKE 1 TABLET AT ONSET OF HEADACHE. MAY REPEAT ONCE IN 2 HOURS NEEDED MAXIMUM DAILY DOSE = 2 SOLD: 07/08/2020 [facility] 4 mg 06/03/2020 12:00:00 AM EDT tablets,dose pack 21 DIRECTED ON PACKAGE DIRECTED ON PACKAGE SOLD: 06/04/2020 [facility] rizatriptan 10 MG Disintegrating Oral Tablet RIZATRIPTAN OK ZOATE 06/03/2020 12:00:00 AM EDT tablet,disintegrating 9 TAKE 1 TAB LET AT ONSET OF HEADACHE. MAY REPEAT ONCE IN 2 HOURS NEEDED MAXIMUM DAILY DOSE = 2 TAKE 1 TABLET AT ONSET OF HEADACHE. MAY REPEAT ONCE IN 2 HOURS NEEDED MAXIMUM DAILY DOSE = 2 SOLD: 06/04/2020 [facility] Medrol Medrol 06/03/2020 12:00:00 AM EDT completed MEDENT ([facility] ) 10 mg 06/03/2020 12:00:00 AM EDT tablet,disintegrating 9 TAKE 1 TABLET AT ONSET OF HEADACHE. MAY REPEAT ONCE IN 2 HOURS NEEDED MAXIMUM DAILY DOSE = 2 TAKE 1 TABLET AT ONSET OF HEADACHE. MAY REPEAT ONCE IN 2 HOURS NEEDED MAXIMUM DAILY DOSE = 2 SOLD: 08/05/2020 [facility] rizatriptan 10 MG Disintegrating Oral Tablet RIZATRIPTAN OK ZOATE 06/03/2020 12:00:00 AM EDT tablet,disintegrating 9 TAKE 1 TAB LET AT ONSET OF HEADACHE. MAY REPEAT ONCE IN 2 HOURS NEEDED MAXIMUM DAILY DOSE = 2 TAKE 1 TABLET AT ONSET OF HEADACHE. MAY REPEAT ONCE IN 2 HOURS NEEDED MAXIMUM DAILY DOSE = 2 SOLD: 11/10/2020 [facility] 5-325 mg 05/13/2020 12:00:00 AM EDT tablet 20 TAKE ONE TABLET BY MOUTH EVERY DAY NEEDED MAXIMUM DAILY DOSE = 1 TAKE ONE TABLET BY MOUTH EVERY DAY NEEDED MAXIMUM DAILY DOSE = 1 SOLD: 05/13/2020 [facility] 1 mg 05/13/2020 12:00:00 AM EDT tablet 120 TAKE ONE TABLET BY MOUTH FOUR TIMES A DAY MAXIMUM DAILY DOSE = 4 TAKE ONE TABLET BY MOUTH FOUR TIMES A DA Y MAXIMUM DAILY DOSE = 4 SOLD: 05/13/2020 [facility] 10 mg 05/13/2020 12:00:00 AM EDT tablet 30 TAKE ONE TABLET BY MOUTH AT BEDTIME MAXIMUM DAILY DOSE = 1 TAKE ONE TABLET BY MOUTH AT BEDTIME MAXI MUM DAILY DOSE = 1 SOLD: 05/13/2020 [facility] 2 mg 05/12/2020 12:00:00 AM EDT tablet 90 TAKE ONE TABLET BY MOUTH THREE TIMES A DAY NEEDED MAXIMUM DAILY DOSE = 3 TAKE ONE TABLET BY MOUTH THREE TIMES A DAY NEEDED MAXIMUM DAILY DOSE = 3 SOLD: 05/12/2020 [facility] 2 mg 05/12/2020 12:00:00 AM EDT tablet 90 TAKE ONE TABLET BY MOUTH THREE TIMES A DAY NEEDED MAXIMUM DAILY DOSE = 3 TAKE ONE TABLET BY MOUTH THREE TIMES A DAY NEEDED MAXIMUM DAILY DOSE = 3 SOLD: 07/17/2020 [facility] tizanidine 2 MG Oral Tablet TIZANIDINE HCL 05/12/2020 12:00:00 AM EDT tablet 90 TAKE ONE TABLET BY MOUTH THREE TIMES A DAY NEEDED M AXIMUM DAILY DOSE = 3 TAKE ONE TABLET BY MOUTH THREE TIMES A DAY NEEDED MAXIMUM DAILY DOSE = 3 SOLD: 11/05/2020 [facility] 2 mg 05/12/2020 12:00:00 AM EDT tablet 90 TAKE ONE TABLET BY MOUTH THREE TIMES A DAY NEEDED MAXIMUM DAILY DOSE = 3 TAKE ONE TABLET BY MOUTH THREE TIMES A DAY NEEDED MAXIMUM DAILY DOSE = 3 SOLD: 06/12/2020 [facility] tizanidine 2 MG Oral Tablet TIZANIDINE HCL 05/12/2020 12:00:00 AM EDT tablet 90 TAKE ONE TABLET BY MOUTH THREE TIMES A DAY NEEDED M AXIMUM DAILY DOSE = 3 TAKE ONE TABLET BY MOUTH THREE TIMES A DAY NEEDED MAXIMUM DAILY DOSE = 3 SOLD: 09/22/2020 [facility] tizanidine 2 MG Oral Tablet TIZANIDINE HCL 05/12/2020 12:00:00 AM EDT tablet 90 TAKE ONE TABLET BY MOUTH THREE TIMES A DAY NEEDED M AXIMUM DAILY DOSE = 3 TAKE ONE TABLET BY MOUTH THREE TIMES A DAY NEEDED MAXIMUM DAILY DOSE = 3 SOLD: 08/16/2020 [facility] 20 mg 05/05/2020 12:00:00 AM EDT capsule 90 TAKE THREE CAPSULES BY MOUTH EVERY DAY TAKE THREE CAPSULES BY MOUTH EVERY DAY SOLD: 05/05/2020 [facility] 20 mg 05/05/2020 12:00:00 AM EDT capsule 90 TAKE THREE CAPSULES BY MOUTH EVERY DAY TAKE THREE CAPSULES BY MOUTH EVERY DAY SOLD: 10/04/2020 [facility] 20 mg 05/05/2020 12:00:00 AM EDT capsule 90 TAKE THREE CAPSULES BY MOUTH EVERY DAY TAKE THREE CAPSULES BY MOUTH EVERY DAY SOLD: 08/05/2020 [facility] 20 mg 05/05/2020 12:00:00 AM EDT capsule 90 TAKE THREE CAPSULES BY MOUTH EVERY DAY TAKE THREE CAPSULES BY MOUTH EVERY DAY SOLD: 09/04/2020 [facility] 20 mg 05/05/2020 12:00:00 AM EDT capsule 90 TAKE THREE CAPSULES BY MOUTH EVERY DAY TAKE THREE CAPSULES BY MOUTH EVERY DAY SOLD: 06/05/2020 [facility] 20 mg 05/05/2020 12:00:00 AM EDT capsule 90 TAKE THREE CAPSULES BY MOUTH EVERY DAY TAKE THREE CAPSULES BY MOUTH EVERY DAY SOLD: 07/06/2020 [facility] 0.5 mg 05/05/2020 12:00:00 AM EDT tablet 30 TAKE ONE TABLET BY MOUTH EVERY EVENING TAKE ONE TABLET BY MOUTH EVERY EVENING SOLD: 07/08/2020 [facility] 0.5 mg 05/05/2020 12:00:00 AM EDT tablet 30 TAKE ONE TABLET BY MOUTH EVERY EVENING TAKE ONE TABLET BY MOUTH EVERY EVENING SOLD: 05/05/2020 [facility] 5-325 mg 04/14/2020 12:00:00 AM EDT tablet 30 TAKE ONE TABLET BY MOUTH EVERY DAY NEEDED MAXIMUM DAILY DOSE = 1 TABLET TAKE ONE TABLET BY MOUTH EVERY DAY NEEDED MAXIMUM DAILY DOSE = 1 TABLET SOLD: 04/15/2020 [facility] 10 mg 04/14/2020 12:00:00 AM EDT tablet 30 TAKE ONE TABLET BY MOUTH AT BEDTIME MAXIMUM DAILY DOSE = 1 TABLET TAKE ONE TABLET BY MOUTH AT BEDTIME MAXIMUM DAILY DOSE = 1 TABLET SOLD: 04/14/2020 [facility] 1 mg 04/14/2020 12:00:00 AM EDT tablet 120 TAKE ONE TABLET BY MOUTH FOUR TIMES A DAY MAXIMUM DAILY DOSE = 4 TABLETS TAKE ONE TABLET BY MOUTH FOUR TIMES A DAY MAXIMUM DAILY DOSE = 4 TABLETS SOLD: 04/14/2020 [facility] 5-325 mg 04/08/2020 12:00:00 AM EDT tablet 7 TAKE ONE TABLET BY MOUTH EVERY DAY NEEDED MAXIMUM DAILY DOSE = 1 TABLET TAKE ONE TABLET BY MOUTH EVERY DAY NEEDED MAXIMUM DAILY DOSE = 1 TABLET SOLD: 04/08/2020 [facility] 10 mg 04/05/2020 12:00:00 AM EDT tablet 30 TAKE ONE TABLET BY MOUTH EVERY DAY TAKE ONE TABLET BY MOUTH EVERY DAY SOLD: 07/06/2020 [facility] 10 mg 04/05/2020 12:00:00 AM EDT tablet 30 TAKE ONE TABLET BY MOUTH EVERY DAY TAKE ONE TABLET BY MOUTH EVERY DAY SOLD: 05/05/2020 [facility] 10 mg 04/05/2020 12:00:00 AM EDT tablet 30 TAKE ONE TABLET BY MOUTH EVERY DAY TAKE ONE TABLET BY MOUTH EVERY DAY SOLD: 06/05/2020 [facility] 10 mg 04/05/2020 12:00:00 AM EDT tablet 30 TAKE ONE TABLET BY MOUTH EVERY DAY TAKE ONE TABLET BY MOUTH EVERY DAY SOLD: 04/07/2020 [facility] 10 mg 03/16/2020 12:00:00 AM EDT tablet 30 TAKE ONE TABLET BY MOUTH AT BEDTIME MAXIMUM DAILY DOSE = 1 TABLET TAKE ONE TABLET BY MOUTH AT BEDTIME MAXIMUM DAILY DOSE = 1 TABLET SOLD: 03/16/2020 [facility] 1 mg 03/14/2020 12:00:00 AM EDT tablet 120 TAKE ONE TABLET BY MOUTH FOUR TIMES A DAY MAXIMUM DAILY DOSE = 4 TAKE ONE TABLET BY MOUTH FOUR TIMES A DA Y MAXIMUM DAILY DOSE = 4 SOLD: 03/14/2020 [facility] 120 mg 03/06/2020 12:00:00 AM EDT capsule,extended releas e 24 hr 30 TAKE ONE CAPSULE BY MOUTH EVERY DAY TAKE ONE CAPSULE BY MOUTH EVERY DAY SOLD: 04/05/2020 [facility] 120 mg 03/06/2020 12:00:00 AM EDT capsule,extended releas e 24 hr 30 TAKE ONE CAPSULE BY MOUTH EVERY DAY TAKE ONE CAPSULE BY MOUTH EVERY DAY SOLD: 03/06/2020 [facility] 5-325 mg 03/06/2020 12:00:00 AM EDT tablet 40 TAKE ONE TABLET BY MOUTH TWICE A DAY NEEDED MAXIMUM DAILY DOSE = 2 TAKE ONE TABLET BY MOUTH TWICE A DAY NEEDED MAXIMUM DAILY DOSE = 2 SOLD: 03/06/2020 [facility] 120 mg 03/06/2020 12:00:00 AM EDT capsule,extended releas e 24 hr 30 TAKE ONE CAPSULE BY MOUTH EVERY DAY TAKE ONE CAPSULE BY MOUTH EVERY DAY SOLD: 08/05/2020 [facility] 120 mg 03/06/2020 12:00:00 AM EDT capsule,extended releas e 24 hr 30 TAKE ONE CAPSULE BY MOUTH EVERY DAY TAKE ONE CAPSULE BY MOUTH EVERY DAY SOLD: 05/05/2020 [facility] 120 mg 03/06/2020 12:00:00 AM EDT capsule,extended releas e 24 hr 30 TAKE ONE CAPSULE BY MOUTH EVERY DAY TAKE ONE CAPSULE BY MOUTH EVERY DAY SOLD: 06/05/2020 [facility] 4 mg 03/06/2020 12:00:00 AM EDT tablet,disintegrating 3 0 DISSOLVE ONE TABLET ON TONGUE EVERY 8 HOURS NEEDED FOR NAUSEA AND VOMITING DISSOLVE ONE TABLET ON TONGUE EVERY 8 HOURS NEEDED FOR NAUSEA AND VOMITING SOLD: 03/06/2020 [facility] 4 mg 03/06/2020 12:00:00 AM EDT tablet,disintegrating 3 0 DISSOLVE ONE TABLET ON TONGUE EVERY 8 HOURS NEEDED FOR NAUSEA AND VOMITING DISSOLVE ONE TABLET ON TONGUE EVERY 8 HOURS NEEDED FOR NAUSEA AND VOMITING SOLD: 04/05/2020 [facility] 120 mg 03/06/2020 12:00:00 AM EDT capsule,extended releas e 24 hr 30 TAKE ONE CAPSULE BY MOUTH EVERY DAY TAKE ONE CAPSULE BY MOUTH EVERY DAY SOLD: 07/06/2020 [facility] 1 mg 02/15/2020 12:00:00 AM EDT tablet 120 TAKE ONE TABLET BY MOUTH FOUR TIMES A DAY MAXIMUM DAILY DOSE = 4 TABLETS TAKE ONE TABLET BY MOUTH FOUR TIMES A DAY MAXIMUM DAILY DOSE = 4 TABLETS SOLD: 02/16/2020 [facility] 10 mg 02/14/2020 12:00:00 AM EDT tablet 30 TAKE ONE TABLET BY MOUTH AT BEDTIME, MAXIMUM DAILY DOSE = 1 TAKE ONE TABLET BY MOUTH AT BEDTIME, MAX IMUM DAILY DOSE = 1 SOLD: 02/16/2020 [facility] 150 mg 02/12/2020 12:00:00 AM EDT capsule 60 TAKE ONE CAPSULE BY MOUTH TWICE A DAY MAXIMUM DAILY DOSE = 2 TAKE ONE CAPSULE BY MOUTH TWICE A DAY MA XIMUM DAILY DOSE = 2 SOLD: 07/22/2020 [facility] 150 mg 02/12/2020 12:00:00 AM EDT capsule 60 TAKE ONE CAPSULE BY MOUTH TWICE A DAY MAXIMUM DAILY DOSE = 2 TAKE ONE CAPSULE BY MOUTH TWICE A DAY MA XIMUM DAILY DOSE = 2 SOLD: 06/20/2020 Elder tubbss 150 mg 02/12/2020 12:00:00 AM EDT capsule 60 TAKE ONE CAPSULE BY MOUTH TWICE A DAY MAXIMUM DAILY DOSE = 2 TAKE ONE CAPSULE BY MOUTH TWICE A DAY MA XIMUM DAILY DOSE = 2 SOLD: 05/19/2020 [facility] 150 mg 02/12/2020 12:00:00 AM EDT capsule 60 TAKE ONE CAPSULE BY MOUTH TWICE A DAY MAXIMUM DAILY DOSE = 2 TAKE ONE CAPSULE BY MOUTH TWICE A DAY MA XIMUM DAILY DOSE = 2 SOLD: 02/13/2020 [facility] 150 mg 02/12/2020 12:00:00 AM EDT capsule 60 TAKE ONE CAPSULE BY MOUTH TWICE A DAY MAXIMUM DAILY DOSE = 2 TAKE ONE CAPSULE BY MOUTH TWICE A DAY MA XIMUM DAILY DOSE = 2 SOLD: 03/14/2020 [facility] 150 mg 02/12/2020 12:00:00 AM EDT capsule 60 TAKE ONE CAPSULE BY MOUTH TWICE A DAY MAXIMUM DAILY DOSE = 2 TAKE ONE CAPSULE BY MOUTH TWICE A DAY TANNA DE LEON DAILY DOSE = 2 SOLD: 04/12/2020 [facility] 5-325 mg 02/05/2020 12:00:00 AM EDT tablet 50 TAKE ONE TABLET BY MOUTH TWICE A DAY NEEDED MAXIMUM DAILY DOSE = 2 TAKE ONE TABLET BY MOUTH TWICE A DAY NEEDED MAXIMUM DAILY DOSE = 2 SOLD: 02/05/2020 [facility] 15 mg 02/02/2020 12:00:00 AM EDT tablet extended release 24hr 90 TAKE ONE TABLET BY MOUTH EVERY DAY TAKE ONE TABLET BY MOUTH EVERY DAY SOLD: 04/07/2020 [facility] 15 mg 02/02/2020 12:00:00 AM EDT tablet extended release 24hr 90 TAKE ONE TABLET BY MOUTH EVERY DAY TAKE ONE TABLET BY MOUTH EVERY DAY SOLD: 02/04/2020 [facility] 50 mcg 02/02/2020 12:00:00 AM EDT tablet 90 TAKE ONE TABLET BY MOUTH EVERY MORNING ON AN EMPTY STOMACH TAKE ONE TABLET BY MOUTH EVERY MORNING O N AN EMPTY STOMACH SOLD: 02/04/2020 [facility] 500 mg 02/02/2020 12:00:00 AM EDT tablet 30 TAKE ONE TABLET BY MOUTH EVERY DAY NEEDED WITH FOOD OR MILK TAKE ONE TABLET BY MOUTH EVERY DAY NE EDED WITH FOOD OR MILK SOLD: 03/05/2020 [facility] 500 mg 02/02/2020 12:00:00 AM EDT tablet 30 TAKE ONE TABLET BY MOUTH EVERY DAY NEEDED WITH FOOD OR MILK TAKE ONE TABLET BY MOUTH EVERY DAY NE EDED WITH FOOD OR MILK SOLD: 04/05/2020 [facility] 500 mg 02/02/2020 12:00:00 AM EDT tablet 30 TAKE ONE TABLET BY MOUTH EVERY DAY NEEDED WITH FOOD OR MILK TAKE ONE TABLET BY MOUTH EVERY DAY NE EDED WITH FOOD OR MILK SOLD: 02/04/2020 [facility] 50 mcg 02/02/2020 12:00:00 AM EDT tablet 90 TAKE ONE TABLET BY MOUTH EVERY MORNING ON AN EMPTY STOMACH TAKE ONE TABLET BY MOUTH EVERY MORNING O N AN EMPTY STOMACH SOLD: 04/07/2020 [facility] Naproxen 500 MG Oral Tablet Naproxen 500 MG 02/01/2020 12:00:00 AM EDT active Naproxen 500 MG W1 ([facility]) Naproxen 500 MG Oral Tablet Naproxen 500 MG 02/01/2020 12:00:00 AM EDT active Naproxen 500 MG eCW1 ([facility]) Naproxen 500 MG Oral Tablet Naproxen 500 MG 02/01/2020 12:00:00 AM EDT active Naproxen 500 MG eCW1 ([facility]) 25 mcg (1,000 unit) 02/01/2020 12:00:00 AM EDT capsule 60 TAKE TWO CAPSULES BY MOUTH EVERY DAY WITH A MEAL TAKE TWO CAPSULES BY MOUTH EVERY DAY WITH A MEAL SOLD: 06/05/2020 [facility] 25 mcg (1,000 unit) 02/01/2020 12:00:00 AM EDT capsule 60 TAKE TWO CAPSULES BY MOUTH EVERY DAY WITH A MEAL TAKE TWO CAPSULES BY MOUTH EVERY DAY WITH A MEAL SOLD: 05/05/2020 [facility] Naproxen 500 MG Oral Tablet Naproxen 500 MG 02/01/2020 12:00:00 AM EDT active 1 tablet with food or milk a s needed eCW1 ([facility]) 25 mcg (1,000 unit) 02/01/2020 12:00:00 AM EDT capsule 60 TAKE TWO CAPSULES BY MOUTH EVERY DAY WITH A MEAL TAKE TWO CAPSULES BY MOUTH EVERY DAY WITH A MEAL SOLD: 02/01/2020 [facility] Naproxen 500 MG Oral Tablet Naproxen 500 MG 02/01/2020 12:00:00 AM EDT active Naproxen 500 MG eCW1 ([facility]) 25 mcg (1,000 unit) 02/01/2020 12:00:00 AM EDT capsule 60 TAKE TWO CAPSULES BY MOUTH EVERY DAY WITH A MEAL TAKE TWO CAPSULES BY MOUTH EVERY DAY WITH A MEAL SOLD: 07/06/2020 [facility] 25 mcg (1,000 unit) 02/01/2020 12:00:00 AM EDT capsule 60 TAKE TWO CAPSULES BY MOUTH EVERY DAY WITH A MEAL TAKE TWO CAPSULES BY MOUTH EVERY DAY WITH A MEAL SOLD: 03/05/2020 [facility] 25 mcg (1,000 unit) 02/01/2020 12:00:00 AM EDT capsule 60 TAKE TWO CAPSULES BY MOUTH EVERY DAY WITH A MEAL TAKE TWO CAPSULES BY MOUTH EVERY DAY WITH A MEAL SOLD: 04/05/2020 [facility] Naproxen 500 MG Oral Tablet Naproxen 500 MG 02/01/2020 12:00:00 AM EDT active Naproxen 500 MG eCW1 ([facility]) Naproxen 500 MG Oral Tablet Naproxen 500 MG 02/01/2020 12:00:00 AM EDT active Naproxen 500 MG eCW1 ([facility]) Naproxen 500 MG Oral Tablet Naproxen 500 MG 02/01/2020 12:00:00 AM EDT active Naproxen 500 MG eCW1 ([facility]) 10 mg 01/17/2020 12:00:00 AM EDT tablet 30 TAKE ONE TABLET BY MOUTH AT BEDTIME, MAXIMUM DAILY DOSE = 1 TAKE ONE TABLET BY MOUTH AT BEDTIME, MAX IMUM DAILY DOSE = 1 SOLD: 01/17/2020 [facility] 1 mg 01/17/2020 12:00:00 AM EDT tablet 120 TAKE 1 TABLET BY MOUTH FOUR TIMES A DAY MAXIMUM DAILY DOSE = 4 TAKE 1 TABLET BY MOUTH FOUR TIMES A DAY MAXIMUM DAILY DOSE = 4 SOLD: 01/17/2020 [facility] 5-325 mg 01/04/2020 12:00:00 AM EDT tablet 60 TAKE ONE TABLET BY MOUTH TWICE A DAY NEEDED MAXIMUM DAILY DOSE = 2 TABLETS TAKE ONE TABLET BY MOUTH TWICE A DAY NEEDED MAXIMUM DAILY DOSE = 2 TABLETS SOLD: 01/04/2020 [facility] 10 mg 12/20/2019 12:00:00 AM EST tablet 19 TAKE ONE TABLET BY MOUTH EVERY 6 HOURS NEEDED FOR PAIN TAKE ONE TABLET BY MOUTH EVERY 6 HOURS A S NEEDED FOR PAIN SOLD: 12/21/2019 [facility] 1 mg 12/18/2019 12:00:00 AM EST tablet 120 TAKE ONE TABLET BY MOUTH FOUR TIMES A DAY MAXIMUM DAILY DOSE = 4 TAKE ONE TABLET BY MOUTH FOUR TIMES A DA Y MAXIMUM DAILY DOSE = 4 SOLD: 12/18/2019 [facility] 10 mg 12/18/2019 12:00:00 AM EST tablet 30 TAKE ONE TABLET BY MOUTH AT BEDTIME MAXIMUM DAILY DOSE = 1 TAKE ONE TABLET BY MOUTH AT BEDTIME MAXI MUM DAILY DOSE = 1 SOLD: 06/13/2020 [facility] 10 mg 12/18/2019 12:00:00 AM EST tablet 30 TAKE ONE TABLET BY MOUTH AT BEDTIME MAXIMUM DAILY DOSE = 1 TAKE ONE TABLET BY MOUTH AT BEDTIME MAXI MUM DAILY DOSE = 1 SOLD: 12/18/2019 [facility] 10 mg 12/06/2019 12:00:00 AM EST tablet 30 TAKE ONE TABLET BY MOUTH EVERY DAY TAKE ONE TABLET BY MOUTH EVERY DAY SOLD: 02/04/2020 [facility] 10 mg 12/06/2019 12:00:00 AM EST tablet 30 TAKE ONE TABLET BY MOUTH EVERY DAY TAKE ONE TABLET BY MOUTH EVERY DAY SOLD: 03/05/2020 [facility] 10 mg 12/06/2019 12:00:00 AM EST tablet 30 TAKE ONE TABLET BY MOUTH EVERY DAY TAKE ONE TABLET BY MOUTH EVERY DAY SOLD: 01/04/2020 [facility] 10 mg 12/06/2019 12:00:00 AM EST tablet 30 TAKE ONE TABLET BY MOUTH EVERY DAY TAKE ONE TABLET BY MOUTH EVERY DAY SOLD: 12/09/2019 [facility] 10 mg 12/04/2019 12:00:00 AM EST tablet,disintegrating 9 DISSOLVE 1 TABLET ON TONGUE AT ONSET OF HEADACHE MAY REPEAT ONCE IN 2 HOURS NEEDED MAXIMUM DAILY DOSE = 2 DISSOLVE 1 TABLET ON TONGUE AT ONSET OF HEADACHE MAY REPEAT ONCE IN 2 HOURS NEEDED MAXIMUM DAILY DOSE = 2 SOLD: 04/05/2020 [facility] 10 mg 12/04/2019 12:00:00 AM EST tablet,disintegrating 9 DISSOLVE 1 TABLET ON TONGUE AT ONSET OF HEADACHE MAY REPEAT ONCE IN 2 HOURS NEEDED MAXIMUM DAILY DOSE = 2 DISSOLVE 1 TABLET ON TONGUE AT ONSET OF HEADACHE MAY REPEAT ONCE IN 2 HOURS NEEDED MAXIMUM DAILY DOSE = 2 SOLD: 12/05/2019 [facility] 10 mg 12/04/2019 12:00:00 AM EST tablet,disintegrating 9 DISSOLVE 1 TABLET ON TONGUE AT ONSET OF HEADACHE MAY REPEAT ONCE IN 2 HOURS NEEDED MAXIMUM DAILY DOSE = 2 DISSOLVE 1 TABLET ON TONGUE AT ONSET OF HEADACHE MAY REPEAT ONCE IN 2 HOURS NEEDED MAXIMUM DAILY DOSE = 2 SOLD: 05/05/2020 [facility] 10 mg 12/04/2019 12:00:00 AM EST tablet,disintegrating 9 DISSOLVE 1 TABLET ON TONGUE AT ONSET OF HEADACHE MAY REPEAT ONCE IN 2 HOURS NEEDED MAXIMUM DAILY DOSE = 2 DISSOLVE 1 TABLET ON TONGUE AT ONSET OF HEADACHE MAY REPEAT ONCE IN 2 HOURS NEEDED MAXIMUM DAILY DOSE = 2 SOLD: 03/05/2020 [facility] 10 mg 12/04/2019 12:00:00 AM EST tablet,disintegrating 9 DISSOLVE 1 TABLET ON TONGUE AT ONSET OF HEADACHE MAY REPEAT ONCE IN 2 HOURS NEEDED MAXIMUM DAILY DOSE = 2 DISSOLVE 1 TABLET ON TONGUE AT ONSET OF HEADACHE MAY REPEAT ONCE IN 2 HOURS NEEDED MAXIMUM DAILY DOSE = 2 SOLD: 02/04/2020 [facility] 5-325 mg 12/04/2019 12:00:00 AM EST tablet 60 TAKE 1 TABLET BY MOUTH NEEDED TWO TIMES A DAY MAXIMUM DAILY DOSE = 2 TAKE 1 TABLET BY MOUTH NEEDED TWO TIMES A DAY MAXIMUM DAILY DOSE = 2 SOLD: 12/05/2019 [facility] Zolpidem tartrate 10 MG Oral Tablet Zolp idem Tartrate 10 MG Oral Tablet (AMBIEN) Zolpidem Tartrate 10 MG Oral Tablet (AMBIEN) 11/19/2019 12:00:[address] [facility] Alprazolam 1 MG Oral Tablet ALPRAZolam 1 MG Oral Table t (XANAX) ALPRAZolam 1 MG Oral Tablet (XANAX) 11/19/2019 12:00:00 AM EST [facility] 1 mg 11/19/2019 12:00:00 AM EST tablet 120 TAKE ONE TABLET BY MOUTH FOUR TIMES A DAY MAXIMUM DAILY DOSE = 4 TABLETS TAKE ONE TABLET BY MOUTH FOUR TIMES A DAY MAXIMUM DAILY DOSE = 4 TABLETS SOLD: 11/19/2019 [facility] 10 mg 11/19/2019 12:00:00 AM EST tablet 30 TAKE ONE TABLET BY MOUTH AT BEDTIME MAXIMUM DAILY DOSE = 1 TABLET TAKE ONE TABLET BY MOUTH AT BEDTIME MAXIMUM DAILY DOSE = 1 TABLET SOLD: 11/19/2019 [facility] tizanidine 2 MG Oral Tablet tiZANidine HCl 2 MG Oral T ablet (ZANAFLEX) tiZANidine HCl 2 MG Oral Tablet (ZANAFLEX) 11/15/2019 12:00:00 AM EST [facility] 2 mg 11/15/2019 12:00:00 AM EST tablet 90 TAKE ONE TABLET BY MOUTH THREE TIMES A DAY NEEDED TAKE ONE TABLET BY MOUTH THREE TIMES A DAY NEEDED S OLD: 04/11/2020 [facility] 2 mg 11/15/2019 12:00:00 AM EST tablet 90 TAKE ONE TABLET BY MOUTH THREE TIMES A DAY NEEDED TAKE ONE TABLET BY MOUTH THREE TIMES A DAY NEEDED S OLD: 11/15/2019 [facility] 2 mg 11/15/2019 12:00:00 AM EST tablet 90 TAKE ONE TABLET BY MOUTH THREE TIMES A DAY NEEDED TAKE ONE TABLET BY MOUTH THREE TIMES A DAY NEEDED S OLD: 12/16/2019 [facility] 2 mg 11/15/2019 12:00:00 AM EST tablet 90 TAKE ONE TABLET BY MOUTH THREE TIMES A DAY NEEDED TAKE ONE TABLET BY MOUTH THREE TIMES A DAY NEEDED S OLD: 01/11/2020 [facility] 2 mg 11/15/2019 12:00:00 AM EST tablet 90 TAKE ONE TABLET BY MOUTH THREE TIMES A DAY NEEDED TAKE ONE TABLET BY MOUTH THREE TIMES A DAY NEEDED S OLD: 03/14/2020 [facility] 2 mg 11/15/2019 12:00:00 AM EST tablet 90 TAKE ONE TABLET BY MOUTH THREE TIMES A DAY NEEDED TAKE ONE TABLET BY MOUTH THREE TIMES A DAY NEEDED S OLD: 02/11/2020 [facility] 75 mg 11/12/2019 12:00:00 AM EST capsule 10 TAKE ONE CAPSULE BY MOUTH TWICE A DAY FOR 5 DAYS TAKE ONE CAPSULE BY MOUTH TWICE A DAY FOR 5 DAYS SOLD: 11/12/2019 [facility] pregabalin 150 MG Oral Capsule Pregabalin 150 MG Oral Capsule (LYRICA) Pregabalin 150 MG Oral Capsule (LYRICA) 11/11/2019 12:00:00 AM EST active TAKE ONE CAPSULE BY MOUTH TWICE A DAY MAXIMUM DAILY DOSE 2 [facility] 20 mg 11/05/2019 12:00:00 AM EST capsule 90 TAKE THREE CAPSULES BY MOUTH EVERY DAY TAKE THREE CAPSULES BY MOUTH EVERY DAY SOLD: 02/04/2020 [facility] ropinirole 0.5 MG Oral Tablet rOPINIRole HCl 0.5 MG Or al Tablet (REQUIP) rOPINIRole HCl 0.5 MG Oral Tablet (REQUIP) 11/05/2019 12:00:00 AM EST 0.5 mg Oral active Take 0.5 mg by mouth every evening [facility] 0.5 mg 11/05/2019 12:00:00 AM EST tablet 30 TAKE ONE TABLET BY MOUTH EVERY EVENING TAKE ONE TABLET BY MOUTH EVERY EVENING SOLD: 12/06/2019 [facility] 0.5 mg 11/05/2019 12:00:00 AM EST tablet 30 TAKE ONE TABLET BY MOUTH EVERY EVENING TAKE ONE TABLET BY MOUTH EVERY EVENING SOLD: 01/04/2020 [facility] 0.5 mg 11/05/2019 12:00:00 AM EST tablet 30 TAKE ONE TABLET BY MOUTH EVERY EVENING TAKE ONE TABLET BY MOUTH EVERY EVENING SOLD: 02/04/2020 [facility] 0.5 mg 11/05/2019 12:00:00 AM EST tablet 30 TAKE ONE TABLET BY MOUTH EVERY EVENING TAKE ONE TABLET BY MOUTH EVERY EVENING SOLD: 11/06/2019 [facility] 20 mg 11/05/2019 12:00:00 AM EST capsule 90 TAKE THREE CAPSULES BY MOUTH EVERY DAY TAKE THREE CAPSULES BY MOUTH EVERY DAY SOLD: 01/04/2020 [facility] 20 mg 11/05/2019 12:00:00 AM EST capsule 90 TAKE THREE CAPSULES BY MOUTH EVERY DAY TAKE THREE CAPSULES BY MOUTH EVERY DAY SOLD: 03/05/2020 [facility] 20 mg 11/05/2019 12:00:00 AM EST capsule 90 TAKE THREE CAPSULES BY MOUTH EVERY DAY TAKE THREE CAPSULES BY MOUTH EVERY DAY SOLD: 11/06/2019 [facility] 20 mg 11/05/2019 12:00:00 AM EST capsule 90 TAKE THREE CAPSULES BY MOUTH EVERY DAY TAKE THREE CAPSULES BY MOUTH EVERY DAY SOLD: 04/05/2020 [facility] 20 mg 11/05/2019 12:00:00 AM EST capsule 90 TAKE THREE CAPSULES BY MOUTH EVERY DAY TAKE THREE CAPSULES BY MOUTH EVERY DAY SOLD: 12/06/2019 [facility] Acetaminophen 325 MG / Hydrocodone Bina trate 5 MG Oral Tablet HYDROcodone- Acetaminophen 5-325 MG Oral Tablet (LORTAB) HYDROcodone-Acetaminophen 5-325 MG Oral Tablet (LORTAB) 11/05/2019 12:00:00 AM EST active TAKE ONE TABLET BY MOUTH TWICE A DAY NEEDED MAXIMUM DAILY DOSE 2 [facility] Fluoxetine 20 MG Oral Capsule FLUoxetine HCl 20 MG Ora l Capsule (PROZAC) FLUoxetine HCl 20 MG Oral Capsule (PROZAC) 11/05/2019 12:00:00 AM EST active TAKE THREE CAPSULES BY MOUTH VILLA RY PRASAD [facility] 0.5 mg 11/05/2019 12:00:00 AM EST tablet 30 TAKE ONE TABLET BY MOUTH EVERY EVENING TAKE ONE TABLET BY MOUTH EVERY EVENING SOLD: 03/05/2020 [facility] 0.5 mg 11/05/2019 12:00:00 AM EST tablet 30 TAKE ONE TABLET BY MOUTH EVERY EVENING TAKE ONE TABLET BY MOUTH EVERY EVENING SOLD: 04/05/2020 [facility] 5-325 mg 11/05/2019 12:00:00 AM EST tablet 60 TAKE ONE TABLET BY MOUTH TWICE A DAY NEEDED, MAXIMUM DAILY DOSE = 2 TAKE ONE TABLET BY MOUTH TWICE A DAY NEEDED, MAXIMUM DAILY DOSE = 2 SOLD: 11/05/2019 [facility] 24 HR Propranolol Hydrochloride 120 MG E xtended Release Oral Capsule Propranolol HCl ER 120 MG Oral Capsule Extended Release 24 Hour (INDERAL LA) Propranolol HCl ER 120 MG Oral Capsule Extended Release 24 Hour (INDERAL LA) 11/04/2019 12:00:00 AM EST 120 mg Oral active Take 120 mg by mouth daily [facility] 24 HR Oxybutynin chloride 15 MG Extended Release Oral Tablet Oxybutynin Chloride ER 15 MG Oral Tablet Extended Release 24 Hour (DITROPAN XL) Oxybutynin Chloride ER 15 MG Oral Tablet Extended Release 24 Hour (DITROPAN XL) 11/04/2019 12:00:00 AM EST 15 mg Oral active Take 15 mg by mo uth daily [facility] Loratadine 10 MG Oral Tablet Loratadine 10 MG Oral Tab let (CLARITIN) Loratadine 10 MG Oral Tablet (CLARITIN) 11/04/2019 12:00:00 AM EST 10 mg Oral active Take 10 mg by mouth daily [facility] Levothyroxine Sodium 0.05 MG Oral Tablet Levothyroxine Sodium 50 MCG Oral Tablet (SYNTHROID, LEVOTHROID) Levothyroxine Sodium 50 MCG Oral Tablet (SYNTHROID, LEVOTHROID) 11/04/2019 12:00:00 AM EST active TAKE ONE TABLET BY MOUTH EVERY MORNING ON AN EMPTY STOMACH [facility] 10 mg 10/20/2019 12:00:00 AM EST tablet 30 TAKE 1 TABLET BY MOUTH AT BEDTIME MAXIMUM DAILY DOSE = 1 TAKE 1 [facility] = 1 S[facility]: 10/20/2019 [facility] 1 mg 10/20/2019 12:00:00 AM EST tablet 120 TAKE ONE TABLET BY MOUTH FOUR TIMES A DAY, MAXIMUM DAILY DOSE = 4 TAKE ONE TABLET BY MOUTH FOUR TIMES A DA Y, MAXIMUM DAILY DOSE = 4 SOLD: 10/20/2019 [facility] 120 mg 08/29/2019 12:00:00 AM EST capsule,extended releas e 24 hr 30 TAKE ONE CAPSULE BY MOUTH EVERY DAY TAKE ONE CAPSULE BY MOUTH EVERY DAY SOLD: 02/04/2020 [facility] 120 mg 08/29/2019 12:00:00 AM EST capsule,extended releas e 24 hr 30 TAKE ONE CAPSULE BY MOUTH EVERY DAY TAKE ONE CAPSULE BY MOUTH EVERY DAY SOLD: 01/04/2020 [facility] 120 mg 08/29/2019 12:00:00 AM EST capsule,extended releas e 24 hr 30 TAKE ONE CAPSULE BY MOUTH EVERY DAY TAKE ONE CAPSULE BY MOUTH EVERY DAY SOLD: 11/05/2019 [facility] 120 mg 08/29/2019 12:00:00 AM EST capsule,extended releas e 24 hr 30 TAKE ONE CAPSULE BY MOUTH EVERY DAY TAKE ONE CAPSULE BY MOUTH EVERY DAY SOLD: 12/06/2019 [facility] 150 mg 08/14/2019 12:00:00 AM EDT capsule 60 TAKE ONE CAPSULE BY MOUTH TWICE A DAY MAXIMUM DAILY DOSE = 2 TAKE ONE CAPSULE BY MOUTH TWICE A DAY MA XIMUM DAILY DOSE = 2 SOLD: 01/11/2020 [facility] 150 mg 08/14/2019 12:00:00 AM EDT capsule 60 TAKE ONE CAPSULE BY MOUTH TWICE A DAY MAXIMUM DAILY DOSE = 2 TAKE ONE CAPSULE BY MOUTH TWICE A DAY MA XIMUM DAILY DOSE = 2 SOLD: 12/16/2019 [facility] 150 mg 08/14/2019 12:00:00 AM EDT capsule 60 TAKE ONE CAPSULE BY MOUTH TWICE A DAY MAXIMUM DAILY DOSE = 2 TAKE ONE CAPSULE BY MOUTH TWICE A DAY MA XIMUM DAILY DOSE = 2 SOLD: 11/11/2019 [facility] 50 mcg 08/03/2019 12:00:00 AM EDT tablet 30 TAKE ONE TABLET BY MOUTH EVERY MORNING ON AN EMPTY STOMACH TAKE ONE TABLET BY MOUTH EVERY MORNING O N AN EMPTY STOMACH SOLD: 12/06/2019 [facility] 50 mcg 08/03/2019 12:00:00 AM EDT tablet 30 TAKE ONE TABLET BY MOUTH EVERY MORNING ON AN EMPTY STOMACH TAKE ONE TABLET BY MOUTH EVERY MORNING O N AN EMPTY STOMACH SOLD: 01/04/2020 [facility] 10 mg 08/03/2019 12:00:00 AM EDT tablet 30 TAKE ONE TABLET BY MOUTH EVERY DAY TAKE ONE TABLET BY MOUTH EVERY DAY SOLD: 11/05/2019 [facility] 15 mg 08/03/2019 12:00:00 AM EDT tablet extended release 24hr 30 TAKE ONE TABLET BY MOUTH EVERY DAY TAKE ONE TABLET BY MOUTH EVERY DAY SOLD: 11/05/2019 [facility] 15 mg 08/03/2019 12:00:00 AM EDT tablet extended release 24hr 30 TAKE ONE TABLET BY MOUTH EVERY DAY TAKE ONE TABLET BY MOUTH EVERY DAY SOLD: 12/06/2019 [facility] 15 mg 08/03/2019 12:00:00 AM EDT tablet extended release 24hr 30 TAKE ONE TABLET BY MOUTH EVERY DAY TAKE ONE TABLET BY MOUTH EVERY DAY SOLD: 01/04/2020 [facility] 50 mcg 08/03/2019 12:00:00 AM EDT tablet 30 TAKE ONE TABLET BY MOUTH EVERY MORNING ON AN EMPTY STOMACH TAKE ONE TABLET BY MOUTH EVERY MORNING O N AN EMPTY STOMACH SOLD: 11/05/2019 [facility] 10 mg 04/04/2019 12:00:00 AM EDT tablet,disintegrating 9 DISSOLVE 1 TABLET UNDER THE TONGUE AT ONSET OF HEADACHE, MAY REPEAT ONCE IN 2 HOURS NEEDED MAXIMUM DAILY DOSE = 2 DISSOLVE 1 TABLET UNDER THE TONGUE AT ON SET OF HEADACHE, MAY REPEAT ONCE IN 2 HOURS NEEDED MAXIMUM DAILY DOSE = 2 SOLD: 11/05/2019 [facility] levothyroxine once daily completed levothyroxine ALEJANDRA ([facility]) Zolpidem tartrate 10 MG Oral Tablet zolpidem 10 mg tablet zo lpidem 10 mg tablet completed zolpidem tartr ate 10 MG Oral Tablet ALEJANDRA ([facility]) levothyroxine once daily completed levothyroxine ALEJANDRA ([facility]) d3-1000 25 mcg (1000 ut) caps c ompleted d3-1000 25 mcg (1000 ut) caps ALEJANDRA ([facility]) tizanidine as needed completed Zanaflex ALEJANDRA ([facility]) methylprednisolone 4 mg tablets in a dose pack DIRECTED ON AL CKAGE [id number] completed methylpredniso lone 4 mg tablets in a dose pack ALEJANDRA ([facility]) Zolpidem tartrate 10 MG Oral Tablet zolpidem 10 mg tablet zo lpidem 10 mg tablet completed zolpidem tartr ate 10 MG Oral Tablet ALEJANDRA ([facility]) pregabalin 100 MG Oral Capsule pregabali n 100 mg capsule TAKE ONE CAPSULE BY MOUTH TWICE A DAY MAXIMUM DAILY DOSE 2 pregabalin 100 mg capsule TAKE ONE CAPSULE BY MOUTH TWICE A DAY MAXIMUM DAILY DOSE 2 completed pregabalin 100 MG Oral Capsule ALEJANDRA ([facility]) tizanidine as needed completed Zanaflex ALEJANDRA ([facility]) Oseltamivir 75 MG Oral Capsule oseltamiv ir 75 mg capsule TAKE ONE CAPSULE BY MOUTH TWICE A DAY FOR 5 DAYS oseltamivir 75 mg capsule TAKE ONE CAPSU LE BY MOUTH TWICE A DAY FOR 5 DAYS completed oseltamivir 75 MG Oral Capsule ALEJANDRA ([facility]) levothyroxine once daily completed levothyroxine ALEJANDRA ([facility]) levothyroxine once daily completed levothyroxine ALJEANDRA ([facility]) pregabalin 100 MG Oral Capsule pregabali n 100 mg capsule TAKE ONE CAPSULE BY MOUTH TWICE A DAY MAXIMUM DAILY DOSE 2 pregabalin 100 mg capsule TAKE ONE CAPSULE BY MOUTH TWICE A DAY MAXIMUM DAILY DOSE 2 completed pregabalin 100 MG Oral Capsule ALEJANDRA ([facility]) d3-1000 25 mcg (1000 ut) caps c ompleted d3-1000 25 mcg (1000 ut) caps ALEJANDRA ([facility]) d3-1000 1000 unit caps completed d3-1000 1000 unit caps ALEJANDRA ([facility]) levothyroxine once daily completed levothyroxine ALEJANDRA ([facility]) methylprednisolone 4 mg tablets in a dose pack DIRECTED ON AL CKAGE [id number] completed methylpredniso lone 4 mg tablets in a dose pack ALEJANDRA ([facility]) Prednisone 20 MG Oral Tablet prednisone 20 mg tablet prednisone 20 mg tablet completed prednisone 20 MG Oral Tablet ALEJANDRA ([facility]) gabapentin 600 MG Oral Tablet gabapentin 600 mg tablet Take 1 tablet 3 times a day by oral route. gabapentin 600 mg tablet Take 1 tablet 3 times a day by oral route. 1 completed gabapentin 600 MG Oral Tablet ALEJANDRA ([facility]) gabapentin 600 MG Oral Tablet gabapentin 600 mg tablet Take 1 tablet 3 times a day by oral route. gabapentin 600 mg tablet Take 1 tablet 3 times a day by oral route. 1 completed gabapentin 600 MG Oral Tablet ALEJANDRA ([facility]) Acetaminophen 325 MG / Hydrocodone Bina trate 5 MG Oral Tablet hydrocodone 5 mg- acetaminophen 325 mg tablet hydrocodone 5 mg-acetaminophen 325 mg tablet completed acetaminophen 325 MG / hydrocodone bitartrate 5 MG Oral Tablet ALEJANDRA ([facility]) tizanidine 4 MG Oral Tablet tizanidine 4 mg tablet Take 1 tablet as needed by oral route. tizanidine 4 mg tablet Take 1 tablet as needed by oral route. 1 completed tizanidine 4 MG Oral Tablet ALEJANDRA ([facility]) d3-1000 1000 unit caps completed d3-1000 1000 unit caps ALEJANDRA ([facility]) Maxalt once daily completed Tanna phillips ALEJANDRA ([facility]) tizanidine as needed completed Zanaflex ALEJANDRA ([facility]) levothyroxine once daily completed levothyroxine ALEJANDRA ([facility]) Acetaminophen 325 MG / Hydrocodone Bina trate 5 MG Oral Tablet hydrocodone 5 mg- acetaminophen 325 mg tablet hydrocodone 5 mg-acetaminophen 325 mg tablet completed acetaminophen 325 MG / hydrocodone bitartrate 5 MG Oral Tablet ALEJANDRA ([facility]) levothyroxine once daily completed levothyroxine ALEJANDRA ([facility]) Oseltamivir 75 MG Oral Capsule oseltamiv ir 75 mg capsule TAKE ONE CAPSULE BY MOUTH TWICE A DAY FOR 5 DAYS oseltamivir 75 mg capsule TAKE ONE CAPSU LE BY MOUTH TWICE A DAY FOR 5 DAYS completed oseltamivir 75 MG Oral Capsule ALEJANDRA ([facility]) Zolpidem tartrate 10 MG Oral Tablet zolpidem 10 mg tablet zo lpidem 10 mg tablet completed zolpidem tartr ate 10 MG Oral Tablet ALEJANDRA ([facility]) d3-1000 25 mcg (1000 ut) caps c ompleted d3-1000 25 mcg (1000 ut) caps ALEJANDRA ([facility]) tizanidine as needed completed Zanaflex ALEJANDRA ([facility]) levothyroxine once daily completed levothyroxine ALEJANDRA ([facility]) tizanidine 4 MG Oral Tablet tizanidine 4 mg tablet Take 1 tablet as needed by oral route. tizanidine 4 mg tablet Take 1 tablet as needed by oral route. 1 completed tizanidine 4 MG Oral Tablet ALEJANDRA ([facility]) methylprednisolone 4 mg tablets in a dose pack DIRECTED ON PA CKAGE [id number] completed methylpredniso lone 4 mg tablets in a dose pack ALEJANDRA ([facility]) levothyroxine once daily completed levothyroxine ALEJANDRA ([facility]) levothyroxine once daily completed levothyroxine ALEJANDRA ([facility]) levothyroxine once daily completed levothyroxine ALEJANDRA ([facility]) levothyroxine once daily completed levothyroxine ALEJANDRA ([facility]) pregabalin 100 MG Oral Capsule pregabali n 100 mg capsule TAKE ONE CAPSULE BY MOUTH TWICE A DAY MAXIMUM DAILY DOSE 2 pregabalin 100 mg capsule TAKE ONE CAPSULE BY MOUTH TWICE A DAY MAXIMUM DAILY DOSE 2 completed pregabalin 100 MG Oral Capsule ALEJANDRA ([facility]) methylprednisolone 4 mg tablets in a dose pack DIRECTED ON PA CKAGE [id number] completed methylpredniso lone 4 mg tablets in a dose pack ALEJANDRA ([facility]) levothyroxine once daily completed levothyroxine ALEJANDRA ([facility]) Maxalt once daily completed Ma xalt ALEJANDRA ([facility]) tizanidine as needed completed Zanaflex ALEJANDRA ([facility]) tizanidine as needed completed Zanaflex ALEJANDRA ([facility]) Ketorolac Tromethamine 10 MG Oral Tablet ketorolac 10 mg tablet TAKE ONE TABLET BY MOUTH EVERY 6 HOURS NEEDED FOR PAIN ketorolac 10 mg tablet TAKE ONE TABLET BY MOUTH EVERY 6 HOURS NEEDED FOR PAIN completed ketorolac tromethamine 10 MG Oral Tablet ALEJANDRA ([facility]) Acetaminophen 325 MG / Hydrocodone Bina trate 5 MG Oral Tablet hydrocodone 5 mg- acetaminophen 325 mg tablet hydrocodone 5 mg-acetaminophen 325 mg tablet completed acetaminophen 325 MG / hydrocodone bitartrate 5 MG Oral Tablet ALEJANDRA ([facility]) Ketorolac Tromethamine 10 MG Oral Tablet ketorolac 10 mg tablet TAKE ONE TABLET BY MOUTH EVERY 6 HOURS NEEDED FOR PAIN ketorolac 10 mg tablet TAKE ONE TABLET BY MOUTH EVERY 6 HOURS NEEDED FOR PAIN completed ketorolac tromethamine 10 MG Oral Tablet ALEJANDRA ([facility]) Fish Oil 100 mg-160 mg-1,000 mg capsule omega-3/dha/epa/fish oil completed [facility] ([facility]) Prednisone 20 MG Oral Tablet prednisone 20 mg tablet prednisone 20 mg tablet completed prednisone 20 MG Oral Tablet ALEJANDRA ([facility]) Ketorolac Tromethamine 10 MG Oral Tablet ketorolac 10 mg tablet TAKE ONE TABLET BY MOUTH EVERY 6 HOURS NEEDED FOR PAIN ketorolac 10 mg tablet TAKE ONE TABLET BY MOUTH EVERY 6 HOURS NEEDED FOR PAIN completed ketorolac tromethamine 10 MG Oral Tablet ALEJANDRA ([facility]) tizanidine 4 MG Oral Tablet tizanidine 4 mg tablet Take 1 tablet as needed by oral route. tizanidine 4 mg tablet Take 1 tablet as needed by oral route. 1 completed tizanidine 4 MG Oral Tablet ALEJANDRA ([facility]) Oseltamivir 75 MG Oral Capsule oseltamiv ir 75 mg capsule TAKE ONE CAPSULE BY MOUTH TWICE A DAY FOR 5 DAYS oseltamivir 75 mg capsule TAKE ONE CAPSU LE BY MOUTH TWICE A DAY FOR 5 DAYS completed oseltamivir 75 MG Oral Capsule ALEJANDRA ([facility]) gabapentin 600 MG Oral Tablet gabapentin 600 mg tablet Take 1 tablet 3 times a day by oral route. gabapentin 600 mg tablet Take 1 tablet 3 times a day by oral route. 1 completed gabapentin 600 MG Oral Tablet ALEJANDRA ([facility]) gabapentin 600 MG Oral Tablet gabapentin 600 mg tablet Take 1 tablet 3 times a day by oral route. gabapentin 600 mg tablet Take 1 tablet 3 times a day by oral route. 1 completed gabapentin 600 MG Oral Tablet ALEJANDRA ([facility]) pregabalin 100 MG Oral Capsule pregabali n 100 mg capsule TAKE ONE CAPSULE BY MOUTH TWICE A DAY MAXIMUM DAILY DOSE 2 pregabalin 100 mg capsule TAKE ONE CAPSULE BY MOUTH TWICE A DAY MAXIMUM DAILY DOSE 2 completed pregabalin 100 MG Oral Capsule ALEJANDRA ([facility]) Maxalt once daily completed Ma monaelt ALEJANDRA ([facility]) tizanidine as needed completed Zanaflex ALEJANDRA ([facility]) d3-1000 1000 unit caps completed d3-1000 1000 unit caps ALEJANDRA ([facility]) d3-1000 1000 unit caps completed d3-1000 1000 unit caps ALEJANDRA ([facility]) tizanidine as needed completed Zanaflex ALEJANDRA ([facility]) oxybutynin once at bedtime completed Oxytrol ALEJANDRA ([facility]) tizanidine 4 MG Oral Tablet tizanidine 4 mg tablet Take 1 tablet as needed by oral route. tizanidine 4 mg tablet Take 1 tablet as needed by oral route. 1 completed tizanidine 4 MG Oral Tablet ALEJANDRA ([facility]) oxybutynin once at bedtime completed Oxytrol ALEJANDRA ([facility]) tizanidine as needed completed Zanaflex ALEJANDRA ([facility]) oxybutynin once at bedtime completed Oxytrol ALEJANDRA ([facility]) Prednisone 20 MG Oral Tablet prednisone 20 mg tablet prednisone 20 mg tablet completed prednisone 20 MG Oral Tablet ALEJANDRA ([facility]) Acetaminophen 325 MG / Hydrocodone Bina trate 5 MG Oral Tablet hydrocodone 5 mg- acetaminophen 325 mg tablet hydrocodone 5 mg-acetaminophen 325 mg tablet completed acetaminophen 325 MG / hydrocodone bitartrate 5 MG Oral Tablet ALEJANDRA ([facility]) Maxalt once daily completed Tanna phillips ALEJANDRA ([facility]) tizanidine as needed completed Zanaflex ALEJANDRA ([facility]) d3-1000 25 mcg (1000 ut) caps c ompleted d3-1000 25 mcg (1000 ut) caps ALEJANDRA ([facility]) Zolpidem tartrate 10 MG Oral Tablet zolpidem 10 mg tablet zo lpidem 10 mg tablet completed zolpidem tartr ate 10 MG Oral Tablet ALEJANDRA ([facility]) tizanidine as needed completed Zanaflex ALEJANDRA ([facility]) Ketorolac Tromethamine 10 MG Oral Tablet ketorolac 10 mg tablet TAKE ONE TABLET BY MOUTH EVERY 6 HOURS NEEDED FOR PAIN ketorolac 10 mg tablet TAKE ONE TABLET BY MOUTH EVERY 6 HOURS NEEDED FOR PAIN completed ketorolac tromethamine 10 MG Oral Tablet ALEJANDRA ([facility]) Oseltamivir 75 MG Oral Capsule oseltamiv ir 75 mg capsule TAKE ONE CAPSULE BY MOUTH TWICE A DAY FOR 5 DAYS oseltamivir 75 mg capsule TAKE ONE CAPSU LE BY MOUTH TWICE A DAY FOR 5 DAYS completed oseltamivir 75 MG Oral Capsule ALEJANDRA ([facility]) tizanidine as needed completed Zanaflex ALEJANDRA ([facility]) oxybutynin once at bedtime completed Oxytrol ALEJANDRA ([facility]) tizanidine as needed completed Zanaflex ALEJANDRA ([facility]) levothyroxine once daily completed levothyroxine ALEJANDRA ([facility]) tizanidine as needed completed Zanaflex ALEJANDRA ([facility]) Prednisone 20 MG Oral Tablet prednisone 20 mg tablet prednisone 20 mg tablet completed prednisone 20 MG Oral Tablet ALEJANDRA ([facility]) levothyroxine once daily completed levothyroxine ALEJANDRA ([facility]) tizanidine as needed completed Zanaflex ALEJANDRA ([facility]) Insurance Providers Payer name Policy type / Coverage type Policy ID Covered democrat ID Covered democrat's relationship to monreal Policy Monreal Plan Information UNHC COMMUNITY PLAN MCDO [id number] SP [id number] SELF PAY ONLY [id number] SP [id number] [facility](MCAID) O [id number] S [id number] [facility] [id number] self [id number] UN COMMUNITY PLAN MCDHMO [id number] SP [id number] UN COMMUNITY PLAN MCDO [id number] SP [id number] [facility](MCAID) O [id number] S [id number] UN COMMUNITY PLAN [facility] [id number] SP [id number] [facility] [id number] self [id number] [facility] [id number] self [id number] UN COMMUNITY PLAN [facility] [id number] SP [id number] [facility] I [id number] Self [id number] [facility] Commercial [id number] Self [id number] Community Plan [facility] Commercial [id number] Self [id number] [facility]-Medicaid [id number] [facility]-Commercial [id number] [facility]-Medicaid [id number] [facility] [place]-Medicaid [id number] [facility] [place]-Medicaid [id number] [facility] Commercial [id number] [facility] [id number] ANSI-Medicaid [id number] ANSI-Medicaid [id number] ANSI-Medicaid [id number] ANSI-Medicaid [id number] ANSI-Commercial [id number] ANSI-Medicaid [id number] ANSI-Medicaid [id number] ANSI-Commercial [id number] ANSI-Medicaid [id number] ANSI-Medicaid [id number] ANSI-Commercial [id number] ANSI-Medicaid [id number] ANSI-Medicaid [id number] ANSI-Medicaid [id number] ANSI-Medicaid [id number] [facility] Commercial [id number] Self [id number] ANSI-Medicaid [id number] ANSI-Medicaid [id number] ANSI-Commercial [id number] ANSI-Medicaid [id number] ANSI-Medicaid [id number] [facility] [id number] SP [id number] ANSI-Medicaid [id number] ANSI-Medicaid [id number] ANSI-Commercial [id number] ANSI-Medicaid [id number] ANSI-Medicaid [id number] [facility] Commercial [id number] Self [id number] [facility] Health Maintenance Organization (HMO) [id number] [facility] Community Plan Commercial [id number] Self [id number] ANSI-Medicaid [id number] ANSI-Medicaid [id number] ANSI-Commercial [id number] ANSI-Medicaid [id number] ANSI-Medicaid [id number] ANSI-Medicaid [id number] ANSI-Commercial [id number] ANSI-Medicaid [id number] ANSI-Medicaid [id number] ANSI-Medicaid [id number] [facility] Commercial [id number] Self [id number] ANSI-Medicaid [id number] ANSI-Medicaid [id number] ANSI-Commercial [id number] ANSI-Medicaid [id number] ANSI-Medicaid [id number] [facility] Commercial [id number] Self [id number] [facility] Commercial [id number] Self [id number] ANANT [id number] SP [id number] [facility] Commercial [id number] Self [id number] - [facility] Commercial [id number] Self [id number] ANANT [id number] SP [id number] Community Plan - [facility] Commercial [id number] Self [id number] [facility] [id number] SP [id number] Community Plan - 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 [id number] SP [id number] HMO BLUE [id number] SP [id number] Problems, Conditions, and Diagnoses Code Display Name Description Problem Type Effective Dates Data Source(s) M25.531 [id number] Wrist pain, right Problem 02/01/2020 12 :00:00 AM EDT eCW1 ([facility]) M25.531 [id number] Wrist pain, right Problem 02/01/2020 12 :00:00 AM EDT eCW1 ([facility]) Surgeries/Procedures Procedure Description Date Indications Data Source(s) MRI Lower Extremity Any Joint 11/21/2020 12:00:[address] [facility] ([facility] ) INJECTION SINGLE/TUB WASHER TRIGGER POINT 3/> MUSCLES 021 12:00:00 AM EST [facility] ([facility] ) INJECTION ANES OTHER PERIPHERAL NERVE/BRANCH 12:00:00 AM EST [facility] ([facility] ) INJECTION SINGLE/TUB WASHER TRIGGER POINT 3/> MUSCLES 020 12:00:00 AM EST [facility] ([facility]) INJECTION ANES OTHER PERIPHERAL NERVE/BRANCH 0 12:00:00 AM EST [facility] ([facility]) INJECTION SINGLE/TUB WASHER TRIGGER POINT 3/> MUSCLES 020 12:00:00 AM EST [facility] ([facility]) INJECTION ANES OTHER PERIPHERAL NERVE/BRANCH 0 12:00:00 AM EST [facility] ([facility]) CVR Forestry Foreman.Svc. STI / H 09/02/2020 12:00:00 AM EST - 09/02/2020 12:00:00 AM EST [facility] ([facility]) CVR Forestry Foreman.Svc. Other 09/02/2020 12:00:00 AM EST - 2019 12:00:00 AM EST [facility] ([facility]) CVR Med.Svc. Height/Weight 09/02/2020 12 :00:00 AM EST - 09/02/2020 12:00:00 AM EST [facility] ([facility]) CVR Blood Pressure 09/02/2020 12:00:00 AM EST - 2019 12:00:00 AM EST [facility] ([facility]) HCS Without Test 09/02/2020 12:00:00 AM EST - 09/02/20 20 12:00:00 AM EST [facility] ([facility]) PREV VISIT, EST, AGE 40-64 09/02/2020 12 :00:00 AM EST - 09/02/2020 12:00:00 AM EST [facility] ([facility]) INJECTION SINGLE/TUB WASHER TRIGGER POINT 3/> MUSCLES 020 12:00:00 AM EDT [facility] ([facility]) INJECTION ANES OTHER PERIPHERAL NERVE/BRANCH 0 12:00:00 AM EDT [facility] ([facility]) Immunization: Flublok Quadrivalent (18 years & older) 0.5mL IM (Influenza) 07/25/2020 12:00:00 AM EDT eCW1 ([facility]) Injection, Single Or Multiple trigger points one or two musc les 07/02/2020 12:00:00 AM EDT [facility] ([facility]) INJECTION ANES OTHER PERIPHERAL NERVE/BRANCH 0 12:00:00 AM EDT [facility] ([facility]) Injection, Single Or Multiple trigger points one or two musc les 05/22/2020 12:00:00 AM EDT [facility] ([facility]) Inj, Anesth Agent, Trigeminal 05/22/2020 12:00:00 AM E DT [facility] ([facility]) INJECTION ANES OTHER PERIPHERAL NERVE/BRANCH 0 12:00:00 AM EDT [facility] ([facility]) Injection, Single Or Multiple trigger points one or two musc les 04/15/2020 12:00:00 AM EDT [facility] ([facility]) INJECTION ANES OTHER PERIPHERAL NERVE/BRANCH 0 12:00:00 AM EDT [facility] ([facility]) CVR Forestry Foreman.Svc. STI / H 02/20/2020 12:00:00 AM EDT - 02/20/2020 12:00:00 AM EDT [facility] ([facility]) CVR Forestry Foreman.Svc. 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 Contraceptive 02/20/2020 12 :00:00 AM EDT - 02/20/2020 12:00:00 AM EDT [facility] ([facility]) CVR Med.Svc. Height/Weight 02/20/2020 12 :00:00 AM EDT - 02/20/2020 12:00:00 AM EDT [facility] ([facility]) CVR Blood Pressure 02/20/2020 12:00:00 AM EDT - 2019 12:00:00 AM EDT [facility] ([facility]) OFFICE VISIT, EST 02/20/2020 12:00:00 AM EDT - 020 12:00:00 AM EDT [facility] ([facility]) Injection, Single Or Multiple trigger points one or two musc les 02/07/2020 12:00:00 AM EDT [facility] ([facility]) INJECTION ANES OTHER PERIPHERAL NERVE/BRANCH 0 12:00:00 AM EDT [facility] ([facility]) TeleMedicine Est. Pt. Level 4 02/01/2020 12:00:00 AM E DT eCW1 ([facility]) Injection, Single Or Multiple trigger points one or two musc les 01/03/2020 12:00:00 AM EDT [facility] ([facility]) INJECTION ANES OTHER PERIPHERAL NERVE/BRANCH 0 12:00:00 AM EDT [facility] ([facility]) Injection, Single Or Multiple trigger points one or two musc les 11/05/2019 12:00:00 AM EST [facility] ([facility]) INJECTION ANES OTHER PERIPHERAL NERVE/BRANCH 0 12:00:00 AM EST [facility] ([facility]) Results ID Date Data Source [id number] 11/28/2020 08:59:00 AM EST [facility] ([facility]) Name Value Range Interpretation Code Description Data Lidya rce(s) Supporting Document(s) Laboratory test finding (navigational concept) Laboratory test result [facility] ([facility]) ID Date Data Source [id number] 10/30/2020 12:00:00 AM EST [facility] Name Value Range Interpretation Code Description Data Lidya rce(s) Supporting Document(s) SARS-CoV-2 (COVID-19) RNA [Presence] in Respiratory specimen by SHENA with probe detection Not Detected [facility] This lab was ordered by [facility] and reported by [employer]. ID Date Data Source [id number] 10/01/2020 12:00:00 AM EST [facility] Vickie Marcelino Np Patient Name: CEZAR CHRISTINE [facility] Date of : [address] [address]- Date of Exam: 10/01/2020PH#: fax: [id number] EXAM: MAMMO SCREENING WITH CADCLINICAL INFORMATION: Screening.Family history of grandmother with breast cancer in her 40's.Based on the personal and family history information your patient suppliedat the time of imaging, her lifetime risk of breast cancer estimated by theTyrer-Cuzick model is 16.1%. Given that this patient has less than 20% TCrisk score, no further medical management is currently recommended at thistime.The patient has previously received genetic testing.Digital screening (2D) mammography was performed bilaterally.Additionally, breast tomosynthesis (3D mammography) was performedbilaterally in the CC and MLO projections and compared to the priorexam(s).There has been no change in appearance of the mammogram from prior studies. There is a moderate amount of residual fibroglandular tissue remaining,which is fairly symmetric. There has been no interval development ofdominant masses, areas of structural distortion or clusters ofmicrocalcifications typical of malignancy. Large coarse calcifications arepresent, of no clinical significance. Scattered lymph nodes are seen in theaxilla.The Volpara volumetric breast density category is B, there are scatteredareas of fibroglandular density.IMPRESSION:BI-RADS Category 1 - Negative Mammogram. Currently no mammographicevidence of malignancy. Routine follow-up is recommended in 1 year.This mammogram was read with the assistance of [facility] [employer], an FDAapproved computer aided detection system for mammography.Negative x-ray reports should not delay surgical consultation if a dominantor clinically suspicious mass is present.Not all breast cancers can be identified by mammography. Therefore, werecommend that you continue to perform regular breast self-examination andphysical examination and then promptly contact your physician of anyconcerns or changes.Adenosis and dense breasts may obscure an underlying neoplasm. The patient states that the last clinical breast exam was on 09/02/2020.BELLA Jackson/Diannek you for referring EDVIN CHRISTINE to our office.Electronically Signed - WILLIAMS LOCKHART MD 10/01/20 13:09 Name Value Range Interpretation Code Description Data Lidya rce(s) Supporting Document(s) ID Date Data Source [id number] 08/29/2020 12:00:00 AM EST [facility]ANDR[facility] ([facility]) Name Value Range Interpretation Code Description Data Lidya rce(s) Supporting Document(s) SARS-CoV-2 (COVID-19) RNA [Presence] in Respiratory specimen by SHENA with probe detection negative negative normal Sars-cov-2 [facility]ANDRA ([facility]) ID Date Data Source [id number] 08/29/2020 12:00:00 AM EST A[facility]ANDR[facility] ([facility]) Name Value Range Interpretation Code Description Data Lidya rce(s) Supporting Document(s) ID Date Data Source [id number] 08/29/2020 12:00:00 AM EST ALEJANDRA ([facility]) Name Value Range Interpretation Code Description Data Lidya rce(s) Supporting Document(s) SARS coronavirus 2 RNA [Presence] in Res piratory specimen by SHENA with probe detection negative negative normal Sars-cov-2 ALEJANDRA ([facility]) ID Date Data Source [id number] 08/29/2020 12:00:00 AM EST ALEJANDRA ([facility]) Name Value Range Interpretation Code Description Data Lidya rce(s) Supporting Document(s) ID Date Data Source [id number] 08/29/2020 12:00:00 AM EST [facility] Name Value Range Interpretation Code Description Data Lidya rce(s) Supporting Document(s) SARS-CoV-2 [facility] This lab was ordered by [facility] [employer] [facility]-COVID19 and reported by [facility]. ID Date Data Source [id number] 08/11/2020 12:00:00 AM EDT ALEJANDRA ([facility]) Name Value Range Interpretation Code Description Data Lidya rce(s) Supporting Document(s) SARS-CoV-2 (COVID-19) RNA [Presence] in Respiratory specimen by SHENA with probe detection negative negative normal Sars-cov-2 ALEJANDRA ([facility]) ID Date Data Source [id number] 08/11/2020 12:00:00 AM EDT ALEJANDRA ([facility]) Name Value Range Interpretation Code Description Data Lidya rce(s) Supporting Document(s) ID Date Data Source [id number] 08/11/2020 12:00:00 AM EDT ALEJANDRA ([facility]) Name Value Range Interpretation Code Description Data Lidya rce(s) Supporting Document(s) SARS coronavirus 2 RNA [Presence] in Res piratory specimen by SHENA with probe detection negative negative normal Sars-cov-2 ALEJANDRA ([facility]) ID Date Data Source [id number] 08/11/2020 12:00:00 AM EDT ALEJANDRA ([facility]) Name Value Range Interpretation Code Description Data Lidya rce(s) Supporting Document(s) ID Date Data Source [id number] 08/11/2020 12:00:00 AM EDT ALEJANDRA ([facility]) Name Value Range Interpretation Code Description Data Lidya rce(s) Supporting Document(s) SARS coronavirus 2 RNA [Presence] in Res piratory specimen by SHENA with probe detection negative negative normal Sars-cov-2 ALEJANDRA ([facility]) ID Date Data Source [id number] 08/11/2020 12:00:00 AM EDT ALEJANDRA ([facility]) Name Value Range Interpretation Code Description Data Lidya rce(s) Supporting Document(s) ID Date Data Source [id number] 08/11/2020 12:00:00 AM EDT ALEJANDRA ([facility]) Name Value Range Interpretation Code Description Data Lidya rce(s) Supporting Document(s) SARS coronavirus 2 RNA [Presence] in Res piratory specimen by SHENA with probe detection negative negative normal Sars-cov-2 ALEJANDRA ([facility]) ID Date Data Source [id number] 08/11/2020 12:00:00 AM EDT ALEJANDRA ([facility]) Name Value Range Interpretation Code Description Data Lidya rce(s) Supporting Document(s) ID Date Data Source [id number] 08/11/2020 12:00:00 AM EDT ALEJANDRA ([facility]) Name Value Range Interpretation Code Description Data Lidya rce(s) Supporting Document(s) SARS coronavirus 2 RNA [Presence] in Res piratory specimen by SHENA with probe detection negative negative normal Sars-cov-2 ALEJANDRA ([facility]) ID Date Data Source [id number] 08/11/2020 12:00:00 AM EDT ALEJANDRA ([facility]) Name Value Range Interpretation Code Description Data Lidya rce(s) Supporting Document(s) ID Date Data Source [id number] 08/11/2020 12:00:00 AM EDT [facility] Name Value Range Interpretation Code Description Data Lidya rce(s) Supporting Document(s) SARS-CoV-2 [facility] This lab was ordered by [facility]-COVID[facility] and reported by [facility]. ID Date Data Source [id number] 07/30/2020 12:00:00 AM EDT [facility] Name Value Range Interpretation Code Description Data Lidya rce(s) Supporting Document(s) 2019-nCoV RNA XXX SHENA+probe-Imp [facility] This lab was ordered by [facility] and reported by [facility]. ID Date Data Source [id number] 07/18/2020 12:00:00 AM EDT ALEJANDRA ([facility]) Name Value Range Interpretation Code Description Data Lidya rce(s) Supporting Document(s) ID Date Data Source [id number] 07/18/2020 12:00:00 AM EDT ALEJANDRA ([facility]) Name Value Range Interpretation Code Description Data Lidya rce(s) Supporting Document(s) SARS-CoV-2 (COVID-19) RNA [Presence] in Respiratory specimen by SHENA with probe detection negative negative normal Sars-cov-2 ALEJANDRA ([facility]) ID Date Data Source [id number] 07/18/2020 12:00:00 AM EDT ALEJANDRA ([facility]) Name Value Range Interpretation Code Description Data Lidya rce(s) Supporting Document(s) ID Date Data Source [id number] 07/18/2020 12:00:00 AM EDT ALEJANDRA ([facility]) Name Value Range Interpretation Code Description Data Lidya rce(s) Supporting Document(s) ID Date Data Source [id number] 07/18/2020 12:00:00 AM EDT ALEJANDRA ([facility]) Name Value Range Interpretation Code Description Data Lidya rce(s) Supporting Document(s) SARS coronavirus 2 RNA [Presence] in Res piratory specimen by SHENA with probe detection negative negative normal Sars-cov-2 ALEJANDRA ([facility]) ID Date Data Source [id number] 07/18/2020 12:00:00 AM EDT ALEJANDRA ([facility]) Name Value Range Interpretation Code Description Data Lidya rce(s) Supporting Document(s) ID Date Data Source [id number] 07/18/2020 12:00:00 AM EDT ALEJANDRA ([facility]) Name Value Range Interpretation Code Description Data Lidya rce(s) Supporting Document(s) ID Date Data Source [id number] 07/18/2020 12:00:00 AM EDT ALEJANDRA ([facility]) Name Value Range Interpretation Code Description Data Lidya rce(s) Supporting Document(s) SARS coronavirus 2 RNA [Presence] in Res piratory specimen by SHENA with probe detection negative negative normal Sars-cov-2 ALEJANDRA ([facility]) ID Date Data Source [id number] 07/18/2020 12:00:00 AM EDT ALEJANDRA ([facility]) Name Value Range Interpretation Code Description Data Lidya rce(s) Supporting Document(s) ID Date Data Source [id number] 07/18/2020 12:00:00 AM EDT ALEJANDRA ([facility]) Name Value Range Interpretation Code Description Data Lidya rce(s) Supporting Document(s) ID Date Data Source [id number] 07/18/2020 12:00:00 AM EDT ALEJANDRA ([facility]) Name Value Range Interpretation Code Description Data Lidya rce(s) Supporting Document(s) SARS coronavirus 2 RNA [Presence] in Res piratory specimen by SHENA with probe detection negative negative normal Sars-cov-2 ALEJANDRA ([facility]) ID Date Data Source [id number] 07/18/2020 12:00:00 AM EDT ALEJANDRA ([facility]) Name Value Range Interpretation Code Description Data Lidya rce(s) Supporting Document(s) ID Date Data Source [id number] 07/18/2020 12:00:00 AM EDT ALEJANDRA ([facility]) Name Value Range Interpretation Code Description Data Lidya rce(s) Supporting Document(s) ID Date Data Source [id number] 07/18/2020 12:00:00 AM EDT ALEJANDRA ([facility]) Name Value Range Interpretation Code Description Data Lidya rce(s) Supporting Document(s) SARS coronavirus 2 RNA [Presence] in Res piratory specimen by SHENA with probe detection negative negative normal Sars-cov-2 ALEJANDRA ([facility]) ID Date Data Source [id number] 07/18/2020 12:00:00 AM EDT ALEJANDRA ([facility]) Name Value Range Interpretation Code Description Data Lidya rce(s) Supporting Document(s) ID Date Data Source [id number] 07/18/2020 12:00:00 AM EDT ALEJANDRA ([facility]) Name Value Range Interpretation Code Description Data Lidya rce(s) Supporting Document(s) ID Date Data Source [id number] 07/18/2020 12:00:00 AM EDT ALEJANDRA ([facility]) Name Value Range Interpretation Code Description Data Lidya rce(s) Supporting Document(s) SARS coronavirus 2 RNA [Presence] in Res piratory specimen by SHENA with probe detection negative negative normal Sars-cov-2 ALEJANDRA ([facility]) ID Date Data Source [id number] 07/18/2020 12:00:00 AM EDT ALEJANDRA ([facility]) Name Value Range Interpretation Code Description Data Lidya rce(s) Supporting Document(s) ID Date Data Source [id number] 07/18/2020 12:00:00 AM EDT ALEJANDRA ([facility]) Name Value Range Interpretation Code Description Data Lidya rce(s) Supporting Document(s) ID Date Data Source [id number] 07/18/2020 12:00:00 AM EDT ALEJANDRA ([facility]) Name Value Range Interpretation Code Description Data Lidya rce(s) Supporting Document(s) SARS coronavirus 2 RNA [Presence] in Res piratory specimen by SHENA with probe detection negative negative normal Sars-cov-2 ALEJANDRA ([facility]) ID Date Data Source [id number] 07/18/2020 12:00:00 AM EDT ALEJANDRA ([facility]) Name Value Range Interpretation Code Description Data Lidya rce(s) Supporting Document(s) ID Date Data Source [id number] 07/18/2020 12:00:00 AM EDT ALEJANDRA ([facility]) Name Value Range Interpretation Code Description Data Lidya rce(s) Supporting Document(s) ID Date Data Source [id number] 07/18/2020 12:00:00 AM EDT ALEJANDRA ([facility]) Name Value Range Interpretation Code Description Data Lidya rce(s) Supporting Document(s) SARS coronavirus 2 RNA [Presence] in Res piratory specimen by SHENA with probe detection negative negative normal Sars-cov-2 SINNAMAHONING ([facility]) ID Date Data Source [id number] 07/18/2020 12:00:00 AM EDT ALEJANDRA ([facility]) Name Value Range Interpretation Code Description Data Lidya rce(s) Supporting Document(s) ID Date Data Source [id number] 07/18/2020 12:00:00 AM EDT [facility] Name Value Range Interpretation Code Description Data Lidya rce(s) Supporting Document(s) SARS-CoV-2 [facility] This lab was ordered by [facility] [facility]-COVID19 and reported by [facility]. ID Date Data Source [id number] 03/24/2020 12:00:00 AM EDT ALEJANDRA ([facility]) Name Value Range Interpretation Code Description Data Lidya rce(s) Supporting Document(s) ID Date Data Source [id number] 03/24/2020 12:00:00 AM EDT ALEJANDRA ([facility]) Name Value Range Interpretation Code Description Data Lidya rce(s) Supporting Document(s) ID Date Data Source [id number] 03/24/2020 12:00:00 AM EDT ALEJANDRA ([facility]) Name Value Range Interpretation Code Description Data Lidya rce(s) Supporting Document(s) ID Date Data Source [id number] 03/24/2020 12:00:00 AM EDT ALEJANDRA ([facility]) Name Value Range Interpretation Code Description Data Lidya rce(s) Supporting Document(s) ID Date Data Source [id number] 03/24/2020 12:00:00 AM EDT ALEJANDRA ([facility]) Name Value Range Interpretation Code Description Data Lidya rce(s) Supporting Document(s) ID Date Data Source [id number] 03/24/2020 12:00:00 AM EDT ALEJANDRA ([facility]) Name Value Range Interpretation Code Description Data Lidya rce(s) Supporting Document(s) ID Date Data Source [id number] 03/24/2020 12:00:00 AM EDT ALEJANDRA ([facility]) Name Value Range Interpretation Code Description Data Lidya rce(s) Supporting Document(s) ID Date Data Source [id number] 03/24/2020 12:00:00 AM EDT ALEJANDRA ([facility]) Name Value Range Interpretation Code Description Data Lidya rce(s) Supporting Document(s) ID Date Data Source [id number] 03/24/2020 12:00:00 AM EDT ALEJANDRA ([facility]) Name Value Range Interpretation Code Description Data Lidya rce(s) Supporting Document(s) ID Date Data Source [id number] 03/24/2020 12:00:00 AM EDT ALEJANDRA ([facility]) Name Value Range Interpretation Code Description Data Lidya rce(s) Supporting Document(s) ID Date Data Source [id number] 03/24/2020 12:00:00 AM EDT ALEJANDRA ([facility]) Name Value Range Interpretation Code Description Data Lidya rce(s) Supporting Document(s) ID Date Data Source [id number] 03/24/2020 12:00:00 AM EDT ALEJANDRA ([facility]) Name Value Range Interpretation Code Description Data Lidya rce(s) Supporting Document(s) ID Date Data Source [id number] 03/24/2020 12:00:00 AM EDT [facility] Name Value Range Interpretation Code Description Data Lidya rce(s) Supporting Document(s) SARS-CoV-2 [facility] This lab was ordered by [facility] [facility]-COVID[facility] and reported by [facility]. ID Date Data Source [id number] 03/24/2020 12:00:00 AM EDT ALEJANDRA ([facility]) Name Value Range Interpretation Code Description Data Lidya rce(s) Supporting Document(s) ID Date Data Source [id number] 11/28/2019 08:33:57 AM [facility] Name Value Range Interpretation Code Description Data Lidya rce(s) Supporting Document(s) Progress Note [facility] ABWWEy1zBzAKVhGq54/VLUzvKXKmk8TsBKfoEIi5OBraMCPzU3QdWEX6cG6zSUS1BKuEKcLlYiNnWrKv [facility] [file] AgICAgICAgICAgICAgICAgICAgICAgICAgICAgICAgICAgICAgICAgICAgICAgICAgICAgICAgICAgIC AgICAgICAgICAgICAgICAgICAgICAgICAgICAgICAg DQogICAgICAgICAgICAgICAgICAgICAgICAgICAgICAgICAgICAgICAgICAgICAgICAgICAgICAgICAg ICAgICAgICAgICAgICAgICAgICAgICAgICAgICAgICAgICAgICAgICAgDQogICAgICAgICAgICAgICAg ICAgICAgICAgICAgICAgICAgICAgICAgICAgICAgIC AgICAgICAgICAgICAgICAgICAgICAgICAgICAgICAgICAgICAgICAgICAgICAgICAgICAgDQogICAgIC AgICAgICAgICAgICAgICAgICAgICAgICAgICAgICAgICAgICAgICAgICAgICAgICAgICAgICAgICAgIC AgICAgICAgICAgICAgICAgICAgICAgICAgICAgICAg ICAgDQogICAgICAgICAgICAgICAgICAgICAgICAgICAgICAgICAgICAgICAgICAgICAgICAgICAgICAg ICAgICAgICAgICAgICAgICAgICAgICAgICAgICAgICAgICAgICAgICAgICAgDQogICAgICAgICAgICAg ICAgICAgICAgICAgICAgICAgICAgICAgICAgICAgIC AgICAgICAgICAgICAgICAgICAgICAgICAgICAgICAgICAgICAgICAgICAgICAgICAgICAgICAgDQogIC AgICAgICAgICAgICAgICAgICAgICAgICAgICAgICAgICAgICAgICAgICAgICAgICAgICAgICAgICAgIC AgICAgICAgICAgICAgICAgICAgICAgICAgICAgICAg ICAgICAgDQogICAgICAgICAgICAgICAgICAgICAgICAgICAgICAgICAgICAgICAgICAgICAgICAgICAg ICAgICAgICAgICAgICAgICAgICAgICAgICAgICAgICAgICAgICAgICAgICAgICAgDQogICAgICAgICAg ICAgICAgICAgICAgICAgICAgICAgICAgICAgICAgIC AgICAgICAgICAgICAgICAgICAgICAgICAgICAgICAgICAgICAgICAgICAgICAgICAgICAgICAgICAgDQ ogICAgICAgICAgICAgICAgICAgICAgICAgICAgICAgICAgICAgICAgICAgICAgICAgICAgICAgICAgIC AgICAgICAgICAgICAgICAgICAgICAgICAgICAgICAg LAAcLHRoQSVoLTa4K6xfGBJsQPGjVN5jPNd4Ek2+RCjTNxAeFSQ4faLxrH6MBC3iv1KiBQgsMMPpg0La EGx6JW1XAIXhYTawUL8SCJbves4SAMHhGRQeyPDLh8wgGcJoZWC3OMOsBhxbMB5KSTKzI3kuklWjIFGv MCBSIDcgMCBSIDkgMCBSIDExIDAgUiAxMyAwIFIgXQ 3KYRJzA600slPsSN9WDt0HYbLgPP6mpv2EMnUdXNOrEyeATjb3IMhlGN6YqUHogZQaHeCmUQVOHxFiJ1 kqm9JoPslzJBWVOSccKO7Nu6ZmdRVwLYl+Pq5VCF3zb9JgPFxuYtYqZC0vke0AFShRPkGxG9NqoSjwSB Aed3ejSUUoFH9biVZjEXC6RLmxJvZxYQejEQCLfZb2 nAejUIIvDRBeOf20BfWmQqVoUQV9GQIlIM0yMQccIE9EUNF9ZZrjOYTwXPSjV9bQGoCjKDDoGDVntYon RI0QDkWrO1CsrfHdeCEgDlRjESVXHd0+YUjurhKsXclYXtQ2BXJxe8YgLLa4ZL3ASGNqJZbzTC1RPCWi nO4yZEmxSQ6YVtCoAPLlGVTBGiUlF58roIQsVEa6C5 VtYmVkZGVkRmlsZXMgPDwvTmFtZXMgWyBdDQogID4+ID4+FPvrFX5YTKcvefCuOCUuUl2OGTKpTTOvXZ 7bPFGrSDQsG1H0yVvjPHIELtDoJ8dbreanUQ4xIKYdY848eOceriNcFPM0IFTkMh6JCYWnNJE4YBEifR VnVaQoVVJAIPwxWB8BxLZpBSE7oE4tKEpdIEVuSVKy B7dLHrOywOvbEJ64rApqpwWkkREvRGf+Sj2APX7hb3GdGUy5ktHpGAzzSLH8SBdpWVLzNQFlYHXtZWH6 FOU8CTALVgYuBJOaSMQfQCtdMDNmQHRzih8FXVWiTPGqDbIlQsXqGVOuAWFrKLhtTJRzPBYrOKl5ZUVp XQHxOO7FGuIdBMQrNZPmOFkmIQKdRDHtfr9FOTHcAD ByFdG1JITfWJXaAASeCBqhKFHcWELjKYSlFGTaSGFxDV9ABgBeOHMyDRT5WoRvCRKdPBRaqe4JGWMsCQ JqBnD0XzPaNASpRTUrSKcnXWNyJAI2SJjeLJTeSLSwOM3EMcMlUXWiZTpwPwHnQOOwYTTzzh4CVLDlBK YeCGqbXlRaMFYsKPBcXRddNGFeZCQvKKS5CLPoFSEm BH0ZZzVuMGUlNMEtCpMxISQaCXFhfh2WHTTeSUMeVgJiPwPjNPFgDFZiAYydRCRqRSN8EJo4CTYtGGOa OR3CWkEfVAGuUPKfUKKuTZCcVIPuil6OVPBjSJLcREL3PpTlRSBiRUPyJHxlPCYyBRE1BID8CZNuSEJz NP8NSwFuBGHaGIH7UqdxTUMgAJZbwv1ULCOfSPMhVN ilHEIhFQEjTTHoPOnnKGQrJVY6ZoI7HZDsEFRwBN9FVqCzBUHaPmz0JZRlSABaJMNttw5RJNZxQBVgTj q4TQNyMGEjDWLpIKsuNUIrIIU2MFZ3DUSbIQKaAZ6HNuDgZDNwMpfjUHMySHCoIQJhxm8IWCOeGGFuMG McEUMwGGPjHIBtHCzlHCLcFWP2ZKOrZAReEVEgKG4D HtYdXXZiNlr9REDiWRIwLVMitl1HLFQrNLVpAEQkRGLfAHObEDDtEAoeHCEiAIEqUdMnKGMlUDCiWX7G ItZxGXFxEoO9IDTtMZWgRCHzbb9LQZKwYAIaOWqlYpQhQNIiPWJsJAizVQJuSPPiVLMhTFPcPYTlBE3K QuJmIGGrFgScOVTyMBQcGEZqzc8CTYGmSYMzHlU7HU PhVUZyZWEmQEdfCBMxUPS2JOTuNFSpEEPvXK9JHaLgJHCvYyPmAODmUUAyHCVuwc2JRKSdCYXrQGPiWw MnRDTyQXYoUZj5jqJxeIYsUCf4FN4VL9TmoaZsYivBRm1Ej116XDZ1NTEzWb1SK7wvQo0kZCWuJECISo 0KSZf6NsL0HGUgYwD6CwOlKfQ9IpKeXeI2GTKgJaDf FRA5B8S+HGdcEXx9UBJcYbPhHsTxUYgsZcRiHBFzHCCnBAEjGxUvCN4jSHAVTn5+DQpzdGFydHhyZWYN PzL7JIo7TOrsIGVVNt6E Procedure Social History Code Duration Value Status Description Data Source(s ) Smoking 10/02/2020 12:00:00 AM EST Never Smoker completed Never S flora CardonaW1 ([facility]) Smoking 10/02/2020 12:00:00 AM EST Never Smoker completed Never S moker eCW1 ([facility]) Smoking 10/02/2020 12:00:00 AM EST Never smoker completed Never s moker [facility] ([facility]) Smoking 09/25/2020 12:00:00 AM EST Never Smoker completed Never S moker eCW1 ([facility]) Smoking 07/25/2020 12:00:00 AM EDT Never Smoker completed Never S moker eCW1 ([facility]) Smoking 07/25/2020 12:00:00 AM EDT Never Smoker completed Never S moker eCW1 ([facility]) Smoking 03/28/2020 12:00:00 AM EDT Never Smoker completed Never S moker eCW1 ([facility]) Smoking 03/28/2020 12:00:00 AM EDT Never Smoker completed Never S moker eCW1 ([facility]) 02/20/2020 12:00:00 AM EDT Current non-smoker completed C urrent non-smoker [facility]Gen ([facility]) Alcohol intake 11/22/2019 12:00:00 AM EST Current non-d nhan of alcohol (finding) completed Current non-drinker of alcohol (finding) [facility] Smoking 11/22/2019 12:00:00 AM EST Never smoker completed Never s [facility] Vital Signs ID Date Data Source UNK Name Value Range Interpretation Code Description Data Source(s) Body mass index (BMI) [Ratio] 39.4 kg/m2 39.4 k g/m2 MEDENT ([facility]) Body weight 233.38 [lb_av] 233.38 [lb_av] MEDEN T ([facility] ) Body height 64.5 [in_i] 64.5 [in_i] MEDENT ([facility]) 5'4.50" Body temperature 97.4 [degF] 97.4 [degF] MEDENT ([facility] ) Diastolic blood pressure 74 mm[Hg] 74 mm[Hg] eCW1 ([facility]) Systolic blood pressure 130 mm[Hg] 130 mm[Hg] e CW1 ([facility]) Body temperature 97.2 [degF] 97.2 [degF] eCW1 ( [facility]) Respiratory rate 20 /min 20 /min eCW1 ([facility]) Heart rate 77 /min 77 /min eCW1 ([facility]) Body mass index (BMI) [Ratio] 40.33 kg/m2 40.33 kg/m2 eCW1 ([facility]) Body height 64 [in_i] 64 [in_i] eCW1 ([facility]) Body weight 235 [lb_av] 235 [lb_av] eCW1 ([facility]) Diastolic blood pressure 80 mm[Hg] 80 mm[Hg] eCW1 ([facility]) Systolic blood pressure 122 mm[Hg] 122 mm[Hg] e CW1 ([facility]) Body mass index (BMI) [Ratio] 40.54 kg/m2 40.54 kg/m2 eCW1 ([facility]) Body height 64 [in_i] 64 [in_i] eCW1 ([facility]) Body weight 236.2 [lb_av] 236.2 [lb_av] eCW1 ([facility]) Systolic blood pressure 114 mm[Hg] 114 mm[Hg] A THENA ([facility]) Body height 64 [in_i] 64 [in_i] ALEJANDRA ([facility]) Diastolic blood pressure 74 mm[Hg] 74 mm[Hg] ALEJANDRA ([facility]) Respiratory rate 20 /min 20 /min MEDENT ( [facility]) Heart rate 76 /min 76 /min MEDENT ([facility]) Diastolic blood pressure 80 mm[Hg] 80 mm[Hg] MEDENT ([facility]) Systolic blood pressure 118 mm[Hg] 118 mm[Hg] M EDENT ([facility]) Body mass index (BMI) [Ratio] 40.68 kg/m2 Overweight 40.68 kg/m2 [facility] ([facility]) Diastolic blood pressure 84 mm[Hg] 84 mm[Hg] [facility] ([facility]) Systolic blood pressure 118 mm[Hg] 118 mm[Hg] N extGen ([facility]) Body weight 107.501 kg 107.501 kg [facility] ([facility]) Body height 162.56 cm 162.56 cm [facility] ([facility]) Systolic blood pressure 118 mm[Hg] 118 mm[Hg] A THENA ([facility]) Body height 64 [in_i] 64 [in_i] ALEJANDRA ([facility]) Diastolic blood pressure 73 mm[Hg] 73 mm[Hg] ALEJANDRA ([facility]) Systolic blood pressure 118 mm[Hg] 118 mm[Hg] A THENA ([facility]) Body height 64 [in_i] 64 [in_i] ALEJANDRA ([facility]) Diastolic blood pressure 73 mm[Hg] 73 mm[Hg] ALEJANDRA ([facility]) Systolic blood pressure 118 mm[Hg] 118 mm[Hg] A THENA ([facility]) Body height 64 [in_i] 64 [in_i] ALEJANDRA ([facility]) Diastolic blood pressure 73 mm[Hg] 73 mm[Hg] ALEJANDRA ([facility]) Systolic blood pressure 118 mm[Hg] 118 mm[Hg] A THENA ([facility]) Body height 64 [in_i] 64 [in_i] ALEJANDRA ([facility]) Diastolic blood pressure 73 mm[Hg] 73 mm[Hg] ALEJANDRA ([facility]) Body weight 238 [lb_av] 238 [lb_av] ALEJANDRA ([facility]) Systolic blood pressure 139 mm[Hg] 139 mm[Hg] A THENA ([facility]) Body mass index (BMI) [Ratio] 40.9 kg/m2 40.9 k g/m2 ALEJANDRA ([facility]) Body height 64 [in_i] 64 [in_i] ALEJANDRA ([facility]) Diastolic blood pressure 76 mm[Hg] 76 mm[Hg] ALEJANDRA ([facility]) Body weight 238 [lb_av] 238 [lb_av] ALEJANDRA ([facility]) Systolic blood pressure 139 mm[Hg] 139 mm[Hg] A THENA ([facility]) Body mass index (BMI) [Ratio] 40.9 kg/m2 40.9 k g/m2 ALEJANDRA ([facility]) Body height 64 [in_i] 64 [in_i] ALEJANDRA ([facility]) Diastolic blood pressure 76 mm[Hg] 76 mm[Hg] ALEJANDRA ([facility]) Body weight 238 [lb_av] 238 [lb_av] ALEJANDRA ([facility]) Systolic blood pressure 139 mm[Hg] 139 mm[Hg] A THENA ([facility]) Body mass index (BMI) [Ratio] 40.9 kg/m2 40.9 k g/m2 ALEJANDRA ([facility]) Body height 64 [in_i] 64 [in_i] ALEJANDRA ([facility]) Diastolic blood pressure 76 mm[Hg] 76 mm[Hg] ALEJANDRA ([facility]) Body weight 238 [lb_av] 238 [lb_av] ALEJANDRA ([facility]) Systolic blood pressure 139 mm[Hg] 139 mm[Hg] A THENA ([facility]) Body mass index (BMI) [Ratio] 40.9 kg/m2 40.9 k g/m2 ALEJANDRA ([facility]) Body height 64 [in_i] 64 [in_i] ALEJANDRA ([facility]) Diastolic blood pressure 76 mm[Hg] 76 mm[Hg] ALEJANDRA ([facility]) Body weight 238 [lb_av] 238 [lb_av] ALEJANDRA ([facility]) Systolic blood pressure 139 mm[Hg] 139 mm[Hg] A THENA ([facility]) Body mass index (BMI) [Ratio] 40.9 kg/m2 40.9 k g/m2 ALEJANDRA ([facility]) Body height 64 [in_i] 64 [in_i] ALEJANDRA ([facility]) Diastolic blood pressure 76 mm[Hg] 76 mm[Hg] ALEJANDRA ([facility]) Body weight 238 [lb_av] 238 [lb_av] ALEJANDRA ([facility]) Systolic blood pressure 139 mm[Hg] 139 mm[Hg] A THENA ([facility]) Body mass index (BMI) [Ratio] 40.9 kg/m2 40.9 k g/m2 ALEJANDRA ([facility]) Body height 64 [in_i] 64 [in_i] ALEJANDRA ([facility]) Diastolic blood pressure 76 mm[Hg] 76 mm[Hg] ALEJANDRA ([facility]) Body weight 238 [lb_av] 238 [lb_av] ALEJANDRA ([facility]) Systolic blood pressure 139 mm[Hg] 139 mm[Hg] A THENA ([facility]) Body mass index (BMI) [Ratio] 40.9 kg/m2 40.9 k g/m2 ALEJANDRA ([facility]) Body height 64 [in_i] 64 [in_i] ALEJANDRA ([facility]) Diastolic blood pressure 76 mm[Hg] 76 mm[Hg] ALEJANDRA ([facility]) Diastolic blood pressure 62 mm[Hg] 62 mm[Hg] eCW1 ([facility]) Systolic blood pressure 120 mm[Hg] 120 mm[Hg] e CW1 ([facility]) Body temperature 97.6 [degF] 97.6 [degF] eCW1 ( [facility]) Respiratory rate 20 /min 20 /min eCW1 ([facility]) Heart rate 68 /min 68 /min eCW1 ([facility]) Body mass index (BMI) [Ratio] 40.44 kg/m2 40.44 kg/m2 W1 ([facility]) Body height 64 [in_i] 64 [in_i] eCW1 ([facility]) Body weight 235.6 [lb_av] 235.6 [lb_av] eCW1 ([facility]) Systolic blood pressure 125 mm[Hg] 125 mm[Hg] A THENA ([facility]) Body height 64 [in_i] 64 [in_i] ALEJANDRA ([facility]) Diastolic blood pressure 78 mm[Hg] 78 mm[Hg] ALEJANDRA ([facility]) Systolic blood pressure 125 mm[Hg] 125 mm[Hg] A THENA ([facility]) Body height 64 [in_i] 64 [in_i] ALEJANDRA ([facility]) Diastolic blood pressure 78 mm[Hg] 78 mm[Hg] ALEJANDRA ([facility]) Systolic blood pressure 125 mm[Hg] 125 mm[Hg] A THENA ([facility]) Body height 64 [in_i] 64 [in_i] ALEJANDRA ([facility]) Diastolic blood pressure 78 mm[Hg] 78 mm[Hg] ALEJANDRA ([facility]) Systolic blood pressure 125 mm[Hg] 125 mm[Hg] A THENA ([facility]) Body height 64 [in_i] 64 [in_i] ALEJNADRA ([facility]) Diastolic blood pressure 78 mm[Hg] 78 mm[Hg] ALEJANDRA ([facility]) Systolic blood pressure 125 mm[Hg] 125 mm[Hg] A THENA ([facility]) Body height 64 [in_i] 64 [in_i] ALEJANDRA ([facility]) Diastolic blood pressure 78 mm[Hg] 78 mm[Hg] ALEJANDRA ([facility]) Systolic blood pressure 125 mm[Hg] 125 mm[Hg] A THENA ([facility]) Body height 64 [in_i] 64 [in_i] ALEJANDRA ([facility]) Diastolic blood pressure 78 mm[Hg] 78 mm[Hg] ALEJANDRA ([facility]) Systolic blood pressure 125 mm[Hg] 125 mm[Hg] A THENA ([facility]) Body height 64 [in_i] 64 [in_i] ALEJANDRA ([facility]) Diastolic blood pressure 78 mm[Hg] 78 mm[Hg] ALEJANDRA ([facility]) Systolic blood pressure 125 mm[Hg] 125 mm[Hg] A THENA ([facility]) Body height 64 [in_i] 64 [in_i] ALEJANDRA ([facility]) Diastolic blood pressure 78 mm[Hg] 78 mm[Hg] ALEJANDRA ([facility]) Systolic blood pressure 125 mm[Hg] 125 mm[Hg] A THENA ([facility]) Body height 64 [in_i] 64 [in_i] ALEJANDRA ([facility]) Diastolic blood pressure 78 mm[Hg] 78 mm[Hg] ALEJANDRA ([facility]) Systolic blood pressure 125 mm[Hg] 125 mm[Hg] A THENA ([facility]) Body height 64 [in_i] 64 [in_i] ALEJANDRA ([facility]) Diastolic blood pressure 78 mm[Hg] 78 mm[Hg] ALEJANDRA ([facility]) Respiratory rate 20 /min 20 /min MEDENT ( [facility] ) Heart rate 76 /min 76 /min MEDENT ([facility] ) Diastolic blood pressure 80 mm[Hg] 80 mm[Hg] MEDENT ([facility], ) Systolic blood pressure 130 mm[Hg] 130 mm[Hg] M EDENT ([facility], ) Respiratory rate 16 /min 16 /min MEDENT ( [facility], ) Heart rate 76 /min 76 /min MEDENT ([facility] ) Diastolic blood pressure 80 mm[Hg] 80 mm[Hg] MEDENT ([facility], ) Systolic blood pressure 120 mm[Hg] 120 mm[Hg] M EDENT ([facility], ) Body weight 238 [lb_av] 238 [lb_av] ALEJANDRA ([facility]) Systolic blood pressure 139 mm[Hg] 139 mm[Hg] A THENA ([facility]) Body mass index (BMI) [Ratio] 40.9 kg/m2 40.9 k g/m2 ALEJANDRA ([facility]) Body height 64 [in_i] 64 [in_i] ALEJANDRA ([facility]) Diastolic blood pressure 82 mm[Hg] 82 mm[Hg] ALEJANDRA ([facility]) Body weight 238 [lb_av] 238 [lb_av] ALEJANDRA ([facility]) Systolic blood pressure 139 mm[Hg] 139 mm[Hg] A THENA ([facility]) Body mass index (BMI) [Ratio] 40.9 kg/m2 40.9 k g/m2 ALEJANDRA ([facility]) Body height 64 [in_i] 64 [in_i] ALEJANDRA ([facility]) Diastolic blood pressure 82 mm[Hg] 82 mm[Hg] ALEJANDRA ([facility]) Body weight 238 [lb_av] 238 [lb_av] ALEJANDRA ([facility]) Systolic blood pressure 139 mm[Hg] 139 mm[Hg] A THENA ([facility]) Body mass index (BMI) [Ratio] 40.9 kg/m2 40.9 k g/m2 ALEJANDRA ([facility]) Body height 64 [in_i] 64 [in_i] ALEJANDRA ([facility]) Diastolic blood pressure 82 mm[Hg] 82 mm[Hg] ALEJANDRA ([facility]) Body weight 238 [lb_av] 238 [lb_av] ALEJANDRA ([facility]) Systolic blood pressure 139 mm[Hg] 139 mm[Hg] A THENA ([facility]) Body mass index (BMI) [Ratio] 40.9 kg/m2 40.9 k g/m2 ALEJANDRA ([facility]) Body height 64 [in_i] 64 [in_i] ALEJANDRA ([facility]) Diastolic blood pressure 82 mm[Hg] 82 mm[Hg] ALEJANDRA ([facility]) Body weight 238 [lb_av] 238 [lb_av] ALEJANDRA ([facility]) Systolic blood pressure 139 mm[Hg] 139 mm[Hg] A THENA ([facility]) Body mass index (BMI) [Ratio] 40.9 kg/m2 40.9 k g/m2 ALEJANDRA ([facility]) Body height 64 [in_i] 64 [in_i] ALEJANDRA ([facility]) Diastolic blood pressure 82 mm[Hg] 82 mm[Hg] ALEJANDRA ([facility]) Body weight 238 [lb_av] 238 [lb_av] ALEJANDRA ([facility]) Systolic blood pressure 139 mm[Hg] 139 mm[Hg] A THENA ([facility]) Body mass index (BMI) [Ratio] 40.9 kg/m2 40.9 k g/m2 ALEJANDRA ([facility]) Body height 64 [in_i] 64 [in_i] ALEJANDRA ([facility]) Diastolic blood pressure 82 mm[Hg] 82 mm[Hg] ALEJANDRA ([facility]) Body weight 238 [lb_av] 238 [lb_av] ALEJANDRA ([facility]) Systolic blood pressure 139 mm[Hg] 139 mm[Hg] A THENA ([facility]) Body mass index (BMI) [Ratio] 40.9 kg/m2 40.9 k g/m2 ALEJANDRA ([facility]) Body height 64 [in_i] 64 [in_i] ALEJANDRA ([facility]) Diastolic blood pressure 82 mm[Hg] 82 mm[Hg] ALEJANDRA ([facility]) Body weight 238 [lb_av] 238 [lb_av] ALEJANDRA ([facility]) Systolic blood pressure 139 mm[Hg] 139 mm[Hg] A THENA ([facility]) Body mass index (BMI) [Ratio] 40.9 kg/m2 40.9 k g/m2 ALEJANDRA ([facility]) Body height 64 [in_i] 64 [in_i] ALEJANDRA ([facility]) Diastolic blood pressure 82 mm[Hg] 82 mm[Hg] ALEJANDRA ([facility]) Body weight 238 [lb_av] 238 [lb_av] ALEJANDRA ([facility]) Systolic blood pressure 139 mm[Hg] 139 mm[Hg] A THENA ([facility]) Body mass index (BMI) [Ratio] 40.9 kg/m2 40.9 k g/m2 ALEJANDRA ([facility]) Body height 64 [in_i] 64 [in_i] ALEJANDRA ([facility]) Diastolic blood pressure 82 mm[Hg] 82 mm[Hg] ALEJANDRA ([facility]) Body weight 238 [lb_av] 238 [lb_av] ALEJANDRA ([facility]) Systolic blood pressure 139 mm[Hg] 139 mm[Hg] A THENA ([facility]) Body mass index (BMI) [Ratio] 40.9 kg/m2 40.9 k g/m2 ALEJANDRA ([facility]) Body height 64 [in_i] 64 [in_i] ALEJANDRA ([facility]) Diastolic blood pressure 82 mm[Hg] 82 mm[Hg] ALEJANDRA ([facility]) Body weight 238 [lb_av] 238 [lb_av] ALEJANDRA ([facility]) Systolic blood pressure 139 mm[Hg] 139 mm[Hg] A THENA ([facility]) Body mass index (BMI) [Ratio] 40.9 kg/m2 40.9 k g/m2 ALEJANDRA ([facility]) Body height 64 [in_i] 64 [in_i] ALEJANDRA ([facility]) Diastolic blood pressure 82 mm[Hg] 82 mm[Hg] ALEJANDRA ([facility]) Body weight 238 [lb_av] 238 [lb_av] ALEJANDRA ([facility]) Systolic blood pressure 135 mm[Hg] 135 mm[Hg] A THENA ([facility]) Body mass index (BMI) [Ratio] 40.9 kg/m2 40.9 k g/m2 ALEJANDRA ([facility]) Body height 64 [in_i] 64 [in_i] ALEJANDRA ([facility]) Diastolic blood pressure 78 mm[Hg] 78 mm[Hg] ALEJANDRA ([facility]) Body weight 238 [lb_av] 238 [lb_av] ALEJANDRA ([facility]) Systolic blood pressure 135 mm[Hg] 135 mm[Hg] A THENA ([facility]) Body mass index (BMI) [Ratio] 40.9 kg/m2 40.9 k g/m2 ALEJANDRA ([facility]) Body height 64 [in_i] 64 [in_i] ALEJANDRA ([facility]) Diastolic blood pressure 78 mm[Hg] 78 mm[Hg] ALEJANDRA ([facility]) Body weight 238 [lb_av] 238 [lb_av] ALEJANDRA ([facility]) Systolic blood pressure 135 mm[Hg] 135 mm[Hg] A THENA ([facility]) Body mass index (BMI) [Ratio] 40.9 kg/m2 40.9 k g/m2 ALEJANDRA ([facility]) Body height 64 [in_i] 64 [in_i] ALEJANDRA ([facility]) Diastolic blood pressure 78 mm[Hg] 78 mm[Hg] ALEJANDRA ([facility]) Body weight 238 [lb_av] 238 [lb_av] ALEJANDRA ([facility]) Systolic blood pressure 135 mm[Hg] 135 mm[Hg] A THENA ([facility]) Body mass index (BMI) [Ratio] 40.9 kg/m2 40.9 k g/m2 ALEJANDRA ([facility]) Body height 64 [in_i] 64 [in_i] ALEJANDRA ([facility]) Diastolic blood pressure 78 mm[Hg] 78 mm[Hg] ALEJANDRA ([facility]) Body weight 238 [lb_av] 238 [lb_av] ALEJANDRA ([facility]) Systolic blood pressure 135 mm[Hg] 135 mm[Hg] A THENA ([facility]) Body mass index (BMI) [Ratio] 40.9 kg/m2 40.9 k g/m2 ALEJANDRA ([facility]) Body height 64 [in_i] 64 [in_i] ALEJANDRA ([facility]) Diastolic blood pressure 78 mm[Hg] 78 mm[Hg] ALEJANDRA ([facility]) Body weight 238 [lb_av] 238 [lb_av] ALEJANDRA ([facility]) Systolic blood pressure 135 mm[Hg] 135 mm[Hg] A THENA ([facility]) Body mass index (BMI) [Ratio] 40.9 kg/m2 40.9 k g/m2 ALEJANDRA ([facility]) Body height 64 [in_i] 64 [in_i] ALEJANDRA ([facility]) Diastolic blood pressure 78 mm[Hg] 78 mm[Hg] ALEJANDRA ([facility]) Body weight 238 [lb_av] 238 [lb_av] ALEJANDRA ([facility]) Systolic blood pressure 135 mm[Hg] 135 mm[Hg] A THENA ([facility]) Body mass index (BMI) [Ratio] 40.9 kg/m2 40.9 k g/m2 ALEJANDRA ([facility]) Body height 64 [in_i] 64 [in_i] ALEJANDRA ([facility]) Diastolic blood pressure 78 mm[Hg] 78 mm[Hg] ALEJANDRA ([facility]) Body weight 238 [lb_av] 238 [lb_av] ALEJANDRA ([facility]) Systolic blood pressure 135 mm[Hg] 135 mm[Hg] A THENA ([facility]) Body mass index (BMI) [Ratio] 40.9 kg/m2 40.9 k g/m2 ALEJANDRA ([facility]) Body height 64 [in_i] 64 [in_i] ALEJANDRA ([facility]) Diastolic blood pressure 78 mm[Hg] 78 mm[Hg] ALEJANDRA ([facility]) Body weight 238 [lb_av] 238 [lb_av] ALEJANDRA ([facility]) Systolic blood pressure 135 mm[Hg] 135 mm[Hg] A THENA ([facility]) Body mass index (BMI) [Ratio] 40.9 kg/m2 40.9 k g/m2 ALEJANDRA ([facility]) Body height 64 [in_i] 64 [in_i] ALEJANDRA ([facility]) Diastolic blood pressure 78 mm[Hg] 78 mm[Hg] ALEJANDRA ([facility]) Body weight 238 [lb_av] 238 [lb_av] ALEJANDRA ([facility]) Systolic blood pressure 135 mm[Hg] 135 mm[Hg] A THENA ([facility]) Body mass index (BMI) [Ratio] 40.9 kg/m2 40.9 k g/m2 ALEJANDRA ([facility]) Body height 64 [in_i] 64 [in_i] ALEJANDRA ([facility]) Diastolic blood pressure 78 mm[Hg] 78 mm[Hg] ALEJANDRA ([facility]) Body weight 238 [lb_av] 238 [lb_av] ALEJANDRA ([facility]) Systolic blood pressure 135 mm[Hg] 135 mm[Hg] A THENA ([facility]) Body mass index (BMI) [Ratio] 40.9 kg/m2 40.9 k g/m2 ALEJANDRA ([facility]) Body height 64 [in_i] 64 [in_i] ALEJANDRA ([facility]) Diastolic blood pressure 78 mm[Hg] 78 mm[Hg] ALEJANDRA ([facility]) Body weight 238 [lb_av] 238 [lb_av] ALEJANDRA ([facility]) Systolic blood pressure 135 mm[Hg] 135 mm[Hg] A THENA ([facility]) Body mass index (BMI) [Ratio] 40.9 kg/m2 40.9 k g/m2 ALEJANDRA ([facility]) Body height 64 [in_i] 64 [in_i] ALEJANDRA ([facility]) Diastolic blood pressure 78 mm[Hg] 78 mm[Hg] ALEJANDRA ([facility]) Body mass index (BMI) [Ratio] 40.85 kg/m2 40.85 kg/m2 eCW1 ([facility]) Body height 64 [in_i] 64 [in_i] eCW1 ([facility]) Body weight 238 [lb_av] 238 [lb_av] eCW1 ([facility]) Body mass index (BMI) [Ratio] 27.46 kg/m2 Overweight 27.46 kg/m2 [facility] ([facility]) Body weight 72.575 kg 72.575 kg [facility] ([facility] Body height 162.56 cm 162.56 cm [facility] ([facility] Body weight 238 [lb_av] 238 [lb_av] ALEJANDRA ([facility]) Systolic blood pressure 137 mm[Hg] 137 mm[Hg] A THENA ([facility]) Body mass index (BMI) [Ratio] 40.9 kg/m2 40.9 k g/m2 ALEJANDRA ([facility]) Body height 64 [in_i] 64 [in_i] ALEJANDRA ([facility]) Diastolic blood pressure 80 mm[Hg] 80 mm[Hg] ALEJANDRA ([facility]) Body weight 238 [lb_av] 238 [lb_av] ALEJANDRA ([facility]) Systolic blood pressure 137 mm[Hg] 137 mm[Hg] A THENA ([facility]) Body mass index (BMI) [Ratio] 40.9 kg/m2 40.9 k g/m2 ALEJANDRA ([facility]) Body height 64 [in_i] 64 [in_i] ALEJANDRA ([facility]) Diastolic blood pressure 80 mm[Hg] 80 mm[Hg] ALEJANDRA ([facility]) Body weight 238 [lb_av] 238 [lb_av] ALEJANDRA ([facility]) Systolic blood pressure 137 mm[Hg] 137 mm[Hg] A THENA ([facility]) Body mass index (BMI) [Ratio] 40.9 kg/m2 40.9 k g/m2 ALEJANDRA ([facility]) Body height 64 [in_i] 64 [in_i] ALEJANDRA ([facility]) Diastolic blood pressure 80 mm[Hg] 80 mm[Hg] ALEJANDRA ([facility]) Body weight 238 [lb_av] 238 [lb_av] ALEJANDRA ([facility]) Systolic blood pressure 137 mm[Hg] 137 mm[Hg] A THENA ([facility]) Body mass index (BMI) [Ratio] 40.9 kg/m2 40.9 k g/m2 ALEJANDRA ([facility]) Body height 64 [in_i] 64 [in_i] ALEJANDRA ([facility]) Diastolic blood pressure 80 mm[Hg] 80 mm[Hg] ALEJANDRA ([facility]) Body weight 238 [lb_av] 238 [lb_av] ALEJANDRA ([facility]) Systolic blood pressure 137 mm[Hg] 137 mm[Hg] A THENA ([facility]) Body mass index (BMI) [Ratio] 40.9 kg/m2 40.9 k g/m2 ALEJANDRA ([facility]) Body height 64 [in_i] 64 [in_i] ALEJANDRA ([facility]) Diastolic blood pressure 80 mm[Hg] 80 mm[Hg] ALEJANDRA ([facility]) Body weight 238 [lb_av] 238 [lb_av] ALEJANDRA ([facility]) Systolic blood pressure 137 mm[Hg] 137 mm[Hg] A THENA ([facility]) Body mass index (BMI) [Ratio] 40.9 kg/m2 40.9 k g/m2 ALEJANDRA ([facility]) Body height 64 [in_i] 64 [in_i] ALEJANDRA ([facility]) Diastolic blood pressure 80 mm[Hg] 80 mm[Hg] ALEJANDRA ([facility]) Body weight 238 [lb_av] 238 [lb_av] ALEJANDRA ([facility]) Systolic blood pressure 137 mm[Hg] 137 mm[Hg] A THENA ([facility]) Body mass index (BMI) [Ratio] 40.9 kg/m2 40.9 k g/m2 ALEJANDRA ([facility]) Body height 64 [in_i] 64 [in_i] ALEJANDRA ([facility]) Diastolic blood pressure 80 mm[Hg] 80 mm[Hg] ALEJANDRA ([facility]) Body weight 238 [lb_av] 238 [lb_av] ALEJANDRA ([facility]) Systolic blood pressure 137 mm[Hg] 137 mm[Hg] A THENA ([facility]) Body mass index (BMI) [Ratio] 40.9 kg/m2 40.9 k g/m2 ALEJANDRA ([facility]) Body height 64 [in_i] 64 [in_i] ALEJANDRA ([facility]) Diastolic blood pressure 80 mm[Hg] 80 mm[Hg] ALEJANDRA ([facility]) Body weight 238 [lb_av] 238 [lb_av] ALEJANDRA ([facility]) Systolic blood pressure 137 mm[Hg] 137 mm[Hg] A THENA ([facility]) Body mass index (BMI) [Ratio] 40.9 kg/m2 40.9 k g/m2 ALEJANDRA ([facility]) Body height 64 [in_i] 64 [in_i] ALEJANDRA ([facility]) Diastolic blood pressure 80 mm[Hg] 80 mm[Hg] ALEJANDRA ([facility]) Body weight 238 [lb_av] 238 [lb_av] ALEJANDRA ([facility]) Systolic blood pressure 137 mm[Hg] 137 mm[Hg] A THENA ([facility]) Body mass index (BMI) [Ratio] 40.9 kg/m2 40.9 k g/m2 ALEJANDRA ([facility]) Body height 64 [in_i] 64 [in_i] ALEJANDRA ([facility]) Diastolic blood pressure 80 mm[Hg] 80 mm[Hg] ALEJANDRA ([facility]) Body weight 238 [lb_av] 238 [lb_av] ALEJANDRA ([facility]) Systolic blood pressure 137 mm[Hg] 137 mm[Hg] A THENA ([facility]) Body mass index (BMI) [Ratio] 40.9 kg/m2 40.9 k g/m2 ALEJANDRA ([facility]) Body weight 238 [lb_av] 238 [lb_av] ALEJANDRA ([facility]) Systolic blood pressure 137 mm[Hg] 137 mm[Hg] A THENA ([facility]) Body mass index (BMI) [Ratio] 40.9 kg/m2 40.9 k g/m2 ALEJANDRA ([facility]) Body height 64 [in_i] 64 [in_i] ALEJANDRA ([facility]) Diastolic blood pressure 80 mm[Hg] 80 mm[Hg] ALEJANDRA ([facility]) Body height 64 [in_i] 64 [in_i] ALEJANDRA ([facility]) Diastolic blood pressure 80 mm[Hg] 80 mm[Hg] ALEJANDRA ([facility]) Body weight 238 [lb_av] 238 [lb_av] ALEJANDRA ([facility]) Systolic blood pressure 137 mm[Hg] 137 mm[Hg] A THENA ([facility]) Body mass index (BMI) [Ratio] 40.9 kg/m2 40.9 k g/m2 ALEJANDRA ([facility]) Body height 64 [in_i] 64 [in_i] ALEJANDRA ([facility]) Diastolic blood pressure 80 mm[Hg] 80 mm[Hg] ALEJNADRA ([facility]) Body weight 238 [lb_av] 238 [lb_av] ALEJANDRA ([facility]) Systolic blood pressure 137 mm[Hg] 137 mm[Hg] A THENA ([facility]) Body mass index (BMI) [Ratio] 40.9 kg/m2 40.9 k g/m2 ALEJANDRA ([facility]) Body height 64 [in_i] 64 [in_i] ALEJANDRA ([facility]) Diastolic blood pressure 80 mm[Hg] 80 mm[Hg] ALEJANDRA ([facility]) Body weight 238 [lb_av] 238 [lb_av] ALEJANDRA ([facility]) Systolic blood pressure 137 mm[Hg] 137 mm[Hg] A THENA ([facility]) Body mass index (BMI) [Ratio] 40.9 kg/m2 40.9 k g/m2 ALEJANDRA ([facility]) Body height 64 [in_i] 64 [in_i] ALEJANDRA ([facility]) Diastolic blood pressure 80 mm[Hg] 80 mm[Hg] ALEJANDRA ([facility]) Respiratory rate 16 /min 16 /min MEDENT ( [facility]) Heart rate 64 /min 64 /min MEDENT ([facility]) Diastolic blood pressure 80 mm[Hg] 80 mm[Hg] MEDENT ([facility]) Systolic blood pressure 118 mm[Hg] 118 mm[Hg] M EDENT ([facility]) ID Date Data Source [id number] 11/28/2019 08:33:57 AM [facility] Name Value Range Interpretation Code Description Data Source(s) WEIGHT RECORDED 220 lb 220 lb [facility] Body height Measured 64 in 64 in [facility] Patient Treatment Plan of Care Planned Activity Planned Date Details Description Data Source (s) Vitamin D3 50 MCG (1999 [place]) 07/25/2020 12:00:00 AM EDT eC ([facility]) Vitamin D3 50 MCG (2000 [place]) 07/25/2020 12:00:00 AM EDT eC ([facility]) Naproxen 500 MG Oral Tablet 02/01/2020 12:00:00 AM EDT eC ([facility]) Naproxen 500 MG Oral Tablet 02/01/2020 12:00:00 AM EDT eCW ([facility]) Naproxen 500 MG Oral Tablet 02/01/2020 12:00:00 AM EDT eC ([facility]) Zolpidem tartrate 10 MG Oral Tablet 11/19/2019 12:00:00 AM [facility] Alprazolam 1 MG Oral Tablet 11/19/2019 12:00:00 AM [facility] tizanidine 2 MG Oral Tablet 11/15/2019 12:00:00 AM [facility] pregabalin 150 MG Oral Capsule 11/11/2019 12:00:00 AM [facility] ropinirole 0.5 MG Oral Tablet 11/05/2019 12:00:00 AM [facility] Acetaminophen 325 MG / Hydrocodone Bitartrate 5 MG Ora l Tablet 11/05/2019 12:00:00 AM [facility] Fluoxetine 20 MG Oral Capsule 11/05/2019 12:00:00 AM [facility] 24 HR Propranolol Hydrochloride 120 MG Extended Releas e Oral Capsule 11/04/2019 12:00:00 AM [facility] 24 HR Oxybutynin chloride 15 MG Extended Release Oral Tablet 11/04/2019 12:00:00 AM [facility] Loratadine 10 MG Oral Tablet 11/04/2019 12:00:00 AM [facility] Levothyroxine Sodium 0.05 MG Oral Tablet 11/04/2019 12:00:00 AM [facility] tizanidine as needed ALEJANDRA ([facility]) levothyroxine once daily ATH KEVIN ([facility]) tizanidine as needed ALEJANDRA ([facility]) levothyroxine once daily ATH KEVIN ([facility]) tizanidine as needed ALEJANDRA ([facility]) levothyroxine once daily ATH KEVIN ([facility]) tizanidine as needed ALEJANDRA ([facility]) tizanidine as needed ALEJANDRA ([facility]) levothyroxine once daily ATH KEVIN ([facility]) tizanidine as needed ALEJANDRA ([facility]) levothyroxine once daily ATH KEVIN ([facility]) tizanidine as needed ALEJANDRA ([facility]) levothyroxine once daily ATH KEVIN ([facility]) tizanidine as needed ALEJANDRA ([facility]) levothyroxine once daily ATH KEVIN ([facility]) oxybutynin once at bedtime A THENA ([facility]) Oseltamivir 75 MG Oral Capsule ALEJANDRA ([facility]) methylprednisolone 4 mg tablets in a dose pack DIRECTED ON PACKA GE ALEJANDRA ([facility]) Maxalt once daily ALEJANDRA ([facility]) levothyroxine once daily ATH KEVIN ([facility]) Ketorolac Tromethamine 10 MG Oral Tablet ALEJANDRA ([facility]) Acetaminophen 325 MG / Hydrocodone Bitartrate 5 MG Oral Tablet ALEJANDRA ([facility]) gabapentin 600 MG Oral Tablet ALEJANDRA ([facility]) d3-1000 25 mcg (1000 ut) caps ALEJANDRA ([facility]) d3-1000 1000 unit caps ATHE NA ([facility]) Zolpidem tartrate 10 MG Oral Tablet ALEJANDRA ([facility]) tizanidine 4 MG Oral Tablet ALEJANDRA ([facility]) tizanidine as needed ALEJANDRA ([facility]) pregabalin 100 MG Oral Capsule ALEJANDRA ([facility]) Prednisone 20 MG Oral Tablet ALEJANDRA ([facility]) oxybutynin once at bedtime A THENA ([facility]) Oseltamivir 75 MG Oral Capsule ALEJANDRA ([facility]) methylprednisolone 4 mg tablets in a dose pack DIRECTED ON PACKA GE ALEJANDRA ([facility]) Maxalt once daily ALEJANDRA ([facility]) levothyroxine once daily ATH KEVIN ([facility]) Ketorolac Tromethamine 10 MG Oral Tablet ALEJANDRA ([facility]) Acetaminophen 325 MG / Hydrocodone Bitartrate 5 MG Oral Tablet ALEJANDRA ([facility]) gabapentin 600 MG Oral Tablet ALEJANDRA ([facility]) d3-1000 25 mcg (1000 ut) caps ALEJANDRA ([facility]) d3-1000 1000 unit caps ATHE NA ([facility]) Zolpidem tartrate 10 MG Oral Tablet ALEJANDRA ([facility]) tizanidine 4 MG Oral Tablet ALEJANDRA ([facility]) tizanidine as needed ALEJANDRA ([facility]) pregabalin 100 MG Oral Capsule ALEJANDRA ([facility]) Prednisone 20 MG Oral Tablet ALEJANDRA ([facility]) oxybutynin once at bedtime A THENA ([facility]) Oseltamivir 75 MG Oral Capsule ALEJANDRA ([facility]) methylprednisolone 4 mg tablets in a dose pack DIRECTED ON PACKA GE ALEJANDRA ([facility]) Maxalt once daily ALEJANDRA ([facility]) levothyroxine once daily ATH KEVIN ([facility]) Ketorolac Tromethamine 10 MG Oral Tablet ALEJANDRA ([facility]) Acetaminophen 325 MG / Hydrocodone Bitartrate 5 MG Oral Tablet ALEJANDRA ([facility]) gabapentin 600 MG Oral Tablet ALEJANDRA ([facility]) d3-1000 25 mcg (1000 ut) caps ALEJANDRA ([facility]) d3-1000 1000 unit caps ATHE NA ([facility]) Zolpidem tartrate 10 MG Oral Tablet ALEJANDRA ([facility]) tizanidine 4 MG Oral Tablet ALEJANDRA ([facility]) tizanidine as needed ALEJANDRA ([facility]) pregabalin 100 MG Oral Capsule ALEJANDRA ([facility]) Prednisone 20 MG Oral Tablet ALEJANDRA ([facility]) oxybutynin once at bedtime A THENA ([facility]) Oseltamivir 75 MG Oral Capsule ALEJANDRA ([facility]) methylprednisolone 4 mg tablets in a dose pack DIRECTED ON PACKA GE ALEJANDRA ([facility]) Maxalt once daily ALEJANDRA ([facility]) levothyroxine once daily ATH KEVIN ([facility]) Ketorolac Tromethamine 10 MG Oral Tablet ALEJANDRA ([facility]) Acetaminophen 325 MG / Hydrocodone Bitartrate 5 MG Oral Tablet ALEJANDRA ([facility]) gabapentin 600 MG Oral Tablet ALEJANDRA ([facility]) d3-1000 25 mcg (1000 ut) caps ALEJANDRA ([facility]) d3-1000 1000 unit caps ATHE NA ([facility]) tizanidine as needed ALEJANDRA ([facility]) levothyroxine once daily ATH KEVIN ([facility]) Fish Oil 100 mg-160 mg-1,000 mg capsule [employer] ([facility]) tizanidine as needed ALEJANDRA ([facility]) levothyroxine once daily ATH KEVIN ([facility]) Zolpidem tartrate 10 MG Oral Tablet ALEJANDRA ([facility]) tizanidine 4 MG Oral Tablet ALEJANDRA ([facility]) tizanidine as needed ALEJANDRA ([facility]) pregabalin 100 MG Oral Capsule ALEJANDRA ([facility]) Prednisone 20 MG Oral Tablet ALJEANDRA ([facility]) levothyroxine once daily ATH KEVIN ([facility]) tizanidine as needed ALEJANDRA ([facility]) levothyroxine once daily ATH KEVIN ([facility])
[2020-12-12] MEDS ORDERED: NS 1,000 ML IV ONE (12:30)
[2020-12-12] MEDS ORDERED: ONDANSETRON 4MG/2ML VIAL IV ONE (12:30)
[2020-12-12] MEDS ORDERED: ISOVUE-370 76% 100ML VIAL As Ordered ONE (13:04)
[2020-12-12 13:17] LABS: BASO # 0.1 10^3/uL (0.0-0.2); BASO % 0.6 % (0.0-1.0); EOS # 0.2 10^3/uL (0.0-0.5); EOS % 1.8 % (0.0-3.0); HEMATOCRIT 41.2 % (36.0-47.0); HEMOGLOBIN 13.5 g/dl (12.0-15.5); LYMPH # 0.9 10^3/uL (1.5-5.0); LYMPH % 10.1 % (24.0-44.0); MEAN CORPUSCULAR HEMOGLOBIN 27.3 pg (27.0-33.0); MEAN CORPUSCULAR HGB CONC 32.8 g/dl (32.0-36.5); MEAN CORPUSCULAR VOLUME 83.4 fl (80.0-96.0); MONO # 0.8 10^3/uL (0.0-0.8); MONO % 8.8 % (2.0-8.0); NEUTROPHILS % 78.1 % (36.0-66.0); PLATELET COUNT, AUTOMATED 221 10^3/uL (150-450); RED BLOOD COUNT 4.94 10^6/uL (4.00-5.40); WHITE BLOOD COUNT 8.9 10^3/uL (4.0-10.0)
[2020-12-12 13:27] LABS: INR 1.07; PROTHROMBIN TIME 14.1 SECONDS (12.5-14.3)
[2020-12-12 13:28] LABS: PARTIAL THROMBOPLASTIN TIME 27.4 SECONDS (24.2-38.5)
--- NOTE | 2020-12-12 13:43 | REP ---
INDICATION: left sided abdominal pain/bloody diarrhea. COMPARISON: 05/21/2015 TECHNIQUE: Bolus of 100 mL Isovue 370 scanning through the abdomen pelvis with coronal and sagittal reconstructions. FINDINGS: CT abdomen: The lung bases are clear. The heart is not enlarged and there is no pericardial thickening or effusion. Fatty change suspected in the liver but no gross hepatomegaly, biliary dilatation, cyst or solid mass. No splenomegaly or focal lesion. The gallbladder shows no calcified stone or mass stomach unremarkable adrenal glands normal. Pancreas is unremarkable. Abdominal course of the colon shows the appendix intact and no inflammatory changes about the cecum the cecum, transverse colon and both flexures were unremarkable. The mid left colon through sigmoid is collapsed with some slight wall thickening in the mid left colon. There is minimal pericolonic stranding in the mid to distal left colon this may reflect some mild colitis or focal diverticulitis. The aorta is without aneurysm or dissection no periaortic, other retroperitoneal or mesenteric pathologic sized lymphadenopathy. Small bowel loops unremarkable. Lung windows show no perforation or free air in the abdomen and pelvis. There is no ascites. The bone windows show some marginal osteophytes lumbar spine with disc space narrowing at L2-3. Facet arthropathy noted without spondylolysis. Visualized lower ribs are intact. CT pelvis: The bony sacrum, SI joints, hips pelvis are without acute finding few small bone islands in the proximal femur and left iliac bone as before some minor degenerative changes at the hips also noted in the pelvis collapse of the distal left colon and sigmoid to the rectum noted wall thickness is borderline there is some mild stranding from the mid left colon to the proximal sigmoid with remainder of the visualized sigmoid and rectum without pericolonic inflammatory/edematous changes. No pelvic or inguinal lymphadenopathy. No ventral or inguinal hernia. Uterus anteverted not enlarged. No pelvic or adnexal mass or pelvic free fluid. IMPRESSION: 1. There is some wall thickening of the mid to distal left colon to the junction with the proximal sigmoid with mild pericolonic inflammatory changes. This may reflect some colitis or mild diverticulitis although diverticulosis is not readily visible. Remainder of the sigmoid also shows collapse of its contour without gross wall thickening. There is no ascites, perforation or free air. 2. Upper abdomen shows solid organs intact. The appendix, gallbladder, stomach and small bowel loops unremarkable. Proximal left colon to the cecum normal. 3. No adenopathy, ascites, perforation or free air. Lung windows intact. <Electronically signed by Booker Velázquez > 12/12/20 [id number]
[2020-12-12 13:46] LABS: ALBUMIN 3.7 GM/DL (3.2-5.2); ALT/SGPT 34 U/L (12-78); BILIRUBIN,DIRECT 0.1 MG/DL (0.0-0.2); BILIRUBIN,TOTAL 0.3 MG/DL (0.2-1.0); CK-MB VALUE MASS < 1.0 NG/ML (<3.6); CPK CREATINE PHOSPHOKINASE 81 U/L (26-192); LIPASE 139 U/L (73-393); MB/CK RELATIVE INDEX 1.23 (< OR =4); TOTAL PROTEIN 7.2 GM/DL (6.4-8.2); TROPONIN I < 0.02 NG/ML (< 0.10)
[2020-12-12] MEDS ORDERED: CIPR-249 PO (14:14)
[2020-12-12] MEDS ORDERED: ONDA4TAB6 PO (14:14)
[2020-12-12] MEDS ORDERED: FLAG500T PO (14:14)
[2020-12-12 14:49] VITALS: BP 115/80
--- NOTE | 2020-12-12 17:14 | ECGEPIP ---
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
== END 2020-12-12 15:11 | disposition home or self-care (01) ==
LOC: M ED 12:06
DX: K52.9 Noninfective gastroenteritis and colitis, unspecified (principal); E03.9 Hypothyroidism, unspecified; F41.9 Anxiety disorder, unspecified; F32.9 Major depressive disorder, single episode, unspecified; Z87.442 Personal history of urinary calculi; Z79.899 Other long term (current) drug therapy; Z88.8 Allergy status to other drugs, medicaments and biological substances
CPT/HCPCS: 74177; 80047; 80076; 82550; 82553; 83605; 83690; 85025; 85610; 85730; 86850; 86900; 86901; 93005; 93041; 96361; 96374; 99285; J2405; Q9967

== ENCOUNTER → 2021-01-16 | Outpatient (REF) | payer OTHER ==
[~2021-01-16] MED LIST changes: +CIPR-249 PO; +FLAG500T PO; +ONDA4TAB6 PO
[2021-01-16 18:24] LABS: FREE T4 0.92 NG/DL (0.76-1.46); THYROID STIMULATING HORMONE 0.862 uIU/ML (0.358-3.740)
[2021-01-16 18:28] LABS: TOTAL 25(OH) VITAMIN D 40.1 NG/ML (30.0-100.0)
== END ==
LOC: M PLALAB 15:03
PROVIDERS: ATTEND Nurse Practitioner Family
DX: E03.9 Hypothyroidism, unspecified (principal); E55.9 Vitamin D deficiency, unspecified

== ENCOUNTER → 2021-04-01 | Outpatient (CLI) | payer OTHER ==
--- NOTE | 2021-04-01 16:04 | REPPI ---
INDICATION: M79.672 M79.671 PAIN IN LEFT FOOT AND PAIN IN RIGHT FOOT. COMPARISON: None. TECHNIQUE: Four views each foot FINDINGS: The joint spaces are symmetric and relatively well maintained with the exception of the 1st metatarsophalangeal joint bilaterally where there is mild asymmetric joint space narrowing. There is no evidence of acute fracture or destructive osseous bilaterally. There is marginal osteophytosis of the head of the 1st metatarsal bilaterally right greater than left and also seen involving the lateral base of the proximal phalanx on the right. 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 IMPRESSION: Chronic changes as described above and particularly affecting the 1st metatarsophalangeal joint of each foot right greater the left. <Electronically signed by Oziel Coleman > 04/01/21 1600
== END ==
LOC: M PLAIMG 13:00
PROVIDERS: ATTEND Physician Assistant
DX: M79.672 Pain in left foot (principal); M79.671 Pain in right foot; M25.771 Osteophyte, right ankle; M25.772 Osteophyte, left ankle

== ENCOUNTER → 2021-11-09 | Outpatient (CLI) | payer OTHER | LOC: M LABSMTC 13:18 | PROVIDERS: ATTEND Pediatrics | DX: Z11.52 Encounter for screening for COVID-19 (principal) ==

== ENCOUNTER 2021-12-04 13:10 | Emergency (ER) | payer OTHER ==
[~2021-12-04] VITALS: Ht 162.6 cm; Wt 111.9 kg
[2021-12-04 13:10] VITALS: BP 143/86
[2021-12-04] MEDS ORDERED: ACETAMINOPHEN 500 MG TAB PO ONE (17:40)
== END 2021-12-04 18:38 | disposition home or self-care (01) ==
LOC: M ED 13:10
DX: S09.90XA Unspecified injury of head, initial encounter (principal); W01.198A Fall on same level from slipping, tripping and stumbling with subsequent striking against other object, initial encounter; Y92.009 Unspecified place in unspecified non-institutional (private) residence as the place of occurrence of the external cause; Y93.9 Activity, unspecified; Y99.9 Unspecified external cause status; M50.20 Other cervical disc displacement, unspecified cervical region; Z79.899 Other long term (current) drug therapy; Z88.8 Allergy status to other drugs, medicaments and biological substances

== ENCOUNTER → 2022-03-10 | Outpatient (CLI) | payer OTHER | LOC: M WHC 15:50 | PROVIDERS: ATTEND Physician Assistant Medical | DX: Z12.31 Encounter for screening mammogram for malignant neoplasm of breast (principal); N63.21 Unspecified lump in the left breast, upper outer quadrant ==

== ENCOUNTER → 2022-03-30 | Outpatient (CLI) | payer OTHER | LOC: M WHC 13:54 | PROVIDERS: ATTEND Physician Assistant Medical | DX: N63.21 Unspecified lump in the left breast, upper outer quadrant (principal) | CPT/HCPCS: 76642; 77065; G0279 ==

== ENCOUNTER → 2022-08-31 | Outpatient (CLI) | payer OTHER ==
[2022-08-31 12:38] LABS: HEMATOCRIT 40.5 % (36.0-47.0); HEMOGLOBIN 13.4 g/dl (12.0-15.5); MEAN CORPUSCULAR HEMOGLOBIN 28.9 pg (27.0-33.0); MEAN CORPUSCULAR HGB CONC 33.1 g/dl (32.0-36.5); MEAN CORPUSCULAR VOLUME 87.5 fl (80.0-96.0); PLATELET COUNT, AUTOMATED 238 10^3/uL (150-450); RED BLOOD COUNT 4.63 10^6/uL (4.00-5.40); WHITE BLOOD COUNT 5.8 10^3/uL (4.0-10.0)
[2022-08-31 18:09] LABS: ALBUMIN 3.6 G/DL (3.2-5.2); ALT/SGPT 21 U/L (7.0-40); BILIRUBIN,TOTAL 0.4 MG/DL (0.3-1.2); BLOOD UREA NITROGEN 15 MG/DL (9-23); CALCIUM LEVEL 9.1 MG/DL (8.5-10.1); CARBON DIOXIDE LEVEL 24 MMOL/L (20-31); CHLORIDE LEVEL 107 MMOL/L (98-107); CHOLESTEROL LEVEL 187 MG/DL (<200); CHOLESTEROL RISK RATIO 3.74 (<5); CREATININE FOR GFR 0.61 MG/DL (0.55-1.30); GLOMERULAR FILTRATION RATE > 60.0 (>51); GLUCOSE, FASTING 119 MG/DL (60-100); IRON (FE) 53 UG/DL (50-170); NON-HDL-C 137 MG/DL; PERCENT SATURATION 18.2 % (13.2-45.0); POTASSIUM SERUM 4.6 MMOL/L (3.5-5.1); SODIUM LEVEL 142 MMOL/L (136-145); THYROID STIMULATING HORMONE 2.009 uIU/ML (0.55-4.78); TOTAL IRON BINDING CAPACITY 291 UG/DL (250-425); TOTAL PROTEIN 6.8 G/DL; TRIGLYCERIDES LEVEL 90 MG/DL (<150)
== END ==
LOC: M LAB 12:00
PROVIDERS: ATTEND Nurse Practitioner Adult Health
DX: E78.5 Hyperlipidemia, unspecified (principal); E55.9 Vitamin D deficiency, unspecified; E03.9 Hypothyroidism, unspecified; D64.9 Anemia, unspecified

== ENCOUNTER 2022-09-12 06:41 | Inpatient (IN) | payer OTHER ==
[~2022-09-12] VITALS: Ht 172.7 cm; Wt 99.8 kg
[2022-09-12] MEDS ORDERED: ONDANSETRON 4MG 2ML VIAL IV ONE (07:10)
[2022-09-12] MEDS ORDERED: ACETAMINOPHEN TAB 650MG DOSE (2X325MG) PO ONE (07:10)
[2022-09-12] MEDS ORDERED: NS 1,000 ML IV ONE (07:30)
[2022-09-12 07:40] LABS: HEMATOCRIT 42.8 % (36.0-47.0); MEAN CORPUSCULAR HEMOGLOBIN 28.6 pg (27.0-33.0); MEAN CORPUSCULAR HGB CONC 32.7 g/dl (32.0-36.5); MEAN CORPUSCULAR VOLUME 87.3 fl (80.0-96.0); PLATELET COUNT, AUTOMATED 288 10^3/uL (150-450)
[2022-09-12] MEDS ORDERED: ISOVUE-370 76% 100ML VIAL As Ordered ONE (08:00)
[2022-09-12 08:12] LABS: ALBUMIN 3.2 G/DL (3.2-5.2); BILIRUBIN,DIRECT 0.3 MG/DL (<0.4); BILIRUBIN,TOTAL 0.7 MG/DL (0.3-1.2)
[2022-09-12] MEDS ORDERED: PIPERACILLIN/TAZOBACTAM SOD 3.375 GM in D5W MINI-BAG PLUS 50 ML IV ONE (08:15)
[2022-09-12 08:24] LABS: ATYPICAL LYMPH 6 % (0-5); EOSINOPHILS 1 % (0-3); LYMPHOCYTES 11 % (16-44); MONOCYTES 11 % (0-5); NEUTROPHILS 37 % (28-66); PLATELET ESTIMATE NORMAL (NORMAL)
[2022-09-12] MEDS ORDERED: MELO15TA28 PO (08:47)
[2022-09-12] MEDS ORDERED: VITA100093 PO (08:47)
[2022-09-12] MEDS ORDERED: GABA-282 PO (08:47)
[2022-09-12] MEDS ORDERED: FERR324T21 PO (08:47)
[2022-09-12] MEDS ORDERED: RIME75TA PO (08:47)
[2022-09-12] MEDS ORDERED: FLUO20CA22 PO (08:47)
[2022-09-12] MEDS ORDERED: HOME MED LIST COMPLETE! XX SCH (08:50)
[2022-09-12 08:54] LABS: MONO SCRN NEGATIVE (NEGATIVE)
[2022-09-12] MEDS ORDERED: NS 890 ML in IV 1 EA IV ONE (09:00)
[2022-09-12] MEDS ORDERED: NS 2,270 ML in IV 1 EA IV ONE (09:10)
[2022-09-12] MEDS ORDERED: NURTEC 75 MG PO PRN (10:35)
[2022-09-12] MEDS ORDERED: RIZATRIPTAN MLT 10 MG TAB PO PRN (10:55)
[2022-09-12] MEDS: LEVOTHYROXINE 50MCG TABLET (0.05MG) PO SCH (11:12)
[2022-09-12] MEDS: LORATADINE 10 MG TAB PO SCH (11:20)
[2022-09-12] MEDS: FLUoxetine 20MG CAP PO SCH (11:21)
[2022-09-12] MEDS: GABAPENTIN 300 MG CAP PO SCH (11:21)
[2022-09-12] MEDS: oxyBUTYnin *DITROPAN XL* 5 MG TABCR PO SCH (11:21)
[2022-09-12] MEDS: VITAMIN D 1,000 INTERNATIONAL UNITS TABLET PO SCH (11:21)
[2022-09-12] MEDS: PROPRANOLOL 60 MG LA CAP PO SCH (12:51)
[2022-09-12 13:23] VITALS: BP 137/70
[2022-09-12 15:00] LABS: FERRITIN 223.5 NG/ML (7.3-270.7); FOLATE 9.48 NG/ML (>5.4); PERCENT SATURATION 5.1 % (13.2-45.0)
[2022-09-12] MEDS: PIPERACILLIN/TAZOBACTAM SOD 3.375 GM in D5W MINI-BAG PLUS 50 ML IV SCH ×2 (15:02→20:54)
[2022-09-12 20:00] VITALS: BP 124/88
[2022-09-12] MEDS: traZODone 50 MG TAB PO SCH (20:54)
[2022-09-12] MEDS: ENOXAPARIN 40MG/0.4ML SYRINGE (J1650 PER 10MG) SC SCH (20:55)
[2022-09-12] MEDS: ALPRAZolam 0.5 MG TAB PO SCH (20:55)
[2022-09-12] MEDS: ACETAMINOPHEN TAB 650MG DOSE (2X325MG) PO PRN (21:10)
[2022-09-13] MEDS: ACETAMINOPHEN TAB 650MG DOSE (2X325MG) PO PRN ×2 (02:21→15:19)
[2022-09-13] MEDS: PIPERACILLIN/TAZOBACTAM SOD 3.375 GM in D5W MINI-BAG PLUS 50 ML IV SCH ×4 (02:21→21:03)
[2022-09-13 04:00] VITALS: BP 113/59
[2022-09-13] MEDS ORDERED: KETOROLAC 30 MG/ML 1ML VIAL IV ONE (04:00)
[2022-09-13] MEDS: LEVOTHYROXINE 50MCG TABLET (0.05MG) PO SCH (05:17)
[2022-09-13 06:37] LABS: INR 1.44; PROTHROMBIN TIME 17.8 SECONDS (12.5-14.5)
[2022-09-13 06:39] LABS: BASO # 0.1 10^3/uL (0.0-0.2); BASO % 0.9 % (0.0-1.0); EOS # 0.1 10^3/uL (0.0-0.5); HEMATOCRIT 35.4 % (36.0-47.0); HEMOGLOBIN 12.1 g/dl (12.0-15.5); LYMPH # 1.4 10^3/uL (1.5-5.0); LYMPH % 19.9 % (24.0-44.0); MEAN CORPUSCULAR HEMOGLOBIN 29.8 pg (27.0-33.0); MEAN CORPUSCULAR HGB CONC 34.2 g/dl (32.0-36.5); MEAN CORPUSCULAR VOLUME 87.2 fl (80.0-96.0); MONO # 1.4 10^3/uL (0.0-0.8); NEUTROPHILS % 56.2 % (36.0-66.0); PLATELET COUNT, AUTOMATED 235 10^3/uL (150-450); RED BLOOD COUNT 4.06 10^6/uL (4.00-5.40)
[2022-09-13 06:55] LABS: BLOOD UREA NITROGEN 10 MG/DL (9-23); CALCIUM LEVEL 8.5 MG/DL (8.5-10.1); CARBON DIOXIDE LEVEL 24 MMOL/L (20-31); CHLORIDE LEVEL 104 MMOL/L (98-107); CREATININE FOR GFR 0.72 MG/DL (0.55-1.30); GLOMERULAR FILTRATION RATE > 60.0 (>51); GLUCOSE, FASTING 144 MG/DL (60-100); POTASSIUM SERUM 3.2 MMOL/L (3.5-5.1); SODIUM LEVEL 139 MMOL/L (136-145)
[2022-09-13 07:51] VITALS: BP 106/56
[2022-09-13 08:00] LABS: ANISOCYTOSIS 1+; ATYPICAL LYMPH 4 % (0-5); BASOPHILS 1 % (0-1); EOSINOPHILS 2 % (0-3); LYMPHOCYTES 17 % (16-44); MONOCYTES 16 % (0-5); NEUTROPHILS 41 % (28-66); PLATELET ESTIMATE NORMAL (NORMAL)
[2022-09-13] MEDS: VITAMIN D 1,000 INTERNATIONAL UNITS TABLET PO SCH (10:01)
[2022-09-13] MEDS: PROPRANOLOL 60 MG LA CAP PO SCH (10:01)
[2022-09-13] MEDS: LORATADINE 10 MG TAB PO SCH (10:02)
[2022-09-13] MEDS: oxyBUTYnin *DITROPAN XL* 5 MG TABCR PO SCH (10:02)
[2022-09-13] MEDS: GABAPENTIN 300 MG CAP PO SCH (10:02)
[2022-09-13] MEDS: POTASSIUM CHLORIDE 10MEQ SR TABLET PO SCH ×2 (10:03→21:03)
[2022-09-13] MEDS: FLUoxetine 20MG CAP PO SCH (10:10)
[2022-09-13 16:00] VITALS: BP 124/56
[2022-09-13 20:00] VITALS: BP 129/73
[2022-09-13] MEDS: ALPRAZolam 0.5 MG TAB PO SCH ×2 (21:00→21:02)
[2022-09-13] MEDS: traZODone 50 MG TAB PO SCH (21:02)
[2022-09-13] MEDS: ENOXAPARIN 40MG/0.4ML SYRINGE (J1650 PER 10MG) SC SCH (21:02)
[2022-09-13] MEDS ORDERED: GI COCKTAIL 50ML BTL(HYOSCYAMINE/MAALOX/LIDOCAINE VISCOUS)(1:3:1) PO ONE (23:05)
[2022-09-13 23:15] VITALS: BP 125/64
[2022-09-14 02:00] VITALS: BP 123/64
[2022-09-14] MEDS: ACETAMINOPHEN TAB 650MG DOSE (2X325MG) PO PRN (02:10)
[2022-09-14] MEDS: PIPERACILLIN/TAZOBACTAM SOD 3.375 GM in D5W MINI-BAG PLUS 50 ML IV SCH ×4 (02:31→20:14)
[2022-09-14 02:57] LABS: HEMATOCRIT 35.8 % (36.0-47.0); HEMOGLOBIN 11.9 g/dl (12.0-15.5); MEAN CORPUSCULAR HGB CONC 33.2 g/dl (32.0-36.5); MEAN CORPUSCULAR VOLUME 87.1 fl (80.0-96.0); PLATELET COUNT, AUTOMATED 249 10^3/uL (150-450); RED BLOOD COUNT 4.11 10^6/uL (4.00-5.40); WHITE BLOOD COUNT 5.7 10^3/uL (4.0-10.0)
[2022-09-14 03:10] LABS: EOSINOPHILS 7 % (0-3); LYMPHOCYTES 27 % (16-44); MONOCYTES 23 % (0-5); NEUTROPHILS 40 % (28-66); PLATELET ESTIMATE NORMAL (NORMAL); POIKILOCYTOSIS 1+
[2022-09-14 03:27] LABS: CHLORIDE LEVEL 104 MMOL/L (98-107); POTASSIUM SERUM 3.8 MMOL/L (3.5-5.1); SODIUM LEVEL 137 MMOL/L (136-145)
[2022-09-14 03:28] LABS: CARBON DIOXIDE LEVEL 24 MMOL/L (20-31)
[2022-09-14 03:33] LABS: BLOOD UREA NITROGEN 10 MG/DL (9-23); CALCIUM LEVEL 8.9 MG/DL (8.5-10.1); GLUCOSE, FASTING 131 MG/DL (60-100)
[2022-09-14 03:35] LABS: CREATININE FOR GFR 0.58 MG/DL (0.55-1.30); GLOMERULAR FILTRATION RATE > 60.0 (>51)
[2022-09-14 05:36] VITALS: BP 123/65
[2022-09-14] MEDS: LEVOTHYROXINE 50MCG TABLET (0.05MG) PO SCH (05:50)
[2022-09-14] MEDS: GABAPENTIN 300 MG CAP PO SCH (08:11)
[2022-09-14] MEDS: LORATADINE 10 MG TAB PO SCH (08:12)
[2022-09-14] MEDS: VITAMIN D 1,000 INTERNATIONAL UNITS TABLET PO SCH (08:12)
[2022-09-14] MEDS: FLUoxetine 20MG CAP PO SCH (08:12)
[2022-09-14] MEDS: oxyBUTYnin *DITROPAN XL* 5 MG TABCR PO SCH (08:12)
[2022-09-14] MEDS: PROPRANOLOL 60 MG LA CAP PO SCH (08:14)
[2022-09-14] MEDS ORDERED: PANTOPRAZOLE 40MG VIAL IV SCH (09:00)
[2022-09-14 10:00] VITALS: BP 123/66
[2022-09-14] MEDS ORDERED: ONDANSETRON 4MG 2ML VIAL IV PRN (11:50)
[2022-09-14] MEDS ORDERED: oxyCODONE 5MG TAB PO PRN (11:50)
[2022-09-14] MEDS: LR 1,000 ML IV SCH ×2 (12:38→22:15)
[2022-09-14 14:00] VITALS: BP 122/64
[2022-09-14] MEDS: PANTOPRAZOLE 40MG VIAL IV SCH (14:36)
[2022-09-14] MEDS: LACTOBACILLUS ACIDOPHILUS CAP (BACID) PO SCH (17:53)
[2022-09-14 18:00] VITALS: BP 121/63
[2022-09-14] MEDS: ENOXAPARIN 40MG/0.4ML SYRINGE (J1650 PER 10MG) SC SCH (20:15)
[2022-09-14] MEDS: ALPRAZolam 0.5 MG TAB PO SCH (20:15)
[2022-09-14] MEDS: traZODone 50 MG TAB PO SCH (20:15)
[2022-09-14 20:30] VITALS: BP 119/59
[2022-09-14 21:35] LABS: VENOUS BASE EXCESS -0.2 (-2.0-2.0); VENOUS HCO3 24.5 MEQ/L (23.0-27.0); VENOUS PARTIAL PRESSURE CO2 40.4 mmHg (38.0-50.0); VENOUS PARTIAL PRESSURE O2 56.5 mmHg (30.0-50.0); VENOUS PH 7.401 UNITS (7.330-7.430); VENOUS STANDARD HCO3 24.2 MEQ/L; VENOUS TOTAL CO2 25.8 MEQ/L (24.0-28.0)
[2022-09-14] MEDS ORDERED: LR 500 ML IV ONE (22:05)
[2022-09-15] VITALS (7 sets, daily range): BP systolic 107–121; BP diastolic 51–67
[2022-09-15] MEDS: PIPERACILLIN/TAZOBACTAM SOD 3.375 GM in D5W MINI-BAG PLUS 50 ML IV SCH ×4 (03:34→21:02)
[2022-09-15] MEDS: LEVOTHYROXINE 50MCG TABLET (0.05MG) PO SCH (05:32)
[2022-09-15 07:28] LABS: HEMOGLOBIN 11.4 g/dl (12.0-15.5); MEAN CORPUSCULAR HEMOGLOBIN 29.5 pg (27.0-33.0); MEAN CORPUSCULAR HGB CONC 33.5 g/dl (32.0-36.5); MEAN CORPUSCULAR VOLUME 88.1 fl (80.0-96.0); PLATELET COUNT, AUTOMATED 238 10^3/uL (150-450); RED BLOOD COUNT 3.86 10^6/uL (4.00-5.40)
[2022-09-15 08:13] LABS: CHLORIDE LEVEL 103 MMOL/L (98-107); POTASSIUM SERUM 3.5 MMOL/L (3.5-5.1); SODIUM LEVEL 138 MMOL/L (136-145)
[2022-09-15 08:14] LABS: CARBON DIOXIDE LEVEL 27 MMOL/L (20-31)
[2022-09-15 08:19] LABS: BLOOD UREA NITROGEN 9 MG/DL (9-23)
[2022-09-15 08:20] LABS: CALCIUM LEVEL 8.4 MG/DL (8.5-10.1); GLUCOSE, FASTING 104 MG/DL (60-100)
[2022-09-15 08:22] LABS: CREATININE FOR GFR 0.53 MG/DL (0.55-1.30); GLOMERULAR FILTRATION RATE > 60.0 (>51)
[2022-09-15 08:34] LABS: ANISOCYTOSIS 1+; ATYPICAL LYMPH 2 % (0-5); BASOPHILS 1 % (0-1); EOSINOPHILS 2 % (0-3); LYMPHOCYTES 36 % (16-44); METAMYELOCYTES 1 % (0-0); MONOCYTES 10 % (0-5); NEUTROPHILS 41 % (28-66); PLATELET ESTIMATE NORMAL (NORMAL)
[2022-09-15] MEDS: PROPRANOLOL 60 MG LA CAP PO SCH (09:00)
[2022-09-15] MEDS: LR 1,000 ML IV SCH ×2 (09:14→17:38)
[2022-09-15] MEDS: LACTOBACILLUS ACIDOPHILUS CAP (BACID) PO SCH ×2 (11:06→17:38)
[2022-09-15] MEDS: KETOROLAC 30 MG/ML 1ML VIAL IV PRN (14:06)
[2022-09-15] MEDS: PANTOPRAZOLE 40MG VIAL IV SCH (14:06)
[2022-09-15] MEDS: ALPRAZolam 0.5 MG TAB PO SCH (21:00)
[2022-09-15] MEDS: traZODone 50 MG TAB PO SCH (21:01)
[2022-09-15] MEDS: ENOXAPARIN 40MG/0.4ML SYRINGE (J1650 PER 10MG) SC SCH (21:01)
[2022-09-16 02:00] VITALS: BP 119/60
[2022-09-16] MEDS: PIPERACILLIN/TAZOBACTAM SOD 3.375 GM in D5W MINI-BAG PLUS 50 ML IV SCH ×2 (03:12→09:22)
[2022-09-16] MEDS: LR 1,000 ML IV SCH (03:12)
[2022-09-16 06:00] VITALS: BP 119/60
[2022-09-16] MEDS: LEVOTHYROXINE 50MCG TABLET (0.05MG) PO SCH (06:13)
[2022-09-16 06:22] LABS: HEMATOCRIT 31.3 % (36.0-47.0); HEMOGLOBIN 10.5 g/dl (12.0-15.5); MEAN CORPUSCULAR HEMOGLOBIN 29.1 pg (27.0-33.0); MEAN CORPUSCULAR HGB CONC 33.5 g/dl (32.0-36.5); MEAN CORPUSCULAR VOLUME 86.7 fl (80.0-96.0); PLATELET COUNT, AUTOMATED 238 10^3/uL (150-450); RED BLOOD COUNT 3.61 10^6/uL (4.00-5.40); WHITE BLOOD COUNT 5.6 10^3/uL (4.0-10.0)
[2022-09-16 07:15] LABS: ATYPICAL LYMPH 2 % (0-5); EOSINOPHILS 8 % (0-3); LYMPHOCYTES 17 % (16-44); METAMYELOCYTES 2 % (0-0); MONOCYTES 20 % (0-5); NEUTROPHILS 45 % (28-66); PLATELET ESTIMATE NORMAL (NORMAL)
[2022-09-16 08:10] VITALS: BP 138/80
[2022-09-16] MEDS: LACTOBACILLUS ACIDOPHILUS CAP (BACID) PO SCH ×2 (08:34→17:35)
[2022-09-16] MEDS: PROPRANOLOL 60 MG LA CAP PO SCH (08:35)
[2022-09-16 13:15] VITALS: BP 122/78
[2022-09-16 14:00] VITALS: BP 127/66
[2022-09-16] MEDS: PANTOPRAZOLE 40MG VIAL IV SCH (14:35)
[2022-09-16] MEDS: metroNIDAZOLE (FLAGYL) 500MG TABLET PO SCH ×2 (15:53→21:34)
[2022-09-16] MEDS: CIPROFLOXACIN 500MG TABLET PO SCH (17:35)
[2022-09-16] MEDS ORDERED: ISOVUE-370 76% 100ML VIAL As Ordered ONE (19:10)
[2022-09-16] MEDS ORDERED: MOM 30ML SUSPENSION UDC PO ONE (20:00)
[2022-09-16] MEDS: GASTROGRAFIN SOLUTION 30ML PO SCH ×2 (20:03→20:32)
[2022-09-16 20:35] VITALS: BP 125/66
[2022-09-16] MEDS: ENOXAPARIN 40MG/0.4ML SYRINGE (J1650 PER 10MG) SC SCH (21:34)
[2022-09-16] MEDS: traZODone 50 MG TAB PO SCH (21:34)
[2022-09-16] MEDS: ALPRAZolam 0.5 MG TAB PO SCH (21:34)
[2022-09-17] VITALS (13 sets, daily range): BP systolic 74–145; BP diastolic 42–78
[2022-09-17] MEDS ORDERED: POLYETHYLENE GLYCOL (MIRALAX) 238GM BOTTLE PO ONE (05:00)
[2022-09-17] MEDS: CIPROFLOXACIN 500MG TABLET PO SCH ×2 (05:09→17:31)
[2022-09-17] MEDS ORDERED: LR 1,000 ML IV ONE (05:30)
[2022-09-17] MEDS ORDERED: LR 1,000 ML IV SCH (05:30)
[2022-09-17] MEDS: LEVOTHYROXINE 50MCG TABLET (0.05MG) PO SCH (05:59)
[2022-09-17] MEDS: LACTOBACILLUS ACIDOPHILUS CAP (BACID) PO SCH ×2 (08:00→17:31)
[2022-09-17 08:47] LABS: HEMATOCRIT 32.7 % (36.0-47.0); HEMOGLOBIN 10.8 g/dl (12.0-15.5); MEAN CORPUSCULAR VOLUME 87.9 fl (80.0-96.0); PLATELET COUNT, AUTOMATED 258 10^3/uL (150-450); RED BLOOD COUNT 3.72 10^6/uL (4.00-5.40); WHITE BLOOD COUNT 5.2 10^3/uL (4.0-10.0)
[2022-09-17] MEDS: GABAPENTIN 300 MG CAP PO SCH (09:00)
[2022-09-17] MEDS: FLUoxetine 20MG CAP PO SCH (09:00)
[2022-09-17] MEDS: PROPRANOLOL 60 MG LA CAP PO SCH (09:00)
[2022-09-17] MEDS: oxyBUTYnin *DITROPAN XL* 5 MG TABCR PO SCH (09:00)
[2022-09-17] MEDS: metroNIDAZOLE (FLAGYL) 500MG TABLET PO SCH ×3 (09:00→20:10)
[2022-09-17 09:43] LABS: ALBUMIN 1.9 G/DL (3.2-5.2); ALKALINE PHOSPHATASE 54 U/L (46-116); ALT/SGPT 40 U/L (7.0-40); AST/SGOT 58 U/L (<34); BILIRUBIN,TOTAL 0.4 MG/DL (0.3-1.2); BLOOD UREA NITROGEN 6 MG/DL (9-23); CALCIUM LEVEL 8.2 MG/DL (8.5-10.1); CARBON DIOXIDE LEVEL 28 MMOL/L (20-31); CHLORIDE LEVEL 102 MMOL/L (98-107); CREATININE FOR GFR 0.45 MG/DL (0.55-1.30); GLOMERULAR FILTRATION RATE > 60.0 (>51); GLUCOSE, FASTING 118 MG/DL (60-100); POTASSIUM SERUM 3.1 MMOL/L (3.5-5.1); SODIUM LEVEL 139 MMOL/L (136-145); TOTAL PROTEIN 5.2 G/DL (5.7-8.2)
[2022-09-17 10:09] LABS: ATYPICAL LYMPH 1 % (0-5); BASOPHILS 1 % (0-1); EOSINOPHILS 5 % (0-3); HYPOCHROMASIA 1+; LYMPHOCYTES 14 % (16-44); METAMYELOCYTES 1 % (0-0); MONOCYTES 22 % (0-5); NEUTROPHILS 28 % (28-66)
[2022-09-17 10:10] LABS: PLATELET ESTIMATE NORMAL (NORMAL)
[2022-09-17] MEDS: POTASSIUM CHLORIDE INJ 40 MEQ in LR 1,000 ML IV SCH ×2 (12:22→20:39)
[2022-09-17] MEDS ORDERED: propofoL 200 MG/20 ML VIAL As Ordered ONE (13:00)
[2022-09-17] MEDS: PANTOPRAZOLE 40MG VIAL IV SCH (15:00)
[2022-09-17 19:26] LABS: IMMUNOGLOBULIN A 290.3 MG/DL (40-350)
[2022-09-17 19:28] LABS: IMMUNOGLOBULIN G 940 MG/DL (650-1600); IMMUNOGLOBULIN M 105.2 MG/DL (50-300)
[2022-09-17] MEDS: traZODone 50 MG TAB PO SCH (20:10)
[2022-09-17] MEDS: ALPRAZolam 0.5 MG TAB PO SCH (20:11)
[2022-09-17] MEDS: ENOXAPARIN 40MG/0.4ML SYRINGE (J1650 PER 10MG) SC SCH (20:13)
[2022-09-17 21:04] LABS: HIV 1&2 SCREEN CENTAUR NEGATIVE (NEGATIVE)
[2022-09-18] VITALS (8 sets, daily range): BP systolic 109–143; BP diastolic 63–90
[2022-09-18] MEDS: LEVOTHYROXINE 50MCG TABLET (0.05MG) PO SCH (05:16)
[2022-09-18] MEDS: CIPROFLOXACIN 500MG TABLET PO SCH ×2 (05:17→17:35)
[2022-09-18] MEDS: POTASSIUM CHLORIDE INJ 40 MEQ in LR 1,000 ML IV SCH ×2 (06:39→16:27)
[2022-09-18 06:53] LABS: HEMATOCRIT 31.2 % (36.0-47.0); HEMOGLOBIN 10.4 g/dl (12.0-15.5); MEAN CORPUSCULAR HEMOGLOBIN 29.1 pg (27.0-33.0); MEAN CORPUSCULAR HGB CONC 33.3 g/dl (32.0-36.5); MEAN CORPUSCULAR VOLUME 87.4 fl (80.0-96.0); PLATELET COUNT, AUTOMATED 314 10^3/uL (150-450); RED BLOOD COUNT 3.57 10^6/uL (4.00-5.40)
[2022-09-18 07:09] LABS: BLOOD UREA NITROGEN 7 MG/DL (9-23); CALCIUM LEVEL 9.9 MG/DL (8.5-10.1); CARBON DIOXIDE LEVEL 28 MMOL/L (20-31); CHLORIDE LEVEL 102 MMOL/L (98-107); CREATININE FOR GFR 0.52 MG/DL (0.55-1.30); GLOMERULAR FILTRATION RATE > 60.0 (>51); GLUCOSE, FASTING 107 MG/DL (60-100); POTASSIUM SERUM 3.9 MMOL/L (3.5-5.1); SODIUM LEVEL 138 MMOL/L (136-145)
[2022-09-18 07:54] LABS: ATYPICAL LYMPH 3 % (0-5); EOSINOPHILS 7 % (0-3); LYMPHOCYTES 15 % (16-44); MONOCYTES 15 % (0-5); NEUTROPHILS 42 % (28-66)
[2022-09-18 07:55] LABS: PLATELET CLUMPS SMALL AMT; PLATELET ESTIMATE NORMAL (NORMAL); POLYCHROMASIA 1+
[2022-09-18] MEDS: oxyBUTYnin *DITROPAN XL* 5 MG TABCR PO SCH (08:17)
[2022-09-18] MEDS: PROPRANOLOL 60 MG LA CAP PO SCH (08:18)
[2022-09-18] MEDS: FLUoxetine 20MG CAP PO SCH (08:19)
[2022-09-18] MEDS: GABAPENTIN 300 MG CAP PO SCH (08:19)
[2022-09-18] MEDS: LACTOBACILLUS ACIDOPHILUS CAP (BACID) PO SCH ×2 (08:20→17:35)
[2022-09-18] MEDS: metroNIDAZOLE (FLAGYL) 500MG TABLET PO SCH ×3 (08:21→20:26)
[2022-09-18] MEDS: KETOROLAC 30 MG/ML 1ML VIAL IV PRN (08:26)
[2022-09-18] MEDS: PANTOPRAZOLE 40MG VIAL IV SCH (14:41)
[2022-09-18] MEDS: ENOXAPARIN 40MG/0.4ML SYRINGE (J1650 PER 10MG) SC SCH (20:25)
[2022-09-18] MEDS: ALPRAZolam 0.5 MG TAB PO SCH (20:26)
[2022-09-18] MEDS: traZODone 50 MG TAB PO SCH (20:26)
[2022-09-19 02:00] VITALS: BP 106/49
[2022-09-19] MEDS: POTASSIUM CHLORIDE INJ 40 MEQ in LR 1,000 ML IV SCH (02:20)
[2022-09-19] MEDS: CIPROFLOXACIN 500MG TABLET PO SCH ×2 (05:25→17:32)
[2022-09-19] MEDS: LEVOTHYROXINE 50MCG TABLET (0.05MG) PO SCH (05:25)
[2022-09-19 05:53] VITALS: BP 133/67
[2022-09-19 06:07] LABS: HEMATOCRIT 31.5 % (36.0-47.0); HEMOGLOBIN 10.4 g/dl (12.0-15.5); MEAN CORPUSCULAR HEMOGLOBIN 29.5 pg (27.0-33.0); MEAN CORPUSCULAR VOLUME 89.2 fl (80.0-96.0); PLATELET COUNT, AUTOMATED 324 10^3/uL (150-450); RED BLOOD COUNT 3.53 10^6/uL (4.00-5.40); WHITE BLOOD COUNT 6.2 10^3/uL (4.0-10.0)
[2022-09-19 06:30] LABS: BLOOD UREA NITROGEN 6 MG/DL (9-23); CALCIUM LEVEL 8.1 MG/DL (8.5-10.1); CARBON DIOXIDE LEVEL 26 MMOL/L (20-31); CHLORIDE LEVEL 104 MMOL/L (98-107); GLOMERULAR FILTRATION RATE > 60.0 (>51); GLUCOSE, FASTING 120 MG/DL (60-100); POTASSIUM SERUM 4.5 MMOL/L (3.5-5.1); SODIUM LEVEL 137 MMOL/L (136-145)
[2022-09-19 07:13] LABS: ATYPICAL LYMPH 2 % (0-5); EOSINOPHILS 5 % (0-3); LYMPHOCYTES 14 % (16-44); METAMYELOCYTES 3 % (0-0); MONOCYTES 14 % (0-5); MYELOCYTES 1 % (0-0); NEUTROPHILS 42 % (28-66)
[2022-09-19 07:16] LABS: PLATELET CLUMPS SMALL AMT; PLATELET ESTIMATE NORMAL (NORMAL); POLYCHROMASIA 1+
[2022-09-19] MEDS: oxyBUTYnin *DITROPAN XL* 5 MG TABCR PO SCH (08:22)
[2022-09-19] MEDS: LACTOBACILLUS ACIDOPHILUS CAP (BACID) PO SCH ×2 (08:22→17:32)
[2022-09-19] MEDS: metroNIDAZOLE (FLAGYL) 500MG TABLET PO SCH ×3 (08:23→20:03)
[2022-09-19] MEDS: GABAPENTIN 300 MG CAP PO SCH (08:23)
[2022-09-19] MEDS: FLUoxetine 20MG CAP PO SCH (08:23)
[2022-09-19] MEDS: PROPRANOLOL 60 MG LA CAP PO SCH (08:25)
[2022-09-19 10:00] VITALS: BP 121/66
[2022-09-19 14:00] VITALS: BP 120/65
[2022-09-19] MEDS: PANTOPRAZOLE 40MG VIAL IV SCH (15:04)
[2022-09-19] MEDS: ENOXAPARIN 40MG/0.4ML SYRINGE (J1650 PER 10MG) SC SCH (20:02)
[2022-09-19] MEDS: ALPRAZolam 0.5 MG TAB PO SCH (20:03)
[2022-09-19] MEDS: traZODone 50 MG TAB PO SCH (20:03)
[2022-09-19 21:00] VITALS: BP 118/62
[2022-09-20] MEDS: CIPROFLOXACIN 500MG TABLET PO SCH (05:46)
[2022-09-20] MEDS: LEVOTHYROXINE 50MCG TABLET (0.05MG) PO SCH (05:46)
[2022-09-20 06:00] VITALS: BP 115/62
[2022-09-20 06:01] LABS: HEMATOCRIT 32.5 % (36.0-47.0); HEMOGLOBIN 10.6 g/dl (12.0-15.5); MEAN CORPUSCULAR HEMOGLOBIN 28.9 pg (27.0-33.0); MEAN CORPUSCULAR HGB CONC 32.6 g/dl (32.0-36.5); MEAN CORPUSCULAR VOLUME 88.6 fl (80.0-96.0); PLATELET COUNT, AUTOMATED 325 10^3/uL (150-450); RED BLOOD COUNT 3.67 10^6/uL (4.00-5.40); WHITE BLOOD COUNT 6.1 10^3/uL (4.0-10.0)
[2022-09-20 06:28] LABS: BLOOD UREA NITROGEN < 5 MG/DL (9-23); CALCIUM LEVEL 8.3 MG/DL (8.5-10.1); CARBON DIOXIDE LEVEL 26 MMOL/L (20-31); CHLORIDE LEVEL 105 MMOL/L (98-107); CREATININE FOR GFR 0.57 MG/DL (0.55-1.30); GLOMERULAR FILTRATION RATE > 60.0 (>51); GLUCOSE, FASTING 119 MG/DL (60-100); SODIUM LEVEL 137 MMOL/L (136-145)
[2022-09-20 06:52] LABS: ATYPICAL LYMPH 3 % (0-5); EOSINOPHILS 8 % (0-3); LYMPHOCYTES 19 % (16-44); MONOCYTES 13 % (0-5); MYELOCYTES 1 % (0-0); NEUTROPHILS 50 % (28-66)
[2022-09-20 06:53] LABS: ANISOCYTOSIS 1+; PLATELET ESTIMATE NORMAL (NORMAL)
[2022-09-20 06:54] LABS: PLATELET CLUMPS SMALL AMT
[2022-09-20] MEDS: oxyBUTYnin *DITROPAN XL* 5 MG TABCR PO SCH (07:54)
[2022-09-20] MEDS: LACTOBACILLUS ACIDOPHILUS CAP (BACID) PO SCH ×2 (07:54→18:30)
[2022-09-20] MEDS: metroNIDAZOLE (FLAGYL) 500MG TABLET PO SCH ×2 (07:55→15:58)
[2022-09-20] MEDS: FLUoxetine 20MG CAP PO SCH (07:55)
[2022-09-20] MEDS: GABAPENTIN 300 MG CAP PO SCH (07:55)
[2022-09-20] MEDS: PROPRANOLOL 60 MG LA CAP PO SCH (07:56)
[2022-09-20 10:00] VITALS: BP 105/61
[2022-09-20 14:00] VITALS: BP 106/61
[2022-09-20 15:12] LABS: CYTOMEGALOVIRUS IgM ANTIBODY <30.0 AU/mL (0.0-29.9); HSV TYPE II IgG SPECIFIC <0.91 index (0.00-0.90)
[2022-09-20] MEDS: PANTOPRAZOLE 40MG VIAL IV SCH (15:58)
[2022-09-20] MEDS: BUDESONIDE EC 3MG CAP (ENTOCORT EC) PO SCH (18:30)
[2022-09-20 20:00] VITALS: BP 110/62
[2022-09-20] MEDS: ENOXAPARIN 40MG/0.4ML SYRINGE (J1650 PER 10MG) SC SCH (20:05)
[2022-09-20] MEDS: ALPRAZolam 0.5 MG TAB PO SCH (20:06)
[2022-09-20] MEDS: traZODone 50 MG TAB PO SCH (20:06)
[2022-09-21] MEDS: LEVOTHYROXINE 50MCG TABLET (0.05MG) PO SCH (05:27)
[2022-09-21 05:37] VITALS: BP 117/64
[2022-09-21 06:12] LABS: HEMATOCRIT 32.5 % (36.0-47.0); HEMOGLOBIN 10.5 g/dl (12.0-15.5); MEAN CORPUSCULAR HEMOGLOBIN 28.5 pg (27.0-33.0); MEAN CORPUSCULAR HGB CONC 32.3 g/dl (32.0-36.5); MEAN CORPUSCULAR VOLUME 88.1 fl (80.0-96.0); PLATELET COUNT, AUTOMATED 326 10^3/uL (150-450); RED BLOOD COUNT 3.69 10^6/uL (4.00-5.40); WHITE BLOOD COUNT 5.8 10^3/uL (4.0-10.0)
[2022-09-21 06:48] LABS: ANISOCYTOSIS 1+; ATYPICAL LYMPH 4 % (0-5); BASOPHILS 1 % (0-1); HYPOCHROMASIA 1+; LYMPHOCYTES 10 % (16-44); MONOCYTES 13 % (0-5); MYELOCYTES 1 % (0-0); NEUTROPHILS 64 % (28-66); PLATELET CLUMPS SMALL AMT; PLATELET ESTIMATE NORMAL (NORMAL)
[2022-09-21 06:53] LABS: BLOOD UREA NITROGEN < 5 MG/DL (9-23); CARBON DIOXIDE LEVEL 28 MMOL/L (20-31); CHLORIDE LEVEL 102 MMOL/L (98-107); CREATININE FOR GFR 0.63 MG/DL (0.55-1.30); GLOMERULAR FILTRATION RATE > 60.0 (>51); GLUCOSE, FASTING 143 MG/DL (60-100); SODIUM LEVEL 137 MMOL/L (136-145)
[2022-09-21] MEDS: LACTOBACILLUS ACIDOPHILUS CAP (BACID) PO SCH (08:56)
[2022-09-21] MEDS: GABAPENTIN 300 MG CAP PO SCH (08:56)
[2022-09-21] MEDS: oxyBUTYnin *DITROPAN XL* 5 MG TABCR PO SCH (08:56)
[2022-09-21] MEDS: FLUoxetine 20MG CAP PO SCH (08:56)
[2022-09-21 08:57] VITALS: BP 115/65
[2022-09-21] MEDS: PROPRANOLOL 60 MG LA CAP PO SCH (08:57)
[2022-09-21] MEDS: BUDESONIDE EC 3MG CAP (ENTOCORT EC) PO SCH (09:00)
[2022-09-21] MEDS ORDERED: PANT40TA29 PO (13:48)
[2022-09-21] MEDS ORDERED: UCER9TAB PO (13:59)
[2022-09-21 14:00] VITALS: BP 112/65
[2022-09-21] MEDS ORDERED: PRED5TA PO (15:06)
[2022-09-22 14:11] LABS: CMV QUANT DNA PCR (PLASMA) Negative (Negative); HSV-1 DNA Negative (Negative); HSV-2 DNA Negative (Negative)
== END 2022-09-21 16:11 | disposition home or self-care (01) | DRG 249 ==
LOC: M ED 06:41 → EDBD 06:41 → M ED INP 10:24 → ENRESERV 12:38 → M PCU 13:13 → M MSPAV 09-13 22:54
PROVIDERS: ADMIT Student in an Organized Health Care Education/Training Program; ATTEND Family Medicine
PROC: 0DDN8ZX Extraction of Sigmoid Colon, Via Natural or Artificial Opening Endoscopic, Diagnostic (ICD-10-PCS; principal; 2022-09-17 15:00)
DX: A09 Infectious gastroenteritis and colitis, unspecified (principal); G43.909 Migraine, unspecified, not intractable, without status migrainosus; E78.5 Hyperlipidemia, unspecified; I10 Essential (primary) hypertension; M19.90 Unspecified osteoarthritis, unspecified site; G47.33 Obstructive sleep apnea (adult) (pediatric); Z88.8 Allergy status to other drugs, medicaments and biological substances; Z79.899 Other long term (current) drug therapy; M54.50 Low back pain, unspecified; F41.9 Anxiety disorder, unspecified; D50.9 Iron deficiency anemia, unspecified; E87.6 Hypokalemia; E66.01 Morbid (severe) obesity due to excess calories; Z68.41 Body mass index [BMI] 40.0-44.9, adult; E03.9 Hypothyroidism, unspecified; F32.A Depression, unspecified; E55.9 Vitamin D deficiency, unspecified; Z98.41 Cataract extraction status, right eye; M54.2 Cervicalgia

== ENCOUNTER 2022-09-25 18:27 | Inpatient (IN) | payer OTHER ==
[~2022-09-25] VITALS: Ht 162.6 cm; Wt 100.3 kg
[~2022-09-25 18:27] MED LIST changes: +FERR324T21 PO; +GABA-282 PO; +MELO15TA28 PO; +PANT40TA29 PO; +PRED5TA PO; +RIME75TA PO; +UCER9TAB PO; +VITA100093 PO
[2022-09-25] MEDS ORDERED: NS 1,000 ML IV SCH (19:00)
[2022-09-25 19:35] LABS: HEMATOCRIT 40.2 % (36.0-47.0); HEMOGLOBIN 13.4 g/dl (12.0-15.5); MEAN CORPUSCULAR HEMOGLOBIN 28.5 pg (27.0-33.0); MEAN CORPUSCULAR HGB CONC 33.3 g/dl (32.0-36.5); MEAN CORPUSCULAR VOLUME 85.4 fl (80.0-96.0); PLATELET COUNT, AUTOMATED 486 10^3/uL (150-450); RED BLOOD COUNT 4.71 10^6/uL (4.00-5.40)
[2022-09-25 19:47] LABS: INR 1.36
[2022-09-25 19:48] LABS: PARTIAL THROMBOPLASTIN TIME 25.9 SECONDS (24.8-34.2)
[2022-09-25 19:58] LABS: LIPASE 78 U/L (12-53)
[2022-09-25 20:00] LABS: ALBUMIN 2.2 G/DL (3.2-5.2); ALKALINE PHOSPHATASE 54 U/L (46-116); ALT/SGPT 18 U/L (7.0-40); AST/SGOT 27 U/L (<34); BILIRUBIN,DIRECT 0.2 MG/DL (<0.4); BILIRUBIN,TOTAL 0.5 MG/DL (0.3-1.2); BLOOD UREA NITROGEN 9 MG/DL (9-23); CALCIUM LEVEL 8.4 MG/DL (8.5-10.1); CARBON DIOXIDE LEVEL 25 MMOL/L (20-31); CHLORIDE LEVEL 101 MMOL/L (98-107); CREATININE FOR GFR 0.63 MG/DL (0.55-1.30); GLOMERULAR FILTRATION RATE > 60.0 (>51); GLUCOSE, FASTING 170 MG/DL (60-100); SODIUM LEVEL 137 MMOL/L (136-145); TOTAL PROTEIN 6.6 G/DL (5.7-8.2)
[2022-09-25 20:07] LABS: ATYPICAL LYMPH 5 % (0-5); BASOPHILS 1 % (0-1); EOSINOPHILS 2 % (0-3); LYMPHOCYTES 29 % (16-44); MONOCYTES 18 % (0-5); NEUTROPHILS 40 % (28-66)
[2022-09-25 20:08] LABS: PLATELET ESTIMATE INCREASED (NORMAL)
[2022-09-25 20:09] LABS: PLATELET CLUMPS SMALL AMT
[2022-09-25] MEDS ORDERED: ISOVUE-370 76% 100ML VIAL As Ordered ONE (20:26)
[2022-09-25] MEDS ORDERED: metroNIDAZOLE (FLAGYL) 500MG TABLET PO SCH (22:00)
[2022-09-25] MEDS ORDERED: PANT-23 PO (22:02)
[2022-09-25] MEDS ORDERED: med rec comment (22:10)
[2022-09-25] MEDS ORDERED: HOME MED LIST COMPLETE! XX SCH (22:10)
[2022-09-25] MEDS ORDERED: GLUCAGON INJ 1MG VIAL SC PRN (22:40)
[2022-09-25] MEDS ORDERED: GLUCOSE 4GM CHEW TABLET PO PRN (22:40)
[2022-09-25] MEDS ORDERED: HYDROMORPHONE HCL 0.5 MG/ 0.5 ML SYRINGE (J1170 PER 1) IV PRN (22:40)
[2022-09-25] MEDS ORDERED: DEXTROSE 50% 50 ML SYRINGE IV PRN (22:40)
[2022-09-25] MEDS ORDERED: NS IV ONE (22:45)
[2022-09-25] MEDS ORDERED: KCL IV ONE (22:45)
[2022-09-25] MEDS ORDERED: ENOXAPARIN 100MG/1ML SYRINGE (J1650 PER 10MG) SC ONE (23:00)
[2022-09-25] MEDS ORDERED: CIPROFLOXACIN 400 MG in IV 1 EA IV SCH (23:00)
[2022-09-26] VITALS (8 sets, daily range): BP systolic 96–156; BP diastolic 54–88
[2022-09-26] MEDS: INSULIN LISPRO (NovoLOG) PER UNIT SC SCH ×3 (00:52→12:24)
[2022-09-26 01:06] LABS: CREATININE FOR GFR 0.53 MG/DL (0.55-1.30); GLOMERULAR FILTRATION RATE > 60.0 (>51)
[2022-09-26] MEDS ORDERED: NS 1,000 ML IV ONE ×2 (01:25→06:15)
[2022-09-26] MEDS: methylPREDNISolone 125MG 2ML VIAL IV SCH ×2 (02:39→09:27)
[2022-09-26] MEDS: NS 1,000 ML IV SCH ×2 (02:40→09:27)
[2022-09-26 06:13] LABS: HEMATOCRIT 34.6 % (36.0-47.0); HEMOGLOBIN 11.5 g/dl (12.0-15.5)
[2022-09-26] MEDS: LEVOTHYROXINE 50MCG TABLET (0.05MG) PO SCH (06:20)
[2022-09-26 06:31] LABS: BLOOD UREA NITROGEN 7 MG/DL (9-23); CALCIUM LEVEL 7.7 MG/DL (8.5-10.1); CARBON DIOXIDE LEVEL 25 MMOL/L (20-31); CHLORIDE LEVEL 105 MMOL/L (98-107); CREATININE FOR GFR 0.46 MG/DL (0.55-1.30); GLOMERULAR FILTRATION RATE > 60.0 (>51); GLUCOSE, FASTING 125 MG/DL (60-100); SODIUM LEVEL 138 MMOL/L (136-145)
[2022-09-26 06:59] LABS: ERYTHROCYTE SEDIMENTATION RATE 61 mm/hr (0-30)
[2022-09-26] MEDS: PROPRANOLOL 60MG LA CAP PO SCH (09:00)
[2022-09-26] MEDS: FAMOTIDINE 20 MG TAB PO SCH ×2 (09:27→20:25)
[2022-09-26] MEDS: FLUoxetine 20MG CAP PO SCH (09:27)
[2022-09-26] MEDS: GABAPENTIN 300 MG CAP PO SCH (09:27)
[2022-09-26 09:38] LABS: HEMATOCRIT 35.4 % (36.0-47.0); HEMOGLOBIN 11.5 g/dl (12.0-15.5)
[2022-09-26] MEDS: ACETAMINOPHEN TAB 650MG DOSE (2X325MG) PO PRN (12:25)
[2022-09-26 12:42] LABS: HEMATOCRIT 33.5 % (36.0-47.0); HEMOGLOBIN 11.2 g/dl (12.0-15.5)
[2022-09-26] MEDS ORDERED: ISOVUE-370 76% 100ML VIAL As Ordered ONE (14:00)
[2022-09-26] MEDS ORDERED: HEPARIN SOD (PORCINE) 5000UNITS/ML 1ML VIAL/SYRINGE IV PRN (15:45)
[2022-09-26] MEDS: HEPARIN DRIP 25,000 UNITS in IV 1 EA IV SCH (17:19)
[2022-09-26] MEDS: traZODone 50 MG TAB PO SCH (20:25)
[2022-09-26 20:59] LABS: HEMATOCRIT 31.4 % (36.0-47.0); HEMOGLOBIN 10.6 g/dl (12.0-15.5)
[2022-09-26 23:30] LABS: INR 1.6; PROTHROMBIN TIME 19.3 SECONDS (12.5-14.5)
[2022-09-26 23:32] LABS: PARTIAL THROMBOPLASTIN TIME 108.2 SECONDS (24.8-34.2)
[2022-09-27 02:52] LABS: HEMATOCRIT 30.2 % (36.0-47.0); HEMOGLOBIN 10.1 g/dl (12.0-15.5); MEAN CORPUSCULAR HEMOGLOBIN 28.6 pg (27.0-33.0); MEAN CORPUSCULAR HGB CONC 33.4 g/dl (32.0-36.5); MEAN CORPUSCULAR VOLUME 85.6 fl (80.0-96.0); PLATELET COUNT, AUTOMATED 363 10^3/uL (150-450); RED BLOOD COUNT 3.53 10^6/uL (4.00-5.40); WHITE BLOOD COUNT 5.2 10^3/uL (4.0-10.0)
[2022-09-27 03:20] LABS: ATYPICAL LYMPH 3 % (0-5); LYMPHOCYTES 19 % (16-44); MONOCYTES 7 % (0-5); NEUTROPHILS 67 % (28-66)
[2022-09-27 03:22] LABS: PLATELET ESTIMATE NORMAL (NORMAL)
[2022-09-27 03:26] LABS: BLOOD UREA NITROGEN < 5 MG/DL (9-23); CALCIUM LEVEL 7.7 MG/DL (8.5-10.1); CARBON DIOXIDE LEVEL 23 MMOL/L (20-31); CHLORIDE LEVEL 106 MMOL/L (98-107); CREATININE FOR GFR 0.41 MG/DL (0.55-1.30); GLOMERULAR FILTRATION RATE > 60.0 (>51); GLUCOSE, FASTING 208 MG/DL (60-100); POTASSIUM SERUM 3.3 MMOL/L (3.5-5.1); SODIUM LEVEL 139 MMOL/L (136-145)
[2022-09-27 04:00] VITALS: BP 148/72
[2022-09-27] MEDS: LEVOTHYROXINE 50MCG TABLET (0.05MG) PO SCH (06:01)
[2022-09-27] MEDS: HEPARIN DRIP 25,000 UNITS in IV 1 EA IV SCH ×3 (06:28→22:40)
[2022-09-27 08:00] VITALS: BP 156/72
[2022-09-27] MEDS: FAMOTIDINE 20 MG TAB PO SCH ×2 (08:31→20:25)
[2022-09-27] MEDS: GABAPENTIN 300 MG CAP PO SCH (08:31)
[2022-09-27] MEDS: PROPRANOLOL 60MG LA CAP PO SCH (08:31)
[2022-09-27] MEDS: FLUoxetine 20MG CAP PO SCH (08:31)
[2022-09-27] MEDS: ACETAMINOPHEN TAB 650MG DOSE (2X325MG) PO PRN ×2 (08:32→20:25)
[2022-09-27] MEDS ORDERED: predniSONE 20 MG TAB PO SCH (09:00)
[2022-09-27 09:19] LABS: HEMOGLOBIN 11.3 g/dl (12.0-15.5)
[2022-09-27] MEDS: KCL 10MEQ/100ML SWI (KRUN) 10 MEQ in IV 1 EA IV SCH ×2 (09:45→10:53)
[2022-09-27 12:00] VITALS: BP 109/60
[2022-09-27] MEDS ORDERED: POTASSIUM CHLORIDE 10MEQ SR TABLET PO ONE (14:30)
[2022-09-27 15:19] LABS: HEMATOCRIT 32.1 % (36.0-47.0); HEMOGLOBIN 10.6 g/dl (12.0-15.5)
[2022-09-27 20:00] VITALS: BP 124/61
[2022-09-27] MEDS: traZODone 50 MG TAB PO SCH (20:25)
[2022-09-27 21:03] LABS: HEMATOCRIT 30.8 % (36.0-47.0); HEMOGLOBIN 10.1 g/dl (12.0-15.5)
[2022-09-28 03:02] LABS: BASO % 0.5 % (0.0-1.0); EOS % 0.3 % (0.0-3.0); HEMATOCRIT 27.7 % (36.0-47.0); HEMOGLOBIN 9.2 g/dl (12.0-15.5); LYMPH # 2.4 10^3/uL (1.5-5.0); LYMPH % 36.7 % (24.0-44.0); MEAN CORPUSCULAR HEMOGLOBIN 28.8 pg (27.0-33.0); MEAN CORPUSCULAR HGB CONC 33.2 g/dl (32.0-36.5); MEAN CORPUSCULAR VOLUME 86.6 fl (80.0-96.0); MONO # 1.1 10^3/uL (0.0-0.8); MONO % 16.4 % (2.0-8.0); NEUTROPHILS # 2.9 10^3/uL (1.5-8.5); NEUTROPHILS % 44.4 % (36.0-66.0); PLATELET COUNT, AUTOMATED 330 10^3/uL (150-450); WHITE BLOOD COUNT 6.6 10^3/uL (4.0-10.0)
[2022-09-28 03:26] VITALS: BP 138/72
[2022-09-28 03:33] LABS: BLOOD UREA NITROGEN 9 MG/DL (9-23); CARBON DIOXIDE LEVEL 26 MMOL/L (20-31); CHLORIDE LEVEL 106 MMOL/L (98-107); CREATININE FOR GFR 0.47 MG/DL (0.55-1.30); GLOMERULAR FILTRATION RATE > 60.0 (>51); GLUCOSE, FASTING 162 MG/DL (60-100); POTASSIUM SERUM 3.1 MMOL/L (3.5-5.1); SODIUM LEVEL 139 MMOL/L (136-145)
[2022-09-28] MEDS: LEVOTHYROXINE 50MCG TABLET (0.05MG) PO SCH (05:42)
[2022-09-28] MEDS ORDERED: POTASSIUM CHLORIDE 10MEQ SR TABLET PO ONE (07:05)
[2022-09-28 08:00] VITALS: BP 125/61
[2022-09-28] MEDS: predniSONE 20 MG TAB PO SCH (09:17)
[2022-09-28] MEDS: FAMOTIDINE 20 MG TAB PO SCH ×2 (09:17→21:13)
[2022-09-28] MEDS: FLUoxetine 20MG CAP PO SCH (09:17)
[2022-09-28] MEDS: GABAPENTIN 300 MG CAP PO SCH (09:17)
[2022-09-28] MEDS: PROPRANOLOL 60MG LA CAP PO SCH (09:17)
[2022-09-28 09:22] LABS: HEMATOCRIT 29.9 % (36.0-47.0); HEMOGLOBIN 9.9 g/dl (12.0-15.5)
[2022-09-28 14:48] LABS: HEMATOCRIT 30.5 % (36.0-47.0); HEMOGLOBIN 9.9 g/dl (12.0-15.5)
[2022-09-28 15:16] LABS: MAGNESIUM LEVEL 1.8 MG/DL (1.8-2.4)
[2022-09-28 15:42] LABS: BLOOD UREA NITROGEN 13 MG/DL (9-23); CALCIUM LEVEL 8.4 MG/DL (8.5-10.1); CARBON DIOXIDE LEVEL 26 MMOL/L (20-31); CHLORIDE LEVEL 103 MMOL/L (98-107); GLOMERULAR FILTRATION RATE > 60.0 (>51); GLUCOSE, FASTING 220 MG/DL (60-100); POTASSIUM SERUM 4.2 MMOL/L (3.5-5.1); SODIUM LEVEL 136 MMOL/L (136-145)
[2022-09-28 16:00] VITALS: BP 102/54
[2022-09-28 20:00] VITALS: BP 111/54
[2022-09-28] MEDS: HEPARIN SOD (PORCINE) 5000UNITS/ML 1ML VIAL/SYRINGE SQ SCH (21:12)
[2022-09-28] MEDS: traZODone 50 MG TAB PO SCH (21:13)
[2022-09-29 00:21] LABS: HEMATOCRIT 28.6 % (36.0-47.0); HEMOGLOBIN 9.3 g/dl (12.0-15.5)
[2022-09-29 02:55] LABS: HEMATOCRIT 26.6 % (36.0-47.0); HEMOGLOBIN 8.7 g/dl (12.0-15.5); MEAN CORPUSCULAR HEMOGLOBIN 28.6 pg (27.0-33.0); MEAN CORPUSCULAR HGB CONC 32.7 g/dl (32.0-36.5); MEAN CORPUSCULAR VOLUME 87.5 fl (80.0-96.0); PLATELET COUNT, AUTOMATED 303 10^3/uL (150-450); RED BLOOD COUNT 3.04 10^6/uL (4.00-5.40); WHITE BLOOD COUNT 6.9 10^3/uL (4.0-10.0)
[2022-09-29 03:08] LABS: ATYPICAL LYMPH 4 % (0-5); EOSINOPHILS 1 % (0-3); LYMPHOCYTES 36 % (16-44); METAMYELOCYTES 1 % (0-0); MONOCYTES 19 % (0-5); NEUTROPHILS 39 % (28-66); PLATELET ESTIMATE NORMAL (NORMAL)
[2022-09-29 03:10] LABS: PLATELET CLUMPS SMALL AMT
[2022-09-29 03:16] VITALS: BP 134/69
[2022-09-29 03:31] LABS: BLOOD UREA NITROGEN 8 MG/DL (9-23); CARBON DIOXIDE LEVEL 27 MMOL/L (20-31); CHLORIDE LEVEL 106 MMOL/L (98-107); CREATININE FOR GFR 0.48 MG/DL (0.55-1.30); GLOMERULAR FILTRATION RATE > 60.0 (>51); GLUCOSE, FASTING 102 MG/DL (60-100); POTASSIUM SERUM 3.3 MMOL/L (3.5-5.1); SODIUM LEVEL 138 MMOL/L (136-145)
[2022-09-29] MEDS: KCL 10MEQ/100ML SWI (KRUN) 10 MEQ in IV 1 EA IV SCH ×2 (05:09→06:19)
[2022-09-29] MEDS: LEVOTHYROXINE 50MCG TABLET (0.05MG) PO SCH (05:10)
[2022-09-29] MEDS: HEPARIN SOD (PORCINE) 5000UNITS/ML 1ML VIAL/SYRINGE SQ SCH ×3 (05:10→22:53)
[2022-09-29 06:40] LABS: MAGNESIUM LEVEL 1.7 MG/DL (1.8-2.4)
[2022-09-29 07:45] LABS: HEMATOCRIT 26.2 % (36.0-47.0); HEMOGLOBIN 8.7 g/dl (12.0-15.5); MEAN CORPUSCULAR HEMOGLOBIN 28.9 pg (27.0-33.0); MEAN CORPUSCULAR HGB CONC 33.2 g/dl (32.0-36.5); PLATELET COUNT, AUTOMATED 263 10^3/uL (150-450); RED BLOOD COUNT 3.01 10^6/uL (4.00-5.40); WHITE BLOOD COUNT 7.3 10^3/uL (4.0-10.0)
[2022-09-29] MEDS ORDERED: MAG SULF 1GM/100ML (MAG RUN) 1 GM in IV 1 EA IV ONE (08:00)
[2022-09-29 08:04] LABS: MAGNESIUM LEVEL 1.7 MG/DL (1.8-2.4)
[2022-09-29] MEDS: GABAPENTIN 300 MG CAP PO SCH (08:13)
[2022-09-29] MEDS: PANTOPRAZOLE 40MG VIAL IV SCH ×2 (08:13→20:14)
[2022-09-29] MEDS: PROPRANOLOL 60MG LA CAP PO SCH (08:14)
[2022-09-29] MEDS: predniSONE 20 MG TAB PO SCH (08:14)
[2022-09-29] MEDS: FLUoxetine 20MG CAP PO SCH (08:14)
[2022-09-29 08:38] LABS: ANISOCYTOSIS 1+; ATYPICAL LYMPH 1 % (0-5); EOSINOPHILS 3 % (0-3); LYMPHOCYTES 53 % (16-44); MICROCYTOSIS 1+; MONOCYTES 2 % (0-5); MYELOCYTES 1 % (0-0); NEUTROPHILS 38 % (28-66); PLATELET ESTIMATE NORMAL (NORMAL)
[2022-09-29 08:41] VITALS: BP 114/62
[2022-09-29] MEDS ORDERED: POTASSIUM CHLORIDE 10MEQ SR TABLET PO SCH (09:00)
[2022-09-29 09:12] LABS: ALBUMIN 1.7 G/DL (3.2-5.2); ALKALINE PHOSPHATASE 38 U/L (46-116); ALT/SGPT 15 U/L (7.0-40); AST/SGOT 20 U/L (<34); BILIRUBIN,TOTAL 0.3 MG/DL (0.3-1.2); BLOOD UREA NITROGEN 11 MG/DL (9-23); CALCIUM LEVEL 7.8 MG/DL (8.5-10.1); CARBON DIOXIDE LEVEL 26 MMOL/L (20-31); CHLORIDE LEVEL 107 MMOL/L (98-107); CREATININE FOR GFR 0.51 MG/DL (0.55-1.30); GLOMERULAR FILTRATION RATE > 60.0 (>51); GLUCOSE, FASTING 98 MG/DL (60-100); POTASSIUM SERUM 4.2 MMOL/L (3.5-5.1); SODIUM LEVEL 139 MMOL/L (136-145); TOTAL PROTEIN 4.8 G/DL (5.7-8.2)
[2022-09-29 12:00] VITALS: BP 98/55
[2022-09-29 12:08] LABS: HEMATOCRIT 28.4 % (36.0-47.0); HEMOGLOBIN 9.5 g/dl (12.0-15.5)
[2022-09-29 18:15] LABS: HEMATOCRIT 26.6 % (36.0-47.0); HEMOGLOBIN 8.8 g/dl (12.0-15.5)
[2022-09-29 20:01] VITALS: BP 117/57
[2022-09-29] MEDS: traZODone 50 MG TAB PO SCH (20:14)
[2022-09-29 23:41] VITALS: BP 114/59
[2022-09-30 00:51] LABS: HEMATOCRIT 24.2 % (36.0-47.0); HEMOGLOBIN 8.1 g/dl (12.0-15.5)
[2022-09-30 04:26] VITALS: BP 124/56
[2022-09-30] MEDS: LEVOTHYROXINE 50MCG TABLET (0.05MG) PO SCH (05:23)
[2022-09-30] MEDS: ACETAMINOPHEN TAB 650MG DOSE (2X325MG) PO PRN ×2 (05:24→16:32)
[2022-09-30] MEDS: HEPARIN SOD (PORCINE) 5000UNITS/ML 1ML VIAL/SYRINGE SQ SCH ×3 (06:00→21:21)
[2022-09-30 07:20] LABS: HEMATOCRIT 25.3 % (36.0-47.0); HEMOGLOBIN 8.4 g/dl (12.0-15.5); MEAN CORPUSCULAR HEMOGLOBIN 29.1 pg (27.0-33.0); MEAN CORPUSCULAR HGB CONC 33.2 g/dl (32.0-36.5); MEAN CORPUSCULAR VOLUME 87.5 fl (80.0-96.0); PLATELET COUNT, AUTOMATED 286 10^3/uL (150-450); RED BLOOD COUNT 2.89 10^6/uL (4.00-5.40); WHITE BLOOD COUNT 6.7 10^3/uL (4.0-10.0)
[2022-09-30 07:39] LABS: MAGNESIUM LEVEL 1.9 MG/DL (1.8-2.4)
[2022-09-30 07:44] LABS: BLOOD UREA NITROGEN 10 MG/DL (9-23); CALCIUM LEVEL 7.9 MG/DL (8.5-10.1); CARBON DIOXIDE LEVEL 29 MMOL/L (20-31); CHLORIDE LEVEL 103 MMOL/L (98-107); CREATININE FOR GFR 0.56 MG/DL (0.55-1.30); GLOMERULAR FILTRATION RATE > 60.0 (>51); GLUCOSE, FASTING 98 MG/DL (60-100); POTASSIUM SERUM 3.8 MMOL/L (3.5-5.1); SODIUM LEVEL 139 MMOL/L (136-145)
[2022-09-30 07:52] VITALS: BP 117/57
[2022-09-30] MEDS ORDERED: DIAPER RELIEF PASTE (DESITIN) 60GM TOP PRN (08:00)
[2022-09-30] MEDS: FLUoxetine 20MG CAP PO SCH (08:34)
[2022-09-30] MEDS: PANTOPRAZOLE 40MG VIAL IV SCH ×2 (08:34→21:21)
[2022-09-30] MEDS: predniSONE 20 MG TAB PO SCH (08:34)
[2022-09-30] MEDS: GABAPENTIN 300 MG CAP PO SCH (08:35)
[2022-09-30] MEDS: PROPRANOLOL 60MG LA CAP PO SCH (08:35)
[2022-09-30 09:03] LABS: ATYPICAL LYMPH 1 % (0-5); EOSINOPHILS 2 % (0-3); LYMPHOCYTES 36 % (16-44); MONOCYTES 2 % (0-5); NEUTROPHILS 54 % (28-66); PLATELET ESTIMATE NORMAL (NORMAL)
[2022-09-30 09:04] LABS: ANISOCYTOSIS 1+
[2022-09-30 15:08] LABS: HEMATOCRIT 30.3 % (36.0-47.0); HEMOGLOBIN 9.9 g/dl (12.0-15.5)
[2022-09-30 16:21] VITALS: BP 124/67
[2022-09-30 18:28] LABS: HEMATOCRIT 30.2 % (36.0-47.0); HEMOGLOBIN 9.9 g/dl (12.0-15.5)
[2022-09-30 20:00] VITALS: BP 151/74
[2022-09-30] MEDS: traZODone 50 MG TAB PO SCH (21:21)
[2022-09-30] MEDS: methylPREDNISolone 40MG 1ML VIAL IV SCH (21:21)
[2022-10-01 00:50] LABS: HEMATOCRIT 26.4 % (36.0-47.0); HEMOGLOBIN 8.7 g/dl (12.0-15.5)
[2022-10-01 03:55] VITALS: BP 133/74
[2022-10-01 04:59] LABS: HEMATOCRIT 26.4 % (36.0-47.0); HEMOGLOBIN 8.7 g/dl (12.0-15.5); MEAN CORPUSCULAR HEMOGLOBIN 28.8 pg (27.0-33.0); MEAN CORPUSCULAR VOLUME 87.4 fl (80.0-96.0); PLATELET COUNT, AUTOMATED 290 10^3/uL (150-450); RED BLOOD COUNT 3.02 10^6/uL (4.00-5.40); WHITE BLOOD COUNT 4.7 10^3/uL (4.0-10.0)
[2022-10-01 05:16] LABS: MAGNESIUM LEVEL 1.8 MG/DL (1.8-2.4)
[2022-10-01 05:23] LABS: BLOOD UREA NITROGEN 10 MG/DL (9-23); CALCIUM LEVEL 8.1 MG/DL (8.5-10.1); CARBON DIOXIDE LEVEL 28 MMOL/L (20-31); CHLORIDE LEVEL 101 MMOL/L (98-107); GLOMERULAR FILTRATION RATE > 60.0 (>51); GLUCOSE, FASTING 198 MG/DL (60-100); POTASSIUM SERUM 4.7 MMOL/L (3.5-5.1); SODIUM LEVEL 136 MMOL/L (136-145)
[2022-10-01 05:27] LABS: ATYPICAL LYMPH 2 % (0-5); LYMPHOCYTES 42 % (16-44); MONOCYTES 12 % (0-5); MYELOCYTES 1 % (0-0); NEUTROPHILS 37 % (28-66)
[2022-10-01 05:28] LABS: PLATELET ESTIMATE NORMAL (NORMAL)
[2022-10-01 05:29] LABS: SMUDGE CELLS 1+
[2022-10-01] MEDS: LEVOTHYROXINE 50MCG TABLET (0.05MG) PO SCH (05:50)
[2022-10-01] MEDS: HEPARIN SOD (PORCINE) 5000UNITS/ML 1ML VIAL/SYRINGE SQ SCH ×3 (05:50→21:00)
[2022-10-01] MEDS: FLUoxetine 20MG CAP PO SCH (08:05)
[2022-10-01] MEDS: PROPRANOLOL 60MG LA CAP PO SCH (08:05)
[2022-10-01] MEDS: GABAPENTIN 300 MG CAP PO SCH (08:05)
[2022-10-01] MEDS: PANTOPRAZOLE 40MG VIAL IV SCH ×2 (08:07→21:00)
[2022-10-01] MEDS: methylPREDNISolone 40MG 1ML VIAL IV SCH ×2 (08:07→21:00)
[2022-10-01] MEDS ORDERED: ISOVUE-370 76% 100ML VIAL As Ordered ONE (08:15)
[2022-10-01 08:45] VITALS: BP 130/74
[2022-10-01] MEDS: ACETAMINOPHEN TAB 650MG DOSE (2X325MG) PO PRN ×2 (12:33→17:18)
[2022-10-01 14:25] LABS: HEMATOCRIT 28.6 % (36.0-47.0); HEMOGLOBIN 9.4 g/dl (12.0-15.5)
[2022-10-01 15:39] VITALS: BP 106/63
[2022-10-01 20:00] VITALS: BP 137/63
[2022-10-01] MEDS: traZODone 50 MG TAB PO SCH (21:00)
[2022-10-02 04:00] VITALS: BP 133/60
[2022-10-02 04:57] LABS: HEMATOCRIT 28.8 % (36.0-47.0); HEMOGLOBIN 9.5 g/dl (12.0-15.5); MEAN CORPUSCULAR HEMOGLOBIN 29.4 pg (27.0-33.0); MEAN CORPUSCULAR VOLUME 89.2 fl (80.0-96.0); PLATELET COUNT, AUTOMATED 341 10^3/uL (150-450); RED BLOOD COUNT 3.23 10^6/uL (4.00-5.40); WHITE BLOOD COUNT 5.4 10^3/uL (4.0-10.0)
[2022-10-02] MEDS: LEVOTHYROXINE 50MCG TABLET (0.05MG) PO SCH (04:58)
[2022-10-02] MEDS: HEPARIN SOD (PORCINE) 5000UNITS/ML 1ML VIAL/SYRINGE SQ SCH (04:59)
[2022-10-02 05:21] LABS: ANISOCYTOSIS 2+; ATYPICAL LYMPH 2 % (0-5); LYMPHOCYTES 31 % (16-44); METAMYELOCYTES 2 % (0-0); MONOCYTES 9 % (0-5); MYELOCYTES 1 % (0-0); NEUTROPHILS 55 % (28-66); PLATELET ESTIMATE NORMAL (NORMAL); POIKILOCYTOSIS 1+; POLYCHROMASIA 1+
[2022-10-02 05:23] LABS: BLOOD UREA NITROGEN 13 MG/DL (9-23); CALCIUM LEVEL 8.3 MG/DL (8.5-10.1); CARBON DIOXIDE LEVEL 24 MMOL/L (20-31); CHLORIDE LEVEL 100 MMOL/L (98-107); CREATININE FOR GFR 0.51 MG/DL (0.55-1.30); GLOMERULAR FILTRATION RATE > 60.0 (>51); GLUCOSE, FASTING 203 MG/DL (60-100); POTASSIUM SERUM 4.7 MMOL/L (3.5-5.1); SODIUM LEVEL 136 MMOL/L (136-145)
[2022-10-02 08:00] VITALS: BP 110/66
[2022-10-02] MEDS: PANTOPRAZOLE 40MG VIAL IV SCH (08:13)
[2022-10-02] MEDS: methylPREDNISolone 40MG 1ML VIAL IV SCH (08:13)
[2022-10-02] MEDS: FLUoxetine 20MG CAP PO SCH (08:13)
[2022-10-02] MEDS: GABAPENTIN 300 MG CAP PO SCH (08:13)
[2022-10-02 08:14] VITALS: BP 110/66
[2022-10-02] MEDS: PROPRANOLOL 60MG LA CAP PO SCH (08:14)
[2022-10-02] MEDS ORDERED: PRED20TA PO (10:19)
[2022-10-02] MEDS ORDERED: DESI13CR2 TOP (10:19)
[2022-10-02] MEDS ORDERED: PANT40TA29 PO (10:19)
[2022-10-02] MEDS ORDERED: ACET1TAB55 PO (10:19)
[2022-10-02] MEDS ORDERED: LIAL1.2T PO (10:22)
[2022-10-02] MEDS ORDERED: MESA800T8 PO (10:53)
== END 2022-10-02 13:45 | disposition home health service (06) | DRG 249 ==
LOC: M ED 18:27 → EDBD 18:27 → M ED INP 22:36 → M PCU 09-26 00:59
PROVIDERS: ADMIT Internal Medicine; ATTEND Internal Medicine
PROC: B246ZZZ Ultrasonography of Right and Left Heart (ICD-10-PCS; principal; 2022-09-26)
DX: K52.9 Noninfective gastroenteritis and colitis, unspecified (principal); I26.93 Single subsegmental thrombotic pulmonary embolism without acute cor pulmonale; G43.909 Migraine, unspecified, not intractable, without status migrainosus; E03.9 Hypothyroidism, unspecified; F32.A Depression, unspecified; E87.6 Hypokalemia; F41.9 Anxiety disorder, unspecified; K21.9 Gastro-esophageal reflux disease without esophagitis; Z20.822 Contact with and (suspected) exposure to COVID-19; Z79.890 Hormone replacement therapy; Z79.899 Other long term (current) drug therapy; Z88.8 Allergy status to other drugs, medicaments and biological substances; D62 Acute posthemorrhagic anemia

== ENCOUNTER 2022-10-07 09:19 | Inpatient (IN) | payer OTHER ==
[~2022-10-07 09:19] MED LIST changes: +ACET1TAB55 PO; +DESI13CR2 TOP; +LIAL1.2T PO; +MESA800T8 PO; +PANT-23 PO; +med rec comment
[2022-10-07] MEDS ORDERED: NS 3,000 ML in IV 1 EA IV ONE (10:00)
[2022-10-07] MEDS ORDERED: ONDANSETRON 4MG 2ML VIAL IV ONE (10:00)
[2022-10-07 11:14] LABS: BASO % 0.2 % (0.0-1.0); EOS # 0.1 10^3/uL (0.0-0.5); HEMATOCRIT 36.1 % (36.0-47.0); HEMOGLOBIN 11.4 g/dl (12.0-15.5); LYMPH # 2.2 10^3/uL (1.5-5.0); LYMPH % 25.1 % (24.0-44.0); MEAN CORPUSCULAR HEMOGLOBIN 28.4 pg (27.0-33.0); MEAN CORPUSCULAR HGB CONC 31.6 g/dl (32.0-36.5); MEAN CORPUSCULAR VOLUME 89.8 fl (80.0-96.0); MONO # 1.4 10^3/uL (0.0-0.8); MONO % 16.6 % (2.0-8.0); NEUTROPHILS # 4.8 10^3/uL (1.5-8.5); NEUTROPHILS % 56.2 % (36.0-66.0); PLATELET COUNT, AUTOMATED 324 10^3/uL (150-450); RED BLOOD COUNT 4.02 10^6/uL (4.00-5.40); WHITE BLOOD COUNT 8.6 10^3/uL (4.0-10.0)
[2022-10-07 11:43] LABS: RSV AMPLIFICATION NEGATIVE (NEGATIVE)
[2022-10-07 11:44] LABS: ETHYL ALCOHOL (ETHANOL) 0.003 % (0.000-0.010)
[2022-10-07 11:45] LABS: ACETAMINOPHEN LEVEL < 2.0 UG/ML (10.0-20.0); SALICYLATE LEVEL < 3.0 MG/DL (<30)
[2022-10-07 11:52] LABS: THYROID STIMULATING HORMONE 2.561 uIU/ML (0.55-4.78)
[2022-10-07 12:35] LABS: AMPHETAMINES LEVEL URINE NEGATIVE (NEGATIVE); BARBITURATES URINE NEGATIVE (NEGATIVE); BENZODIAZEPINES URINE NEGATIVE (NEGATIVE); CANNABINOIDS URINE NEGATIVE (NEGATIVE); COCAINE METABOLITE URINE NEGATIVE (NEGATIVE); PHENCYCLIDINE URINE NEGATIVE (NEGATIVE)
[2022-10-07 12:36] LABS: METHADONE URINE NEGATIVE (NEGATIVE); OPIATES URINE NEGATIVE (NEGATIVE)
[2022-10-07 12:48] LABS: LIPASE 49 U/L (12-53)
[2022-10-07 12:49] LABS: MAGNESIUM LEVEL 1.8 MG/DL (1.8-2.4)
[2022-10-07 12:50] LABS: BILIRUBIN,DIRECT 0.2 MG/DL (<0.4)
[2022-10-07 12:53] LABS: ALBUMIN 2.3 G/DL (3.2-5.2); ALKALINE PHOSPHATASE 60 U/L (46-116); ALT/SGPT 18 U/L (7.0-40); AST/SGOT 12 U/L (<34); BILIRUBIN,TOTAL 0.5 MG/DL (0.3-1.2); BLOOD UREA NITROGEN 13 MG/DL (9-23); CALCIUM LEVEL 8.2 MG/DL (8.5-10.1); CARBON DIOXIDE LEVEL 27 MMOL/L (20-31); CHLORIDE LEVEL 102 MMOL/L (98-107); CREATININE FOR GFR 0.62 MG/DL (0.55-1.30); GLOMERULAR FILTRATION RATE > 60.0 (>51); GLUCOSE, FASTING 161 MG/DL (60-100); POTASSIUM SERUM 3.7 MMOL/L (3.5-5.1); SODIUM LEVEL 138 MMOL/L (136-145); TOTAL PROTEIN 5.6 G/DL (5.7-8.2)
[2022-10-07] MEDS ORDERED: ISOVUE-370 76% 100ML VIAL As Ordered ONE (13:00)
[2022-10-07 15:05] LABS: INR 1.31; PROTHROMBIN TIME 16.5 SECONDS (12.5-14.5)
[2022-10-07 15:06] LABS: PARTIAL THROMBOPLASTIN TIME 23.6 SECONDS (24.8-34.2)
[2022-10-07] MEDS ORDERED: MESA400C2 PO (16:14)
[2022-10-07] MEDS ORDERED: PANT40TA29 PO (16:14)
[2022-10-07] MEDS ORDERED: PRED20TA PO (16:14)
[2022-10-07] MEDS ORDERED: HOME MED LIST COMPLETE! XX SCH (16:15)
[2022-10-07 16:27] LABS: ERYTHROCYTE SEDIMENTATION RATE 69 mm/hr (0-30)
[2022-10-07 19:00] VITALS: BP 128/79
[2022-10-07] MEDS: methylPREDNISolone 40MG 1ML VIAL IV SCH (19:26)
[2022-10-07 20:08] VITALS: BP 125/79
[2022-10-07] MEDS: DIAPER RELIEF PASTE (DESITIN) 60GM TOP SCH (20:10)
[2022-10-07] MEDS: MIRTAZAPINE 15 MG TAB PO SCH (20:10)
[2022-10-07] MEDS: PANTOPRAZOLE 40MG TAB (PROTONIX) PO SCH (20:10)
[2022-10-07] MEDS: MESALAMINE 400 MG CAPSULE DELAYED RELEASE (DELZICOL) PO SCH (20:10)
[2022-10-07] MEDS ORDERED: traZODone 50 MG TAB PO SCH (21:00)
[2022-10-08] MEDS: methylPREDNISolone 40MG 1ML VIAL IV SCH ×2 (06:08→18:29)
[2022-10-08] MEDS: LEVOTHYROXINE 50MCG TABLET (0.05MG) PO SCH (06:08)
[2022-10-08 06:44] LABS: HEMATOCRIT 33.4 % (36.0-47.0); HEMOGLOBIN 10.5 g/dl (12.0-15.5); MEAN CORPUSCULAR HEMOGLOBIN 28.2 pg (27.0-33.0); MEAN CORPUSCULAR HGB CONC 31.4 g/dl (32.0-36.5); MEAN CORPUSCULAR VOLUME 89.5 fl (80.0-96.0); PLATELET COUNT, AUTOMATED 250 10^3/uL (150-450); RED BLOOD COUNT 3.73 10^6/uL (4.00-5.40); WHITE BLOOD COUNT 6.9 10^3/uL (4.0-10.0)
[2022-10-08 07:03] LABS: BLOOD UREA NITROGEN 13 MG/DL (9-23); CALCIUM LEVEL 8.6 MG/DL (8.5-10.1); CARBON DIOXIDE LEVEL 24 MMOL/L (20-31); CHLORIDE LEVEL 103 MMOL/L (98-107); CREATININE FOR GFR 0.61 MG/DL (0.55-1.30); GLOMERULAR FILTRATION RATE > 60.0 (>51); GLUCOSE, FASTING 172 MG/DL (60-100); POTASSIUM SERUM 4.2 MMOL/L (3.5-5.1); SODIUM LEVEL 137 MMOL/L (136-145)
[2022-10-08 07:56] LABS: ERYTHROCYTE SEDIMENTATION RATE 61 mm/hr (0-30)
[2022-10-08] MEDS ORDERED: FLUoxetine 20MG CAP PO SCH (09:00)
[2022-10-08] MEDS: ENOXAPARIN 40MG/0.4ML SYRINGE (J1650 PER 10MG) SC SCH (10:01)
[2022-10-08] MEDS: VITAMIN D 1,000 INTERNATIONAL UNITS TABLET PO SCH (10:02)
[2022-10-08] MEDS: MESALAMINE 400 MG CAPSULE DELAYED RELEASE (DELZICOL) PO SCH ×3 (10:02→20:27)
[2022-10-08] MEDS: GABAPENTIN 300 MG CAP PO SCH (10:02)
[2022-10-08] MEDS: FLUoxetine 20MG CAP PO SCH (10:02)
[2022-10-08] MEDS: DIAPER RELIEF PASTE (DESITIN) 60GM TOP SCH ×2 (10:02→20:28)
[2022-10-08] MEDS: oxyBUTYnin *DITROPAN XL* 5 MG TABCR PO SCH (10:03)
[2022-10-08] MEDS: FERROUS GLUCONATE 324 MG TAB PO SCH (10:03)
[2022-10-08] MEDS: PROPRANOLOL 60MG LA CAP PO SCH (10:03)
[2022-10-08] MEDS: LORATADINE 10 MG TAB PO SCH (10:03)
[2022-10-08] MEDS: PANTOPRAZOLE 40MG TAB (PROTONIX) PO SCH ×2 (10:03→20:26)
[2022-10-08] MEDS ORDERED: ONDANSETRON 4MG 2ML VIAL IV PRN (10:15)
[2022-10-08 14:24] VITALS: BP 141/84
[2022-10-08 19:28] LABS: HEMATOCRIT 31.3 % (36.0-47.0); HEMOGLOBIN 9.8 g/dl (12.0-15.5); MEAN CORPUSCULAR HEMOGLOBIN 28.2 pg (27.0-33.0); MEAN CORPUSCULAR HGB CONC 31.3 g/dl (32.0-36.5); MEAN CORPUSCULAR VOLUME 89.9 fl (80.0-96.0); PLATELET COUNT, AUTOMATED 247 10^3/uL (150-450); RED BLOOD COUNT 3.48 10^6/uL (4.00-5.40); WHITE BLOOD COUNT 7.5 10^3/uL (4.0-10.0)
[2022-10-08] MEDS: ACETAMINOPHEN TAB 650MG DOSE (2X325MG) PO PRN (20:25)
[2022-10-08] MEDS: MIRTAZAPINE 15 MG TAB PO SCH (20:26)
[2022-10-08] MEDS: ALPRAZolam 0.5 MG TAB PO PRN (20:26)
[2022-10-08 21:35] VITALS: BP 123/75
[2022-10-09 06:00] VITALS: BP 124/73
[2022-10-09] MEDS: LEVOTHYROXINE 50MCG TABLET (0.05MG) PO SCH (06:11)
[2022-10-09] MEDS: methylPREDNISolone 40MG 1ML VIAL IV SCH (06:11)
[2022-10-09 06:45] LABS: HEMATOCRIT 30.2 % (36.0-47.0); HEMOGLOBIN 9.5 g/dl (12.0-15.5); MEAN CORPUSCULAR HEMOGLOBIN 28.2 pg (27.0-33.0); MEAN CORPUSCULAR HGB CONC 31.5 g/dl (32.0-36.5); MEAN CORPUSCULAR VOLUME 89.6 fl (80.0-96.0); PLATELET COUNT, AUTOMATED 233 10^3/uL (150-450); RED BLOOD COUNT 3.37 10^6/uL (4.00-5.40); WHITE BLOOD COUNT 5.8 10^3/uL (4.0-10.0)
[2022-10-09 07:00] LABS: MAGNESIUM LEVEL 1.9 MG/DL (1.8-2.4)
[2022-10-09 07:01] LABS: BLOOD UREA NITROGEN 18 MG/DL (9-23); CALCIUM LEVEL 8.3 MG/DL (8.5-10.1); CARBON DIOXIDE LEVEL 24 MMOL/L (20-31); CHLORIDE LEVEL 102 MMOL/L (98-107); CREATININE FOR GFR 0.63 MG/DL (0.55-1.30); GLOMERULAR FILTRATION RATE > 60.0 (>51); GLUCOSE, FASTING 167 MG/DL (60-100); POTASSIUM SERUM 4.3 MMOL/L (3.5-5.1); SODIUM LEVEL 137 MMOL/L (136-145)
[2022-10-09 08:50] LABS: HEMOGLOBIN A1c 5.5 % (4.0-6.0)
[2022-10-09] MEDS: ENOXAPARIN 40MG/0.4ML SYRINGE (J1650 PER 10MG) SC SCH (09:41)
[2022-10-09] MEDS: PROPRANOLOL 60MG LA CAP PO SCH (09:42)
[2022-10-09] MEDS: oxyBUTYnin *DITROPAN XL* 5 MG TABCR PO SCH (09:42)
[2022-10-09] MEDS: PANTOPRAZOLE 40MG TAB (PROTONIX) PO SCH ×2 (09:42→20:42)
[2022-10-09] MEDS: GABAPENTIN 300 MG CAP PO SCH (09:42)
[2022-10-09] MEDS: MESALAMINE 400 MG CAPSULE DELAYED RELEASE (DELZICOL) PO SCH ×3 (09:42→20:42)
[2022-10-09] MEDS: VITAMIN D 1,000 INTERNATIONAL UNITS TABLET PO SCH (09:42)
[2022-10-09] MEDS: FERROUS GLUCONATE 324 MG TAB PO SCH (09:42)
[2022-10-09] MEDS: FLUoxetine 20MG CAP PO SCH (09:42)
[2022-10-09] MEDS: LORATADINE 10 MG TAB PO SCH (09:43)
[2022-10-09] MEDS: DIAPER RELIEF PASTE (DESITIN) 60GM TOP SCH ×2 (09:43→20:43)
[2022-10-09 14:00] VITALS: BP 127/78
[2022-10-09] MEDS: ACETAMINOPHEN TAB 650MG DOSE (2X325MG) PO PRN (15:55)
[2022-10-09 19:00] VITALS: BP 124/73
[2022-10-09 20:00] VITALS: BP 128/75
[2022-10-09] MEDS: MIRTAZAPINE 15 MG TAB PO SCH (20:42)
[2022-10-09] MEDS: ALPRAZolam 0.5 MG TAB PO PRN (20:42)
[2022-10-10 06:00] VITALS: BP 106/66
[2022-10-10 06:34] LABS: HEMATOCRIT 28.2 % (36.0-47.0); MEAN CORPUSCULAR HEMOGLOBIN 28.8 pg (27.0-33.0); MEAN CORPUSCULAR HGB CONC 31.9 g/dl (32.0-36.5); MEAN CORPUSCULAR VOLUME 90.4 fl (80.0-96.0); PLATELET COUNT, AUTOMATED 206 10^3/uL (150-450); RED BLOOD COUNT 3.12 10^6/uL (4.00-5.40)
[2022-10-10] MEDS: LEVOTHYROXINE 50MCG TABLET (0.05MG) PO SCH (06:49)
[2022-10-10 07:05] LABS: MAGNESIUM LEVEL 1.8 MG/DL (1.8-2.4)
[2022-10-10 07:11] LABS: BLOOD UREA NITROGEN 19 MG/DL (9-23); CARBON DIOXIDE LEVEL 25 MMOL/L (20-31); CHLORIDE LEVEL 103 MMOL/L (98-107); CREATININE FOR GFR 0.58 MG/DL (0.55-1.30); GLOMERULAR FILTRATION RATE > 60.0 (>51); GLUCOSE, FASTING 84 MG/DL (60-100); POTASSIUM SERUM 3.7 MMOL/L (3.5-5.1); SODIUM LEVEL 139 MMOL/L (136-145)
[2022-10-10] MEDS: PROPRANOLOL 60MG LA CAP PO SCH (07:59)
[2022-10-10] MEDS: ENOXAPARIN 40MG/0.4ML SYRINGE (J1650 PER 10MG) SC SCH (07:59)
[2022-10-10] MEDS: MESALAMINE 400 MG CAPSULE DELAYED RELEASE (DELZICOL) PO SCH ×3 (08:00→20:26)
[2022-10-10] MEDS: GABAPENTIN 300 MG CAP PO SCH (08:00)
[2022-10-10] MEDS: VITAMIN D 1,000 INTERNATIONAL UNITS TABLET PO SCH (08:00)
[2022-10-10] MEDS: predniSONE 20 MG TAB PO SCH (08:00)
[2022-10-10] MEDS: PANTOPRAZOLE 40MG TAB (PROTONIX) PO SCH ×2 (08:00→20:26)
[2022-10-10] MEDS: LORATADINE 10 MG TAB PO SCH (08:01)
[2022-10-10] MEDS: FERROUS GLUCONATE 324 MG TAB PO SCH (08:01)
[2022-10-10] MEDS: FLUoxetine 20MG CAP PO SCH (08:01)
[2022-10-10] MEDS: oxyBUTYnin *DITROPAN XL* 5 MG TABCR PO SCH (08:01)
[2022-10-10] MEDS: DIAPER RELIEF PASTE (DESITIN) 60GM TOP SCH ×2 (08:02→20:27)
[2022-10-10 14:00] VITALS: BP 116/59
[2022-10-10 16:41] LABS: BLOOD UREA NITROGEN 20 MG/DL (9-23); CALCIUM LEVEL 7.9 MG/DL (8.5-10.1); CARBON DIOXIDE LEVEL 26 MMOL/L (20-31); CHLORIDE LEVEL 100 MMOL/L (98-107); CREATININE FOR GFR 0.59 MG/DL (0.55-1.30); GLOMERULAR FILTRATION RATE > 60.0 (>51); GLUCOSE, FASTING 291 MG/DL (60-100); POTASSIUM SERUM 4.4 MMOL/L (3.5-5.1); SODIUM LEVEL 133 MMOL/L (136-145)
[2022-10-10] MEDS: MIRTAZAPINE 15 MG TAB PO SCH (20:26)
[2022-10-10 22:00] VITALS: BP 115/62
[2022-10-11 06:00] VITALS: BP 113/61
[2022-10-11 06:00] LABS: HEMATOCRIT 28.3 % (36.0-47.0); HEMOGLOBIN 8.8 g/dl (12.0-15.5); MEAN CORPUSCULAR HEMOGLOBIN 28.2 pg (27.0-33.0); MEAN CORPUSCULAR HGB CONC 31.1 g/dl (32.0-36.5); MEAN CORPUSCULAR VOLUME 90.7 fl (80.0-96.0); PLATELET COUNT, AUTOMATED 196 10^3/uL (150-450); RED BLOOD COUNT 3.12 10^6/uL (4.00-5.40); WHITE BLOOD COUNT 5.8 10^3/uL (4.0-10.0)
[2022-10-11] MEDS: LEVOTHYROXINE 50MCG TABLET (0.05MG) PO SCH (06:15)
[2022-10-11 06:19] LABS: MAGNESIUM LEVEL 1.9 MG/DL (1.8-2.4)
[2022-10-11 06:21] LABS: BLOOD UREA NITROGEN 15 MG/DL (9-23); CARBON DIOXIDE LEVEL 27 MMOL/L (20-31); CHLORIDE LEVEL 102 MMOL/L (98-107); CREATININE FOR GFR 0.56 MG/DL (0.55-1.30); GLOMERULAR FILTRATION RATE > 60.0 (>51); GLUCOSE, FASTING 80 MG/DL (60-100); POTASSIUM SERUM 3.8 MMOL/L (3.5-5.1); SODIUM LEVEL 137 MMOL/L (136-145)
[2022-10-11] MEDS: FERROUS GLUCONATE 324 MG TAB PO SCH (08:15)
[2022-10-11] MEDS: PANTOPRAZOLE 40MG TAB (PROTONIX) PO SCH ×2 (08:15→19:38)
[2022-10-11] MEDS: ENOXAPARIN 40MG/0.4ML SYRINGE (J1650 PER 10MG) SC SCH (08:15)
[2022-10-11] MEDS: predniSONE 20 MG TAB PO SCH (08:15)
[2022-10-11] MEDS: LORATADINE 10 MG TAB PO SCH (08:15)
[2022-10-11] MEDS: oxyBUTYnin *DITROPAN XL* 5 MG TABCR PO SCH (08:15)
[2022-10-11] MEDS: GABAPENTIN 300 MG CAP PO SCH (08:15)
[2022-10-11] MEDS: DIAPER RELIEF PASTE (DESITIN) 60GM TOP SCH ×2 (08:15→19:38)
[2022-10-11] MEDS: MESALAMINE 400 MG CAPSULE DELAYED RELEASE (DELZICOL) PO SCH ×3 (08:16→19:38)
[2022-10-11] MEDS: VITAMIN D 1,000 INTERNATIONAL UNITS TABLET PO SCH (08:16)
[2022-10-11] MEDS: FLUoxetine 20MG CAP PO SCH (08:16)
[2022-10-11 09:12] LABS: IRON (FE) 11 UG/DL (50-170); TOTAL IRON BINDING CAPACITY 219 UG/DL (250-425)
[2022-10-11 09:15] LABS: FERRITIN 78.6 NG/ML (7.3-270.7)
[2022-10-11 10:11] LABS: ERYTHROCYTE SEDIMENTATION RATE 53 mm/hr (0-30)
[2022-10-11] MEDS: PROPRANOLOL 60MG LA CAP PO SCH (10:32)
[2022-10-11] MEDS ORDERED: FERRIC CARBOXYMALTOSE INJ 750 MG, VIAL MATE ADAPTER 1 EACH in NS 250 ML IV ONE (11:00)
[2022-10-11 13:47] VITALS: BP 112/70
[2022-10-11] MEDS: MIRTAZAPINE 15 MG TAB PO SCH (19:38)
[2022-10-11 22:00] VITALS: BP 130/65
[2022-10-12] MEDS: LEVOTHYROXINE 50MCG TABLET (0.05MG) PO SCH (05:40)
[2022-10-12 06:00] VITALS: BP 127/68
[2022-10-12 07:21] LABS: HEMATOCRIT 27.7 % (36.0-47.0); HEMOGLOBIN 8.7 g/dl (12.0-15.5); MEAN CORPUSCULAR HEMOGLOBIN 28.4 pg (27.0-33.0); MEAN CORPUSCULAR HGB CONC 31.4 g/dl (32.0-36.5); MEAN CORPUSCULAR VOLUME 90.5 fl (80.0-96.0); PLATELET COUNT, AUTOMATED 197 10^3/uL (150-450); RED BLOOD COUNT 3.06 10^6/uL (4.00-5.40); WHITE BLOOD COUNT 4.6 10^3/uL (4.0-10.0)
[2022-10-12 07:35] LABS: MAGNESIUM LEVEL 1.8 MG/DL (1.8-2.4)
[2022-10-12 07:37] LABS: BLOOD UREA NITROGEN 14 MG/DL (9-23); CARBON DIOXIDE LEVEL 23 MMOL/L (20-31); CHLORIDE LEVEL 106 MMOL/L (98-107); CREATININE FOR GFR 0.55 MG/DL (0.55-1.30); GLOMERULAR FILTRATION RATE > 60.0 (>51); GLUCOSE, FASTING 96 MG/DL (60-100); POTASSIUM SERUM 3.5 MMOL/L (3.5-5.1); SODIUM LEVEL 140 MMOL/L (136-145)
[2022-10-12] MEDS: ENOXAPARIN 40MG/0.4ML SYRINGE (J1650 PER 10MG) SC SCH (09:13)
[2022-10-12] MEDS: DIAPER RELIEF PASTE (DESITIN) 60GM TOP SCH (09:13)
[2022-10-12] MEDS: LORATADINE 10 MG TAB PO SCH (09:14)
[2022-10-12] MEDS: GABAPENTIN 300 MG CAP PO SCH (09:14)
[2022-10-12] MEDS: MESALAMINE 400 MG CAPSULE DELAYED RELEASE (DELZICOL) PO SCH (09:14)
[2022-10-12] MEDS: oxyBUTYnin *DITROPAN XL* 5 MG TABCR PO SCH (09:14)
[2022-10-12] MEDS: predniSONE 20 MG TAB PO SCH (09:14)
[2022-10-12] MEDS: FLUoxetine 20MG CAP PO SCH (09:14)
[2022-10-12] MEDS: VITAMIN D 1,000 INTERNATIONAL UNITS TABLET PO SCH (09:15)
[2022-10-12] MEDS: FERROUS GLUCONATE 324 MG TAB PO SCH (09:16)
[2022-10-12] MEDS: PANTOPRAZOLE 40MG TAB (PROTONIX) PO SCH (09:16)
[2022-10-12 09:17] VITALS: BP 121/67
[2022-10-12] MEDS: PROPRANOLOL 60MG LA CAP PO SCH (09:17)
[2022-10-12] MEDS ORDERED: FLUO20CA22 PO (09:38)
[2022-10-12] MEDS ORDERED: MIRT-10 PO (09:38)
[2022-10-12] MEDS ORDERED: PRED20TA PO ×2 (09:57→10:25)
== END 2022-10-12 12:11 | disposition home or self-care (01) | DRG 245 ==
LOC: EDBD 09:19 → M ED 09:19 → M ED INP 15:36 → ENRESERV 16:36 → M MSPAV 18:39
PROVIDERS: ADMIT Internal Medicine; ATTEND Internal Medicine
DX: K51.918 Ulcerative colitis, unspecified with other complication (principal); I26.99 Other pulmonary embolism without acute cor pulmonale; L89.311 Pressure ulcer of right buttock, stage 1; L89.321 Pressure ulcer of left buttock, stage 1; R45.851 Suicidal ideations; F33.1 Major depressive disorder, recurrent, moderate; E78.5 Hyperlipidemia, unspecified; E03.9 Hypothyroidism, unspecified; K21.9 Gastro-esophageal reflux disease without esophagitis; M54.59 Other low back pain; D64.9 Anemia, unspecified; Z91.14 Patient's other noncompliance with medication regimen; R62.7 Adult failure to thrive; Z88.8 Allergy status to other drugs, medicaments and biological substances; Z79.899 Other long term (current) drug therapy; G43.909 Migraine, unspecified, not intractable, without status migrainosus; Z98.41 Cataract extraction status, right eye; F41.9 Anxiety disorder, unspecified; Z79.52 Long term (current) use of systemic steroids

== ENCOUNTER → 2022-10-14 | Outpatient (CLI) | payer OTHER ==
[~2022-10-14] MED LIST changes: +MESA400C2 PO; +MIRT-10 PO
[2022-10-14 18:24] LABS: HEMATOCRIT 34.1 % (36.0-47.0); HEMOGLOBIN 10.8 g/dl (12.0-15.5); MEAN CORPUSCULAR HGB CONC 31.7 g/dl (32.0-36.5); MEAN CORPUSCULAR VOLUME 91.4 fl (80.0-96.0); PLATELET COUNT, AUTOMATED 255 10^3/uL (150-450); RED BLOOD COUNT 3.73 10^6/uL (4.00-5.40); WHITE BLOOD COUNT 6.7 10^3/uL (4.0-10.0)
[2022-10-14 18:57] LABS: THYROID STIMULATING HORMONE 4.541 uIU/ML (0.55-4.78)
== END ==
LOC: M PLALAB 15:57
PROVIDERS: ATTEND Nurse Practitioner Adult Health
DX: Z09 Encounter for follow-up examination after completed treatment for conditions other than malignant neoplasm (principal); K51.918 Ulcerative colitis, unspecified with other complication; D64.9 Anemia, unspecified; E03.9 Hypothyroidism, unspecified